=== PATIENT | female | born 1950 | race Caucasian/White ===

== ENCOUNTER 2025-04-12 13:36 | Outpatient (REF) | payer MEDICARE, SELFPAY ==
[2025-04-12 16:47] LABS: Folate 10.6 ng/mL (> or = 4.0); Vitamin B12 601 pg/mL (200-900)
[2025-04-18 03:57] LABS: ABETA 42/40 Ratio 0.177 (> OR = 0.170); Alzeheimer's Interpretation Low Likelihood; Tau protein phosphorylated 217 0.08 pg/mL (< OR = 0.15)
--- OUTSIDE RECORDS SUMMARY | 2025-05-07 19:00 | XMS_ITS | Clinical Summary ---
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 Lead Burner Name Role Phone MEGAN CHUN, MELO Unavailable Unavailable GERONIMO TRACEY, TIFFANY Unavailable Unavailable Payers Payer Name Policy Type Policy Number Effective Date Expira tion Date [employer] [id number] MEDICARE - [facility] [id number] Problems Condition Name Condition Details Condition Category Status Onset Date Resolution Date Last Treatment Date Treating Clinician Comments DELUSIONAL DISORDERS Active 07-08 00:00: 00 ESSENTIAL (PRIMARY) HYPERTENSION Active 07-23 00:00: 00 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 07-23 00:00: 00 Allergies, Adverse Reactions, Alerts Allergy Name Allergy Type Status Severity Reaction(s) Onset Date Inactive Date Treating Clinician Comments IODINATED CONTRAST MEDIA Propensity to adverse reactions Active 07-19 08:31: 55 SULFA MEDS Propensity to adverse reactions Active 07-18 06:18: 45 ENVIRONMENTA L ALLERGIES Propensity to adverse reactions Active 07-18 06:16: 50 CONTRAST MEDIA Propensity to adverse reactions Active 07-18 06:17: 31 ASPIRIN RELATED MEDICATIONS Propensity to adverse reactions Active 07-18 06:17: 13 Medications Ordered Medication Name Filled Medication Name Start Date Stop Date Current Medication? Ordering Clinician Indication Dosage Frequency Signature (SIG) Comments Components cholecalcif beverley (vitamin D3) 10 mcg (400 unit) tablet 07-13 00:00: 00 03-13 23:59 :00 No [id number] 1 tablet DAILY 1 tablet DAILY (route: oral) Med Classific ation: Electroly te Balance-N utritiona l Products cyanocobala min (vit B-12) 1,000 mcg tablet 07-13 00:00: 00 2025- 06-12 23:59 :00 No [id number] 1 tablet DAILY 1 tablet DAILY (route: oral) Med Classific ation: Electroly te Balance-N utritiona l Products diltiazem ER (XR/XT) 180 mg capsule,ext ended release 24 hr, controlled 2-19 00:00: 00 03-13 23:59 :00 No [id number] 1 capsule DAILY 1 capsule DAILY (route: oral) Med Classific ation: Cardiovas cular Therapy Agents docusate sodium 100 mg capsule - 00:00: 00 03-13 23:59 :00 No [id number] 1 capsule 2 TIMES DAILY 1 capsule 2 TIMES DAILY (route: oral) Med Classific ation: Gastroint estinal Therapy Agents lisinopril 40 mg tablet - 00:00: 00 03-13 23:59 :00 No [id number] 1 tablet EVERY AM 1 tablet EVERY AM (route: oral) Med Classific ation: Cardiovas cular Therapy Agents metoprolol tartrate 25 mg tablet - 00:00: 00 03-13 23:59 :00 No [id number] 1 tablet 2 TIMES DAILY 1 tablet 2 TIMES DAILY (route: oral) Med Classific ation: Cardiovas cular Therapy Agents multivitami n with minerals tablet 07-13 00:00: 00 03-13 23:59 :00 No [id number] 1 tablet DAILY 1 tablet DAILY (route: oral) Med Classific ation: Electroly te Balance-N utroscara l Products paliperidon e ER 9 mg tablet,exte nded release 24 hr - 00:00: 00 12-01 23:59 :00 No [id number] 1 tablet BEDTIME 1 tablet BEDTIME (route: oral) Med Classific ation: Central Nervous System Agents metoprolol tartrate 25 mg tablet 6-19 00:00: 00 11-17 23:59 :00 No [id number] 1 tablet BEDTIME 1 tablet BEDTIME (route: oral) Med Classific ation: Cardiovas cular Therapy Agents benztropine 1 mg tablet -15 00:00: 00 03-13 23:59 :00 No [id number] 1 tablet EVERY PM 1 tablet EVERY PM (route: oral) Med Classific ation: Central Nervous System Agents paliperidon e ER 6 mg tablet,exte nded release 24 hr 12-01 00:00: 00 03-13 23:59 :00 No [id number] 1 tablet EVERY PM 1 tablet EVERY PM (route: oral) Med Classific ation: Central Nervous System Agents trazodone 50 mg tablet 12-01 00:00: 00 03-13 23:59 :00 No [id number] 1 tablet BEDTIME 1 tablet BEDTIME (route: oral) Med Classific ation: Central Nervous System Agents polyethylen e glycol 3350 17 gram/dose oral powder 12-21 00:00: 00 03-13 23:59 :00 No [id number] Per instruc tions DAILY Per instructio ns DAILY (route: oral) Med Classific ation: Gastroint estinal Therapy Agents benztropine 1 mg tablet 2024-05 00:00: 00 Yes [id number] 1 tablet EVERY PM 1 tablet EVERY PM (route: oral) Med Classific ation: Central Nervous System Agents cholecalcif beverley (vitamin D3) 10 mcg (400 unit) tablet 2024-05 00:00: 00 Yes [id number] 1 tablet EVERY AM 1 tablet EVERY AM (route: oral) Med Classific ation: Electroly te Balance-N utritiona l Products diltiazem ER (XR/XT) 180 mg capsule,ext ended release 24 hr, controlled 2024-05 00:00: 00 Yes [id number] 1 capsule EVERY AM 1 capsule EVERY AM (route: oral) Med Classific ation: Cardiovas cular Therapy Agents docusate sodium 100 mg capsule 2024-05 00:00: 00 Yes [id number] 1 capsule 2 TIMES DAILY 1 capsule 2 TIMES DAILY (route: oral) Med Classific ation: Gastroint estinal Therapy Agents lisinopril 40 mg tablet 2024-05 00:00: 00 Yes [id number] 1 tablet EVERY AM 1 tablet EVERY AM (route: oral) Med Classific ation: Cardiovas cular Therapy Agents metoprolol tartrate 25 mg tablet 2024-05 00:00: 00 Yes [id number] 1 tablet 2 TIMES DAILY 1 tablet 2 TIMES DAILY (route: oral) Med Classific ation: Cardiovas cular Therapy Agents multivitami n with minerals tablet 2024-05 00:00: 00 Yes [id number] 1 tablet EVERY AM 1 tablet EVERY AM (route: oral) Med Classific ation: Electroly te Balance-N utritiona l Products paliperidon e ER 6 mg tablet,exte nded release 24 hr 2024-05 00:00: 00 Yes [id number] 1 tablet EVERY PM 1 tablet EVERY PM (route: oral) Med Classific ation: Central Nervous System Agents polyethylen e glycol 3350 17 gram/dose oral powder 2024-05 00:00: 00 Yes [id number] Per instruc tions NEEDED Per instructio ns NEEDED (route: oral) Med Classific ation: Gastroint estinal Therapy Agents trazodone 50 mg tablet 2024-05 00:00: 00 Yes [id number] 1 tablet BEDTIME 1 tablet BEDTIME (route: oral) Med Classific ation: Central Nervous System Agents Vital Signs Vital Name Observation Time Observation Value Commen ts Temperature 2025-04-10 11:50:00.000 98.2 [degF] Temperature 2025-03-31 11:53:00.000 97.9 [degF] Temperature 2025-03-27 12:00:00.000 97.8 [degF] Temperature 2025-03-17 11:55:00.000 97.9 [degF] Temperature 2025-03-15 12:42:00.000 97.9 [degF] Temperature 2025-03-10 10:55:00.000 98.2 [degF] Pulse 2025-04-10 11:50:00.000 61 /min Pulse 2025-04-07 11:23:00.000 61 /min Pulse 2025-04-05 12:42:00.000 58 /min Pulse 2025-03-31 11:53:00.000 65 /min Pulse 2025-03-29 12:30:00.000 64 /min Pulse 2025-03-27 12:00:00.000 64 /min Pulse 2025-03-22 11:39:00.000 56 /min Pulse 2025-03-20 12:31:00.000 60 /min Pulse 2025-03-17 11:55:00.000 59 /min Pulse 2025-03-13 13:22:00.000 60 /min O2 Saturation (%) 2025-03-20 12:31:00.000 96 % Respirations 2025-04-07 11:23:00.000 14 /min Respirations 2025-03-31 11:53:00.000 16 /min Respirations 2025-03-27 12:00:00.000 14 /min Respirations 2025-03-22 11:39:00.000 14 /min Respirations 2025-03-15 12:42:00.000 14 /min Respirations 2025-03-13 13:22:00.000 14 /min Respirations 2025-03-10 10:55:00.000 14 /min Systolic Blood Pressure 2025-04-10 11:50:00.000 135 mm [Hg] Systolic Blood Pressure 2025-04-07 11:23:00.000 155 mm [Hg] Systolic Blood Pressure 2025-04-05 12:42:00.000 125 mm [Hg] Systolic Blood Pressure 2025-03-31 11:53:00.000 84 mm[ Hg] Systolic Blood Pressure 2025-03-29 12:30:00.000 120 mm [Hg] Systolic Blood Pressure 2025-03-27 12:00:00.000 127 mm [Hg] Systolic Blood Pressure 2025-03-22 11:39:00.000 129 mm [Hg] Systolic Blood Pressure 2025-03-20 12:31:00.000 100 mm [Hg] Systolic Blood Pressure 2025-03-17 11:55:00.000 120 mm [Hg] Systolic Blood Pressure 2025-03-15 12:42:00.000 98 mm[ Hg] Systolic Blood Pressure 2025-03-13 13:22:00.000 105 mm [Hg] Systolic Blood Pressure 2025-03-10 10:58:00.000 126 mm [Hg] Diastolic Blood Pressure 2025-04-10 11:50:00.000 70 mm [Hg] Diastolic Blood Pressure 2025-04-07 11:23:00.000 79 mm [Hg] Diastolic Blood Pressure 2025-04-05 12:42:00.000 73 mm [Hg] Diastolic Blood Pressure 2025-03-31 11:53:00.000 52 mm [Hg] Diastolic Blood Pressure 2025-03-29 12:30:00.000 74 mm [Hg] Diastolic Blood Pressure 2025-03-27 12:00:00.000 72 mm [Hg] Diastolic Blood Pressure 2025-03-22 11:39:00.000 70 mm [Hg] Diastolic Blood Pressure 2025-03-20 12:31:00.000 61 mm [Hg] Diastolic Blood Pressure 2025-03-17 11:55:00.000 66 mm [Hg] Diastolic Blood Pressure 2025-03-15 12:42:00.000 59 mm [Hg] Diastolic Blood Pressure 2025-03-13 13:22:00.000 64 mm [Hg] Diastolic Blood Pressure 2025-03-10 10:58:00.000 72 mm [Hg] Plan of Treatment Planned Activity Planned Date Details Comments Future Scheduled Test SKILLED NU RSE TO EVALUATE PATIENT, IDENTIFY PRIMARY AND CO-MORBID CONDITIONS CODED PER CODING GUIDELINES, AND DEVELOP PATIENT SPECIFIC PLAN OF CARE THAT INCLUDES PATIENT GOAL FOR HOME HEALTH. [code = SKILLED NURSE TO EVALUATE PATIENT, IDENTIFY PRIMARY AND CO-MORBID CONDITIONS CODED PER CODING GUIDELINES, AND DEVELOP PATIENT SPECIFIC PLAN OF CARE THAT INCLUDES PATIENT GOAL FOR HOME HEALTH.] Future Scheduled Test SKILLED NU RSE TO PERFORM HOME SAFETY AND FALL ASSESSMENT AND PROVIDE INSTRUCTION TO IMPLEMENT HOME SAFETY AND FALL PREVENTION STRATEGIES. [code = SKILLED NURSE TO PERFORM HOME SAFETY AND FALL ASSESSMENT AND PROVIDE INSTRUCTION TO IMPLEMENT HOME SAFETY AND FALL PREVENTION STRATEGIES.] Future Scheduled Test SKILLED NU RSE TO O/A OF PATIENTS MENTAL/BEHAVIORAL STATUS, ASSESS VITAL SIGNS ALLOW 2 PRNS FOR MEDICATION MANAGEMENT. [code = SKILLED NURSE TO O/A OF PATIENTS MENTAL/BEHAVIORAL STATUS, ASSESS VITAL SIGNS ALLOW 2 PRNS FOR MEDICATION MANAGEMENT.] Future Scheduled Test SKILLED NU RSE WILL MAINTAIN SITUATIONAL AWARENESS FOR SAFETY AND WILL NOTIFY CLINICAL LEDGE MAN AND PHYSICIAN/PROVIDER WITH ANY CHANGE IN CONDITION. [code = SKILLED NURSE WILL MAINTAIN SITUATIONAL AWARENESS FOR SAFETY AND WILL NOTIFY CLINICAL LEDGE MAN AND PHYSICIAN/PROVIDER WITH ANY CHANGE IN CONDITION.] Future Scheduled Test SKILLED NU RSE FOR O/A OF GENERAL HEALTH STATUS OF PAIN, CARDIAC, RESPIRATORY, GASTROINTESTINAL, GENITOURINARY, SKIN, NEUROLOGIC, ENDOCRINE SYSTEMS TO IDENTIFY CHANGES ASSOCIATED WITH EXACERBATION FOR EARLY INTERVENTION OF COMPLICATIONS [code = SKILLED NURSE FOR O/A OF GENERAL HEALTH STATUS OF PAIN, CARDIAC, RESPIRATORY, GASTROINTESTINAL, GENITOURINARY, SKIN, NEUROLOGIC, ENDOCRINE SYSTEMS TO IDENTIFY CHANGES ASSOCIATED WITH EXACERBATION FOR EARLY INTERVENTION OF COMPLICATIONS] Future Scheduled Test SKILLED NU RSE TO REVIEW PATIENT MEDICATIONS. INSTRUCT PATIENT/CAREGIVER ON MONITORING OF EFFECTIVENESS, ADVERSE DRUG REACTIONS, SIDE EFFECTS OF ALL MEDICATIONS (PRESCRIPTION/-OTC), AND HOW AND WHEN TO REPORT PROBLEMS. [code = SKILLED NURSE TO REVIEW PATIENT MEDICATIONS. INSTRUCT PATIENT/CAREGIVER ON MONITORING OF EFFECTIVENESS, ADVERSE DRUG REACTIONS, SIDE EFFECTS OF ALL MEDICATIONS (PRESCRIPTION/-OTC), AND HOW AND WHEN TO REPORT PROBLEMS.] Future Scheduled Test SKILLED NU RSE FOR O/A OF ALTERED THOUGHT PROCESS AND/OR DISRUPTION IN COGNITIVE OPERATIONS AND ACTIVITIES [code = SKILLED NURSE FOR O/A OF ALTERED THOUGHT PROCESS AND/OR DISRUPTION IN COGNITIVE OPERATIONS AND ACTIVITIES] Future Scheduled Test SKILLED NU RSE TO PROVIDE TEACHING ON SIGNS AND SYMPTOMS AND MANAGEMENT OF HYPERTENSION. [code = SKILLED NURSE TO PROVIDE TEACHING ON SIGNS AND SYMPTOMS AND MANAGEMENT OF HYPERTENSION.] Goal 2024-09-07 Patient Goal - MEDICATION MA NAGEMENT Goal 2024-11-07 Patient Goal - MEDICATION MA NAGEMENT Goal 2025-01-04 Patient Goal - M EDICATION MANAGEMENT INSOMNIA, SLEEP HYGEINE MEDICATION COMPLIANCE, STRU CTURED DAILY LIVING Goal 2025-03-06 Patient Goal - M EDICATION MANAGEMENT, IMPROVED SLEEP PATTERN MEDICATION COMPLIANCE STRUCTURED DAILY LIVING Goal Patient Goal - M EDICATION MANAGEMENT, IMPROVED SLEEP PATTERN MEDICATION COMPLIANCE STRUCTURED DAILY LIVING Goal Provider Goal - A PLAN OF CARE WILL BE ESTABLISHED THAT MEETS PATIENT'S SENIOR CARE NEEDS AND INCLUDES PATIENT GOAL FOR HOME HEALTH. Goal Provider Goal - PATIENT/CAREGIVER WILL VERBALIZE/DEMONSTRATE EFFECTIVE HOME SAFETY AND FALL PREVENTION STRATEGIES THROUGHOUT CERTIFICATION PERIOD. Goal Provider Goal - ALTERED MENTAL/BEHAVIORAL STATUS WILL BE IDENTIFIED PROMPTLY AND INTERVENTION INITIATED QUICKLY TO MINIMIZE ASSOCIATED RISKS THROUGHOUT CERTIFICATION PERIOD. Goal Provider Goal - PATIENT WILL REMAIN SAFE IN THE COMMUNITY AND WILL BE FREE OF DANGER TO SELF AND OTHERS THROUGHOUT THE CERTIFICATION PERIOD. Goal Provider Goal - CHANGE IN GENERAL HEALTH STATUS WILL BE IDENTIFIED AND REPORTED TO PHYSICIAN FOR PROMPT INTERVENTION TO MINIMIZE ASSOCIATED RISKS THROUGHOUT CERTIFICATION PERIOD. Goal Provider Goal - PATIENT/CAREGIVER WILL VERBALIZE UNDERSTANDING OF EDUCATION PROVIDED ON MEDICATIONS BY THE END OF THE CERTIFICATION PERIOD. Goal Provider Goal - PATIENT WILL BE ABLE TO PERFORM DAILY FUNCTIONS AND HAVE OPTIMAL IMPROVEMENT IN THOUGHT PROCESS THROUGHOUT CERTIFICATION PERIOD. Goal Provider Goal - PATIENT/CAREGIVER WILL VERBALIZE SIGNS AND SYMPTOMS OF HYPERTENSION AND WILL BE ABLE TO DEMONSTRATE ABILITY TO MANAGE EXACERBATION BY END OF THE EPISODE. Progress Notes Progress Notes <paragraph>[Visit Date: 2024 by TIFFANY MELTON RN]:</paragraph><paragraph>04/10/25 MOOD DEPRESSED, IRRITABLE. INTERMITTENT EYE CONTACT. SOME MUMBLING. DELUSIONAL THOUGHT CONT[employer] ARE HURTING OTHER PEOPLE . PT CONTINUES TO HAVE INTERRUPTED SLEEP. PATTERN. PROVIDERS AWARE. DENIES SI. PT HAS NEUROLOGY APPT ON THURSDAY,</paragraph> Encounters Start Date/Time End Date/Time Encounter Type Admission Type Attending Clinicians Care Facility Care Department Encounter ID Discharge Date Discharge Status Discharge Condition Discharge Reason Percent Goals Met 2025-03-10 00:00:00 2025-05-08 00:00:00 Outpatient RECERTIFIC ATION TIFFANY MELTON [facility] [id number] 29.41
--- OUTSIDE RECORDS SUMMARY | 2025-05-07 19:00 | XMS_ITS | Clinical Summary ---
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 Lithoplate Maker Name Role Phone MEGAN CHUN, MELO Unavailable Unavailable GERONIMO TRACEY, TIFFANY Unavailable Unavailable Payers Payer Name Policy Type Policy Number Effective Date Expira tion Date [employer] ADVANTAGE [id number] MEDICARE - [facility] [id number] Problems Condition Name Condition Details Condition Category [...] 07-13 00:00: 00 03-13 23:59 :00 No [id number] 1 tablet DAILY 1 tablet DAILY (route: oral) Med Classific ation: Electroly te Balance-N utritiona l Products cyanocobala min (vit B-12) 1,000 mcg tablet 07-13 00:00: 00 2025- 06-12 23:59 :00 No [id number] 1 tablet DAILY 1 tablet DAILY (route: oral) Med Classific ation: Electroly te Balance-N utritiona l Products diltiazem ER (XR/XT) 180 mg capsule,ext ended release 24 hr, controlled 2-19 00:00: 00 03-13 23:59 :00 No [id number] 1 capsule DAILY 1 capsule DAILY (route: oral) Med Classific ation: Cardiovas cular Therapy Agents docusate sodium 100 mg capsule - 00:00: 00 03-13 23:59 :00 No [id number] 1 capsule 2 TIMES DAILY 1 capsule 2 TIMES DAILY (route: oral) Med Classific ation: Gastroint estinal Therapy Agents lisinopril 40 mg tablet - 00:00: 00 03-13 23:59 :00 No [id number] 1 tablet EVERY AM 1 tablet EVERY AM (route: oral) Med Classific ation: Cardiovas cular Therapy Agents metoprolol tartrate 25 mg tablet - 00:00: 00 03-13 23:59 :00 No [id number] 1 tablet 2 TIMES DAILY 1 tablet 2 TIMES DAILY (route: oral) Med Classific ation: Cardiovas cular Therapy Agents multivitami n with minerals tablet 07-13 00:00: 00 03-13 23:59 :00 No [id number] 1 tablet DAILY 1 tablet DAILY (route: oral) Med Classific ation: Electroly te Balance-N utroscara l Products paliperidon e ER 9 mg tablet,exte nded release 24 hr - 00:00: 00 12-01 23:59 :00 No [id number] 1 tablet BEDTIME 1 tablet BEDTIME (route: oral) Med Classific ation: Central Nervous System Agents metoprolol tartrate 25 mg tablet 6-19 00:00: 00 11-17 23:59 :00 No [id number] 1 tablet BEDTIME 1 tablet BEDTIME (route: oral) Med Classific ation: Cardiovas cular Therapy Agents benztropine 1 mg tablet -15 00:00: 00 03-13 23:59 :00 No [id number] 1 tablet EVERY PM 1 tablet EVERY PM (route: oral) Med Classific ation: Central Nervous System Agents paliperidon e ER 6 mg tablet,exte nded release 24 hr 12-01 00:00: 00 03-13 23:59 :00 No [id number] 1 tablet EVERY PM 1 tablet EVERY PM (route: oral) Med Classific ation: Central Nervous System Agents trazodone 50 mg tablet 12-01 00:00: 00 03-13 23:59 :00 No [id number] 1 tablet BEDTIME 1 tablet BEDTIME (route: oral) Med Classific ation: Central Nervous System Agents polyethylen e glycol 3350 17 gram/dose oral powder 12-21 00:00: 00 03-13 23:59 :00 No [id number] Per instruc tions DAILY Per instructio ns DAILY (route: oral) Med Classific ation: Gastroint estinal Therapy Agents benztropine 1 mg tablet 2024-05 00:00: 00 Yes [id number] 1 tablet EVERY PM 1 tablet EVERY PM (route: oral) Med Classific ation: Central Nervous System Agents cholecalcif beverley (vitamin D3) 10 mcg (400 unit) tablet 2024-05 00:00: 00 Yes [id number] 1 tablet EVERY AM 1 tablet EVERY AM (route: oral) Med Classific ation: Electroly te Balance-N utritiona l Products diltiazem ER (XR/XT) 180 mg capsule,ext ended release 24 hr, controlled 2024-05 00:00: 00 Yes [id number] 1 capsule EVERY AM 1 capsule EVERY AM (route: oral) Med Classific ation: Cardiovas cular Therapy Agents docusate sodium 100 mg capsule 2024-05 00:00: 00 Yes [id number] 1 capsule 2 TIMES DAILY 1 capsule 2 TIMES DAILY (route: oral) Med Classific ation: Gastroint estinal Therapy Agents lisinopril 40 mg tablet 2024-05 00:00: 00 Yes [id number] 1 tablet EVERY AM 1 tablet EVERY AM (route: oral) Med Classific ation: Cardiovas cular Therapy Agents metoprolol tartrate 25 mg tablet 2024-05 00:00: 00 Yes [id number] 1 tablet 2 TIMES DAILY 1 tablet 2 TIMES DAILY (route: oral) Med Classific ation: Cardiovas cular Therapy Agents multivitami n with minerals tablet 2024-05 00:00: 00 Yes [id number] 1 tablet EVERY AM 1 tablet EVERY AM (route: oral) Med Classific ation: Electroly te Balance-N utritiona l Products paliperidon e ER 6 mg tablet,exte nded release 24 hr 2024-05 00:00: 00 Yes [id number] 1 tablet EVERY PM 1 tablet EVERY PM (route: oral) Med Classific ation: Central Nervous System Agents polyethylen e glycol 3350 17 gram/dose oral powder 2024-05 00:00: 00 Yes [id number] Per instruc tions NEEDED Per instructio ns NEEDED (route: oral) Med Classific ation: Gastroint estinal Therapy Agents trazodone 50 mg tablet 2024-05 00:00: 00 Yes [id number] 1 tablet BEDTIME 1 tablet BEDTIME (route: [...] AWARENESS FOR SAFETY AND WILL NOTIFY CLINICAL DIRECTOR ACUTE AND PHYSICIAN/PROVIDER WITH ANY CHANGE IN CONDITION. [code = SKILLED NURSE WILL MAINTAIN SITUATIONAL AWARENESS FOR SAFETY AND WILL NOTIFY CLINICAL DIRECTOR ACUTE AND PHYSICIAN/PROVIDER WITH ANY CHANGE IN CONDITION.] [...] CARE WILL BE ESTABLISHED THAT MEETS PATIENT'S FDC NEEDS AND INCLUDES PATIENT GOAL FOR HOME [...] 2025-05-08 00:00:00 Outpatient RECERTIFIC ATION TIFFANY MELTON [facility] [id number] 29.41
--- OUTSIDE RECORDS SUMMARY | 2025-05-07 19:00 | XMS_ITS | Clinical Summary ---
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 Telecommunications Sales Representative Name Role Phone MEGAN CHUN, MELO Unavailable Unavailable GERONIMO TRACEY, TIFFANY Unavailable Unavailable Payers Payer Name Policy Type Policy Number Effective Date Expira tion Date [employer] [id number] MEDICARE - [facility] [id number] Problems Condition Name Condition Details Condition Category [...] 07-13 00:00: 00 03-13 23:59 :00 No [id number] 1 tablet DAILY 1 tablet DAILY (route: oral) Med Classific ation: Electroly te Balance-N utritiona l Products cyanocobala min (vit B-12) 1,000 mcg tablet 07-13 00:00: 00 2025- 06-12 23:59 :00 No [id number] 1 tablet DAILY 1 tablet DAILY (route: oral) Med Classific ation: Electroly te Balance-N utritiona l Products diltiazem ER (XR/XT) 180 mg capsule,ext ended release 24 hr, controlled 2-19 00:00: 00 03-13 23:59 :00 No [id number] 1 capsule DAILY 1 capsule DAILY (route: oral) Med Classific ation: Cardiovas cular Therapy Agents docusate sodium 100 mg capsule - 00:00: 00 03-13 23:59 :00 No [id number] 1 capsule 2 TIMES DAILY 1 capsule 2 TIMES DAILY (route: oral) Med Classific ation: Gastroint estinal Therapy Agents lisinopril 40 mg tablet - 00:00: 00 03-13 23:59 :00 No [id number] 1 tablet EVERY AM 1 tablet EVERY AM (route: oral) Med Classific ation: Cardiovas cular Therapy Agents metoprolol tartrate 25 mg tablet - 00:00: 00 03-13 23:59 :00 No [id number] 1 tablet 2 TIMES DAILY 1 tablet 2 TIMES DAILY (route: oral) Med Classific ation: Cardiovas cular Therapy Agents multivitami n with minerals tablet 07-13 00:00: 00 03-13 23:59 :00 No [id number] 1 tablet DAILY 1 tablet DAILY (route: oral) Med Classific ation: Electroly te Balance-N utroscara l Products paliperidon e ER 9 mg tablet,exte nded release 24 hr - 00:00: 00 12-01 23:59 :00 No [id number] 1 tablet BEDTIME 1 tablet BEDTIME (route: oral) Med Classific ation: Central Nervous System Agents metoprolol tartrate 25 mg tablet 6-19 00:00: 00 11-17 23:59 :00 No [id number] 1 tablet BEDTIME 1 tablet BEDTIME (route: oral) Med Classific ation: Cardiovas cular Therapy Agents benztropine 1 mg tablet -15 00:00: 00 03-13 23:59 :00 No [id number] 1 tablet EVERY PM 1 tablet EVERY PM (route: oral) Med Classific ation: Central Nervous System Agents paliperidon e ER 6 mg tablet,exte nded release 24 hr 12-01 00:00: 00 03-13 23:59 :00 No [id number] 1 tablet EVERY PM 1 tablet EVERY PM (route: oral) Med Classific ation: Central Nervous System Agents trazodone 50 mg tablet 12-01 00:00: 00 03-13 23:59 :00 No [id number] 1 tablet BEDTIME 1 tablet BEDTIME (route: oral) Med Classific ation: Central Nervous System Agents polyethylen e glycol 3350 17 gram/dose oral powder 12-21 00:00: 00 03-13 23:59 :00 No [id number] Per instruc tions DAILY Per instructio ns DAILY (route: oral) Med Classific ation: Gastroint estinal Therapy Agents benztropine 1 mg tablet 2024-05 00:00: 00 Yes [id number] 1 tablet EVERY PM 1 tablet EVERY PM (route: oral) Med Classific ation: Central Nervous System Agents cholecalcif beverley (vitamin D3) 10 mcg (400 unit) tablet 2024-05 00:00: 00 Yes [id number] 1 tablet EVERY AM 1 tablet EVERY AM (route: oral) Med Classific ation: Electroly te Balance-N utritiona l Products diltiazem ER (XR/XT) 180 mg capsule,ext ended release 24 hr, controlled 2024-05 00:00: 00 Yes [id number] 1 capsule EVERY AM 1 capsule EVERY AM (route: oral) Med Classific ation: Cardiovas cular Therapy Agents docusate sodium 100 mg capsule 2024-05 00:00: 00 Yes [id number] 1 capsule 2 TIMES DAILY 1 capsule 2 TIMES DAILY (route: oral) Med Classific ation: Gastroint estinal Therapy Agents lisinopril 40 mg tablet 2024-05 00:00: 00 Yes [id number] 1 tablet EVERY AM 1 tablet EVERY AM (route: oral) Med Classific ation: Cardiovas cular Therapy Agents metoprolol tartrate 25 mg tablet 2024-05 00:00: 00 Yes [id number] 1 tablet 2 TIMES DAILY 1 tablet 2 TIMES DAILY (route: oral) Med Classific ation: Cardiovas cular Therapy Agents multivitami n with minerals tablet 2024-05 00:00: 00 Yes [id number] 1 tablet EVERY AM 1 tablet EVERY AM (route: oral) Med Classific ation: Electroly te Balance-N utritiona l Products paliperidon e ER 6 mg tablet,exte nded release 24 hr 2024-05 00:00: 00 Yes [id number] 1 tablet EVERY PM 1 tablet EVERY PM (route: oral) Med Classific ation: Central Nervous System Agents polyethylen e glycol 3350 17 gram/dose oral powder 2024-05 00:00: 00 Yes [id number] Per instruc tions NEEDED Per instructio ns NEEDED (route: oral) Med Classific ation: Gastroint estinal Therapy Agents trazodone 50 mg tablet 2024-05 00:00: 00 Yes [id number] 1 tablet BEDTIME 1 tablet BEDTIME (route: [...] AWARENESS FOR SAFETY AND WILL NOTIFY CLINICAL BARBER STYLIST AND PHYSICIAN/PROVIDER WITH ANY CHANGE IN CONDITION. [code = SKILLED NURSE WILL MAINTAIN SITUATIONAL AWARENESS FOR SAFETY AND WILL NOTIFY CLINICAL BARBER STYLIST AND PHYSICIAN/PROVIDER WITH ANY CHANGE IN CONDITION.] [...] CARE WILL BE ESTABLISHED THAT MEETS PATIENT'S CUSTODIAL NEEDS AND INCLUDES PATIENT GOAL FOR HOME [...] Outpatient RECERTIFIC ATION TIFFANY MELTON [facility] [id number] 29.41
--- OUTSIDE RECORDS SUMMARY | 2025-05-07 19:00 | XMS_ITS | Clinical Summary ---
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 Director Of Compensation Name Role Phone MEGAN CHUN, MELO Unavailable Unavailable GERONIMO TRACEY, TIFFANY Unavailable Unavailable Payers Payer Name Policy Type Policy Number Effective Date Expira tion Date [employer] [id number] MEDICARE - [facility] [id number] Problems Condition Name Condition Details Condition Category [...] 07-13 00:00: 00 03-13 23:59 :00 No [id number] 1 tablet DAILY 1 tablet DAILY (route: oral) Med Classific ation: Electroly te Balance-N utritiona l Products cyanocobala min (vit B-12) 1,000 mcg tablet 07-13 00:00: 00 2025- 06-12 23:59 :00 No [id number] 1 tablet DAILY 1 tablet DAILY (route: oral) Med Classific ation: Electroly te Balance-N utritiona l Products diltiazem ER (XR/XT) 180 mg capsule,ext ended release 24 hr, controlled 2-19 00:00: 00 03-13 23:59 :00 No [id number] 1 capsule DAILY 1 capsule DAILY (route: oral) Med Classific ation: Cardiovas cular Therapy Agents docusate sodium 100 mg capsule - 00:00: 00 03-13 23:59 :00 No [id number] 1 capsule 2 TIMES DAILY 1 capsule 2 TIMES DAILY (route: oral) Med Classific ation: Gastroint estinal Therapy Agents lisinopril 40 mg tablet - 00:00: 00 03-13 23:59 :00 No [id number] 1 tablet EVERY AM 1 tablet EVERY AM (route: oral) Med Classific ation: Cardiovas cular Therapy Agents metoprolol tartrate 25 mg tablet - 00:00: 00 03-13 23:59 :00 No [id number] 1 tablet 2 TIMES DAILY 1 tablet 2 TIMES DAILY (route: oral) Med Classific ation: Cardiovas cular Therapy Agents multivitami n with minerals tablet 07-13 00:00: 00 03-13 23:59 :00 No [id number] 1 tablet DAILY 1 tablet DAILY (route: oral) Med Classific ation: Electroly te Balance-N utroscara l Products paliperidon e ER 9 mg tablet,exte nded release 24 hr - 00:00: 00 12-01 23:59 :00 No [id number] 1 tablet BEDTIME 1 tablet BEDTIME (route: oral) Med Classific ation: Central Nervous System Agents metoprolol tartrate 25 mg tablet 6-19 00:00: 00 11-17 23:59 :00 No [id number] 1 tablet BEDTIME 1 tablet BEDTIME (route: oral) Med Classific ation: Cardiovas cular Therapy Agents benztropine 1 mg tablet -15 00:00: 00 03-13 23:59 :00 No [id number] 1 tablet EVERY PM 1 tablet EVERY PM (route: oral) Med Classific ation: Central Nervous System Agents paliperidon e ER 6 mg tablet,exte nded release 24 hr 12-01 00:00: 00 03-13 23:59 :00 No [id number] 1 tablet EVERY PM 1 tablet EVERY PM (route: oral) Med Classific ation: Central Nervous System Agents trazodone 50 mg tablet 12-01 00:00: 00 03-13 23:59 :00 No [id number] 1 tablet BEDTIME 1 tablet BEDTIME (route: oral) Med Classific ation: Central Nervous System Agents polyethylen e glycol 3350 17 gram/dose oral powder 12-21 00:00: 00 03-13 23:59 :00 No [id number] Per instruc tions DAILY Per instructio ns DAILY (route: oral) Med Classific ation: Gastroint estinal Therapy Agents benztropine 1 mg tablet 2024-05 00:00: 00 Yes [id number] 1 tablet EVERY PM 1 tablet EVERY PM (route: oral) Med Classific ation: Central Nervous System Agents cholecalcif beverley (vitamin D3) 10 mcg (400 unit) tablet 2024-05 00:00: 00 Yes [id number] 1 tablet EVERY AM 1 tablet EVERY AM (route: oral) Med Classific ation: Electroly te Balance-N utritiona l Products diltiazem ER (XR/XT) 180 mg capsule,ext ended release 24 hr, controlled 2024-05 00:00: 00 Yes [id number] 1 capsule EVERY AM 1 capsule EVERY AM (route: oral) Med Classific ation: Cardiovas cular Therapy Agents docusate sodium 100 mg capsule 2024-05 00:00: 00 Yes [id number] 1 capsule 2 TIMES DAILY 1 capsule 2 TIMES DAILY (route: oral) Med Classific ation: Gastroint estinal Therapy Agents lisinopril 40 mg tablet 2024-05 00:00: 00 Yes [id number] 1 tablet EVERY AM 1 tablet EVERY AM (route: oral) Med Classific ation: Cardiovas cular Therapy Agents metoprolol tartrate 25 mg tablet 2024-05 00:00: 00 Yes [id number] 1 tablet 2 TIMES DAILY 1 tablet 2 TIMES DAILY (route: oral) Med Classific ation: Cardiovas cular Therapy Agents multivitami n with minerals tablet 2024-05 00:00: 00 Yes [id number] 1 tablet EVERY AM 1 tablet EVERY AM (route: oral) Med Classific ation: Electroly te Balance-N utritiona l Products paliperidon e ER 6 mg tablet,exte nded release 24 hr 2024-05 00:00: 00 Yes [id number] 1 tablet EVERY PM 1 tablet EVERY PM (route: oral) Med Classific ation: Central Nervous System Agents polyethylen e glycol 3350 17 gram/dose oral powder 2024-05 00:00: 00 Yes [id number] Per instruc tions NEEDED Per instructio ns NEEDED (route: oral) Med Classific ation: Gastroint estinal Therapy Agents trazodone 50 mg tablet 2024-05 00:00: 00 Yes [id number] 1 tablet BEDTIME 1 tablet BEDTIME (route: [...] AWARENESS FOR SAFETY AND WILL NOTIFY CLINICAL GRAPHIC DESIGN INTERN AND PHYSICIAN/PROVIDER WITH ANY CHANGE IN CONDITION. [code = SKILLED NURSE WILL MAINTAIN SITUATIONAL AWARENESS FOR SAFETY AND WILL NOTIFY CLINICAL GRAPHIC DESIGN INTERN AND PHYSICIAN/PROVIDER WITH ANY CHANGE IN CONDITION.] [...] WILL BE ESTABLISHED THAT MEETS PATIENT'S SENIOR LIVING NEEDS AND INCLUDES PATIENT GOAL FOR HOME [...] ATION TIFFANY MELTON [facility] [id number] 29.41
--- OUTSIDE RECORDS SUMMARY | 2025-05-07 19:00 | XMS_ITS | Clinical Summary ---
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 Bindery Operator Name Role Phone MEGAN CHUN, MELO Unavailable Unavailable GERONIMO TRACEY, TIFFANY Unavailable Unavailable Payers Payer Name Policy Type Policy Number Effective Date Expira tion Date [employer] [id number] MEDICARE - [facility] [id number] Problems Condition Name Condition Details Condition Category [...] 07-13 00:00: 00 03-13 23:59 :00 No [id number] 1 tablet DAILY 1 tablet DAILY (route: oral) Med Classific ation: Electroly te Balance-N utritiona l Products cyanocobala min (vit B-12) 1,000 mcg tablet 07-13 00:00: 00 2025- 06-12 23:59 :00 No [id number] 1 tablet DAILY 1 tablet DAILY (route: oral) Med Classific ation: Electroly te Balance-N utritiona l Products diltiazem ER (XR/XT) 180 mg capsule,ext ended release 24 hr, controlled 2-19 00:00: 00 03-13 23:59 :00 No [id number] 1 capsule DAILY 1 capsule DAILY (route: oral) Med Classific ation: Cardiovas cular Therapy Agents docusate sodium 100 mg capsule - 00:00: 00 03-13 23:59 :00 No [id number] 1 capsule 2 TIMES DAILY 1 capsule 2 TIMES DAILY (route: oral) Med Classific ation: Gastroint estinal Therapy Agents lisinopril 40 mg tablet - 00:00: 00 03-13 23:59 :00 No [id number] 1 tablet EVERY AM 1 tablet EVERY AM (route: oral) Med Classific ation: Cardiovas cular Therapy Agents metoprolol tartrate 25 mg tablet - 00:00: 00 03-13 23:59 :00 No [id number] 1 tablet 2 TIMES DAILY 1 tablet 2 TIMES DAILY (route: oral) Med Classific ation: Cardiovas cular Therapy Agents multivitami n with minerals tablet 07-13 00:00: 00 03-13 23:59 :00 No [id number] 1 tablet DAILY 1 tablet DAILY (route: oral) Med Classific ation: Electroly te Balance-N utroscara l Products paliperidon e ER 9 mg tablet,exte nded release 24 hr - 00:00: 00 12-01 23:59 :00 No [id number] 1 tablet BEDTIME 1 tablet BEDTIME (route: oral) Med Classific ation: Central Nervous System Agents metoprolol tartrate 25 mg tablet 6-19 00:00: 00 11-17 23:59 :00 No [id number] 1 tablet BEDTIME 1 tablet BEDTIME (route: oral) Med Classific ation: Cardiovas cular Therapy Agents benztropine 1 mg tablet -15 00:00: 00 03-13 23:59 :00 No [id number] 1 tablet EVERY PM 1 tablet EVERY PM (route: oral) Med Classific ation: Central Nervous System Agents paliperidon e ER 6 mg tablet,exte nded release 24 hr 12-01 00:00: 00 03-13 23:59 :00 No [id number] 1 tablet EVERY PM 1 tablet EVERY PM (route: oral) Med Classific ation: Central Nervous System Agents trazodone 50 mg tablet 12-01 00:00: 00 03-13 23:59 :00 No [id number] 1 tablet BEDTIME 1 tablet BEDTIME (route: oral) Med Classific ation: Central Nervous System Agents polyethylen e glycol 3350 17 gram/dose oral powder 12-21 00:00: 00 03-13 23:59 :00 No [id number] Per instruc tions DAILY Per instructio ns DAILY (route: oral) Med Classific ation: Gastroint estinal Therapy Agents benztropine 1 mg tablet 2024-05 00:00: 00 Yes [id number] 1 tablet EVERY PM 1 tablet EVERY PM (route: oral) Med Classific ation: Central Nervous System Agents cholecalcif beverley (vitamin D3) 10 mcg (400 unit) tablet 2024-05 00:00: 00 Yes [id number] 1 tablet EVERY AM 1 tablet EVERY AM (route: oral) Med Classific ation: Electroly te Balance-N utritiona l Products diltiazem ER (XR/XT) 180 mg capsule,ext ended release 24 hr, controlled 2024-05 00:00: 00 Yes [id number] 1 capsule EVERY AM 1 capsule EVERY AM (route: oral) Med Classific ation: Cardiovas cular Therapy Agents docusate sodium 100 mg capsule 2024-05 00:00: 00 Yes [id number] 1 capsule 2 TIMES DAILY 1 capsule 2 TIMES DAILY (route: oral) Med Classific ation: Gastroint estinal Therapy Agents lisinopril 40 mg tablet 2024-05 00:00: 00 Yes [id number] 1 tablet EVERY AM 1 tablet EVERY AM (route: oral) Med Classific ation: Cardiovas cular Therapy Agents metoprolol tartrate 25 mg tablet 2024-05 00:00: 00 Yes [id number] 1 tablet 2 TIMES DAILY 1 tablet 2 TIMES DAILY (route: oral) Med Classific ation: Cardiovas cular Therapy Agents multivitami n with minerals tablet 2024-05 00:00: 00 Yes [id number] 1 tablet EVERY AM 1 tablet EVERY AM (route: oral) Med Classific ation: Electroly te Balance-N utritiona l Products paliperidon e ER 6 mg tablet,exte nded release 24 hr 2024-05 00:00: 00 Yes [id number] 1 tablet EVERY PM 1 tablet EVERY PM (route: oral) Med Classific ation: Central Nervous System Agents polyethylen e glycol 3350 17 gram/dose oral powder 2024-05 00:00: 00 Yes [id number] Per instruc tions NEEDED Per instructio ns NEEDED (route: oral) Med Classific ation: Gastroint estinal Therapy Agents trazodone 50 mg tablet 2024-05 00:00: 00 Yes [id number] 1 tablet BEDTIME 1 tablet BEDTIME (route: [...] AWARENESS FOR SAFETY AND WILL NOTIFY CLINICAL ADOBE FLEX DEVELOPER AND PHYSICIAN/PROVIDER WITH ANY CHANGE IN CONDITION. [code = SKILLED NURSE WILL MAINTAIN SITUATIONAL AWARENESS FOR SAFETY AND WILL NOTIFY CLINICAL ADOBE FLEX DEVELOPER AND PHYSICIAN/PROVIDER WITH ANY CHANGE IN CONDITION.] [...] CARE WILL BE ESTABLISHED THAT MEETS PATIENT'S FPC NEEDS AND INCLUDES PATIENT GOAL FOR HOME [...] 2025-05-08 00:00:00 Outpatient RECERTIFIC ATION TIFFANY MELTON [facility] [id number] 29.41
--- OUTSIDE RECORDS SUMMARY | 2025-05-07 19:00 | XMS_ITS | Clinical Summary ---
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 Rail Flaw Detector Operator Name Role Phone MEGAN CHUN, MELO Unavailable Unavailable GERONIMO TRACEY, TIFFANY Unavailable Unavailable Payers Payer Name Policy Type Policy Number Effective Date Expira tion Date [employer] MED[employer] ADV[employer]AGE [id number] MEDICARE - [facility] [id number] Problems Condition Name Condition Details Condition Category [...] 07-13 00:00: 00 03-13 23:59 :00 No [id number] 1 tablet DAILY 1 tablet DAILY (route: oral) Med Classific ation: Electroly te Balance-N utritiona l Products cyanocobala min (vit B-12) 1,000 mcg tablet 07-13 00:00: 00 2025- 06-12 23:59 :00 No [id number] 1 tablet DAILY 1 tablet DAILY (route: oral) Med Classific ation: Electroly te Balance-N utritiona l Products diltiazem ER (XR/XT) 180 mg capsule,ext ended release 24 hr, controlled 2-19 00:00: 00 03-13 23:59 :00 No [id number] 1 capsule DAILY 1 capsule DAILY (route: oral) Med Classific ation: Cardiovas cular Therapy Agents docusate sodium 100 mg capsule - 00:00: 00 03-13 23:59 :00 No [id number] 1 capsule 2 TIMES DAILY 1 capsule 2 TIMES DAILY (route: oral) Med Classific ation: Gastroint estinal Therapy Agents lisinopril 40 mg tablet - 00:00: 00 03-13 23:59 :00 No [id number] 1 tablet EVERY AM 1 tablet EVERY AM (route: oral) Med Classific ation: Cardiovas cular Therapy Agents metoprolol tartrate 25 mg tablet - 00:00: 00 03-13 23:59 :00 No [id number] 1 tablet 2 TIMES DAILY 1 tablet 2 TIMES DAILY (route: oral) Med Classific ation: Cardiovas cular Therapy Agents multivitami n with minerals tablet 07-13 00:00: 00 03-13 23:59 :00 No [id number] 1 tablet DAILY 1 tablet DAILY (route: oral) Med Classific ation: Electroly te Balance-N utroscraa l Products paliperidon e ER 9 mg tablet,exte nded release 24 hr - 00:00: 00 12-01 23:59 :00 No [id number] 1 tablet BEDTIME 1 tablet BEDTIME (route: oral) Med Classific ation: Central Nervous System Agents metoprolol tartrate 25 mg tablet 6-19 00:00: 00 11-17 23:59 :00 No [id number] 1 tablet BEDTIME 1 tablet BEDTIME (route: oral) Med Classific ation: Cardiovas cular Therapy Agents benztropine 1 mg tablet -15 00:00: 00 03-13 23:59 :00 No [id number] 1 tablet EVERY PM 1 tablet EVERY PM (route: oral) Med Classific ation: Central Nervous System Agents paliperidon e ER 6 mg tablet,exte nded release 24 hr 12-01 00:00: 00 03-13 23:59 :00 No [id number] 1 tablet EVERY PM 1 tablet EVERY PM (route: oral) Med Classific ation: Central Nervous System Agents trazodone 50 mg tablet 12-01 00:00: 00 03-13 23:59 :00 No [id number] 1 tablet BEDTIME 1 tablet BEDTIME (route: oral) Med Classific ation: Central Nervous System Agents polyethylen e glycol 3350 17 gram/dose oral powder 12-21 00:00: 00 03-13 23:59 :00 No [id number] Per instruc tions DAILY Per instructio ns DAILY (route: oral) Med Classific ation: Gastroint estinal Therapy Agents benztropine 1 mg tablet 2024-05 00:00: 00 Yes [id number] 1 tablet EVERY PM 1 tablet EVERY PM (route: oral) Med Classific ation: Central Nervous System Agents cholecalcif beverley (vitamin D3) 10 mcg (400 unit) tablet 2024-05 00:00: 00 Yes [id number] 1 tablet EVERY AM 1 tablet EVERY AM (route: oral) Med Classific ation: Electroly te Balance-N utritiona l Products diltiazem ER (XR/XT) 180 mg capsule,ext ended release 24 hr, controlled 2024-05 00:00: 00 Yes [id number] 1 capsule EVERY AM 1 capsule EVERY AM (route: oral) Med Classific ation: Cardiovas cular Therapy Agents docusate sodium 100 mg capsule 2024-05 00:00: 00 Yes [id number] 1 capsule 2 TIMES DAILY 1 capsule 2 TIMES DAILY (route: oral) Med Classific ation: Gastroint estinal Therapy Agents lisinopril 40 mg tablet 2024-05 00:00: 00 Yes [id number] 1 tablet EVERY AM 1 tablet EVERY AM (route: oral) Med Classific ation: Cardiovas cular Therapy Agents metoprolol tartrate 25 mg tablet 2024-05 00:00: 00 Yes [id number] 1 tablet 2 TIMES DAILY 1 tablet 2 TIMES DAILY (route: oral) Med Classific ation: Cardiovas cular Therapy Agents multivitami n with minerals tablet 2024-05 00:00: 00 Yes [id number] 1 tablet EVERY AM 1 tablet EVERY AM (route: oral) Med Classific ation: Electroly te Balance-N utritiona l Products paliperidon e ER 6 mg tablet,exte nded release 24 hr 2024-05 00:00: 00 Yes [id number] 1 tablet EVERY PM 1 tablet EVERY PM (route: oral) Med Classific ation: Central Nervous System Agents polyethylen e glycol 3350 17 gram/dose oral powder 2024-05 00:00: 00 Yes [id number] Per instruc tions NEEDED Per instructio ns NEEDED (route: oral) Med Classific ation: Gastroint estinal Therapy Agents trazodone 50 mg tablet 2024-05 00:00: 00 Yes [id number] 1 tablet BEDTIME 1 tablet BEDTIME (route: [...] AWARENESS FOR SAFETY AND WILL NOTIFY CLINICAL DEAN OF ADMISSIONS AND PHYSICIAN/PROVIDER WITH ANY CHANGE IN CONDITION. [code = SKILLED NURSE WILL MAINTAIN SITUATIONAL AWARENESS FOR SAFETY AND WILL NOTIFY CLINICAL DEAN OF ADMISSIONS AND PHYSICIAN/PROVIDER WITH ANY CHANGE IN CONDITION.] [...] CARE WILL BE ESTABLISHED THAT MEETS PATIENT'S JAIL NEEDS AND INCLUDES PATIENT GOAL FOR HOME [...] 2025-05-08 00:00:00 Outpatient RECERTIFIC ATION TIFFANY MELTON [facility] [id number] 29.41
--- OUTSIDE RECORDS SUMMARY | 2025-05-07 19:00 | XMS_ITS | Clinical Summary ---
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 Reporter Name Role Phone MEGAN CHUN, MELO Unavailable Unavailable GERONIMO TRACEY, TIFFANY Unavailable Unavailable Payers Payer Name Policy Type Policy Number Effective Date Expira tion Date [employer] [id number] MEDICARE - [facility] [id number] Problems Condition Name Condition Details Condition Category [...] 07-13 00:00: 00 03-13 23:59 :00 No [id number] 1 tablet DAILY 1 tablet DAILY (route: oral) Med Classific ation: Electroly te Balance-N utritiona l Products cyanocobala min (vit B-12) 1,000 mcg tablet 07-13 00:00: 00 2025- 06-12 23:59 :00 No [id number] 1 tablet DAILY 1 tablet DAILY (route: oral) Med Classific ation: Electroly te Balance-N utritiona l Products diltiazem ER (XR/XT) 180 mg capsule,ext ended release 24 hr, controlled 2-19 00:00: 00 03-13 23:59 :00 No [id number] 1 capsule DAILY 1 capsule DAILY (route: oral) Med Classific ation: Cardiovas cular Therapy Agents docusate sodium 100 mg capsule - 00:00: 00 03-13 23:59 :00 No [id number] 1 capsule 2 TIMES DAILY 1 capsule 2 TIMES DAILY (route: oral) Med Classific ation: Gastroint estinal Therapy Agents lisinopril 40 mg tablet - 00:00: 00 03-13 23:59 :00 No [id number] 1 tablet EVERY AM 1 tablet EVERY AM (route: oral) Med Classific ation: Cardiovas cular Therapy Agents metoprolol tartrate 25 mg tablet - 00:00: 00 03-13 23:59 :00 No [id number] 1 tablet 2 TIMES DAILY 1 tablet 2 TIMES DAILY (route: oral) Med Classific ation: Cardiovas cular Therapy Agents multivitami n with minerals tablet 07-13 00:00: 00 03-13 23:59 :00 No [id number] 1 tablet DAILY 1 tablet DAILY (route: oral) Med Classific ation: Electroly te Balance-N utroscara l Products paliperidon e ER 9 mg tablet,exte nded release 24 hr - 00:00: 00 12-01 23:59 :00 No [id number] 1 tablet BEDTIME 1 tablet BEDTIME (route: oral) Med Classific ation: Central Nervous System Agents metoprolol tartrate 25 mg tablet 6-19 00:00: 00 11-17 23:59 :00 No [id number] 1 tablet BEDTIME 1 tablet BEDTIME (route: oral) Med Classific ation: Cardiovas cular Therapy Agents benztropine 1 mg tablet -15 00:00: 00 03-13 23:59 :00 No [id number] 1 tablet EVERY PM 1 tablet EVERY PM (route: oral) Med Classific ation: Central Nervous System Agents paliperidon e ER 6 mg tablet,exte nded release 24 hr 12-01 00:00: 00 03-13 23:59 :00 No [id number] 1 tablet EVERY PM 1 tablet EVERY PM (route: oral) Med Classific ation: Central Nervous System Agents trazodone 50 mg tablet 12-01 00:00: 00 03-13 23:59 :00 No [id number] 1 tablet BEDTIME 1 tablet BEDTIME (route: oral) Med Classific ation: Central Nervous System Agents polyethylen e glycol 3350 17 gram/dose oral powder 12-21 00:00: 00 03-13 23:59 :00 No [id number] Per instruc tions DAILY Per instructio ns DAILY (route: oral) Med Classific ation: Gastroint estinal Therapy Agents benztropine 1 mg tablet 2024-05 00:00: 00 Yes [id number] 1 tablet EVERY PM 1 tablet EVERY PM (route: oral) Med Classific ation: Central Nervous System Agents cholecalcif beverley (vitamin D3) 10 mcg (400 unit) tablet 2024-05 00:00: 00 Yes [id number] 1 tablet EVERY AM 1 tablet EVERY AM (route: oral) Med Classific ation: Electroly te Balance-N utritiona l Products diltiazem ER (XR/XT) 180 mg capsule,ext ended release 24 hr, controlled 2024-05 00:00: 00 Yes [id number] 1 capsule EVERY AM 1 capsule EVERY AM (route: oral) Med Classific ation: Cardiovas cular Therapy Agents docusate sodium 100 mg capsule 2024-05 00:00: 00 Yes [id number] 1 capsule 2 TIMES DAILY 1 capsule 2 TIMES DAILY (route: oral) Med Classific ation: Gastroint estinal Therapy Agents lisinopril 40 mg tablet 2024-05 00:00: 00 Yes [id number] 1 tablet EVERY AM 1 tablet EVERY AM (route: oral) Med Classific ation: Cardiovas cular Therapy Agents metoprolol tartrate 25 mg tablet 2024-05 00:00: 00 Yes [id number] 1 tablet 2 TIMES DAILY 1 tablet 2 TIMES DAILY (route: oral) Med Classific ation: Cardiovas cular Therapy Agents multivitami n with minerals tablet 2024-05 00:00: 00 Yes [id number] 1 tablet EVERY AM 1 tablet EVERY AM (route: oral) Med Classific ation: Electroly te Balance-N utritiona l Products paliperidon e ER 6 mg tablet,exte nded release 24 hr 2024-05 00:00: 00 Yes [id number] 1 tablet EVERY PM 1 tablet EVERY PM (route: oral) Med Classific ation: Central Nervous System Agents polyethylen e glycol 3350 17 gram/dose oral powder 2024-05 00:00: 00 Yes [id number] Per instruc tions NEEDED Per instructio ns NEEDED (route: oral) Med Classific ation: Gastroint estinal Therapy Agents trazodone 50 mg tablet 2024-05 00:00: 00 Yes [id number] 1 tablet BEDTIME 1 tablet BEDTIME (route: [...] AWARENESS FOR SAFETY AND WILL NOTIFY CLINICAL AUTOMATIC LUMP MAKING MACHINE TENDER AND PHYSICIAN/PROVIDER WITH ANY CHANGE IN CONDITION. [code = SKILLED NURSE WILL MAINTAIN SITUATIONAL AWARENESS FOR SAFETY AND WILL NOTIFY CLINICAL AUTOMATIC LUMP MAKING MACHINE TENDER AND PHYSICIAN/PROVIDER WITH ANY CHANGE IN CONDITION.] [...] CARE WILL BE ESTABLISHED THAT MEETS PATIENT'S [facility] NEEDS AND INCLUDES PATIENT GOAL FOR HOME [...] 2025-05-08 00:00:00 Outpatient RECERTIFIC ATION TIFFANY MELTON [facility] [id number] 29.41
--- OUTSIDE RECORDS SUMMARY | 2025-05-07 19:00 | XMS_ITS | Clinical Summary ---
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 Preparator Name Role Phone MEGAN CHUN, MELO Unavailable Unavailable GERONIMO TRACEY, TIFFANY Unavailable Unavailable Payers Payer Name Policy Type Policy Number Effective Date Expira tion Date [employer]AGE [id number] MEDICARE - [facility] [id number] Problems Condition Name Condition Details Condition Category [...] 07-13 00:00: 00 03-13 23:59 :00 No [id number] 1 tablet DAILY 1 tablet DAILY (route: oral) Med Classific ation: Electroly te Balance-N utritiona l Products cyanocobala min (vit B-12) 1,000 mcg tablet 07-13 00:00: 00 2025- 06-12 23:59 :00 No [id number] 1 tablet DAILY 1 tablet DAILY (route: oral) Med Classific ation: Electroly te Balance-N utritiona l Products diltiazem ER (XR/XT) 180 mg capsule,ext ended release 24 hr, controlled 2-19 00:00: 00 03-13 23:59 :00 No [id number] 1 capsule DAILY 1 capsule DAILY (route: oral) Med Classific ation: Cardiovas cular Therapy Agents docusate sodium 100 mg capsule - 00:00: 00 03-13 23:59 :00 No [id number] 1 capsule 2 TIMES DAILY 1 capsule 2 TIMES DAILY (route: oral) Med Classific ation: Gastroint estinal Therapy Agents lisinopril 40 mg tablet - 00:00: 00 03-13 23:59 :00 No [id number] 1 tablet EVERY AM 1 tablet EVERY AM (route: oral) Med Classific ation: Cardiovas cular Therapy Agents metoprolol tartrate 25 mg tablet - 00:00: 00 03-13 23:59 :00 No [id number] 1 tablet 2 TIMES DAILY 1 tablet 2 TIMES DAILY (route: oral) Med Classific ation: Cardiovas cular Therapy Agents multivitami n with minerals tablet 07-13 00:00: 00 03-13 23:59 :00 No [id number] 1 tablet DAILY 1 tablet DAILY (route: oral) Med Classific ation: Electroly te Balance-N utroscara l Products paliperidon e ER 9 mg tablet,exte nded release 24 hr - 00:00: 00 12-01 23:59 :00 No [id number] 1 tablet BEDTIME 1 tablet BEDTIME (route: oral) Med Classific ation: Central Nervous System Agents metoprolol tartrate 25 mg tablet 6-19 00:00: 00 11-17 23:59 :00 No [id number] 1 tablet BEDTIME 1 tablet BEDTIME (route: oral) Med Classific ation: Cardiovas cular Therapy Agents benztropine 1 mg tablet -15 00:00: 00 03-13 23:59 :00 No [id number] 1 tablet EVERY PM 1 tablet EVERY PM (route: oral) Med Classific ation: Central Nervous System Agents paliperidon e ER 6 mg tablet,exte nded release 24 hr 12-01 00:00: 00 03-13 23:59 :00 No [id number] 1 tablet EVERY PM 1 tablet EVERY PM (route: oral) Med Classific ation: Central Nervous System Agents trazodone 50 mg tablet 12-01 00:00: 00 03-13 23:59 :00 No [id number] 1 tablet BEDTIME 1 tablet BEDTIME (route: oral) Med Classific ation: Central Nervous System Agents polyethylen e glycol 3350 17 gram/dose oral powder 12-21 00:00: 00 03-13 23:59 :00 No [id number] Per instruc tions DAILY Per instructio ns DAILY (route: oral) Med Classific ation: Gastroint estinal Therapy Agents benztropine 1 mg tablet 2024-05 00:00: 00 Yes [id number] 1 tablet EVERY PM 1 tablet EVERY PM (route: oral) Med Classific ation: Central Nervous System Agents cholecalcif beverley (vitamin D3) 10 mcg (400 unit) tablet 2024-05 00:00: 00 Yes [id number] 1 tablet EVERY AM 1 tablet EVERY AM (route: oral) Med Classific ation: Electroly te Balance-N utritiona l Products diltiazem ER (XR/XT) 180 mg capsule,ext ended release 24 hr, controlled 2024-05 00:00: 00 Yes [id number] 1 capsule EVERY AM 1 capsule EVERY AM (route: oral) Med Classific ation: Cardiovas cular Therapy Agents docusate sodium 100 mg capsule 2024-05 00:00: 00 Yes [id number] 1 capsule 2 TIMES DAILY 1 capsule 2 TIMES DAILY (route: oral) Med Classific ation: Gastroint estinal Therapy Agents lisinopril 40 mg tablet 2024-05 00:00: 00 Yes [id number] 1 tablet EVERY AM 1 tablet EVERY AM (route: oral) Med Classific ation: Cardiovas cular Therapy Agents metoprolol tartrate 25 mg tablet 2024-05 00:00: 00 Yes [id number] 1 tablet 2 TIMES DAILY 1 tablet 2 TIMES DAILY (route: oral) Med Classific ation: Cardiovas cular Therapy Agents multivitami n with minerals tablet 2024-05 00:00: 00 Yes [id number] 1 tablet EVERY AM 1 tablet EVERY AM (route: oral) Med Classific ation: Electroly te Balance-N utritiona l Products paliperidon e ER 6 mg tablet,exte nded release 24 hr 2024-05 00:00: 00 Yes [id number] 1 tablet EVERY PM 1 tablet EVERY PM (route: oral) Med Classific ation: Central Nervous System Agents polyethylen e glycol 3350 17 gram/dose oral powder 2024-05 00:00: 00 Yes [id number] Per instruc tions NEEDED Per instructio ns NEEDED (route: oral) Med Classific ation: Gastroint estinal Therapy Agents trazodone 50 mg tablet 2024-05 00:00: 00 Yes [id number] 1 tablet BEDTIME 1 tablet BEDTIME (route: [...] AWARENESS FOR SAFETY AND WILL NOTIFY CLINICAL FISH STRINGER ASSEMBLER AND PHYSICIAN/PROVIDER WITH ANY CHANGE IN CONDITION. [code = SKILLED NURSE WILL MAINTAIN SITUATIONAL AWARENESS FOR SAFETY AND WILL NOTIFY CLINICAL FISH STRINGER ASSEMBLER AND PHYSICIAN/PROVIDER WITH ANY CHANGE IN CONDITION.] [...] CARE WILL BE ESTABLISHED THAT MEETS PATIENT'S HALFWAY NEEDS AND INCLUDES PATIENT GOAL FOR HOME [...] Outpatient RECERTIFIC ATION TIFFANY MELTON [facility] [id number] 29.41
--- OUTSIDE RECORDS SUMMARY | 2025-05-07 19:00 | XMS_ITS | Clinical Summary ---
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 Tower Dragline Operator Name Role Phone MEGAN CHUN, MELO Unavailable Unavailable GERONIMO TRACEY, TIFFANY Unavailable Unavailable Payers Payer Name Policy Type Policy Number Effective Date Expira tion Date [employer] MED[employer] [id number] MEDICARE - [facility] [id number] Problems Condition Name Condition Details Condition Category [...] 07-13 00:00: 00 03-13 23:59 :00 No [id number] 1 tablet DAILY 1 tablet DAILY (route: oral) Med Classific ation: Electroly te Balance-N utritiona l Products cyanocobala min (vit B-12) 1,000 mcg tablet 07-13 00:00: 00 2025- 06-12 23:59 :00 No [id number] 1 tablet DAILY 1 tablet DAILY (route: oral) Med Classific ation: Electroly te Balance-N utritiona l Products diltiazem ER (XR/XT) 180 mg capsule,ext ended release 24 hr, controlled 2-19 00:00: 00 03-13 23:59 :00 No [id number] 1 capsule DAILY 1 capsule DAILY (route: oral) Med Classific ation: Cardiovas cular Therapy Agents docusate sodium 100 mg capsule - 00:00: 00 03-13 23:59 :00 No [id number] 1 capsule 2 TIMES DAILY 1 capsule 2 TIMES DAILY (route: oral) Med Classific ation: Gastroint estinal Therapy Agents lisinopril 40 mg tablet - 00:00: 00 03-13 23:59 :00 No [id number] 1 tablet EVERY AM 1 tablet EVERY AM (route: oral) Med Classific ation: Cardiovas cular Therapy Agents metoprolol tartrate 25 mg tablet - 00:00: 00 03-13 23:59 :00 No [id number] 1 tablet 2 TIMES DAILY 1 tablet 2 TIMES DAILY (route: oral) Med Classific ation: Cardiovas cular Therapy Agents multivitami n with minerals tablet 07-13 00:00: 00 03-13 23:59 :00 No [id number] 1 tablet DAILY 1 tablet DAILY (route: oral) Med Classific ation: Electroly te Balance-N utroscara l Products paliperidon e ER 9 mg tablet,exte nded release 24 hr - 00:00: 00 12-01 23:59 :00 No [id number] 1 tablet BEDTIME 1 tablet BEDTIME (route: oral) Med Classific ation: Central Nervous System Agents metoprolol tartrate 25 mg tablet 6-19 00:00: 00 11-17 23:59 :00 No [id number] 1 tablet BEDTIME 1 tablet BEDTIME (route: oral) Med Classific ation: Cardiovas cular Therapy Agents benztropine 1 mg tablet -15 00:00: 00 03-13 23:59 :00 No [id number] 1 tablet EVERY PM 1 tablet EVERY PM (route: oral) Med Classific ation: Central Nervous System Agents paliperidon e ER 6 mg tablet,exte nded release 24 hr 12-01 00:00: 00 03-13 23:59 :00 No [id number] 1 tablet EVERY PM 1 tablet EVERY PM (route: oral) Med Classific ation: Central Nervous System Agents trazodone 50 mg tablet 12-01 00:00: 00 03-13 23:59 :00 No [id number] 1 tablet BEDTIME 1 tablet BEDTIME (route: oral) Med Classific ation: Central Nervous System Agents polyethylen e glycol 3350 17 gram/dose oral powder 12-21 00:00: 00 03-13 23:59 :00 No [id number] Per instruc tions DAILY Per instructio ns DAILY (route: oral) Med Classific ation: Gastroint estinal Therapy Agents benztropine 1 mg tablet 2024-05 00:00: 00 Yes [id number] 1 tablet EVERY PM 1 tablet EVERY PM (route: oral) Med Classific ation: Central Nervous System Agents cholecalcif beverley (vitamin D3) 10 mcg (400 unit) tablet 2024-05 00:00: 00 Yes [id number] 1 tablet EVERY AM 1 tablet EVERY AM (route: oral) Med Classific ation: Electroly te Balance-N utritiona l Products diltiazem ER (XR/XT) 180 mg capsule,ext ended release 24 hr, controlled 2024-05 00:00: 00 Yes [id number] 1 capsule EVERY AM 1 capsule EVERY AM (route: oral) Med Classific ation: Cardiovas cular Therapy Agents docusate sodium 100 mg capsule 2024-05 00:00: 00 Yes [id number] 1 capsule 2 TIMES DAILY 1 capsule 2 TIMES DAILY (route: oral) Med Classific ation: Gastroint estinal Therapy Agents lisinopril 40 mg tablet 2024-05 00:00: 00 Yes [id number] 1 tablet EVERY AM 1 tablet EVERY AM (route: oral) Med Classific ation: Cardiovas cular Therapy Agents metoprolol tartrate 25 mg tablet 2024-05 00:00: 00 Yes [id number] 1 tablet 2 TIMES DAILY 1 tablet 2 TIMES DAILY (route: oral) Med Classific ation: Cardiovas cular Therapy Agents multivitami n with minerals tablet 2024-05 00:00: 00 Yes [id number] 1 tablet EVERY AM 1 tablet EVERY AM (route: oral) Med Classific ation: Electroly te Balance-N utritiona l Products paliperidon e ER 6 mg tablet,exte nded release 24 hr 2024-05 00:00: 00 Yes [id number] 1 tablet EVERY PM 1 tablet EVERY PM (route: oral) Med Classific ation: Central Nervous System Agents polyethylen e glycol 3350 17 gram/dose oral powder 2024-05 00:00: 00 Yes [id number] Per instruc tions NEEDED Per instructio ns NEEDED (route: oral) Med Classific ation: Gastroint estinal Therapy Agents trazodone 50 mg tablet 2024-05 00:00: 00 Yes [id number] 1 tablet BEDTIME 1 tablet BEDTIME (route: [...] AWARENESS FOR SAFETY AND WILL NOTIFY CLINICAL DRY PAN CHARGER AND PHYSICIAN/PROVIDER WITH ANY CHANGE IN CONDITION. [code = SKILLED NURSE WILL MAINTAIN SITUATIONAL AWARENESS FOR SAFETY AND WILL NOTIFY CLINICAL DRY PAN CHARGER AND PHYSICIAN/PROVIDER WITH ANY CHANGE IN CONDITION.] [...] 2025-05-08 00:00:00 Outpatient RECERTIFIC ATION TIFFANY MELTON [facility] [id number] 29.41
--- OUTSIDE RECORDS SUMMARY | 2025-05-07 19:00 | XMS_ITS | Clinical Summary ---
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 Junior Qa Analyst Name Role Phone MEGAN CHUN, MELO Unavailable Unavailable GERONIMO TRACEY, TIFFANY Unavailable Unavailable Payers Payer Name Policy Type Policy Number Effective Date Expira tion Date [employer] ADV[employer]AGE [id number] MEDICARE - [facility] [id number] Problems Condition Name Condition Details Condition Category [...] 07-13 00:00: 00 03-13 23:59 :00 No [id number] 1 tablet DAILY 1 tablet DAILY (route: oral) Med Classific ation: Electroly te Balance-N utritiona l Products cyanocobala min (vit B-12) 1,000 mcg tablet 07-13 00:00: 00 2025- 06-12 23:59 :00 No [id number] 1 tablet DAILY 1 tablet DAILY (route: oral) Med Classific ation: Electroly te Balance-N utritiona l Products diltiazem ER (XR/XT) 180 mg capsule,ext ended release 24 hr, controlled 2-19 00:00: 00 03-13 23:59 :00 No [id number] 1 capsule DAILY 1 capsule DAILY (route: oral) Med Classific ation: Cardiovas cular Therapy Agents docusate sodium 100 mg capsule - 00:00: 00 03-13 23:59 :00 No [id number] 1 capsule 2 TIMES DAILY 1 capsule 2 TIMES DAILY (route: oral) Med Classific ation: Gastroint estinal Therapy Agents lisinopril 40 mg tablet - 00:00: 00 03-13 23:59 :00 No [id number] 1 tablet EVERY AM 1 tablet EVERY AM (route: oral) Med Classific ation: Cardiovas cular Therapy Agents metoprolol tartrate 25 mg tablet - 00:00: 00 03-13 23:59 :00 No [id number] 1 tablet 2 TIMES DAILY 1 tablet 2 TIMES DAILY (route: oral) Med Classific ation: Cardiovas cular Therapy Agents multivitami n with minerals tablet 07-13 00:00: 00 03-13 23:59 :00 No [id number] 1 tablet DAILY 1 tablet DAILY (route: oral) Med Classific ation: Electroly te Balance-N utroscara l Products paliperidon e ER 9 mg tablet,exte nded release 24 hr - 00:00: 00 12-01 23:59 :00 No [id number] 1 tablet BEDTIME 1 tablet BEDTIME (route: oral) Med Classific ation: Central Nervous System Agents metoprolol tartrate 25 mg tablet 6-19 00:00: 00 11-17 23:59 :00 No [id number] 1 tablet BEDTIME 1 tablet BEDTIME (route: oral) Med Classific ation: Cardiovas cular Therapy Agents benztropine 1 mg tablet -15 00:00: 00 03-13 23:59 :00 No [id number] 1 tablet EVERY PM 1 tablet EVERY PM (route: oral) Med Classific ation: Central Nervous System Agents paliperidon e ER 6 mg tablet,exte nded release 24 hr 12-01 00:00: 00 03-13 23:59 :00 No [id number] 1 tablet EVERY PM 1 tablet EVERY PM (route: oral) Med Classific ation: Central Nervous System Agents trazodone 50 mg tablet 12-01 00:00: 00 03-13 23:59 :00 No [id number] 1 tablet BEDTIME 1 tablet BEDTIME (route: oral) Med Classific ation: Central Nervous System Agents polyethylen e glycol 3350 17 gram/dose oral powder 12-21 00:00: 00 03-13 23:59 :00 No [id number] Per instruc tions DAILY Per instructio ns DAILY (route: oral) Med Classific ation: Gastroint estinal Therapy Agents benztropine 1 mg tablet 2024-05 00:00: 00 Yes [id number] 1 tablet EVERY PM 1 tablet EVERY PM (route: oral) Med Classific ation: Central Nervous System Agents cholecalcif beverley (vitamin D3) 10 mcg (400 unit) tablet 2024-05 00:00: 00 Yes [id number] 1 tablet EVERY AM 1 tablet EVERY AM (route: oral) Med Classific ation: Electroly te Balance-N utritiona l Products diltiazem ER (XR/XT) 180 mg capsule,ext ended release 24 hr, controlled 2024-05 00:00: 00 Yes [id number] 1 capsule EVERY AM 1 capsule EVERY AM (route: oral) Med Classific ation: Cardiovas cular Therapy Agents docusate sodium 100 mg capsule 2024-05 00:00: 00 Yes [id number] 1 capsule 2 TIMES DAILY 1 capsule 2 TIMES DAILY (route: oral) Med Classific ation: Gastroint estinal Therapy Agents lisinopril 40 mg tablet 2024-05 00:00: 00 Yes [id number] 1 tablet EVERY AM 1 tablet EVERY AM (route: oral) Med Classific ation: Cardiovas cular Therapy Agents metoprolol tartrate 25 mg tablet 2024-05 00:00: 00 Yes [id number] 1 tablet 2 TIMES DAILY 1 tablet 2 TIMES DAILY (route: oral) Med Classific ation: Cardiovas cular Therapy Agents multivitami n with minerals tablet 2024-05 00:00: 00 Yes [id number] 1 tablet EVERY AM 1 tablet EVERY AM (route: oral) Med Classific ation: Electroly te Balance-N utritiona l Products paliperidon e ER 6 mg tablet,exte nded release 24 hr 2024-05 00:00: 00 Yes [id number] 1 tablet EVERY PM 1 tablet EVERY PM (route: oral) Med Classific ation: Central Nervous System Agents polyethylen e glycol 3350 17 gram/dose oral powder 2024-05 00:00: 00 Yes [id number] Per instruc tions NEEDED Per instructio ns NEEDED (route: oral) Med Classific ation: Gastroint estinal Therapy Agents trazodone 50 mg tablet 2024-05 00:00: 00 Yes [id number] 1 tablet BEDTIME 1 tablet BEDTIME (route: [...] AWARENESS FOR SAFETY AND WILL NOTIFY CLINICAL PHARMACOLOGY PROFESSOR AND PHYSICIAN/PROVIDER WITH ANY CHANGE IN CONDITION. [code = SKILLED NURSE WILL MAINTAIN SITUATIONAL AWARENESS FOR SAFETY AND WILL NOTIFY CLINICAL PHARMACOLOGY PROFESSOR AND PHYSICIAN/PROVIDER WITH ANY CHANGE IN CONDITION.] [...] CARE WILL BE ESTABLISHED THAT MEETS PATIENT'S ALF NEEDS AND INCLUDES PATIENT GOAL FOR HOME [...] TIFFANY MELTON [facility] [id number] 29.41
--- OUTSIDE RECORDS SUMMARY | 2025-05-07 19:00 | XMS_ITS | Clinical Summary ---
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 [employer] Targeting Supervisor Name Role Phone MEGAN CHUN, MELO Unavailable Unavailable GERONIMO TRACEY, TIFFANY Unavailable Unavailable Payers Payer Name Policy Type Policy Number Effective Date Expira tion Date [employer] [id number] MEDICARE - [facility] [id number] Problems Condition Name Condition Details Condition Category [...] 07-13 00:00: 00 03-13 23:59 :00 No [id number] 1 tablet DAILY 1 tablet DAILY (route: oral) Med Classific ation: Electroly te Balance-N utritiona l Products cyanocobala min (vit B-12) 1,000 mcg tablet 07-13 00:00: 00 2025- 06-12 23:59 :00 No [id number] 1 tablet DAILY 1 tablet DAILY (route: oral) Med Classific ation: Electroly te Balance-N utritiona l Products diltiazem ER (XR/XT) 180 mg capsule,ext ended release 24 hr, controlled 2-19 00:00: 00 03-13 23:59 :00 No [id number] 1 capsule DAILY 1 capsule DAILY (route: oral) Med Classific ation: Cardiovas cular Therapy Agents docusate sodium 100 mg capsule - 00:00: 00 03-13 23:59 :00 No [id number] 1 capsule 2 TIMES DAILY 1 capsule 2 TIMES DAILY (route: oral) Med Classific ation: Gastroint estinal Therapy Agents lisinopril 40 mg tablet - 00:00: 00 03-13 23:59 :00 No [id number] 1 tablet EVERY AM 1 tablet EVERY AM (route: oral) Med Classific ation: Cardiovas cular Therapy Agents metoprolol tartrate 25 mg tablet - 00:00: 00 03-13 23:59 :00 No [id number] 1 tablet 2 TIMES DAILY 1 tablet 2 TIMES DAILY (route: oral) Med Classific ation: Cardiovas cular Therapy Agents multivitami n with minerals tablet 07-13 00:00: 00 03-13 23:59 :00 No [id number] 1 tablet DAILY 1 tablet DAILY (route: oral) Med Classific ation: Electroly te Balance-N utroscara l Products paliperidon e ER 9 mg tablet,exte nded release 24 hr - 00:00: 00 12-01 23:59 :00 No [id number] 1 tablet BEDTIME 1 tablet BEDTIME (route: oral) Med Classific ation: Central Nervous System Agents metoprolol tartrate 25 mg tablet 6-19 00:00: 00 11-17 23:59 :00 No [id number] 1 tablet BEDTIME 1 tablet BEDTIME (route: oral) Med Classific ation: Cardiovas cular Therapy Agents benztropine 1 mg tablet -15 00:00: 00 03-13 23:59 :00 No [id number] 1 tablet EVERY PM 1 tablet EVERY PM (route: oral) Med Classific ation: Central Nervous System Agents paliperidon e ER 6 mg tablet,exte nded release 24 hr 12-01 00:00: 00 03-13 23:59 :00 No [id number] 1 tablet EVERY PM 1 tablet EVERY PM (route: oral) Med Classific ation: Central Nervous System Agents trazodone 50 mg tablet 12-01 00:00: 00 03-13 23:59 :00 No [id number] 1 tablet BEDTIME 1 tablet BEDTIME (route: oral) Med Classific ation: Central Nervous System Agents polyethylen e glycol 3350 17 gram/dose oral powder 12-21 00:00: 00 03-13 23:59 :00 No [id number] Per instruc tions DAILY Per instructio ns DAILY (route: oral) Med Classific ation: Gastroint estinal Therapy Agents benztropine 1 mg tablet 2024-05 00:00: 00 Yes [id number] 1 tablet EVERY PM 1 tablet EVERY PM (route: oral) Med Classific ation: Central Nervous System Agents cholecalcif beverley (vitamin D3) 10 mcg (400 unit) tablet 2024-05 00:00: 00 Yes [id number] 1 tablet EVERY AM 1 tablet EVERY AM (route: oral) Med Classific ation: Electroly te Balance-N utritiona l Products diltiazem ER (XR/XT) 180 mg capsule,ext ended release 24 hr, controlled 2024-05 00:00: 00 Yes [id number] 1 capsule EVERY AM 1 capsule EVERY AM (route: oral) Med Classific ation: Cardiovas cular Therapy Agents docusate sodium 100 mg capsule 2024-05 00:00: 00 Yes [id number] 1 capsule 2 TIMES DAILY 1 capsule 2 TIMES DAILY (route: oral) Med Classific ation: Gastroint estinal Therapy Agents lisinopril 40 mg tablet 2024-05 00:00: 00 Yes [id number] 1 tablet EVERY AM 1 tablet EVERY AM (route: oral) Med Classific ation: Cardiovas cular Therapy Agents metoprolol tartrate 25 mg tablet 2024-05 00:00: 00 Yes [id number] 1 tablet 2 TIMES DAILY 1 tablet 2 TIMES DAILY (route: oral) Med Classific ation: Cardiovas cular Therapy Agents multivitami n with minerals tablet 2024-05 00:00: 00 Yes [id number] 1 tablet EVERY AM 1 tablet EVERY AM (route: oral) Med Classific ation: Electroly te Balance-N utritiona l Products paliperidon e ER 6 mg tablet,exte nded release 24 hr 2024-05 00:00: 00 Yes [id number] 1 tablet EVERY PM 1 tablet EVERY PM (route: oral) Med Classific ation: Central Nervous System Agents polyethylen e glycol 3350 17 gram/dose oral powder 2024-05 00:00: 00 Yes [id number] Per instruc tions NEEDED Per instructio ns NEEDED (route: oral) Med Classific ation: Gastroint estinal Therapy Agents trazodone 50 mg tablet 2024-05 00:00: 00 Yes [id number] 1 tablet BEDTIME 1 tablet BEDTIME (route: [...] AWARENESS FOR SAFETY AND WILL NOTIFY CLINICAL WHEEL MOLDER AND PHYSICIAN/PROVIDER WITH ANY CHANGE IN CONDITION. [code = SKILLED NURSE WILL MAINTAIN SITUATIONAL AWARENESS FOR SAFETY AND WILL NOTIFY CLINICAL WHEEL MOLDER AND PHYSICIAN/PROVIDER WITH ANY CHANGE IN CONDITION.] [...] CARE WILL BE ESTABLISHED THAT MEETS PATIENT'S [facility] NEEDS AND INCLUDES PATIENT GOAL FOR HOME [...] 2025-05-08 00:00:00 Outpatient RECERTIFIC ATION TIFFANY MELTON [facility] [id number] 29.41
--- OUTSIDE RECORDS SUMMARY | 2025-05-07 19:00 | XMS_ITS | Clinical Summary ---
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 Grain Packer Name Role Phone MEGAN CHUN, MELO Unavailable Unavailable GERONIMO TRACYE, TIFFANY Unavailable Unavailable Payers Payer Name Policy Type Policy Number Effective Date Expira tion Date [employer] MED[employer] ADVANTAGE [id number] MEDICARE - [facility] [id number] Problems Condition Name Condition Details Condition Category [...] 07-13 00:00: 00 03-13 23:59 :00 No [id number] 1 tablet DAILY 1 tablet DAILY (route: oral) Med Classific ation: Electroly te Balance-N utritiona l Products cyanocobala min (vit B-12) 1,000 mcg tablet 07-13 00:00: 00 2025- 06-12 23:59 :00 No [id number] 1 tablet DAILY 1 tablet DAILY (route: oral) Med Classific ation: Electroly te Balance-N utritiona l Products diltiazem ER (XR/XT) 180 mg capsule,ext ended release 24 hr, controlled 2-19 00:00: 00 03-13 23:59 :00 No [id number] 1 capsule DAILY 1 capsule DAILY (route: oral) Med Classific ation: Cardiovas cular Therapy Agents docusate sodium 100 mg capsule - 00:00: 00 03-13 23:59 :00 No [id number] 1 capsule 2 TIMES DAILY 1 capsule 2 TIMES DAILY (route: oral) Med Classific ation: Gastroint estinal Therapy Agents lisinopril 40 mg tablet - 00:00: 00 03-13 23:59 :00 No [id number] 1 tablet EVERY AM 1 tablet EVERY AM (route: oral) Med Classific ation: Cardiovas cular Therapy Agents metoprolol tartrate 25 mg tablet - 00:00: 00 03-13 23:59 :00 No [id number] 1 tablet 2 TIMES DAILY 1 tablet 2 TIMES DAILY (route: oral) Med Classific ation: Cardiovas cular Therapy Agents multivitami n with minerals tablet 07-13 00:00: 00 03-13 23:59 :00 No [id number] 1 tablet DAILY 1 tablet DAILY (route: oral) Med Classific ation: Electroly te Balance-N utroscara l Products paliperidon e ER 9 mg tablet,exte nded release 24 hr - 00:00: 00 12-01 23:59 :00 No [id number] 1 tablet BEDTIME 1 tablet BEDTIME (route: oral) Med Classific ation: Central Nervous System Agents metoprolol tartrate 25 mg tablet 6-19 00:00: 00 11-17 23:59 :00 No [id number] 1 tablet BEDTIME 1 tablet BEDTIME (route: oral) Med Classific ation: Cardiovas cular Therapy Agents benztropine 1 mg tablet -15 00:00: 00 03-13 23:59 :00 No [id number] 1 tablet EVERY PM 1 tablet EVERY PM (route: oral) Med Classific ation: Central Nervous System Agents paliperidon e ER 6 mg tablet,exte nded release 24 hr 12-01 00:00: 00 03-13 23:59 :00 No [id number] 1 tablet EVERY PM 1 tablet EVERY PM (route: oral) Med Classific ation: Central Nervous System Agents trazodone 50 mg tablet 12-01 00:00: 00 03-13 23:59 :00 No [id number] 1 tablet BEDTIME 1 tablet BEDTIME (route: oral) Med Classific ation: Central Nervous System Agents polyethylen e glycol 3350 17 gram/dose oral powder 12-21 00:00: 00 03-13 23:59 :00 No [id number] Per instruc tions DAILY Per instructio ns DAILY (route: oral) Med Classific ation: Gastroint estinal Therapy Agents benztropine 1 mg tablet 2024-05 00:00: 00 Yes [id number] 1 tablet EVERY PM 1 tablet EVERY PM (route: oral) Med Classific ation: Central Nervous System Agents cholecalcif beverley (vitamin D3) 10 mcg (400 unit) tablet 2024-05 00:00: 00 Yes [id number] 1 tablet EVERY AM 1 tablet EVERY AM (route: oral) Med Classific ation: Electroly te Balance-N utritiona l Products diltiazem ER (XR/XT) 180 mg capsule,ext ended release 24 hr, controlled 2024-05 00:00: 00 Yes [id number] 1 capsule EVERY AM 1 capsule EVERY AM (route: oral) Med Classific ation: Cardiovas cular Therapy Agents docusate sodium 100 mg capsule 2024-05 00:00: 00 Yes [id number] 1 capsule 2 TIMES DAILY 1 capsule 2 TIMES DAILY (route: oral) Med Classific ation: Gastroint estinal Therapy Agents lisinopril 40 mg tablet 2024-05 00:00: 00 Yes [id number] 1 tablet EVERY AM 1 tablet EVERY AM (route: oral) Med Classific ation: Cardiovas cular Therapy Agents metoprolol tartrate 25 mg tablet 2024-05 00:00: 00 Yes [id number] 1 tablet 2 TIMES DAILY 1 tablet 2 TIMES DAILY (route: oral) Med Classific ation: Cardiovas cular Therapy Agents multivitami n with minerals tablet 2024-05 00:00: 00 Yes [id number] 1 tablet EVERY AM 1 tablet EVERY AM (route: oral) Med Classific ation: Electroly te Balance-N utritiona l Products paliperidon e ER 6 mg tablet,exte nded release 24 hr 2024-05 00:00: 00 Yes [id number] 1 tablet EVERY PM 1 tablet EVERY PM (route: oral) Med Classific ation: Central Nervous System Agents polyethylen e glycol 3350 17 gram/dose oral powder 2024-05 00:00: 00 Yes [id number] Per instruc tions NEEDED Per instructio ns NEEDED (route: oral) Med Classific ation: Gastroint estinal Therapy Agents trazodone 50 mg tablet 2024-05 00:00: 00 Yes [id number] 1 tablet BEDTIME 1 tablet BEDTIME (route: [...] AWARENESS FOR SAFETY AND WILL NOTIFY CLINICAL INTENSIVE CARE AMBULANCE PARAMEDIC AND PHYSICIAN/PROVIDER WITH ANY CHANGE IN CONDITION. [code = SKILLED NURSE WILL MAINTAIN SITUATIONAL AWARENESS FOR SAFETY AND WILL NOTIFY CLINICAL INTENSIVE CARE AMBULANCE PARAMEDIC AND PHYSICIAN/PROVIDER WITH ANY CHANGE IN CONDITION.] [...] CARE WILL BE ESTABLISHED THAT MEETS PATIENT'S INTERMEDIATE NEEDS AND INCLUDES PATIENT GOAL FOR HOME [...] 2025-05-08 00:00:00 Outpatient RECERTIFIC ATION TIFFANY MELTON [facility] [id number] 29.41
--- OUTSIDE RECORDS SUMMARY | 2025-05-07 19:00 | XMS_ITS | Clinical Summary ---
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 Safety Intern Name Role Phone EMGAN CHUN, MELO Unavailable Unavailable GERONIMO TRCAEY, TIFFANY Unavailable Unavailable Payers Payer Name Policy Type Policy Number Effective Date Expira tion Date [employer] [id number] MEDICARE - [facility] [id number] Problems Condition Name Condition Details Condition Category [...] 07-13 00:00: 00 03-13 23:59 :00 No [id number] 1 tablet DAILY 1 tablet DAILY (route: oral) Med Classific ation: Electroly te Balance-N utritiona l Products cyanocobala min (vit B-12) 1,000 mcg tablet 07-13 00:00: 00 2025- 06-12 23:59 :00 No [id number] 1 tablet DAILY 1 tablet DAILY (route: oral) Med Classific ation: Electroly te Balance-N utritiona l Products diltiazem ER (XR/XT) 180 mg capsule,ext ended release 24 hr, controlled 2-19 00:00: 00 03-13 23:59 :00 No [id number] 1 capsule DAILY 1 capsule DAILY (route: oral) Med Classific ation: Cardiovas cular Therapy Agents docusate sodium 100 mg capsule - 00:00: 00 03-13 23:59 :00 No [id number] 1 capsule 2 TIMES DAILY 1 capsule 2 TIMES DAILY (route: oral) Med Classific ation: Gastroint estinal Therapy Agents lisinopril 40 mg tablet - 00:00: 00 03-13 23:59 :00 No [id number] 1 tablet EVERY AM 1 tablet EVERY AM (route: oral) Med Classific ation: Cardiovas cular Therapy Agents metoprolol tartrate 25 mg tablet - 00:00: 00 03-13 23:59 :00 No [id number] 1 tablet 2 TIMES DAILY 1 tablet 2 TIMES DAILY (route: oral) Med Classific ation: Cardiovas cular Therapy Agents multivitami n with minerals tablet 07-13 00:00: 00 03-13 23:59 :00 No [id number] 1 tablet DAILY 1 tablet DAILY (route: oral) Med Classific ation: Electroly te Balance-N utroscara l Products paliperidon e ER 9 mg tablet,exte nded release 24 hr - 00:00: 00 12-01 23:59 :00 No [id number] 1 tablet BEDTIME 1 tablet BEDTIME (route: oral) Med Classific ation: Central Nervous System Agents metoprolol tartrate 25 mg tablet 6-19 00:00: 00 11-17 23:59 :00 No [id number] 1 tablet BEDTIME 1 tablet BEDTIME (route: oral) Med Classific ation: Cardiovas cular Therapy Agents benztropine 1 mg tablet -15 00:00: 00 03-13 23:59 :00 No [id number] 1 tablet EVERY PM 1 tablet EVERY PM (route: oral) Med Classific ation: Central Nervous System Agents paliperidon e ER 6 mg tablet,exte nded release 24 hr 12-01 00:00: 00 03-13 23:59 :00 No [id number] 1 tablet EVERY PM 1 tablet EVERY PM (route: oral) Med Classific ation: Central Nervous System Agents trazodone 50 mg tablet 12-01 00:00: 00 03-13 23:59 :00 No [id number] 1 tablet BEDTIME 1 tablet BEDTIME (route: oral) Med Classific ation: Central Nervous System Agents polyethylen e glycol 3350 17 gram/dose oral powder 12-21 00:00: 00 03-13 23:59 :00 No [id number] Per instruc tions DAILY Per instructio ns DAILY (route: oral) Med Classific ation: Gastroint estinal Therapy Agents benztropine 1 mg tablet 2024-05 00:00: 00 Yes [id number] 1 tablet EVERY PM 1 tablet EVERY PM (route: oral) Med Classific ation: Central Nervous System Agents cholecalcif beverley (vitamin D3) 10 mcg (400 unit) tablet 2024-05 00:00: 00 Yes [id number] 1 tablet EVERY AM 1 tablet EVERY AM (route: oral) Med Classific ation: Electroly te Balance-N utritiona l Products diltiazem ER (XR/XT) 180 mg capsule,ext ended release 24 hr, controlled 2024-05 00:00: 00 Yes [id number] 1 capsule EVERY AM 1 capsule EVERY AM (route: oral) Med Classific ation: Cardiovas cular Therapy Agents docusate sodium 100 mg capsule 2024-05 00:00: 00 Yes [id number] 1 capsule 2 TIMES DAILY 1 capsule 2 TIMES DAILY (route: oral) Med Classific ation: Gastroint estinal Therapy Agents lisinopril 40 mg tablet 2024-05 00:00: 00 Yes [id number] 1 tablet EVERY AM 1 tablet EVERY AM (route: oral) Med Classific ation: Cardiovas cular Therapy Agents metoprolol tartrate 25 mg tablet 2024-05 00:00: 00 Yes [id number] 1 tablet 2 TIMES DAILY 1 tablet 2 TIMES DAILY (route: oral) Med Classific ation: Cardiovas cular Therapy Agents multivitami n with minerals tablet 2024-05 00:00: 00 Yes [id number] 1 tablet EVERY AM 1 tablet EVERY AM (route: oral) Med Classific ation: Electroly te Balance-N utritiona l Products paliperidon e ER 6 mg tablet,exte nded release 24 hr 2024-05 00:00: 00 Yes [id number] 1 tablet EVERY PM 1 tablet EVERY PM (route: oral) Med Classific ation: Central Nervous System Agents polyethylen e glycol 3350 17 gram/dose oral powder 2024-05 00:00: 00 Yes [id number] Per instruc tions NEEDED Per instructio ns NEEDED (route: oral) Med Classific ation: Gastroint estinal Therapy Agents trazodone 50 mg tablet 2024-05 00:00: 00 Yes [id number] 1 tablet BEDTIME 1 tablet BEDTIME (route: [...] AWARENESS FOR SAFETY AND WILL NOTIFY CLINICAL TILTING HEAD BAND SAWYER AND PHYSICIAN/PROVIDER WITH ANY CHANGE IN CONDITION. [code = SKILLED NURSE WILL MAINTAIN SITUATIONAL AWARENESS FOR SAFETY AND WILL NOTIFY CLINICAL TILTING HEAD BAND SAWYER AND PHYSICIAN/PROVIDER WITH ANY CHANGE IN CONDITION.] [...] CARE WILL BE ESTABLISHED THAT MEETS PATIENT'S [facility] NEEDS AND INCLUDES PATIENT GOAL FOR HOME [...] 00:00:00 Outpatient RECERTIFIC ATION TIFFANY MELTON [facility] [place] [id number] 29.41
--- OUTSIDE RECORDS SUMMARY | 2025-05-07 19:00 | XMS_ITS | Clinical Summary ---
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 Internist Medical Doctor Md Name Role Phone MEGAN CHUN, MELO Unavailable Unavailable GERONIMO TRACEY, TIFFANY Unavailable Unavailable Payers Payer Name Policy Type Policy Number Effective Date Expira tion Date [employer] MED[employer] [id number] MEDICARE - [facility] [id number] Problems Condition Name Condition Details Condition Category [...] 07-13 00:00: 00 03-13 23:59 :00 No [id number] 1 tablet DAILY 1 tablet DAILY (route: oral) Med Classific ation: Electroly te Balance-N utritiona l Products cyanocobala min (vit B-12) 1,000 mcg tablet 07-13 00:00: 00 2025- 06-12 23:59 :00 No [id number] 1 tablet DAILY 1 tablet DAILY (route: oral) Med Classific ation: Electroly te Balance-N utritiona l Products diltiazem ER (XR/XT) 180 mg capsule,ext ended release 24 hr, controlled 2-19 00:00: 00 03-13 23:59 :00 No [id number] 1 capsule DAILY 1 capsule DAILY (route: oral) Med Classific ation: Cardiovas cular Therapy Agents docusate sodium 100 mg capsule - 00:00: 00 03-13 23:59 :00 No [id number] 1 capsule 2 TIMES DAILY 1 capsule 2 TIMES DAILY (route: oral) Med Classific ation: Gastroint estinal Therapy Agents lisinopril 40 mg tablet - 00:00: 00 03-13 23:59 :00 No [id number] 1 tablet EVERY AM 1 tablet EVERY AM (route: oral) Med Classific ation: Cardiovas cular Therapy Agents metoprolol tartrate 25 mg tablet - 00:00: 00 03-13 23:59 :00 No [id number] 1 tablet 2 TIMES DAILY 1 tablet 2 TIMES DAILY (route: oral) Med Classific ation: Cardiovas cular Therapy Agents multivitami n with minerals tablet 07-13 00:00: 00 03-13 23:59 :00 No [id number] 1 tablet DAILY 1 tablet DAILY (route: oral) Med Classific ation: Electroly te Balance-N utroscara l Products paliperidon e ER 9 mg tablet,exte nded release 24 hr - 00:00: 00 12-01 23:59 :00 No [id number] 1 tablet BEDTIME 1 tablet BEDTIME (route: oral) Med Classific ation: Central Nervous System Agents metoprolol tartrate 25 mg tablet 6-19 00:00: 00 11-17 23:59 :00 No [id number] 1 tablet BEDTIME 1 tablet BEDTIME (route: oral) Med Classific ation: Cardiovas cular Therapy Agents benztropine 1 mg tablet -15 00:00: 00 03-13 23:59 :00 No [id number] 1 tablet EVERY PM 1 tablet EVERY PM (route: oral) Med Classific ation: Central Nervous System Agents paliperidon e ER 6 mg tablet,exte nded release 24 hr 12-01 00:00: 00 03-13 23:59 :00 No [id number] 1 tablet EVERY PM 1 tablet EVERY PM (route: oral) Med Classific ation: Central Nervous System Agents trazodone 50 mg tablet 12-01 00:00: 00 03-13 23:59 :00 No [id number] 1 tablet BEDTIME 1 tablet BEDTIME (route: oral) Med Classific ation: Central Nervous System Agents polyethylen e glycol 3350 17 gram/dose oral powder 12-21 00:00: 00 03-13 23:59 :00 No [id number] Per instruc tions DAILY Per instructio ns DAILY (route: oral) Med Classific ation: Gastroint estinal Therapy Agents benztropine 1 mg tablet 2024-05 00:00: 00 Yes [id number] 1 tablet EVERY PM 1 tablet EVERY PM (route: oral) Med Classific ation: Central Nervous System Agents cholecalcif beverley (vitamin D3) 10 mcg (400 unit) tablet 2024-05 00:00: 00 Yes [id number] 1 tablet EVERY AM 1 tablet EVERY AM (route: oral) Med Classific ation: Electroly te Balance-N utritiona l Products diltiazem ER (XR/XT) 180 mg capsule,ext ended release 24 hr, controlled 2024-05 00:00: 00 Yes [id number] 1 capsule EVERY AM 1 capsule EVERY AM (route: oral) Med Classific ation: Cardiovas cular Therapy Agents docusate sodium 100 mg capsule 2024-05 00:00: 00 Yes [id number] 1 capsule 2 TIMES DAILY 1 capsule 2 TIMES DAILY (route: oral) Med Classific ation: Gastroint estinal Therapy Agents lisinopril 40 mg tablet 2024-05 00:00: 00 Yes [id number] 1 tablet EVERY AM 1 tablet EVERY AM (route: oral) Med Classific ation: Cardiovas cular Therapy Agents metoprolol tartrate 25 mg tablet 2024-05 00:00: 00 Yes [id number] 1 tablet 2 TIMES DAILY 1 tablet 2 TIMES DAILY (route: oral) Med Classific ation: Cardiovas cular Therapy Agents multivitami n with minerals tablet 2024-05 00:00: 00 Yes [id number] 1 tablet EVERY AM 1 tablet EVERY AM (route: oral) Med Classific ation: Electroly te Balance-N utritiona l Products paliperidon e ER 6 mg tablet,exte nded release 24 hr 2024-05 00:00: 00 Yes [id number] 1 tablet EVERY PM 1 tablet EVERY PM (route: oral) Med Classific ation: Central Nervous System Agents polyethylen e glycol 3350 17 gram/dose oral powder 2024-05 00:00: 00 Yes [id number] Per instruc tions NEEDED Per instructio ns NEEDED (route: oral) Med Classific ation: Gastroint estinal Therapy Agents trazodone 50 mg tablet 2024-05 00:00: 00 Yes [id number] 1 tablet BEDTIME 1 tablet BEDTIME (route: [...] AWARENESS FOR SAFETY AND WILL NOTIFY CLINICAL SENIOR ANALYST MARKET INTELLIGENCE AND PHYSICIAN/PROVIDER WITH ANY CHANGE IN CONDITION. [code = SKILLED NURSE WILL MAINTAIN SITUATIONAL AWARENESS FOR SAFETY AND WILL NOTIFY CLINICAL SENIOR ANALYST MARKET INTELLIGENCE AND PHYSICIAN/PROVIDER WITH ANY CHANGE IN CONDITION.] [...] Outpatient RECERTIFIC ATION TIFFANY MELTON [facility] [id number] 29.41
--- OUTSIDE RECORDS SUMMARY | 2025-05-07 19:00 | XMS_ITS | Clinical Summary ---
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 Receiving Lead Name Role Phone MEGAN CHUN, MELO Unavailable Unavailable GERONIMO TRACEY, TIFFANY Unavailable Unavailable Payers Payer Name Policy Type Policy Number Effective Date Expira tion Date [employer] MEDIC[employer] ADVANTAGE [id number] MEDICARE - [facility] [id number] Problems Condition Name Condition Details Condition Category [...] 07-13 00:00: 00 03-13 23:59 :00 No [id number] 1 tablet DAILY 1 tablet DAILY (route: oral) Med Classific ation: Electroly te Balance-N utritiona l Products cyanocobala min (vit B-12) 1,000 mcg tablet 07-13 00:00: 00 2025- 06-12 23:59 :00 No [id number] 1 tablet DAILY 1 tablet DAILY (route: oral) Med Classific ation: Electroly te Balance-N utritiona l Products diltiazem ER (XR/XT) 180 mg capsule,ext ended release 24 hr, controlled 2-19 00:00: 00 03-13 23:59 :00 No [id number] 1 capsule DAILY 1 capsule DAILY (route: oral) Med Classific ation: Cardiovas cular Therapy Agents docusate sodium 100 mg capsule - 00:00: 00 03-13 23:59 :00 No [id number] 1 capsule 2 TIMES DAILY 1 capsule 2 TIMES DAILY (route: oral) Med Classific ation: Gastroint estinal Therapy Agents lisinopril 40 mg tablet - 00:00: 00 03-13 23:59 :00 No [id number] 1 tablet EVERY AM 1 tablet EVERY AM (route: oral) Med Classific ation: Cardiovas cular Therapy Agents metoprolol tartrate 25 mg tablet - 00:00: 00 03-13 23:59 :00 No [id number] 1 tablet 2 TIMES DAILY 1 tablet 2 TIMES DAILY (route: oral) Med Classific ation: Cardiovas cular Therapy Agents multivitami n with minerals tablet 07-13 00:00: 00 03-13 23:59 :00 No [id number] 1 tablet DAILY 1 tablet DAILY (route: oral) Med Classific ation: Electroly te Balance-N utroscara l Products paliperidon e ER 9 mg tablet,exte nded release 24 hr - 00:00: 00 12-01 23:59 :00 No [id number] 1 tablet BEDTIME 1 tablet BEDTIME (route: oral) Med Classific ation: Central Nervous System Agents metoprolol tartrate 25 mg tablet 6-19 00:00: 00 11-17 23:59 :00 No [id number] 1 tablet BEDTIME 1 tablet BEDTIME (route: oral) Med Classific ation: Cardiovas cular Therapy Agents benztropine 1 mg tablet -15 00:00: 00 03-13 23:59 :00 No [id number] 1 tablet EVERY PM 1 tablet EVERY PM (route: oral) Med Classific ation: Central Nervous System Agents paliperidon e ER 6 mg tablet,exte nded release 24 hr 12-01 00:00: 00 03-13 23:59 :00 No [id number] 1 tablet EVERY PM 1 tablet EVERY PM (route: oral) Med Classific ation: Central Nervous System Agents trazodone 50 mg tablet 12-01 00:00: 00 03-13 23:59 :00 No [id number] 1 tablet BEDTIME 1 tablet BEDTIME (route: oral) Med Classific ation: Central Nervous System Agents polyethylen e glycol 3350 17 gram/dose oral powder 12-21 00:00: 00 03-13 23:59 :00 No [id number] Per instruc tions DAILY Per instructio ns DAILY (route: oral) Med Classific ation: Gastroint estinal Therapy Agents benztropine 1 mg tablet 2024-05 00:00: 00 Yes [id number] 1 tablet EVERY PM 1 tablet EVERY PM (route: oral) Med Classific ation: Central Nervous System Agents cholecalcif beverley (vitamin D3) 10 mcg (400 unit) tablet 2024-05 00:00: 00 Yes [id number] 1 tablet EVERY AM 1 tablet EVERY AM (route: oral) Med Classific ation: Electroly te Balance-N utritiona l Products diltiazem ER (XR/XT) 180 mg capsule,ext ended release 24 hr, controlled 2024-05 00:00: 00 Yes [id number] 1 capsule EVERY AM 1 capsule EVERY AM (route: oral) Med Classific ation: Cardiovas cular Therapy Agents docusate sodium 100 mg capsule 2024-05 00:00: 00 Yes [id number] 1 capsule 2 TIMES DAILY 1 capsule 2 TIMES DAILY (route: oral) Med Classific ation: Gastroint estinal Therapy Agents lisinopril 40 mg tablet 2024-05 00:00: 00 Yes [id number] 1 tablet EVERY AM 1 tablet EVERY AM (route: oral) Med Classific ation: Cardiovas cular Therapy Agents metoprolol tartrate 25 mg tablet 2024-05 00:00: 00 Yes [id number] 1 tablet 2 TIMES DAILY 1 tablet 2 TIMES DAILY (route: oral) Med Classific ation: Cardiovas cular Therapy Agents multivitami n with minerals tablet 2024-05 00:00: 00 Yes [id number] 1 tablet EVERY AM 1 tablet EVERY AM (route: oral) Med Classific ation: Electroly te Balance-N utritiona l Products paliperidon e ER 6 mg tablet,exte nded release 24 hr 2024-05 00:00: 00 Yes [id number] 1 tablet EVERY PM 1 tablet EVERY PM (route: oral) Med Classific ation: Central Nervous System Agents polyethylen e glycol 3350 17 gram/dose oral powder 2024-05 00:00: 00 Yes [id number] Per instruc tions NEEDED Per instructio ns NEEDED (route: oral) Med Classific ation: Gastroint estinal Therapy Agents trazodone 50 mg tablet 2024-05 00:00: 00 Yes [id number] 1 tablet BEDTIME 1 tablet BEDTIME (route: [...] AWARENESS FOR SAFETY AND WILL NOTIFY CLINICAL HR COORDINATOR AND PHYSICIAN/PROVIDER WITH ANY CHANGE IN CONDITION. [code = SKILLED NURSE WILL MAINTAIN SITUATIONAL AWARENESS FOR SAFETY AND WILL NOTIFY CLINICAL HR COORDINATOR AND PHYSICIAN/PROVIDER WITH ANY CHANGE IN CONDITION.] [...] 2025-05-08 00:00:00 Outpatient RECERTIFIC ATION TIFFANY MELTON [facility] [id number] 29.41
--- OUTSIDE RECORDS SUMMARY | 2025-05-07 19:00 | XMS_ITS | Clinical Summary ---
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 Computing Tutor Name Role Phone MEGAN CHUN, MELO Unavailable Unavailable GERONIMO TRACEY, TIFFANY Unavailable Unavailable Payers Payer Name Policy Type Policy Number Effective Date Expira tion Date [employer] MEDIC[employer] ADVANTAGE [id number] MEDICARE - [facility] [id number] Problems Condition Name Condition Details Condition Category [...] 07-13 00:00: 00 03-13 23:59 :00 No [id number] 1 tablet DAILY 1 tablet DAILY (route: oral) Med Classific ation: Electroly te Balance-N utritiona l Products cyanocobala min (vit B-12) 1,000 mcg tablet 07-13 00:00: 00 2025- 06-12 23:59 :00 No [id number] 1 tablet DAILY 1 tablet DAILY (route: oral) Med Classific ation: Electroly te Balance-N utritiona l Products diltiazem ER (XR/XT) 180 mg capsule,ext ended release 24 hr, controlled 2-19 00:00: 00 03-13 23:59 :00 No [id number] 1 capsule DAILY 1 capsule DAILY (route: oral) Med Classific ation: Cardiovas cular Therapy Agents docusate sodium 100 mg capsule - 00:00: 00 03-13 23:59 :00 No [id number] 1 capsule 2 TIMES DAILY 1 capsule 2 TIMES DAILY (route: oral) Med Classific ation: Gastroint estinal Therapy Agents lisinopril 40 mg tablet - 00:00: 00 03-13 23:59 :00 No [id number] 1 tablet EVERY AM 1 tablet EVERY AM (route: oral) Med Classific ation: Cardiovas cular Therapy Agents metoprolol tartrate 25 mg tablet - 00:00: 00 03-13 23:59 :00 No [id number] 1 tablet 2 TIMES DAILY 1 tablet 2 TIMES DAILY (route: oral) Med Classific ation: Cardiovas cular Therapy Agents multivitami n with minerals tablet 07-13 00:00: 00 03-13 23:59 :00 No [id number] 1 tablet DAILY 1 tablet DAILY (route: oral) Med Classific ation: Electroly te Balance-N utroscara l Products paliperidon e ER 9 mg tablet,exte nded release 24 hr - 00:00: 00 12-01 23:59 :00 No [id number] 1 tablet BEDTIME 1 tablet BEDTIME (route: oral) Med Classific ation: Central Nervous System Agents metoprolol tartrate 25 mg tablet 6-19 00:00: 00 11-17 23:59 :00 No [id number] 1 tablet BEDTIME 1 tablet BEDTIME (route: oral) Med Classific ation: Cardiovas cular Therapy Agents benztropine 1 mg tablet -15 00:00: 00 03-13 23:59 :00 No [id number] 1 tablet EVERY PM 1 tablet EVERY PM (route: oral) Med Classific ation: Central Nervous System Agents paliperidon e ER 6 mg tablet,exte nded release 24 hr 12-01 00:00: 00 03-13 23:59 :00 No [id number] 1 tablet EVERY PM 1 tablet EVERY PM (route: oral) Med Classific ation: Central Nervous System Agents trazodone 50 mg tablet 12-01 00:00: 00 03-13 23:59 :00 No [id number] 1 tablet BEDTIME 1 tablet BEDTIME (route: oral) Med Classific ation: Central Nervous System Agents polyethylen e glycol 3350 17 gram/dose oral powder 12-21 00:00: 00 03-13 23:59 :00 No [id number] Per instruc tions DAILY Per instructio ns DAILY (route: oral) Med Classific ation: Gastroint estinal Therapy Agents benztropine 1 mg tablet 2024-05 00:00: 00 Yes [id number] 1 tablet EVERY PM 1 tablet EVERY PM (route: oral) Med Classific ation: Central Nervous System Agents cholecalcif beverley (vitamin D3) 10 mcg (400 unit) tablet 2024-05 00:00: 00 Yes [id number] 1 tablet EVERY AM 1 tablet EVERY AM (route: oral) Med Classific ation: Electroly te Balance-N utritiona l Products diltiazem ER (XR/XT) 180 mg capsule,ext ended release 24 hr, controlled 2024-05 00:00: 00 Yes [id number] 1 capsule EVERY AM 1 capsule EVERY AM (route: oral) Med Classific ation: Cardiovas cular Therapy Agents docusate sodium 100 mg capsule 2024-05 00:00: 00 Yes [id number] 1 capsule 2 TIMES DAILY 1 capsule 2 TIMES DAILY (route: oral) Med Classific ation: Gastroint estinal Therapy Agents lisinopril 40 mg tablet 2024-05 00:00: 00 Yes [id number] 1 tablet EVERY AM 1 tablet EVERY AM (route: oral) Med Classific ation: Cardiovas cular Therapy Agents metoprolol tartrate 25 mg tablet 2024-05 00:00: 00 Yes [id number] 1 tablet 2 TIMES DAILY 1 tablet 2 TIMES DAILY (route: oral) Med Classific ation: Cardiovas cular Therapy Agents multivitami n with minerals tablet 2024-05 00:00: 00 Yes [id number] 1 tablet EVERY AM 1 tablet EVERY AM (route: oral) Med Classific ation: Electroly te Balance-N utritiona l Products paliperidon e ER 6 mg tablet,exte nded release 24 hr 2024-05 00:00: 00 Yes [id number] 1 tablet EVERY PM 1 tablet EVERY PM (route: oral) Med Classific ation: Central Nervous System Agents polyethylen e glycol 3350 17 gram/dose oral powder 2024-05 00:00: 00 Yes [id number] Per instruc tions NEEDED Per instructio ns NEEDED (route: oral) Med Classific ation: Gastroint estinal Therapy Agents trazodone 50 mg tablet 2024-05 00:00: 00 Yes [id number] 1 tablet BEDTIME 1 tablet BEDTIME (route: [...] AWARENESS FOR SAFETY AND WILL NOTIFY CLINICAL SPECIAL EDUCATION INCLUSION TEACHER AND PHYSICIAN/PROVIDER WITH ANY CHANGE IN CONDITION. [code = SKILLED NURSE WILL MAINTAIN SITUATIONAL AWARENESS FOR SAFETY AND WILL NOTIFY CLINICAL SPECIAL EDUCATION INCLUSION TEACHER AND PHYSICIAN/PROVIDER WITH ANY CHANGE IN CONDITION.] [...] 2025-05-08 00:00:00 Outpatient RECERTIFIC ATION TIFFANY MELTON [facility] [id number] 29.41
--- OUTSIDE RECORDS SUMMARY | 2025-05-07 19:00 | XMS_ITS | Clinical Summary ---
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 Chief Lending Officer Name Role Phone MEGAN CHUN, MELO Unavailable Unavailable GERONIMO TRACEY, TIFFANY Unavailable Unavailable Payers Payer Name Policy Type Policy Number Effective Date Expira tion Date [employer] MEDIC[employer] ADVANTAGE [id number] [facility] [id number] Problems Condition Name Condition Details Condition Category [...] 07-13 00:00: 00 03-13 23:59 :00 No [id number] 1 tablet DAILY 1 tablet DAILY (route: oral) Med Classific ation: Electroly te Balance-N utritiona l Products cyanocobala min (vit B-12) 1,000 mcg tablet 07-13 00:00: 00 2025- 06-12 23:59 :00 No [id number] 1 tablet DAILY 1 tablet DAILY (route: oral) Med Classific ation: Electroly te Balance-N utritiona l Products diltiazem ER (XR/XT) 180 mg capsule,ext ended release 24 hr, controlled 2-19 00:00: 00 03-13 23:59 :00 No [id number] 1 capsule DAILY 1 capsule DAILY (route: oral) Med Classific ation: Cardiovas cular Therapy Agents docusate sodium 100 mg capsule - 00:00: 00 03-13 23:59 :00 No [id number] 1 capsule 2 TIMES DAILY 1 capsule 2 TIMES DAILY (route: oral) Med Classific ation: Gastroint estinal Therapy Agents lisinopril 40 mg tablet - 00:00: 00 03-13 23:59 :00 No [id number] 1 tablet EVERY AM 1 tablet EVERY AM (route: oral) Med Classific ation: Cardiovas cular Therapy Agents metoprolol tartrate 25 mg tablet - 00:00: 00 03-13 23:59 :00 No [id number] 1 tablet 2 TIMES DAILY 1 tablet 2 TIMES DAILY (route: oral) Med Classific ation: Cardiovas cular Therapy Agents multivitami n with minerals tablet 07-13 00:00: 00 03-13 23:59 :00 No [id number] 1 tablet DAILY 1 tablet DAILY (route: oral) Med Classific ation: Electroly te Balance-N utroscara l Products paliperidon e ER 9 mg tablet,exte nded release 24 hr - 00:00: 00 12-01 23:59 :00 No [id number] 1 tablet BEDTIME 1 tablet BEDTIME (route: oral) Med Classific ation: Central Nervous System Agents metoprolol tartrate 25 mg tablet 6-19 00:00: 00 11-17 23:59 :00 No [id number] 1 tablet BEDTIME 1 tablet BEDTIME (route: oral) Med Classific ation: Cardiovas cular Therapy Agents benztropine 1 mg tablet -15 00:00: 00 03-13 23:59 :00 No [id number] 1 tablet EVERY PM 1 tablet EVERY PM (route: oral) Med Classific ation: Central Nervous System Agents paliperidon e ER 6 mg tablet,exte nded release 24 hr 12-01 00:00: 00 03-13 23:59 :00 No [id number] 1 tablet EVERY PM 1 tablet EVERY PM (route: oral) Med Classific ation: Central Nervous System Agents trazodone 50 mg tablet 12-01 00:00: 00 03-13 23:59 :00 No [id number] 1 tablet BEDTIME 1 tablet BEDTIME (route: oral) Med Classific ation: Central Nervous System Agents polyethylen e glycol 3350 17 gram/dose oral powder 12-21 00:00: 00 03-13 23:59 :00 No [id number] Per instruc tions DAILY Per instructio ns DAILY (route: oral) Med Classific ation: Gastroint estinal Therapy Agents benztropine 1 mg tablet 2024-05 00:00: 00 Yes [id number] 1 tablet EVERY PM 1 tablet EVERY PM (route: oral) Med Classific ation: Central Nervous System Agents cholecalcif beverley (vitamin D3) 10 mcg (400 unit) tablet 2024-05 00:00: 00 Yes [id number] 1 tablet EVERY AM 1 tablet EVERY AM (route: oral) Med Classific ation: Electroly te Balance-N utritiona l Products diltiazem ER (XR/XT) 180 mg capsule,ext ended release 24 hr, controlled 2024-05 00:00: 00 Yes [id number] 1 capsule EVERY AM 1 capsule EVERY AM (route: oral) Med Classific ation: Cardiovas cular Therapy Agents docusate sodium 100 mg capsule 2024-05 00:00: 00 Yes [id number] 1 capsule 2 TIMES DAILY 1 capsule 2 TIMES DAILY (route: oral) Med Classific ation: Gastroint estinal Therapy Agents lisinopril 40 mg tablet 2024-05 00:00: 00 Yes [id number] 1 tablet EVERY AM 1 tablet EVERY AM (route: oral) Med Classific ation: Cardiovas cular Therapy Agents metoprolol tartrate 25 mg tablet 2024-05 00:00: 00 Yes [id number] 1 tablet 2 TIMES DAILY 1 tablet 2 TIMES DAILY (route: oral) Med Classific ation: Cardiovas cular Therapy Agents multivitami n with minerals tablet 2024-05 00:00: 00 Yes [id number] 1 tablet EVERY AM 1 tablet EVERY AM (route: oral) Med Classific ation: Electroly te Balance-N utritiona l Products paliperidon e ER 6 mg tablet,exte nded release 24 hr 2024-05 00:00: 00 Yes [id number] 1 tablet EVERY PM 1 tablet EVERY PM (route: oral) Med Classific ation: Central Nervous System Agents polyethylen e glycol 3350 17 gram/dose oral powder 2024-05 00:00: 00 Yes [id number] Per instruc tions NEEDED Per instructio ns NEEDED (route: oral) Med Classific ation: Gastroint estinal Therapy Agents trazodone 50 mg tablet 2024-05 00:00: 00 Yes [id number] 1 tablet BEDTIME 1 tablet BEDTIME (route: [...] AWARENESS FOR SAFETY AND WILL NOTIFY CLINICAL DAMAGE APPRAISER AND PHYSICIAN/PROVIDER WITH ANY CHANGE IN CONDITION. [code = SKILLED NURSE WILL MAINTAIN SITUATIONAL AWARENESS FOR SAFETY AND WILL NOTIFY CLINICAL DAMAGE APPRAISER AND PHYSICIAN/PROVIDER WITH ANY CHANGE IN CONDITION.] [...] CARE WILL BE ESTABLISHED THAT MEETS PATIENT'S ASSISTED NEEDS AND INCLUDES PATIENT GOAL FOR HOME [...] 2025-05-08 00:00:00 Outpatient RECERTIFIC ATION TIFFANY MELTON [facility] [id number] 29.41
--- OUTSIDE RECORDS SUMMARY | 2025-05-07 19:00 | XMS_ITS | Clinical Summary ---
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 Blanchard Grinder Operator Name Role Phone MEGAN CHUN, MELO Unavailable Unavailable GERONIMO TRACEY, TIFFANY Unavailable Unavailable Payers Payer Name Policy Type Policy Number Effective Date Expira tion Date [employer] MEDIC[employer] ADVANTAGE [id number] MEDICARE - [facility] [id number] Problems Condition Name Condition Details Condition Category [...] 07-13 00:00: 00 03-13 23:59 :00 No [id number] 1 tablet DAILY 1 tablet DAILY (route: oral) Med Classific ation: Electroly te Balance-N utritiona l Products cyanocobala min (vit B-12) 1,000 mcg tablet 07-13 00:00: 00 2025- 06-12 23:59 :00 No [id number] 1 tablet DAILY 1 tablet DAILY (route: oral) Med Classific ation: Electroly te Balance-N utritiona l Products diltiazem ER (XR/XT) 180 mg capsule,ext ended release 24 hr, controlled 2-19 00:00: 00 03-13 23:59 :00 No [id number] 1 capsule DAILY 1 capsule DAILY (route: oral) Med Classific ation: Cardiovas cular Therapy Agents docusate sodium 100 mg capsule - 00:00: 00 03-13 23:59 :00 No [id number] 1 capsule 2 TIMES DAILY 1 capsule 2 TIMES DAILY (route: oral) Med Classific ation: Gastroint estinal Therapy Agents lisinopril 40 mg tablet - 00:00: 00 03-13 23:59 :00 No [id number] 1 tablet EVERY AM 1 tablet EVERY AM (route: oral) Med Classific ation: Cardiovas cular Therapy Agents metoprolol tartrate 25 mg tablet - 00:00: 00 03-13 23:59 :00 No [id number] 1 tablet 2 TIMES DAILY 1 tablet 2 TIMES DAILY (route: oral) Med Classific ation: Cardiovas cular Therapy Agents multivitami n with minerals tablet 07-13 00:00: 00 03-13 23:59 :00 No [id number] 1 tablet DAILY 1 tablet DAILY (route: oral) Med Classific ation: Electroly te Balance-N utroscara l Products paliperidon e ER 9 mg tablet,exte nded release 24 hr - 00:00: 00 12-01 23:59 :00 No [id number] 1 tablet BEDTIME 1 tablet BEDTIME (route: oral) Med Classific ation: Central Nervous System Agents metoprolol tartrate 25 mg tablet 6-19 00:00: 00 11-17 23:59 :00 No [id number] 1 tablet BEDTIME 1 tablet BEDTIME (route: oral) Med Classific ation: Cardiovas cular Therapy Agents benztropine 1 mg tablet -15 00:00: 00 03-13 23:59 :00 No [id number] 1 tablet EVERY PM 1 tablet EVERY PM (route: oral) Med Classific ation: Central Nervous System Agents paliperidon e ER 6 mg tablet,exte nded release 24 hr 12-01 00:00: 00 03-13 23:59 :00 No [id number] 1 tablet EVERY PM 1 tablet EVERY PM (route: oral) Med Classific ation: Central Nervous System Agents trazodone 50 mg tablet 12-01 00:00: 00 03-13 23:59 :00 No [id number] 1 tablet BEDTIME 1 tablet BEDTIME (route: oral) Med Classific ation: Central Nervous System Agents polyethylen e glycol 3350 17 gram/dose oral powder 12-21 00:00: 00 03-13 23:59 :00 No [id number] Per instruc tions DAILY Per instructio ns DAILY (route: oral) Med Classific ation: Gastroint estinal Therapy Agents benztropine 1 mg tablet 2024-05 00:00: 00 Yes [id number] 1 tablet EVERY PM 1 tablet EVERY PM (route: oral) Med Classific ation: Central Nervous System Agents cholecalcif beverley (vitamin D3) 10 mcg (400 unit) tablet 2024-05 00:00: 00 Yes [id number] 1 tablet EVERY AM 1 tablet EVERY AM (route: oral) Med Classific ation: Electroly te Balance-N utritiona l Products diltiazem ER (XR/XT) 180 mg capsule,ext ended release 24 hr, controlled 2024-05 00:00: 00 Yes [id number] 1 capsule EVERY AM 1 capsule EVERY AM (route: oral) Med Classific ation: Cardiovas cular Therapy Agents docusate sodium 100 mg capsule 2024-05 00:00: 00 Yes [id number] 1 capsule 2 TIMES DAILY 1 capsule 2 TIMES DAILY (route: oral) Med Classific ation: Gastroint estinal Therapy Agents lisinopril 40 mg tablet 2024-05 00:00: 00 Yes [id number] 1 tablet EVERY AM 1 tablet EVERY AM (route: oral) Med Classific ation: Cardiovas cular Therapy Agents metoprolol tartrate 25 mg tablet 2024-05 00:00: 00 Yes [id number] 1 tablet 2 TIMES DAILY 1 tablet 2 TIMES DAILY (route: oral) Med Classific ation: Cardiovas cular Therapy Agents multivitami n with minerals tablet 2024-05 00:00: 00 Yes [id number] 1 tablet EVERY AM 1 tablet EVERY AM (route: oral) Med Classific ation: Electroly te Balance-N utritiona l Products paliperidon e ER 6 mg tablet,exte nded release 24 hr 2024-05 00:00: 00 Yes [id number] 1 tablet EVERY PM 1 tablet EVERY PM (route: oral) Med Classific ation: Central Nervous System Agents polyethylen e glycol 3350 17 gram/dose oral powder 2024-05 00:00: 00 Yes [id number] Per instruc tions NEEDED Per instructio ns NEEDED (route: oral) Med Classific ation: Gastroint estinal Therapy Agents trazodone 50 mg tablet 2024-05 00:00: 00 Yes [id number] 1 tablet BEDTIME 1 tablet BEDTIME (route: [...] AWARENESS FOR SAFETY AND WILL NOTIFY CLINICAL HIGH SCHOOL TUTOR AND PHYSICIAN/PROVIDER WITH ANY CHANGE IN CONDITION. [code = SKILLED NURSE WILL MAINTAIN SITUATIONAL AWARENESS FOR SAFETY AND WILL NOTIFY CLINICAL HIGH SCHOOL TUTOR AND PHYSICIAN/PROVIDER WITH ANY CHANGE IN CONDITION.] [...] Outpatient RECERTIFIC ATION TIFFANY MELTON [facility] [id number] 29.41
--- OUTSIDE RECORDS SUMMARY | 2025-05-07 19:00 | XMS_ITS | Clinical Summary ---
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 Machinist Instructor Name Role Phone MEGAN CHUN, MELO Unavailable Unavailable GERONIMO TRACEY, TIFFANY Unavailable Unavailable Payers Payer Name Policy Type Policy Number Effective Date Expira tion Date [employer] [id number] MEDICARE - [facility] [id number] Problems Condition Name Condition Details Condition Category [...] 07-13 00:00: 00 03-13 23:59 :00 No [id number] 1 tablet DAILY 1 tablet DAILY (route: oral) Med Classific ation: Electroly te Balance-N utritiona l Products cyanocobala min (vit B-12) 1,000 mcg tablet 07-13 00:00: 00 2025- 06-12 23:59 :00 No [id number] 1 tablet DAILY 1 tablet DAILY (route: oral) Med Classific ation: Electroly te Balance-N utritiona l Products diltiazem ER (XR/XT) 180 mg capsule,ext ended release 24 hr, controlled 2-19 00:00: 00 03-13 23:59 :00 No [id number] 1 capsule DAILY 1 capsule DAILY (route: oral) Med Classific ation: Cardiovas cular Therapy Agents docusate sodium 100 mg capsule - 00:00: 00 03-13 23:59 :00 No [id number] 1 capsule 2 TIMES DAILY 1 capsule 2 TIMES DAILY (route: oral) Med Classific ation: Gastroint estinal Therapy Agents lisinopril 40 mg tablet - 00:00: 00 03-13 23:59 :00 No [id number] 1 tablet EVERY AM 1 tablet EVERY AM (route: oral) Med Classific ation: Cardiovas cular Therapy Agents metoprolol tartrate 25 mg tablet - 00:00: 00 03-13 23:59 :00 No [id number] 1 tablet 2 TIMES DAILY 1 tablet 2 TIMES DAILY (route: oral) Med Classific ation: Cardiovas cular Therapy Agents multivitami n with minerals tablet 07-13 00:00: 00 03-13 23:59 :00 No [id number] 1 tablet DAILY 1 tablet DAILY (route: oral) Med Classific ation: Electroly te Balance-N utroscara l Products paliperidon e ER 9 mg tablet,exte nded release 24 hr - 00:00: 00 12-01 23:59 :00 No [id number] 1 tablet BEDTIME 1 tablet BEDTIME (route: oral) Med Classific ation: Central Nervous System Agents metoprolol tartrate 25 mg tablet 6-19 00:00: 00 11-17 23:59 :00 No [id number] 1 tablet BEDTIME 1 tablet BEDTIME (route: oral) Med Classific ation: Cardiovas cular Therapy Agents benztropine 1 mg tablet -15 00:00: 00 03-13 23:59 :00 No [id number] 1 tablet EVERY PM 1 tablet EVERY PM (route: oral) Med Classific ation: Central Nervous System Agents paliperidon e ER 6 mg tablet,exte nded release 24 hr 12-01 00:00: 00 03-13 23:59 :00 No [id number] 1 tablet EVERY PM 1 tablet EVERY PM (route: oral) Med Classific ation: Central Nervous System Agents trazodone 50 mg tablet 12-01 00:00: 00 03-13 23:59 :00 No [id number] 1 tablet BEDTIME 1 tablet BEDTIME (route: oral) Med Classific ation: Central Nervous System Agents polyethylen e glycol 3350 17 gram/dose oral powder 12-21 00:00: 00 03-13 23:59 :00 No [id number] Per instruc tions DAILY Per instructio ns DAILY (route: oral) Med Classific ation: Gastroint estinal Therapy Agents benztropine 1 mg tablet 2024-05 00:00: 00 Yes [id number] 1 tablet EVERY PM 1 tablet EVERY PM (route: oral) Med Classific ation: Central Nervous System Agents cholecalcif beverley (vitamin D3) 10 mcg (400 unit) tablet 2024-05 00:00: 00 Yes [id number] 1 tablet EVERY AM 1 tablet EVERY AM (route: oral) Med Classific ation: Electroly te Balance-N utritiona l Products diltiazem ER (XR/XT) 180 mg capsule,ext ended release 24 hr, controlled 2024-05 00:00: 00 Yes [id number] 1 capsule EVERY AM 1 capsule EVERY AM (route: oral) Med Classific ation: Cardiovas cular Therapy Agents docusate sodium 100 mg capsule 2024-05 00:00: 00 Yes [id number] 1 capsule 2 TIMES DAILY 1 capsule 2 TIMES DAILY (route: oral) Med Classific ation: Gastroint estinal Therapy Agents lisinopril 40 mg tablet 2024-05 00:00: 00 Yes [id number] 1 tablet EVERY AM 1 tablet EVERY AM (route: oral) Med Classific ation: Cardiovas cular Therapy Agents metoprolol tartrate 25 mg tablet 2024-05 00:00: 00 Yes [id number] 1 tablet 2 TIMES DAILY 1 tablet 2 TIMES DAILY (route: oral) Med Classific ation: Cardiovas cular Therapy Agents multivitami n with minerals tablet 2024-05 00:00: 00 Yes [id number] 1 tablet EVERY AM 1 tablet EVERY AM (route: oral) Med Classific ation: Electroly te Balance-N utritiona l Products paliperidon e ER 6 mg tablet,exte nded release 24 hr 2024-05 00:00: 00 Yes [id number] 1 tablet EVERY PM 1 tablet EVERY PM (route: oral) Med Classific ation: Central Nervous System Agents polyethylen e glycol 3350 17 gram/dose oral powder 2024-05 00:00: 00 Yes [id number] Per instruc tions NEEDED Per instructio ns NEEDED (route: oral) Med Classific ation: Gastroint estinal Therapy Agents trazodone 50 mg tablet 2024-05 00:00: 00 Yes [id number] 1 tablet BEDTIME 1 tablet BEDTIME (route: [...] AWARENESS FOR SAFETY AND WILL NOTIFY CLINICAL CROP RANCH HAND AND PHYSICIAN/PROVIDER WITH ANY CHANGE IN CONDITION. [code = SKILLED NURSE WILL MAINTAIN SITUATIONAL AWARENESS FOR SAFETY AND WILL NOTIFY CLINICAL CROP RANCH HAND AND PHYSICIAN/PROVIDER WITH ANY CHANGE IN CONDITION.] [...] 2025-05-08 00:00:00 Outpatient RECERTIFIC ATION TIFFANY [facility] [id number] 29.41
--- OUTSIDE RECORDS SUMMARY | 2025-05-07 19:00 | XMS_ITS | Clinical Summary ---
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 Cook Boat Name Role Phone MEGAN CHUN, MELO Unavailable Unavailable GERONIMO TRACEY, TIFFANY Unavailable Unavailable Payers Payer Name Policy Type Policy Number Effective Date Expira tion Date [employer] [id number] MEDIC[facility] - [facility] [id number] Problems Condition Name Condition Details Condition Category [...] 07-13 00:00: 00 03-13 23:59 :00 No [id number] 1 tablet DAILY 1 tablet DAILY (route: oral) Med Classific ation: Electroly te Balance-N utritiona l Products cyanocobala min (vit B-12) 1,000 mcg tablet 07-13 00:00: 00 2025- 06-12 23:59 :00 No [id number] 1 tablet DAILY 1 tablet DAILY (route: oral) Med Classific ation: Electroly te Balance-N utritiona l Products diltiazem ER (XR/XT) 180 mg capsule,ext ended release 24 hr, controlled 2-19 00:00: 00 03-13 23:59 :00 No [id number] 1 capsule DAILY 1 capsule DAILY (route: oral) Med Classific ation: Cardiovas cular Therapy Agents docusate sodium 100 mg capsule - 00:00: 00 03-13 23:59 :00 No [id number] 1 capsule 2 TIMES DAILY 1 capsule 2 TIMES DAILY (route: oral) Med Classific ation: Gastroint estinal Therapy Agents lisinopril 40 mg tablet - 00:00: 00 03-13 23:59 :00 No [id number] 1 tablet EVERY AM 1 tablet EVERY AM (route: oral) Med Classific ation: Cardiovas cular Therapy Agents metoprolol tartrate 25 mg tablet - 00:00: 00 03-13 23:59 :00 No [id number] 1 tablet 2 TIMES DAILY 1 tablet 2 TIMES DAILY (route: oral) Med Classific ation: Cardiovas cular Therapy Agents multivitami n with minerals tablet 07-13 00:00: 00 03-13 23:59 :00 No [id number] 1 tablet DAILY 1 tablet DAILY (route: oral) Med Classific ation: Electroly te Balance-N utroscara l Products paliperidon e ER 9 mg tablet,exte nded release 24 hr - 00:00: 00 12-01 23:59 :00 No [id number] 1 tablet BEDTIME 1 tablet BEDTIME (route: oral) Med Classific ation: Central Nervous System Agents metoprolol tartrate 25 mg tablet 6-19 00:00: 00 11-17 23:59 :00 No [id number] 1 tablet BEDTIME 1 tablet BEDTIME (route: oral) Med Classific ation: Cardiovas cular Therapy Agents benztropine 1 mg tablet -15 00:00: 00 03-13 23:59 :00 No [id number] 1 tablet EVERY PM 1 tablet EVERY PM (route: oral) Med Classific ation: Central Nervous System Agents paliperidon e ER 6 mg tablet,exte nded release 24 hr 12-01 00:00: 00 03-13 23:59 :00 No [id number] 1 tablet EVERY PM 1 tablet EVERY PM (route: oral) Med Classific ation: Central Nervous System Agents trazodone 50 mg tablet 12-01 00:00: 00 03-13 23:59 :00 No [id number] 1 tablet BEDTIME 1 tablet BEDTIME (route: oral) Med Classific ation: Central Nervous System Agents polyethylen e glycol 3350 17 gram/dose oral powder 12-21 00:00: 00 03-13 23:59 :00 No [id number] Per instruc tions DAILY Per instructio ns DAILY (route: oral) Med Classific ation: Gastroint estinal Therapy Agents benztropine 1 mg tablet 2024-05 00:00: 00 Yes [id number] 1 tablet EVERY PM 1 tablet EVERY PM (route: oral) Med Classific ation: Central Nervous System Agents cholecalcif beverley (vitamin D3) 10 mcg (400 unit) tablet 2024-05 00:00: 00 Yes [id number] 1 tablet EVERY AM 1 tablet EVERY AM (route: oral) Med Classific ation: Electroly te Balance-N utritiona l Products diltiazem ER (XR/XT) 180 mg capsule,ext ended release 24 hr, controlled 2024-05 00:00: 00 Yes [id number] 1 capsule EVERY AM 1 capsule EVERY AM (route: oral) Med Classific ation: Cardiovas cular Therapy Agents docusate sodium 100 mg capsule 2024-05 00:00: 00 Yes [id number] 1 capsule 2 TIMES DAILY 1 capsule 2 TIMES DAILY (route: oral) Med Classific ation: Gastroint estinal Therapy Agents lisinopril 40 mg tablet 2024-05 00:00: 00 Yes [id number] 1 tablet EVERY AM 1 tablet EVERY AM (route: oral) Med Classific ation: Cardiovas cular Therapy Agents metoprolol tartrate 25 mg tablet 2024-05 00:00: 00 Yes [id number] 1 tablet 2 TIMES DAILY 1 tablet 2 TIMES DAILY (route: oral) Med Classific ation: Cardiovas cular Therapy Agents multivitami n with minerals tablet 2024-05 00:00: 00 Yes [id number] 1 tablet EVERY AM 1 tablet EVERY AM (route: oral) Med Classific ation: Electroly te Balance-N utritiona l Products paliperidon e ER 6 mg tablet,exte nded release 24 hr 2024-05 00:00: 00 Yes [id number] 1 tablet EVERY PM 1 tablet EVERY PM (route: oral) Med Classific ation: Central Nervous System Agents polyethylen e glycol 3350 17 gram/dose oral powder 2024-05 00:00: 00 Yes [id number] Per instruc tions NEEDED Per instructio ns NEEDED (route: oral) Med Classific ation: Gastroint estinal Therapy Agents trazodone 50 mg tablet 2024-05 00:00: 00 Yes [id number] 1 tablet BEDTIME 1 tablet BEDTIME (route: [...] AWARENESS FOR SAFETY AND WILL NOTIFY CLINICAL OUTBOUND SALES AGENT AND PHYSICIAN/PROVIDER WITH ANY CHANGE IN CONDITION. [code = SKILLED NURSE WILL MAINTAIN SITUATIONAL AWARENESS FOR SAFETY AND WILL NOTIFY CLINICAL OUTBOUND SALES AGENT AND PHYSICIAN/PROVIDER WITH ANY CHANGE IN CONDITION.] [...] 2025-05-08 00:00:00 Outpatient RECERTIFIC ATION TIFFANY [facility] [id number] 29.41
--- OUTSIDE RECORDS SUMMARY | 2025-05-07 19:00 | XMS_ITS | Clinical Summary ---
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 Loom Mechanic Name Role Phone MEGAN CHUN, MELO Unavailable Unavailable GERONIMO TRACEY, TIFFANY Unavailable Unavailable Payers Payer Name Policy Type Policy Number Effective Date Expira tion Date [employer] [id number] MEDICARE - [facility] [id number] Problems Condition Name Condition Details Condition Category [...] 07-13 00:00: 00 03-13 23:59 :00 No [id number] 1 tablet DAILY 1 tablet DAILY (route: oral) Med Classific ation: Electroly te Balance-N utritiona l Products cyanocobala min (vit B-12) 1,000 mcg tablet 07-13 00:00: 00 2025- 06-12 23:59 :00 No [id number] 1 tablet DAILY 1 tablet DAILY (route: oral) Med Classific ation: Electroly te Balance-N utritiona l Products diltiazem ER (XR/XT) 180 mg capsule,ext ended release 24 hr, controlled 2-19 00:00: 00 03-13 23:59 :00 No [id number] 1 capsule DAILY 1 capsule DAILY (route: oral) Med Classific ation: Cardiovas cular Therapy Agents docusate sodium 100 mg capsule - 00:00: 00 03-13 23:59 :00 No [id number] 1 capsule 2 TIMES DAILY 1 capsule 2 TIMES DAILY (route: oral) Med Classific ation: Gastroint estinal Therapy Agents lisinopril 40 mg tablet - 00:00: 00 03-13 23:59 :00 No [id number] 1 tablet EVERY AM 1 tablet EVERY AM (route: oral) Med Classific ation: Cardiovas cular Therapy Agents metoprolol tartrate 25 mg tablet - 00:00: 00 03-13 23:59 :00 No [id number] 1 tablet 2 TIMES DAILY 1 tablet 2 TIMES DAILY (route: oral) Med Classific ation: Cardiovas cular Therapy Agents multivitami n with minerals tablet 07-13 00:00: 00 03-13 23:59 :00 No [id number] 1 tablet DAILY 1 tablet DAILY (route: oral) Med Classific ation: Electroly te Balance-N utroscara l Products paliperidon e ER 9 mg tablet,exte nded release 24 hr - 00:00: 00 12-01 23:59 :00 No [id number] 1 tablet BEDTIME 1 tablet BEDTIME (route: oral) Med Classific ation: Central Nervous System Agents metoprolol tartrate 25 mg tablet 6-19 00:00: 00 11-17 23:59 :00 No [id number] 1 tablet BEDTIME 1 tablet BEDTIME (route: oral) Med Classific ation: Cardiovas cular Therapy Agents benztropine 1 mg tablet -15 00:00: 00 03-13 23:59 :00 No [id number] 1 tablet EVERY PM 1 tablet EVERY PM (route: oral) Med Classific ation: Central Nervous System Agents paliperidon e ER 6 mg tablet,exte nded release 24 hr 12-01 00:00: 00 03-13 23:59 :00 No [id number] 1 tablet EVERY PM 1 tablet EVERY PM (route: oral) Med Classific ation: Central Nervous System Agents trazodone 50 mg tablet 12-01 00:00: 00 03-13 23:59 :00 No [id number] 1 tablet BEDTIME 1 tablet BEDTIME (route: oral) Med Classific ation: Central Nervous System Agents polyethylen e glycol 3350 17 gram/dose oral powder 12-21 00:00: 00 03-13 23:59 :00 No [id number] Per instruc tions DAILY Per instructio ns DAILY (route: oral) Med Classific ation: Gastroint estinal Therapy Agents benztropine 1 mg tablet 2024-05 00:00: 00 Yes [id number] 1 tablet EVERY PM 1 tablet EVERY PM (route: oral) Med Classific ation: Central Nervous System Agents cholecalcif beverley (vitamin D3) 10 mcg (400 unit) tablet 2024-05 00:00: 00 Yes [id number] 1 tablet EVERY AM 1 tablet EVERY AM (route: oral) Med Classific ation: Electroly te Balance-N utritiona l Products diltiazem ER (XR/XT) 180 mg capsule,ext ended release 24 hr, controlled 2024-05 00:00: 00 Yes [id number] 1 capsule EVERY AM 1 capsule EVERY AM (route: oral) Med Classific ation: Cardiovas cular Therapy Agents docusate sodium 100 mg capsule 2024-05 00:00: 00 Yes [id number] 1 capsule 2 TIMES DAILY 1 capsule 2 TIMES DAILY (route: oral) Med Classific ation: Gastroint estinal Therapy Agents lisinopril 40 mg tablet 2024-05 00:00: 00 Yes [id number] 1 tablet EVERY AM 1 tablet EVERY AM (route: oral) Med Classific ation: Cardiovas cular Therapy Agents metoprolol tartrate 25 mg tablet 2024-05 00:00: 00 Yes [id number] 1 tablet 2 TIMES DAILY 1 tablet 2 TIMES DAILY (route: oral) Med Classific ation: Cardiovas cular Therapy Agents multivitami n with minerals tablet 2024-05 00:00: 00 Yes [id number] 1 tablet EVERY AM 1 tablet EVERY AM (route: oral) Med Classific ation: Electroly te Balance-N utritiona l Products paliperidon e ER 6 mg tablet,exte nded release 24 hr 2024-05 00:00: 00 Yes [id number] 1 tablet EVERY PM 1 tablet EVERY PM (route: oral) Med Classific ation: Central Nervous System Agents polyethylen e glycol 3350 17 gram/dose oral powder 2024-05 00:00: 00 Yes [id number] Per instruc tions NEEDED Per instructio ns NEEDED (route: oral) Med Classific ation: Gastroint estinal Therapy Agents trazodone 50 mg tablet 2024-05 00:00: 00 Yes [id number] 1 tablet BEDTIME 1 tablet BEDTIME (route: [...] AWARENESS FOR SAFETY AND WILL NOTIFY CLINICAL EDI DEVELOPER AND PHYSICIAN/PROVIDER WITH ANY CHANGE IN CONDITION. [code = SKILLED NURSE WILL MAINTAIN SITUATIONAL AWARENESS FOR SAFETY AND WILL NOTIFY CLINICAL EDI DEVELOPER AND PHYSICIAN/PROVIDER WITH ANY CHANGE IN [...] CARE WILL BE ESTABLISHED THAT MEETS PATIENT'S [facility] NEEDS AND INCLUDES PATIENT GOAL FOR HOME [...] ATION TIFFANY MELTON [facility] [id number] 29.41
--- OUTSIDE RECORDS SUMMARY | 2025-05-07 19:00 | XMS_ITS | Clinical Summary ---
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 Beverage Inspection Machine Tender Name Role Phone MEGAN CHUN, MELO Unavailable Unavailable GERONIMO TRACEY, TIFFANY Unavailable Unavailable Payers Payer Name Policy Type Policy Number Effective Date Expira tion Date [employer] [id number] MEDICARE - [facility] [id number] Problems Condition Name Condition Details Condition Category [...] 07-13 00:00: 00 03-13 23:59 :00 No [id number] 1 tablet DAILY 1 tablet DAILY (route: oral) Med Classific ation: Electroly te Balance-N utritiona l Products cyanocobala min (vit B-12) 1,000 mcg tablet 07-13 00:00: 00 2025- 06-12 23:59 :00 No [id number] 1 tablet DAILY 1 tablet DAILY (route: oral) Med Classific ation: Electroly te Balance-N utritiona l Products diltiazem ER (XR/XT) 180 mg capsule,ext ended release 24 hr, controlled 2-19 00:00: 00 03-13 23:59 :00 No [id number] 1 capsule DAILY 1 capsule DAILY (route: oral) Med Classific ation: Cardiovas cular Therapy Agents docusate sodium 100 mg capsule - 00:00: 00 03-13 23:59 :00 No [id number] 1 capsule 2 TIMES DAILY 1 capsule 2 TIMES DAILY (route: oral) Med Classific ation: Gastroint estinal Therapy Agents lisinopril 40 mg tablet - 00:00: 00 03-13 23:59 :00 No [id number] 1 tablet EVERY AM 1 tablet EVERY AM (route: oral) Med Classific ation: Cardiovas cular Therapy Agents metoprolol tartrate 25 mg tablet - 00:00: 00 03-13 23:59 :00 No [id number] 1 tablet 2 TIMES DAILY 1 tablet 2 TIMES DAILY (route: oral) Med Classific ation: Cardiovas cular Therapy Agents multivitami n with minerals tablet 07-13 00:00: 00 03-13 23:59 :00 No [id number] 1 tablet DAILY 1 tablet DAILY (route: oral) Med Classific ation: Electroly te Balance-N utroscara l Products paliperidon e ER 9 mg tablet,exte nded release 24 hr - 00:00: 00 12-01 23:59 :00 No [id number] 1 tablet BEDTIME 1 tablet BEDTIME (route: oral) Med Classific ation: Central Nervous System Agents metoprolol tartrate 25 mg tablet 6-19 00:00: 00 11-17 23:59 :00 No [id number] 1 tablet BEDTIME 1 tablet BEDTIME (route: oral) Med Classific ation: Cardiovas cular Therapy Agents benztropine 1 mg tablet -15 00:00: 00 03-13 23:59 :00 No [id number] 1 tablet EVERY PM 1 tablet EVERY PM (route: oral) Med Classific ation: Central Nervous System Agents paliperidon e ER 6 mg tablet,exte nded release 24 hr 12-01 00:00: 00 03-13 23:59 :00 No [id number] 1 tablet EVERY PM 1 tablet EVERY PM (route: oral) Med Classific ation: Central Nervous System Agents trazodone 50 mg tablet 12-01 00:00: 00 03-13 23:59 :00 No [id number] 1 tablet BEDTIME 1 tablet BEDTIME (route: oral) Med Classific ation: Central Nervous System Agents polyethylen e glycol 3350 17 gram/dose oral powder 12-21 00:00: 00 03-13 23:59 :00 No [id number] Per instruc tions DAILY Per instructio ns DAILY (route: oral) Med Classific ation: Gastroint estinal Therapy Agents benztropine 1 mg tablet 2024-05 00:00: 00 Yes [id number] 1 tablet EVERY PM 1 tablet EVERY PM (route: oral) Med Classific ation: Central Nervous System Agents cholecalcif beverley (vitamin D3) 10 mcg (400 unit) tablet 2024-05 00:00: 00 Yes [id number] 1 tablet EVERY AM 1 tablet EVERY AM (route: oral) Med Classific ation: Electroly te Balance-N utritiona l Products diltiazem ER (XR/XT) 180 mg capsule,ext ended release 24 hr, controlled 2024-05 00:00: 00 Yes [id number] 1 capsule EVERY AM 1 capsule EVERY AM (route: oral) Med Classific ation: Cardiovas cular Therapy Agents docusate sodium 100 mg capsule 2024-05 00:00: 00 Yes [id number] 1 capsule 2 TIMES DAILY 1 capsule 2 TIMES DAILY (route: oral) Med Classific ation: Gastroint estinal Therapy Agents lisinopril 40 mg tablet 2024-05 00:00: 00 Yes [id number] 1 tablet EVERY AM 1 tablet EVERY AM (route: oral) Med Classific ation: Cardiovas cular Therapy Agents metoprolol tartrate 25 mg tablet 2024-05 00:00: 00 Yes [id number] 1 tablet 2 TIMES DAILY 1 tablet 2 TIMES DAILY (route: oral) Med Classific ation: Cardiovas cular Therapy Agents multivitami n with minerals tablet 2024-05 00:00: 00 Yes [id number] 1 tablet EVERY AM 1 tablet EVERY AM (route: oral) Med Classific ation: Electroly te Balance-N utritiona l Products paliperidon e ER 6 mg tablet,exte nded release 24 hr 2024-05 00:00: 00 Yes [id number] 1 tablet EVERY PM 1 tablet EVERY PM (route: oral) Med Classific ation: Central Nervous System Agents polyethylen e glycol 3350 17 gram/dose oral powder 2024-05 00:00: 00 Yes [id number] Per instruc tions NEEDED Per instructio ns NEEDED (route: oral) Med Classific ation: Gastroint estinal Therapy Agents trazodone 50 mg tablet 2024-05 00:00: 00 Yes [id number] 1 tablet BEDTIME 1 tablet BEDTIME (route: [...] AWARENESS FOR SAFETY AND WILL NOTIFY CLINICAL SCREW MACHINE SET UP OPERATOR TOOL AND PHYSICIAN/PROVIDER WITH ANY CHANGE IN CONDITION. [code = SKILLED NURSE WILL MAINTAIN SITUATIONAL AWARENESS FOR SAFETY AND WILL NOTIFY CLINICAL SCREW MACHINE SET UP OPERATOR TOOL AND PHYSICIAN/PROVIDER WITH ANY CHANGE IN CONDITION.] [...] 00:00:00 Outpatient RECERTIFIC ATION TIFFANY M[facility] [id number] 29.41
--- OUTSIDE RECORDS SUMMARY | 2025-05-07 19:00 | XMS_ITS | Clinical Summary ---
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 Border Inspector Name Role Phone MEGAN CHUN, MELO Unavailable Unavailable GERONIMO TRACEY, TIFFANY Unavailable Unavailable Payers Payer Name Policy Type Policy Number Effective Date Expira tion Date [employer] [id number] MEDICARE - [facility] [id number] Problems Condition Name Condition Details Condition Category [...] 07-13 00:00: 00 03-13 23:59 :00 No [id number] 1 tablet DAILY 1 tablet DAILY (route: oral) Med Classific ation: Electroly te Balance-N utritiona l Products cyanocobala min (vit B-12) 1,000 mcg tablet 07-13 00:00: 00 2025- 06-12 23:59 :00 No [id number] 1 tablet DAILY 1 tablet DAILY (route: oral) Med Classific ation: Electroly te Balance-N utritiona l Products diltiazem ER (XR/XT) 180 mg capsule,ext ended release 24 hr, controlled 2-19 00:00: 00 03-13 23:59 :00 No [id number] 1 capsule DAILY 1 capsule DAILY (route: oral) Med Classific ation: Cardiovas cular Therapy Agents docusate sodium 100 mg capsule - 00:00: 00 03-13 23:59 :00 No [id number] 1 capsule 2 TIMES DAILY 1 capsule 2 TIMES DAILY (route: oral) Med Classific ation: Gastroint estinal Therapy Agents lisinopril 40 mg tablet - 00:00: 00 03-13 23:59 :00 No [id number] 1 tablet EVERY AM 1 tablet EVERY AM (route: oral) Med Classific ation: Cardiovas cular Therapy Agents metoprolol tartrate 25 mg tablet - 00:00: 00 03-13 23:59 :00 No [id number] 1 tablet 2 TIMES DAILY 1 tablet 2 TIMES DAILY (route: oral) Med Classific ation: Cardiovas cular Therapy Agents multivitami n with minerals tablet 07-13 00:00: 00 03-13 23:59 :00 No [id number] 1 tablet DAILY 1 tablet DAILY (route: oral) Med Classific ation: Electroly te Balance-N utroscara l Products paliperidon e ER 9 mg tablet,exte nded release 24 hr - 00:00: 00 12-01 23:59 :00 No [id number] 1 tablet BEDTIME 1 tablet BEDTIME (route: oral) Med Classific ation: Central Nervous System Agents metoprolol tartrate 25 mg tablet 6-19 00:00: 00 11-17 23:59 :00 No [id number] 1 tablet BEDTIME 1 tablet BEDTIME (route: oral) Med Classific ation: Cardiovas cular Therapy Agents benztropine 1 mg tablet -15 00:00: 00 03-13 23:59 :00 No [id number] 1 tablet EVERY PM 1 tablet EVERY PM (route: oral) Med Classific ation: Central Nervous System Agents paliperidon e ER 6 mg tablet,exte nded release 24 hr 12-01 00:00: 00 03-13 23:59 :00 No [id number] 1 tablet EVERY PM 1 tablet EVERY PM (route: oral) Med Classific ation: Central Nervous System Agents trazodone 50 mg tablet 12-01 00:00: 00 03-13 23:59 :00 No [id number] 1 tablet BEDTIME 1 tablet BEDTIME (route: oral) Med Classific ation: Central Nervous System Agents polyethylen e glycol 3350 17 gram/dose oral powder 12-21 00:00: 00 03-13 23:59 :00 No [id number] Per instruc tions DAILY Per instructio ns DAILY (route: oral) Med Classific ation: Gastroint estinal Therapy Agents benztropine 1 mg tablet 2024-05 00:00: 00 Yes [id number] 1 tablet EVERY PM 1 tablet EVERY PM (route: oral) Med Classific ation: Central Nervous System Agents cholecalcif beverley (vitamin D3) 10 mcg (400 unit) tablet 2024-05 00:00: 00 Yes [id number] 1 tablet EVERY AM 1 tablet EVERY AM (route: oral) Med Classific ation: Electroly te Balance-N utritiona l Products diltiazem ER (XR/XT) 180 mg capsule,ext ended release 24 hr, controlled 2024-05 00:00: 00 Yes [id number] 1 capsule EVERY AM 1 capsule EVERY AM (route: oral) Med Classific ation: Cardiovas cular Therapy Agents docusate sodium 100 mg capsule 2024-05 00:00: 00 Yes [id number] 1 capsule 2 TIMES DAILY 1 capsule 2 TIMES DAILY (route: oral) Med Classific ation: Gastroint estinal Therapy Agents lisinopril 40 mg tablet 2024-05 00:00: 00 Yes [id number] 1 tablet EVERY AM 1 tablet EVERY AM (route: oral) Med Classific ation: Cardiovas cular Therapy Agents metoprolol tartrate 25 mg tablet 2024-05 00:00: 00 Yes [id number] 1 tablet 2 TIMES DAILY 1 tablet 2 TIMES DAILY (route: oral) Med Classific ation: Cardiovas cular Therapy Agents multivitami n with minerals tablet 2024-05 00:00: 00 Yes [id number] 1 tablet EVERY AM 1 tablet EVERY AM (route: oral) Med Classific ation: Electroly te Balance-N utritiona l Products paliperidon e ER 6 mg tablet,exte nded release 24 hr 2024-05 00:00: 00 Yes [id number] 1 tablet EVERY PM 1 tablet EVERY PM (route: oral) Med Classific ation: Central Nervous System Agents polyethylen e glycol 3350 17 gram/dose oral powder 2024-05 00:00: 00 Yes [id number] Per instruc tions NEEDED Per instructio ns NEEDED (route: oral) Med Classific ation: Gastroint estinal Therapy Agents trazodone 50 mg tablet 2024-05 00:00: 00 Yes [id number] 1 tablet BEDTIME 1 tablet BEDTIME (route: [...] AWARENESS FOR SAFETY AND WILL NOTIFY CLINICAL BARGE MASTER AND PHYSICIAN/PROVIDER WITH ANY CHANGE IN CONDITION. [code = SKILLED NURSE WILL MAINTAIN SITUATIONAL AWARENESS FOR SAFETY AND WILL NOTIFY CLINICAL BARGE MASTER AND PHYSICIAN/PROVIDER WITH ANY CHANGE IN CONDITION.] [...] Outpatient RECERTIFIC ATION TIFFANY MELTON [facility] [id number] 29.41
--- OUTSIDE RECORDS SUMMARY | 2025-05-07 19:00 | XMS_ITS | Clinical Summary ---
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 Immunology Teacher Name Role Phone MEGAN CHUN, MELO Unavailable Unavailable GERONIMO TRACEY, TIFFANY Unavailable Unavailable Payers Payer Name Policy Type Policy Number Effective Date Expira tion Date [employer] ADV[employer] [id number] MEDICARE - [facility] [id number] Problems Condition Name Condition Details Condition Category [...] 07-13 00:00: 00 03-13 23:59 :00 No [id number] 1 tablet DAILY 1 tablet DAILY (route: oral) Med Classific ation: Electroly te Balance-N utritiona l Products cyanocobala min (vit B-12) 1,000 mcg tablet 07-13 00:00: 00 2025- 06-12 23:59 :00 No [id number] 1 tablet DAILY 1 tablet DAILY (route: oral) Med Classific ation: Electroly te Balance-N utritiona l Products diltiazem ER (XR/XT) 180 mg capsule,ext ended release 24 hr, controlled 2-19 00:00: 00 03-13 23:59 :00 No [id number] 1 capsule DAILY 1 capsule DAILY (route: oral) Med Classific ation: Cardiovas cular Therapy Agents docusate sodium 100 mg capsule - 00:00: 00 03-13 23:59 :00 No [id number] 1 capsule 2 TIMES DAILY 1 capsule 2 TIMES DAILY (route: oral) Med Classific ation: Gastroint estinal Therapy Agents lisinopril 40 mg tablet - 00:00: 00 03-13 23:59 :00 No [id number] 1 tablet EVERY AM 1 tablet EVERY AM (route: oral) Med Classific ation: Cardiovas cular Therapy Agents metoprolol tartrate 25 mg tablet - 00:00: 00 03-13 23:59 :00 No [id number] 1 tablet 2 TIMES DAILY 1 tablet 2 TIMES DAILY (route: oral) Med Classific ation: Cardiovas cular Therapy Agents multivitami n with minerals tablet 07-13 00:00: 00 03-13 23:59 :00 No [id number] 1 tablet DAILY 1 tablet DAILY (route: oral) Med Classific ation: Electroly te Balance-N utroscara l Products paliperidon e ER 9 mg tablet,exte nded release 24 hr - 00:00: 00 12-01 23:59 :00 No [id number] 1 tablet BEDTIME 1 tablet BEDTIME (route: oral) Med Classific ation: Central Nervous System Agents metoprolol tartrate 25 mg tablet 6-19 00:00: 00 11-17 23:59 :00 No [id number] 1 tablet BEDTIME 1 tablet BEDTIME (route: oral) Med Classific ation: Cardiovas cular Therapy Agents benztropine 1 mg tablet -15 00:00: 00 03-13 23:59 :00 No [id number] 1 tablet EVERY PM 1 tablet EVERY PM (route: oral) Med Classific ation: Central Nervous System Agents paliperidon e ER 6 mg tablet,exte nded release 24 hr 12-01 00:00: 00 03-13 23:59 :00 No [id number] 1 tablet EVERY PM 1 tablet EVERY PM (route: oral) Med Classific ation: Central Nervous System Agents trazodone 50 mg tablet 12-01 00:00: 00 03-13 23:59 :00 No [id number] 1 tablet BEDTIME 1 tablet BEDTIME (route: oral) Med Classific ation: Central Nervous System Agents polyethylen e glycol 3350 17 gram/dose oral powder 12-21 00:00: 00 03-13 23:59 :00 No [id number] Per instruc tions DAILY Per instructio ns DAILY (route: oral) Med Classific ation: Gastroint estinal Therapy Agents benztropine 1 mg tablet 2024-05 00:00: 00 Yes [id number] 1 tablet EVERY PM 1 tablet EVERY PM (route: oral) Med Classific ation: Central Nervous System Agents cholecalcif beverley (vitamin D3) 10 mcg (400 unit) tablet 2024-05 00:00: 00 Yes [id number] 1 tablet EVERY AM 1 tablet EVERY AM (route: oral) Med Classific ation: Electroly te Balance-N utritiona l Products diltiazem ER (XR/XT) 180 mg capsule,ext ended release 24 hr, controlled 2024-05 00:00: 00 Yes [id number] 1 capsule EVERY AM 1 capsule EVERY AM (route: oral) Med Classific ation: Cardiovas cular Therapy Agents docusate sodium 100 mg capsule 2024-05 00:00: 00 Yes [id number] 1 capsule 2 TIMES DAILY 1 capsule 2 TIMES DAILY (route: oral) Med Classific ation: Gastroint estinal Therapy Agents lisinopril 40 mg tablet 2024-05 00:00: 00 Yes [id number] 1 tablet EVERY AM 1 tablet EVERY AM (route: oral) Med Classific ation: Cardiovas cular Therapy Agents metoprolol tartrate 25 mg tablet 2024-05 00:00: 00 Yes [id number] 1 tablet 2 TIMES DAILY 1 tablet 2 TIMES DAILY (route: oral) Med Classific ation: Cardiovas cular Therapy Agents multivitami n with minerals tablet 2024-05 00:00: 00 Yes [id number] 1 tablet EVERY AM 1 tablet EVERY AM (route: oral) Med Classific ation: Electroly te Balance-N utritiona l Products paliperidon e ER 6 mg tablet,exte nded release 24 hr 2024-05 00:00: 00 Yes [id number] 1 tablet EVERY PM 1 tablet EVERY PM (route: oral) Med Classific ation: Central Nervous System Agents polyethylen e glycol 3350 17 gram/dose oral powder 2024-05 00:00: 00 Yes [id number] Per instruc tions NEEDED Per instructio ns NEEDED (route: oral) Med Classific ation: Gastroint estinal Therapy Agents trazodone 50 mg tablet 2024-05 00:00: 00 Yes [id number] 1 tablet BEDTIME 1 tablet BEDTIME (route: [...] AWARENESS FOR SAFETY AND WILL NOTIFY CLINICAL WELLNESS EDUCATOR AND PHYSICIAN/PROVIDER WITH ANY CHANGE IN CONDITION. [code = SKILLED NURSE WILL MAINTAIN SITUATIONAL AWARENESS FOR SAFETY AND WILL NOTIFY CLINICAL WELLNESS EDUCATOR AND PHYSICIAN/PROVIDER WITH ANY CHANGE IN CONDITION.] [...] Outpatient RECERTIFIC ATION TIFFANY MELTON [facility] [id number] 29.41
--- OUTSIDE RECORDS SUMMARY | 2025-05-07 19:00 | XMS_ITS | Clinical Summary ---
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 Merchandising Internship Name Role Phone MEGAN CHUN, MELO Unavailable Unavailable GERONIMO TRACEY, TIFFANY Unavailable Unavailable Payers Payer Name Policy Type Policy Number Effective Date Expira tion Date [employer] [id number] MEDICARE - [facility] [id number] Problems Condition Name Condition Details Condition Category [...] 07-13 00:00: 00 03-13 23:59 :00 No [id number] 1 tablet DAILY 1 tablet DAILY (route: oral) Med Classific ation: Electroly te Balance-N utritiona l Products cyanocobala min (vit B-12) 1,000 mcg tablet 07-13 00:00: 00 2025- 06-12 23:59 :00 No [id number] 1 tablet DAILY 1 tablet DAILY (route: oral) Med Classific ation: Electroly te Balance-N utritiona l Products diltiazem ER (XR/XT) 180 mg capsule,ext ended release 24 hr, controlled 2-19 00:00: 00 03-13 23:59 :00 No [id number] 1 capsule DAILY 1 capsule DAILY (route: oral) Med Classific ation: Cardiovas cular Therapy Agents docusate sodium 100 mg capsule - 00:00: 00 03-13 23:59 :00 No [id number] 1 capsule 2 TIMES DAILY 1 capsule 2 TIMES DAILY (route: oral) Med Classific ation: Gastroint estinal Therapy Agents lisinopril 40 mg tablet - 00:00: 00 03-13 23:59 :00 No [id number] 1 tablet EVERY AM 1 tablet EVERY AM (route: oral) Med Classific ation: Cardiovas cular Therapy Agents metoprolol tartrate 25 mg tablet - 00:00: 00 03-13 23:59 :00 No [id number] 1 tablet 2 TIMES DAILY 1 tablet 2 TIMES DAILY (route: oral) Med Classific ation: Cardiovas cular Therapy Agents multivitami n with minerals tablet 07-13 00:00: 00 03-13 23:59 :00 No [id number] 1 tablet DAILY 1 tablet DAILY (route: oral) Med Classific ation: Electroly te Balance-N utroscara l Products paliperidon e ER 9 mg tablet,exte nded release 24 hr - 00:00: 00 12-01 23:59 :00 No [id number] 1 tablet BEDTIME 1 tablet BEDTIME (route: oral) Med Classific ation: Central Nervous System Agents metoprolol tartrate 25 mg tablet 6-19 00:00: 00 11-17 23:59 :00 No [id number] 1 tablet BEDTIME 1 tablet BEDTIME (route: oral) Med Classific ation: Cardiovas cular Therapy Agents benztropine 1 mg tablet -15 00:00: 00 03-13 23:59 :00 No [id number] 1 tablet EVERY PM 1 tablet EVERY PM (route: oral) Med Classific ation: Central Nervous System Agents paliperidon e ER 6 mg tablet,exte nded release 24 hr 12-01 00:00: 00 03-13 23:59 :00 No [id number] 1 tablet EVERY PM 1 tablet EVERY PM (route: oral) Med Classific ation: Central Nervous System Agents trazodone 50 mg tablet 12-01 00:00: 00 03-13 23:59 :00 No [id number] 1 tablet BEDTIME 1 tablet BEDTIME (route: oral) Med Classific ation: Central Nervous System Agents polyethylen e glycol 3350 17 gram/dose oral powder 12-21 00:00: 00 03-13 23:59 :00 No [id number] Per instruc tions DAILY Per instructio ns DAILY (route: oral) Med Classific ation: Gastroint estinal Therapy Agents benztropine 1 mg tablet 2024-05 00:00: 00 Yes [id number] 1 tablet EVERY PM 1 tablet EVERY PM (route: oral) Med Classific ation: Central Nervous System Agents cholecalcif beverley (vitamin D3) 10 mcg (400 unit) tablet 2024-05 00:00: 00 Yes [id number] 1 tablet EVERY AM 1 tablet EVERY AM (route: oral) Med Classific ation: Electroly te Balance-N utritiona l Products diltiazem ER (XR/XT) 180 mg capsule,ext ended release 24 hr, controlled 2024-05 00:00: 00 Yes [id number] 1 capsule EVERY AM 1 capsule EVERY AM (route: oral) Med Classific ation: Cardiovas cular Therapy Agents docusate sodium 100 mg capsule 2024-05 00:00: 00 Yes [id number] 1 capsule 2 TIMES DAILY 1 capsule 2 TIMES DAILY (route: oral) Med Classific ation: Gastroint estinal Therapy Agents lisinopril 40 mg tablet 2024-05 00:00: 00 Yes [id number] 1 tablet EVERY AM 1 tablet EVERY AM (route: oral) Med Classific ation: Cardiovas cular Therapy Agents metoprolol tartrate 25 mg tablet 2024-05 00:00: 00 Yes [id number] 1 tablet 2 TIMES DAILY 1 tablet 2 TIMES DAILY (route: oral) Med Classific ation: Cardiovas cular Therapy Agents multivitami n with minerals tablet 2024-05 00:00: 00 Yes [id number] 1 tablet EVERY AM 1 tablet EVERY AM (route: oral) Med Classific ation: Electroly te Balance-N utritiona l Products paliperidon e ER 6 mg tablet,exte nded release 24 hr 2024-05 00:00: 00 Yes [id number] 1 tablet EVERY PM 1 tablet EVERY PM (route: oral) Med Classific ation: Central Nervous System Agents polyethylen e glycol 3350 17 gram/dose oral powder 2024-05 00:00: 00 Yes [id number] Per instruc tions NEEDED Per instructio ns NEEDED (route: oral) Med Classific ation: Gastroint estinal Therapy Agents trazodone 50 mg tablet 2024-05 00:00: 00 Yes [id number] 1 tablet BEDTIME 1 tablet BEDTIME (route: [...] AWARENESS FOR SAFETY AND WILL NOTIFY CLINICAL CUSTODIAN MANAGER AND PHYSICIAN/PROVIDER WITH ANY CHANGE IN CONDITION. [code = SKILLED NURSE WILL MAINTAIN SITUATIONAL AWARENESS FOR SAFETY AND WILL NOTIFY CLINICAL CUSTODIAN MANAGER AND PHYSICIAN/PROVIDER WITH ANY CHANGE IN [...] CARE WILL BE ESTABLISHED THAT MEETS PATIENT'S HALF-WAY NEEDS AND INCLUDES PATIENT GOAL FOR HOME [...] Outpatient RECERTIFIC ATION TIFFANY MELTON [facility] [id number] 29.41
--- OUTSIDE RECORDS SUMMARY | 2025-05-07 19:00 | XMS_ITS | Clinical Summary ---
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 Returns Supervisor Name Role Phone MEGAN CHUN, MELO Unavailable Unavailable GERONIMO TRACEY, TIFFANY Unavailable Unavailable Payers Payer Name Policy Type Policy Number Effective Date Expira tion Date [employer] [id number] MEDIC[facility] - [facility] [id number] Problems Condition Name Condition Details Condition Category [...] 07-13 00:00: 00 03-13 23:59 :00 No [id number] 1 tablet DAILY 1 tablet DAILY (route: oral) Med Classific ation: Electroly te Balance-N utritiona l Products cyanocobala min (vit B-12) 1,000 mcg tablet 07-13 00:00: 00 2025- 06-12 23:59 :00 No [id number] 1 tablet DAILY 1 tablet DAILY (route: oral) Med Classific ation: Electroly te Balance-N utritiona l Products diltiazem ER (XR/XT) 180 mg capsule,ext ended release 24 hr, controlled 2-19 00:00: 00 03-13 23:59 :00 No [id number] 1 capsule DAILY 1 capsule DAILY (route: oral) Med Classific ation: Cardiovas cular Therapy Agents docusate sodium 100 mg capsule - 00:00: 00 03-13 23:59 :00 No [id number] 1 capsule 2 TIMES DAILY 1 capsule 2 TIMES DAILY (route: oral) Med Classific ation: Gastroint estinal Therapy Agents lisinopril 40 mg tablet - 00:00: 00 03-13 23:59 :00 No [id number] 1 tablet EVERY AM 1 tablet EVERY AM (route: oral) Med Classific ation: Cardiovas cular Therapy Agents metoprolol tartrate 25 mg tablet - 00:00: 00 03-13 23:59 :00 No [id number] 1 tablet 2 TIMES DAILY 1 tablet 2 TIMES DAILY (route: oral) Med Classific ation: Cardiovas cular Therapy Agents multivitami n with minerals tablet 07-13 00:00: 00 03-13 23:59 :00 No [id number] 1 tablet DAILY 1 tablet DAILY (route: oral) Med Classific ation: Electroly te Balance-N utroscara l Products paliperidon e ER 9 mg tablet,exte nded release 24 hr - 00:00: 00 12-01 23:59 :00 No [id number] 1 tablet BEDTIME 1 tablet BEDTIME (route: oral) Med Classific ation: Central Nervous System Agents metoprolol tartrate 25 mg tablet 6-19 00:00: 00 11-17 23:59 :00 No [id number] 1 tablet BEDTIME 1 tablet BEDTIME (route: oral) Med Classific ation: Cardiovas cular Therapy Agents benztropine 1 mg tablet -15 00:00: 00 03-13 23:59 :00 No [id number] 1 tablet EVERY PM 1 tablet EVERY PM (route: oral) Med Classific ation: Central Nervous System Agents paliperidon e ER 6 mg tablet,exte nded release 24 hr 12-01 00:00: 00 03-13 23:59 :00 No [id number] 1 tablet EVERY PM 1 tablet EVERY PM (route: oral) Med Classific ation: Central Nervous System Agents trazodone 50 mg tablet 12-01 00:00: 00 03-13 23:59 :00 No [id number] 1 tablet BEDTIME 1 tablet BEDTIME (route: oral) Med Classific ation: Central Nervous System Agents polyethylen e glycol 3350 17 gram/dose oral powder 12-21 00:00: 00 03-13 23:59 :00 No [id number] Per instruc tions DAILY Per instructio ns DAILY (route: oral) Med Classific ation: Gastroint estinal Therapy Agents benztropine 1 mg tablet 2024-05 00:00: 00 Yes [id number] 1 tablet EVERY PM 1 tablet EVERY PM (route: oral) Med Classific ation: Central Nervous System Agents cholecalcif beverley (vitamin D3) 10 mcg (400 unit) tablet 2024-05 00:00: 00 Yes [id number] 1 tablet EVERY AM 1 tablet EVERY AM (route: oral) Med Classific ation: Electroly te Balance-N utritiona l Products diltiazem ER (XR/XT) 180 mg capsule,ext ended release 24 hr, controlled 2024-05 00:00: 00 Yes [id number] 1 capsule EVERY AM 1 capsule EVERY AM (route: oral) Med Classific ation: Cardiovas cular Therapy Agents docusate sodium 100 mg capsule 2024-05 00:00: 00 Yes [id number] 1 capsule 2 TIMES DAILY 1 capsule 2 TIMES DAILY (route: oral) Med Classific ation: Gastroint estinal Therapy Agents lisinopril 40 mg tablet 2024-05 00:00: 00 Yes [id number] 1 tablet EVERY AM 1 tablet EVERY AM (route: oral) Med Classific ation: Cardiovas cular Therapy Agents metoprolol tartrate 25 mg tablet 2024-05 00:00: 00 Yes [id number] 1 tablet 2 TIMES DAILY 1 tablet 2 TIMES DAILY (route: oral) Med Classific ation: Cardiovas cular Therapy Agents multivitami n with minerals tablet 2024-05 00:00: 00 Yes [id number] 1 tablet EVERY AM 1 tablet EVERY AM (route: oral) Med Classific ation: Electroly te Balance-N utritiona l Products paliperidon e ER 6 mg tablet,exte nded release 24 hr 2024-05 00:00: 00 Yes [id number] 1 tablet EVERY PM 1 tablet EVERY PM (route: oral) Med Classific ation: Central Nervous System Agents polyethylen e glycol 3350 17 gram/dose oral powder 2024-05 00:00: 00 Yes [id number] Per instruc tions NEEDED Per instructio ns NEEDED (route: oral) Med Classific ation: Gastroint estinal Therapy Agents trazodone 50 mg tablet 2024-05 00:00: 00 Yes [id number] 1 tablet BEDTIME 1 tablet BEDTIME (route: [...] AWARENESS FOR SAFETY AND WILL NOTIFY CLINICAL CARBONATING STONE CLEANER AND PHYSICIAN/PROVIDER WITH ANY CHANGE IN CONDITION. [code = SKILLED NURSE WILL MAINTAIN SITUATIONAL AWARENESS FOR SAFETY AND WILL NOTIFY CLINICAL CARBONATING STONE CLEANER AND PHYSICIAN/PROVIDER WITH ANY CHANGE IN CONDITION.] [...] Outpatient RECERTIFIC ATION TIFFANY [facility] [id number] 29.41
--- OUTSIDE RECORDS SUMMARY | 2025-05-07 19:00 | XMS_ITS | Clinical Summary ---
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 Mid Level Clinician Name Role Phone MEGAN CHUN, MELO Unavailable Unavailable GERONIMO TRACEY, TIFFANY Unavailable Unavailable Payers Payer Name Policy Type Policy Number Effective Date Expira tion Date [employer] MED[employer] ADVANTAGE [id number] MEDICARE - [facility] [id number] Problems Condition Name Condition Details Condition Category [...] 07-13 00:00: 00 03-13 23:59 :00 No [id number] 1 tablet DAILY 1 tablet DAILY (route: oral) Med Classific ation: Electroly te Balance-N utritiona l Products cyanocobala min (vit B-12) 1,000 mcg tablet 07-13 00:00: 00 2025- 06-12 23:59 :00 No [id number] 1 tablet DAILY 1 tablet DAILY (route: oral) Med Classific ation: Electroly te Balance-N utritiona l Products diltiazem ER (XR/XT) 180 mg capsule,ext ended release 24 hr, controlled 2-19 00:00: 00 03-13 23:59 :00 No [id number] 1 capsule DAILY 1 capsule DAILY (route: oral) Med Classific ation: Cardiovas cular Therapy Agents docusate sodium 100 mg capsule - 00:00: 00 03-13 23:59 :00 No [id number] 1 capsule 2 TIMES DAILY 1 capsule 2 TIMES DAILY (route: oral) Med Classific ation: Gastroint estinal Therapy Agents lisinopril 40 mg tablet - 00:00: 00 03-13 23:59 :00 No [id number] 1 tablet EVERY AM 1 tablet EVERY AM (route: oral) Med Classific ation: Cardiovas cular Therapy Agents metoprolol tartrate 25 mg tablet - 00:00: 00 03-13 23:59 :00 No [id number] 1 tablet 2 TIMES DAILY 1 tablet 2 TIMES DAILY (route: oral) Med Classific ation: Cardiovas cular Therapy Agents multivitami n with minerals tablet 07-13 00:00: 00 03-13 23:59 :00 No [id number] 1 tablet DAILY 1 tablet DAILY (route: oral) Med Classific ation: Electroly te Balance-N utroscara l Products paliperidon e ER 9 mg tablet,exte nded release 24 hr - 00:00: 00 12-01 23:59 :00 No [id number] 1 tablet BEDTIME 1 tablet BEDTIME (route: oral) Med Classific ation: Central Nervous System Agents metoprolol tartrate 25 mg tablet 6-19 00:00: 00 11-17 23:59 :00 No [id number] 1 tablet BEDTIME 1 tablet BEDTIME (route: oral) Med Classific ation: Cardiovas cular Therapy Agents benztropine 1 mg tablet -15 00:00: 00 03-13 23:59 :00 No [id number] 1 tablet EVERY PM 1 tablet EVERY PM (route: oral) Med Classific ation: Central Nervous System Agents paliperidon e ER 6 mg tablet,exte nded release 24 hr 12-01 00:00: 00 03-13 23:59 :00 No [id number] 1 tablet EVERY PM 1 tablet EVERY PM (route: oral) Med Classific ation: Central Nervous System Agents trazodone 50 mg tablet 12-01 00:00: 00 03-13 23:59 :00 No [id number] 1 tablet BEDTIME 1 tablet BEDTIME (route: oral) Med Classific ation: Central Nervous System Agents polyethylen e glycol 3350 17 gram/dose oral powder 12-21 00:00: 00 03-13 23:59 :00 No [id number] Per instruc tions DAILY Per instructio ns DAILY (route: oral) Med Classific ation: Gastroint estinal Therapy Agents benztropine 1 mg tablet 2024-05 00:00: 00 Yes [id number] 1 tablet EVERY PM 1 tablet EVERY PM (route: oral) Med Classific ation: Central Nervous System Agents cholecalcif beverley (vitamin D3) 10 mcg (400 unit) tablet 2024-05 00:00: 00 Yes [id number] 1 tablet EVERY AM 1 tablet EVERY AM (route: oral) Med Classific ation: Electroly te Balance-N utritiona l Products diltiazem ER (XR/XT) 180 mg capsule,ext ended release 24 hr, controlled 2024-05 00:00: 00 Yes [id number] 1 capsule EVERY AM 1 capsule EVERY AM (route: oral) Med Classific ation: Cardiovas cular Therapy Agents docusate sodium 100 mg capsule 2024-05 00:00: 00 Yes [id number] 1 capsule 2 TIMES DAILY 1 capsule 2 TIMES DAILY (route: oral) Med Classific ation: Gastroint estinal Therapy Agents lisinopril 40 mg tablet 2024-05 00:00: 00 Yes [id number] 1 tablet EVERY AM 1 tablet EVERY AM (route: oral) Med Classific ation: Cardiovas cular Therapy Agents metoprolol tartrate 25 mg tablet 2024-05 00:00: 00 Yes [id number] 1 tablet 2 TIMES DAILY 1 tablet 2 TIMES DAILY (route: oral) Med Classific ation: Cardiovas cular Therapy Agents multivitami n with minerals tablet 2024-05 00:00: 00 Yes [id number] 1 tablet EVERY AM 1 tablet EVERY AM (route: oral) Med Classific ation: Electroly te Balance-N utritiona l Products paliperidon e ER 6 mg tablet,exte nded release 24 hr 2024-05 00:00: 00 Yes [id number] 1 tablet EVERY PM 1 tablet EVERY PM (route: oral) Med Classific ation: Central Nervous System Agents polyethylen e glycol 3350 17 gram/dose oral powder 2024-05 00:00: 00 Yes [id number] Per instruc tions NEEDED Per instructio ns NEEDED (route: oral) Med Classific ation: Gastroint estinal Therapy Agents trazodone 50 mg tablet 2024-05 00:00: 00 Yes [id number] 1 tablet BEDTIME 1 tablet BEDTIME (route: [...] AWARENESS FOR SAFETY AND WILL NOTIFY CLINICAL E COMMERCE WEB DEVELOPER AND PHYSICIAN/PROVIDER WITH ANY CHANGE IN CONDITION. [code = SKILLED NURSE WILL MAINTAIN SITUATIONAL AWARENESS FOR SAFETY AND WILL NOTIFY CLINICAL E COMMERCE WEB DEVELOPER AND PHYSICIAN/PROVIDER WITH ANY CHANGE IN [...] [facility] [id number] 29.41
--- OUTSIDE RECORDS SUMMARY | 2025-05-07 19:00 | XMS_ITS | Clinical Summary ---
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 Role Phone MEGAN CHUN, MELO Unavailable Unavailable GERONIMO TRACEY, TIFFANY Unavailable Unavailable Payers Payer Name Policy Type Policy Number Effective Date Expira tion Date [employer] MED[employer] ADV[employer]AGE [id number] MEDICARE - [facility] [id number] Problems Condition Name Condition Details Condition Category [...] 07-13 00:00: 00 03-13 23:59 :00 No [id number] 1 tablet DAILY 1 tablet DAILY (route: oral) Med Classific ation: Electroly te Balance-N utritiona l Products cyanocobala min (vit B-12) 1,000 mcg tablet 07-13 00:00: 00 2025- 06-12 23:59 :00 No [id number] 1 tablet DAILY 1 tablet DAILY (route: oral) Med Classific ation: Electroly te Balance-N utritiona l Products diltiazem ER (XR/XT) 180 mg capsule,ext ended release 24 hr, controlled 2-19 00:00: 00 03-13 23:59 :00 No [id number] 1 capsule DAILY 1 capsule DAILY (route: oral) Med Classific ation: Cardiovas cular Therapy Agents docusate sodium 100 mg capsule - 00:00: 00 03-13 23:59 :00 No [id number] 1 capsule 2 TIMES DAILY 1 capsule 2 TIMES DAILY (route: oral) Med Classific ation: Gastroint estinal Therapy Agents lisinopril 40 mg tablet - 00:00: 00 03-13 23:59 :00 No [id number] 1 tablet EVERY AM 1 tablet EVERY AM (route: oral) Med Classific ation: Cardiovas cular Therapy Agents metoprolol tartrate 25 mg tablet - 00:00: 00 03-13 23:59 :00 No [id number] 1 tablet 2 TIMES DAILY 1 tablet 2 TIMES DAILY (route: oral) Med Classific ation: Cardiovas cular Therapy Agents multivitami n with minerals tablet 07-13 00:00: 00 03-13 23:59 :00 No [id number] 1 tablet DAILY 1 tablet DAILY (route: oral) Med Classific ation: Electroly te Balance-N utroscara l Products paliperidon e ER 9 mg tablet,exte nded release 24 hr - 00:00: 00 12-01 23:59 :00 No [id number] 1 tablet BEDTIME 1 tablet BEDTIME (route: oral) Med Classific ation: Central Nervous System Agents metoprolol tartrate 25 mg tablet 6-19 00:00: 00 11-17 23:59 :00 No [id number] 1 tablet BEDTIME 1 tablet BEDTIME (route: oral) Med Classific ation: Cardiovas cular Therapy Agents benztropine 1 mg tablet -15 00:00: 00 03-13 23:59 :00 No [id number] 1 tablet EVERY PM 1 tablet EVERY PM (route: oral) Med Classific ation: Central Nervous System Agents paliperidon e ER 6 mg tablet,exte nded release 24 hr 12-01 00:00: 00 03-13 23:59 :00 No [id number] 1 tablet EVERY PM 1 tablet EVERY PM (route: oral) Med Classific ation: Central Nervous System Agents trazodone 50 mg tablet 12-01 00:00: 00 03-13 23:59 :00 No [id number] 1 tablet BEDTIME 1 tablet BEDTIME (route: oral) Med Classific ation: Central Nervous System Agents polyethylen e glycol 3350 17 gram/dose oral powder 12-21 00:00: 00 03-13 23:59 :00 No [id number] Per instruc tions DAILY Per instructio ns DAILY (route: oral) Med Classific ation: Gastroint estinal Therapy Agents benztropine 1 mg tablet 2024-05 00:00: 00 Yes [id number] 1 tablet EVERY PM 1 tablet EVERY PM (route: oral) Med Classific ation: Central Nervous System Agents cholecalcif beverley (vitamin D3) 10 mcg (400 unit) tablet 2024-05 00:00: 00 Yes [id number] 1 tablet EVERY AM 1 tablet EVERY AM (route: oral) Med Classific ation: Electroly te Balance-N utritiona l Products diltiazem ER (XR/XT) 180 mg capsule,ext ended release 24 hr, controlled 2024-05 00:00: 00 Yes [id number] 1 capsule EVERY AM 1 capsule EVERY AM (route: oral) Med Classific ation: Cardiovas cular Therapy Agents docusate sodium 100 mg capsule 2024-05 00:00: 00 Yes [id number] 1 capsule 2 TIMES DAILY 1 capsule 2 TIMES DAILY (route: oral) Med Classific ation: Gastroint estinal Therapy Agents lisinopril 40 mg tablet 2024-05 00:00: 00 Yes [id number] 1 tablet EVERY AM 1 tablet EVERY AM (route: oral) Med Classific ation: Cardiovas cular Therapy Agents metoprolol tartrate 25 mg tablet 2024-05 00:00: 00 Yes [id number] 1 tablet 2 TIMES DAILY 1 tablet 2 TIMES DAILY (route: oral) Med Classific ation: Cardiovas cular Therapy Agents multivitami n with minerals tablet 2024-05 00:00: 00 Yes [id number] 1 tablet EVERY AM 1 tablet EVERY AM (route: oral) Med Classific ation: Electroly te Balance-N utritiona l Products paliperidon e ER 6 mg tablet,exte nded release 24 hr 2024-05 00:00: 00 Yes [id number] 1 tablet EVERY PM 1 tablet EVERY PM (route: oral) Med Classific ation: Central Nervous System Agents polyethylen e glycol 3350 17 gram/dose oral powder 2024-05 00:00: 00 Yes [id number] Per instruc tions NEEDED Per instructio ns NEEDED (route: oral) Med Classific ation: Gastroint estinal Therapy Agents trazodone 50 mg tablet 2024-05 00:00: 00 Yes [id number] 1 tablet BEDTIME 1 tablet BEDTIME (route: [...] AWARENESS FOR SAFETY AND WILL NOTIFY CLINICAL LOGGING SUPERVISOR AND PHYSICIAN/PROVIDER WITH ANY CHANGE IN CONDITION. [code = SKILLED NURSE WILL MAINTAIN SITUATIONAL AWARENESS FOR SAFETY AND WILL NOTIFY CLINICAL LOGGING SUPERVISOR AND PHYSICIAN/PROVIDER WITH ANY CHANGE IN CONDITION.] [...] CARE WILL BE ESTABLISHED THAT MEETS PATIENT'S PRISON NEEDS AND INCLUDES PATIENT GOAL FOR HOME [...] 2025-05-08 00:00:00 Outpatient RECERTIFIC ATION TIFFANY [facility] [id number] 29.41
--- OUTSIDE RECORDS SUMMARY | 2025-05-07 19:00 | XMS_ITS | Clinical Summary ---
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 Name Role Phone MEGAN CHUN, MELO Unavailable Unavailable GERONIMO TRACEY, TIFFANY Unavailable Unavailable Payers Payer Name Policy Type Policy Number Effective Date Expira tion Date [employer]AGE [id number] MEDICARE - [facility] [id number] Problems Condition Name Condition Details Condition Category [...] 07-13 00:00: 00 03-13 23:59 :00 No [id number] 1 tablet DAILY 1 tablet DAILY (route: oral) Med Classific ation: Electroly te Balance-N utritiona l Products cyanocobala min (vit B-12) 1,000 mcg tablet 07-13 00:00: 00 2025- 06-12 23:59 :00 No [id number] 1 tablet DAILY 1 tablet DAILY (route: oral) Med Classific ation: Electroly te Balance-N utritiona l Products diltiazem ER (XR/XT) 180 mg capsule,ext ended release 24 hr, controlled 2-19 00:00: 00 03-13 23:59 :00 No [id number] 1 capsule DAILY 1 capsule DAILY (route: oral) Med Classific ation: Cardiovas cular Therapy Agents docusate sodium 100 mg capsule - 00:00: 00 03-13 23:59 :00 No [id number] 1 capsule 2 TIMES DAILY 1 capsule 2 TIMES DAILY (route: oral) Med Classific ation: Gastroint estinal Therapy Agents lisinopril 40 mg tablet - 00:00: 00 03-13 23:59 :00 No [id number] 1 tablet EVERY AM 1 tablet EVERY AM (route: oral) Med Classific ation: Cardiovas cular Therapy Agents metoprolol tartrate 25 mg tablet - 00:00: 00 03-13 23:59 :00 No [id number] 1 tablet 2 TIMES DAILY 1 tablet 2 TIMES DAILY (route: oral) Med Classific ation: Cardiovas cular Therapy Agents multivitami n with minerals tablet 07-13 00:00: 00 03-13 23:59 :00 No [id number] 1 tablet DAILY 1 tablet DAILY (route: oral) Med Classific ation: Electroly te Balance-N utroscara l Products paliperidon e ER 9 mg tablet,exte nded release 24 hr - 00:00: 00 12-01 23:59 :00 No [id number] 1 tablet BEDTIME 1 tablet BEDTIME (route: oral) Med Classific ation: Central Nervous System Agents metoprolol tartrate 25 mg tablet 6-19 00:00: 00 11-17 23:59 :00 No [id number] 1 tablet BEDTIME 1 tablet BEDTIME (route: oral) Med Classific ation: Cardiovas cular Therapy Agents benztropine 1 mg tablet -15 00:00: 00 03-13 23:59 :00 No [id number] 1 tablet EVERY PM 1 tablet EVERY PM (route: oral) Med Classific ation: Central Nervous System Agents paliperidon e ER 6 mg tablet,exte nded release 24 hr 12-01 00:00: 00 03-13 23:59 :00 No [id number] 1 tablet EVERY PM 1 tablet EVERY PM (route: oral) Med Classific ation: Central Nervous System Agents trazodone 50 mg tablet 12-01 00:00: 00 03-13 23:59 :00 No [id number] 1 tablet BEDTIME 1 tablet BEDTIME (route: oral) Med Classific ation: Central Nervous System Agents polyethylen e glycol 3350 17 gram/dose oral powder 12-21 00:00: 00 03-13 23:59 :00 No [id number] Per instruc tions DAILY Per instructio ns DAILY (route: oral) Med Classific ation: Gastroint estinal Therapy Agents benztropine 1 mg tablet 2024-05 00:00: 00 Yes [id number] 1 tablet EVERY PM 1 tablet EVERY PM (route: oral) Med Classific ation: Central Nervous System Agents cholecalcif beverley (vitamin D3) 10 mcg (400 unit) tablet 2024-05 00:00: 00 Yes [id number] 1 tablet EVERY AM 1 tablet EVERY AM (route: oral) Med Classific ation: Electroly te Balance-N utritiona l Products diltiazem ER (XR/XT) 180 mg capsule,ext ended release 24 hr, controlled 2024-05 00:00: 00 Yes [id number] 1 capsule EVERY AM 1 capsule EVERY AM (route: oral) Med Classific ation: Cardiovas cular Therapy Agents docusate sodium 100 mg capsule 2024-05 00:00: 00 Yes [id number] 1 capsule 2 TIMES DAILY 1 capsule 2 TIMES DAILY (route: oral) Med Classific ation: Gastroint estinal Therapy Agents lisinopril 40 mg tablet 2024-05 00:00: 00 Yes [id number] 1 tablet EVERY AM 1 tablet EVERY AM (route: oral) Med Classific ation: Cardiovas cular Therapy Agents metoprolol tartrate 25 mg tablet 2024-05 00:00: 00 Yes [id number] 1 tablet 2 TIMES DAILY 1 tablet 2 TIMES DAILY (route: oral) Med Classific ation: Cardiovas cular Therapy Agents multivitami n with minerals tablet 2024-05 00:00: 00 Yes [id number] 1 tablet EVERY AM 1 tablet EVERY AM (route: oral) Med Classific ation: Electroly te Balance-N utritiona l Products paliperidon e ER 6 mg tablet,exte nded release 24 hr 2024-05 00:00: 00 Yes [id number] 1 tablet EVERY PM 1 tablet EVERY PM (route: oral) Med Classific ation: Central Nervous System Agents polyethylen e glycol 3350 17 gram/dose oral powder 2024-05 00:00: 00 Yes [id number] Per instruc tions NEEDED Per instructio ns NEEDED (route: oral) Med Classific ation: Gastroint estinal Therapy Agents trazodone 50 mg tablet 2024-05 00:00: 00 Yes [id number] 1 tablet BEDTIME 1 tablet BEDTIME (route: [...] AWARENESS FOR SAFETY AND WILL NOTIFY CLINICAL SCOUTS AND PHYSICIAN/PROVIDER WITH ANY CHANGE IN CONDITION. [code = SKILLED NURSE WILL MAINTAIN SITUATIONAL AWARENESS FOR SAFETY AND WILL NOTIFY CLINICAL SCOUTS AND PHYSICIAN/PROVIDER WITH ANY CHANGE IN CONDITION.] [...] 2025-05-08 00:00:00 Outpatient RECERTIFIC ATION TIFFANY MELTON [facility] [id number] 29.41
--- OUTSIDE RECORDS SUMMARY | 2025-05-07 19:00 | XMS_ITS | Clinical Summary ---
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 Medical Logistics Specialist Name Role Phone MEGAN CHUN, MELO Unavailable Unavailable GERONIMO TRACEY, TIFFANY Unavailable Unavailable Payers Payer Name Policy Type Policy Number Effective Date Expira tion Date [employer]VANTAGE [id number] MEDICARE - [facility] [id number] Problems Condition Name Condition Details Condition Category [...] 07-13 00:00: 00 03-13 23:59 :00 No [id number] 1 tablet DAILY 1 tablet DAILY (route: oral) Med Classific ation: Electroly te Balance-N utritiona l Products cyanocobala min (vit B-12) 1,000 mcg tablet 07-13 00:00: 00 2025- 06-12 23:59 :00 No [id number] 1 tablet DAILY 1 tablet DAILY (route: oral) Med Classific ation: Electroly te Balance-N utritiona l Products diltiazem ER (XR/XT) 180 mg capsule,ext ended release 24 hr, controlled 2-19 00:00: 00 03-13 23:59 :00 No [id number] 1 capsule DAILY 1 capsule DAILY (route: oral) Med Classific ation: Cardiovas cular Therapy Agents docusate sodium 100 mg capsule - 00:00: 00 03-13 23:59 :00 No [id number] 1 capsule 2 TIMES DAILY 1 capsule 2 TIMES DAILY (route: oral) Med Classific ation: Gastroint estinal Therapy Agents lisinopril 40 mg tablet - 00:00: 00 03-13 23:59 :00 No [id number] 1 tablet EVERY AM 1 tablet EVERY AM (route: oral) Med Classific ation: Cardiovas cular Therapy Agents metoprolol tartrate 25 mg tablet - 00:00: 00 03-13 23:59 :00 No [id number] 1 tablet 2 TIMES DAILY 1 tablet 2 TIMES DAILY (route: oral) Med Classific ation: Cardiovas cular Therapy Agents multivitami n with minerals tablet 07-13 00:00: 00 03-13 23:59 :00 No [id number] 1 tablet DAILY 1 tablet DAILY (route: oral) Med Classific ation: Electroly te Balance-N utroscara l Products paliperidon e ER 9 mg tablet,exte nded release 24 hr - 00:00: 00 12-01 23:59 :00 No [id number] 1 tablet BEDTIME 1 tablet BEDTIME (route: oral) Med Classific ation: Central Nervous System Agents metoprolol tartrate 25 mg tablet 6-19 00:00: 00 11-17 23:59 :00 No [id number] 1 tablet BEDTIME 1 tablet BEDTIME (route: oral) Med Classific ation: Cardiovas cular Therapy Agents benztropine 1 mg tablet -15 00:00: 00 03-13 23:59 :00 No [id number] 1 tablet EVERY PM 1 tablet EVERY PM (route: oral) Med Classific ation: Central Nervous System Agents paliperidon e ER 6 mg tablet,exte nded release 24 hr 12-01 00:00: 00 03-13 23:59 :00 No [id number] 1 tablet EVERY PM 1 tablet EVERY PM (route: oral) Med Classific ation: Central Nervous System Agents trazodone 50 mg tablet 12-01 00:00: 00 03-13 23:59 :00 No [id number] 1 tablet BEDTIME 1 tablet BEDTIME (route: oral) Med Classific ation: Central Nervous System Agents polyethylen e glycol 3350 17 gram/dose oral powder 12-21 00:00: 00 03-13 23:59 :00 No [id number] Per instruc tions DAILY Per instructio ns DAILY (route: oral) Med Classific ation: Gastroint estinal Therapy Agents benztropine 1 mg tablet 2024-05 00:00: 00 Yes [id number] 1 tablet EVERY PM 1 tablet EVERY PM (route: oral) Med Classific ation: Central Nervous System Agents cholecalcif beverley (vitamin D3) 10 mcg (400 unit) tablet 2024-05 00:00: 00 Yes [id number] 1 tablet EVERY AM 1 tablet EVERY AM (route: oral) Med Classific ation: Electroly te Balance-N utritiona l Products diltiazem ER (XR/XT) 180 mg capsule,ext ended release 24 hr, controlled 2024-05 00:00: 00 Yes [id number] 1 capsule EVERY AM 1 capsule EVERY AM (route: oral) Med Classific ation: Cardiovas cular Therapy Agents docusate sodium 100 mg capsule 2024-05 00:00: 00 Yes [id number] 1 capsule 2 TIMES DAILY 1 capsule 2 TIMES DAILY (route: oral) Med Classific ation: Gastroint estinal Therapy Agents lisinopril 40 mg tablet 2024-05 00:00: 00 Yes [id number] 1 tablet EVERY AM 1 tablet EVERY AM (route: oral) Med Classific ation: Cardiovas cular Therapy Agents metoprolol tartrate 25 mg tablet 2024-05 00:00: 00 Yes [id number] 1 tablet 2 TIMES DAILY 1 tablet 2 TIMES DAILY (route: oral) Med Classific ation: Cardiovas cular Therapy Agents multivitami n with minerals tablet 2024-05 00:00: 00 Yes [id number] 1 tablet EVERY AM 1 tablet EVERY AM (route: oral) Med Classific ation: Electroly te Balance-N utritiona l Products paliperidon e ER 6 mg tablet,exte nded release 24 hr 2024-05 00:00: 00 Yes [id number] 1 tablet EVERY PM 1 tablet EVERY PM (route: oral) Med Classific ation: Central Nervous System Agents polyethylen e glycol 3350 17 gram/dose oral powder 2024-05 00:00: 00 Yes [id number] Per instruc tions NEEDED Per instructio ns NEEDED (route: oral) Med Classific ation: Gastroint estinal Therapy Agents trazodone 50 mg tablet 2024-05 00:00: 00 Yes [id number] 1 tablet BEDTIME 1 tablet BEDTIME (route: [...] AWARENESS FOR SAFETY AND WILL NOTIFY CLINICAL INTERNET ARCHITECT AND PHYSICIAN/PROVIDER WITH ANY CHANGE IN CONDITION. [code = SKILLED NURSE WILL MAINTAIN SITUATIONAL AWARENESS FOR SAFETY AND WILL NOTIFY CLINICAL INTERNET ARCHITECT AND PHYSICIAN/PROVIDER WITH ANY CHANGE IN [...] 00:00:00 Outpatient RECERTIFIC ATION TIFFANY M[facility]TON [facility] [id number] 29.41
--- OUTSIDE RECORDS SUMMARY | 2025-05-07 19:00 | XMS_ITS | Clinical Summary ---
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 Lockstitch Cup Setter Name Role Phone MEGAN CHUN, MELO Unavailable Unavailable GERONIMO TRACEY, TIFFANY Unavailable Unavailable Payers Payer Name Policy Type Policy Number Effective Date Expira tion Date [employer] MED[employer] ADVANTAGE [id number] MEDICARE - [facility] [id number] Problems Condition Name Condition Details Condition Category [...] 07-13 00:00: 00 03-13 23:59 :00 No [id number] 1 tablet DAILY 1 tablet DAILY (route: oral) Med Classific ation: Electroly te Balance-N utritiona l Products cyanocobala min (vit B-12) 1,000 mcg tablet 07-13 00:00: 00 2025- 06-12 23:59 :00 No [id number] 1 tablet DAILY 1 tablet DAILY (route: oral) Med Classific ation: Electroly te Balance-N utritiona l Products diltiazem ER (XR/XT) 180 mg capsule,ext ended release 24 hr, controlled 2-19 00:00: 00 03-13 23:59 :00 No [id number] 1 capsule DAILY 1 capsule DAILY (route: oral) Med Classific ation: Cardiovas cular Therapy Agents docusate sodium 100 mg capsule - 00:00: 00 03-13 23:59 :00 No [id number] 1 capsule 2 TIMES DAILY 1 capsule 2 TIMES DAILY (route: oral) Med Classific ation: Gastroint estinal Therapy Agents lisinopril 40 mg tablet - 00:00: 00 03-13 23:59 :00 No [id number] 1 tablet EVERY AM 1 tablet EVERY AM (route: oral) Med Classific ation: Cardiovas cular Therapy Agents metoprolol tartrate 25 mg tablet - 00:00: 00 03-13 23:59 :00 No [id number] 1 tablet 2 TIMES DAILY 1 tablet 2 TIMES DAILY (route: oral) Med Classific ation: Cardiovas cular Therapy Agents multivitami n with minerals tablet 07-13 00:00: 00 03-13 23:59 :00 No [id number] 1 tablet DAILY 1 tablet DAILY (route: oral) Med Classific ation: Electroly te Balance-N utroscara l Products paliperidon e ER 9 mg tablet,exte nded release 24 hr - 00:00: 00 12-01 23:59 :00 No [id number] 1 tablet BEDTIME 1 tablet BEDTIME (route: oral) Med Classific ation: Central Nervous System Agents metoprolol tartrate 25 mg tablet 6-19 00:00: 00 11-17 23:59 :00 No [id number] 1 tablet BEDTIME 1 tablet BEDTIME (route: oral) Med Classific ation: Cardiovas cular Therapy Agents benztropine 1 mg tablet -15 00:00: 00 03-13 23:59 :00 No [id number] 1 tablet EVERY PM 1 tablet EVERY PM (route: oral) Med Classific ation: Central Nervous System Agents paliperidon e ER 6 mg tablet,exte nded release 24 hr 12-01 00:00: 00 03-13 23:59 :00 No [id number] 1 tablet EVERY PM 1 tablet EVERY PM (route: oral) Med Classific ation: Central Nervous System Agents trazodone 50 mg tablet 12-01 00:00: 00 03-13 23:59 :00 No [id number] 1 tablet BEDTIME 1 tablet BEDTIME (route: oral) Med Classific ation: Central Nervous System Agents polyethylen e glycol 3350 17 gram/dose oral powder 12-21 00:00: 00 03-13 23:59 :00 No [id number] Per instruc tions DAILY Per instructio ns DAILY (route: oral) Med Classific ation: Gastroint estinal Therapy Agents benztropine 1 mg tablet 2024-05 00:00: 00 Yes [id number] 1 tablet EVERY PM 1 tablet EVERY PM (route: oral) Med Classific ation: Central Nervous System Agents cholecalcif beverley (vitamin D3) 10 mcg (400 unit) tablet 2024-05 00:00: 00 Yes [id number] 1 tablet EVERY AM 1 tablet EVERY AM (route: oral) Med Classific ation: Electroly te Balance-N utritiona l Products diltiazem ER (XR/XT) 180 mg capsule,ext ended release 24 hr, controlled 2024-05 00:00: 00 Yes [id number] 1 capsule EVERY AM 1 capsule EVERY AM (route: oral) Med Classific ation: Cardiovas cular Therapy Agents docusate sodium 100 mg capsule 2024-05 00:00: 00 Yes [id number] 1 capsule 2 TIMES DAILY 1 capsule 2 TIMES DAILY (route: oral) Med Classific ation: Gastroint estinal Therapy Agents lisinopril 40 mg tablet 2024-05 00:00: 00 Yes [id number] 1 tablet EVERY AM 1 tablet EVERY AM (route: oral) Med Classific ation: Cardiovas cular Therapy Agents metoprolol tartrate 25 mg tablet 2024-05 00:00: 00 Yes [id number] 1 tablet 2 TIMES DAILY 1 tablet 2 TIMES DAILY (route: oral) Med Classific ation: Cardiovas cular Therapy Agents multivitami n with minerals tablet 2024-05 00:00: 00 Yes [id number] 1 tablet EVERY AM 1 tablet EVERY AM (route: oral) Med Classific ation: Electroly te Balance-N utritiona l Products paliperidon e ER 6 mg tablet,exte nded release 24 hr 2024-05 00:00: 00 Yes [id number] 1 tablet EVERY PM 1 tablet EVERY PM (route: oral) Med Classific ation: Central Nervous System Agents polyethylen e glycol 3350 17 gram/dose oral powder 2024-05 00:00: 00 Yes [id number] Per instruc tions NEEDED Per instructio ns NEEDED (route: oral) Med Classific ation: Gastroint estinal Therapy Agents trazodone 50 mg tablet 2024-05 00:00: 00 Yes [id number] 1 tablet BEDTIME 1 tablet BEDTIME (route: [...] AWARENESS FOR SAFETY AND WILL NOTIFY CLINICAL UPHOLSTERY INSTRUCTOR AND PHYSICIAN/PROVIDER WITH ANY CHANGE IN CONDITION. [code = SKILLED NURSE WILL MAINTAIN SITUATIONAL AWARENESS FOR SAFETY AND WILL NOTIFY CLINICAL UPHOLSTERY INSTRUCTOR AND PHYSICIAN/PROVIDER WITH ANY CHANGE IN CONDITION.] [...] CARE WILL BE ESTABLISHED THAT MEETS PATIENT'S [facility] NEEDS AND INCLUDES PATIENT GOAL FOR HOME [...] ATION TIFFANY MELTON [facility] [id number] 29.41
--- OUTSIDE RECORDS SUMMARY | 2025-05-07 19:00 | XMS_ITS | Clinical Summary ---
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 Basket Patcher Name Role Phone MEGAN CHUN, MELO Unavailable Unavailable GERONIMO TRACEY, TIFFANY Unavailable Unavailable Payers Payer Name Policy Type Policy Number Effective Date Expira tion Date [employer] MEDIC[employer] ADVANTAGE [id number] MEDICARE - [facility] [id number] Problems Condition Name Condition Details Condition Category [...] 07-13 00:00: 00 03-13 23:59 :00 No [id number] 1 tablet DAILY 1 tablet DAILY (route: oral) Med Classific ation: Electroly te Balance-N utritiona l Products cyanocobala min (vit B-12) 1,000 mcg tablet 07-13 00:00: 00 2025- 06-12 23:59 :00 No [id number] 1 tablet DAILY 1 tablet DAILY (route: oral) Med Classific ation: Electroly te Balance-N utritiona l Products diltiazem ER (XR/XT) 180 mg capsule,ext ended release 24 hr, controlled 2-19 00:00: 00 03-13 23:59 :00 No [id number] 1 capsule DAILY 1 capsule DAILY (route: oral) Med Classific ation: Cardiovas cular Therapy Agents docusate sodium 100 mg capsule - 00:00: 00 03-13 23:59 :00 No [id number] 1 capsule 2 TIMES DAILY 1 capsule 2 TIMES DAILY (route: oral) Med Classific ation: Gastroint estinal Therapy Agents lisinopril 40 mg tablet - 00:00: 00 03-13 23:59 :00 No [id number] 1 tablet EVERY AM 1 tablet EVERY AM (route: oral) Med Classific ation: Cardiovas cular Therapy Agents metoprolol tartrate 25 mg tablet - 00:00: 00 03-13 23:59 :00 No [id number] 1 tablet 2 TIMES DAILY 1 tablet 2 TIMES DAILY (route: oral) Med Classific ation: Cardiovas cular Therapy Agents multivitami n with minerals tablet 07-13 00:00: 00 03-13 23:59 :00 No [id number] 1 tablet DAILY 1 tablet DAILY (route: oral) Med Classific ation: Electroly te Balance-N utroscara l Products paliperidon e ER 9 mg tablet,exte nded release 24 hr - 00:00: 00 12-01 23:59 :00 No [id number] 1 tablet BEDTIME 1 tablet BEDTIME (route: oral) Med Classific ation: Central Nervous System Agents metoprolol tartrate 25 mg tablet 6-19 00:00: 00 11-17 23:59 :00 No [id number] 1 tablet BEDTIME 1 tablet BEDTIME (route: oral) Med Classific ation: Cardiovas cular Therapy Agents benztropine 1 mg tablet -15 00:00: 00 03-13 23:59 :00 No [id number] 1 tablet EVERY PM 1 tablet EVERY PM (route: oral) Med Classific ation: Central Nervous System Agents paliperidon e ER 6 mg tablet,exte nded release 24 hr 12-01 00:00: 00 03-13 23:59 :00 No [id number] 1 tablet EVERY PM 1 tablet EVERY PM (route: oral) Med Classific ation: Central Nervous System Agents trazodone 50 mg tablet 12-01 00:00: 00 03-13 23:59 :00 No [id number] 1 tablet BEDTIME 1 tablet BEDTIME (route: oral) Med Classific ation: Central Nervous System Agents polyethylen e glycol 3350 17 gram/dose oral powder 12-21 00:00: 00 03-13 23:59 :00 No [id number] Per instruc tions DAILY Per instructio ns DAILY (route: oral) Med Classific ation: Gastroint estinal Therapy Agents benztropine 1 mg tablet 2024-05 00:00: 00 Yes [id number] 1 tablet EVERY PM 1 tablet EVERY PM (route: oral) Med Classific ation: Central Nervous System Agents cholecalcif beverley (vitamin D3) 10 mcg (400 unit) tablet 2024-05 00:00: 00 Yes [id number] 1 tablet EVERY AM 1 tablet EVERY AM (route: oral) Med Classific ation: Electroly te Balance-N utritiona l Products diltiazem ER (XR/XT) 180 mg capsule,ext ended release 24 hr, controlled 2024-05 00:00: 00 Yes [id number] 1 capsule EVERY AM 1 capsule EVERY AM (route: oral) Med Classific ation: Cardiovas cular Therapy Agents docusate sodium 100 mg capsule 2024-05 00:00: 00 Yes [id number] 1 capsule 2 TIMES DAILY 1 capsule 2 TIMES DAILY (route: oral) Med Classific ation: Gastroint estinal Therapy Agents lisinopril 40 mg tablet 2024-05 00:00: 00 Yes [id number] 1 tablet EVERY AM 1 tablet EVERY AM (route: oral) Med Classific ation: Cardiovas cular Therapy Agents metoprolol tartrate 25 mg tablet 2024-05 00:00: 00 Yes [id number] 1 tablet 2 TIMES DAILY 1 tablet 2 TIMES DAILY (route: oral) Med Classific ation: Cardiovas cular Therapy Agents multivitami n with minerals tablet 2024-05 00:00: 00 Yes [id number] 1 tablet EVERY AM 1 tablet EVERY AM (route: oral) Med Classific ation: Electroly te Balance-N utritiona l Products paliperidon e ER 6 mg tablet,exte nded release 24 hr 2024-05 00:00: 00 Yes [id number] 1 tablet EVERY PM 1 tablet EVERY PM (route: oral) Med Classific ation: Central Nervous System Agents polyethylen e glycol 3350 17 gram/dose oral powder 2024-05 00:00: 00 Yes [id number] Per instruc tions NEEDED Per instructio ns NEEDED (route: oral) Med Classific ation: Gastroint estinal Therapy Agents trazodone 50 mg tablet 2024-05 00:00: 00 Yes [id number] 1 tablet BEDTIME 1 tablet BEDTIME (route: [...] AWARENESS FOR SAFETY AND WILL NOTIFY CLINICAL CHINESE TEACHER AND PHYSICIAN/PROVIDER WITH ANY CHANGE IN CONDITION. [code = SKILLED NURSE WILL MAINTAIN SITUATIONAL AWARENESS FOR SAFETY AND WILL NOTIFY CLINICAL CHINESE TEACHER AND PHYSICIAN/PROVIDER WITH ANY CHANGE IN [...] 2025-05-08 00:00:00 Outpatient RECERTIFIC ATION TIFFANY MELTON [facility] [id number] 29.41
--- OUTSIDE RECORDS SUMMARY | 2025-05-07 19:00 | XMS_ITS | Clinical Summary ---
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 Budget Examiner Name Role Phone MEGAN CHUN, MELO Unavailable Unavailable GERONIMO TRACEY, TIFFANY Unavailable Unavailable Payers Payer Name Policy Type Policy Number Effective Date Expira tion Date [employer] [id number] MEDICARE - [facility] [id number] Problems Condition Name Condition Details Condition Category [...] 07-13 00:00: 00 03-13 23:59 :00 No [id number] 1 tablet DAILY 1 tablet DAILY (route: oral) Med Classific ation: Electroly te Balance-N utritiona l Products cyanocobala min (vit B-12) 1,000 mcg tablet 07-13 00:00: 00 2025- 06-12 23:59 :00 No [id number] 1 tablet DAILY 1 tablet DAILY (route: oral) Med Classific ation: Electroly te Balance-N utritiona l Products diltiazem ER (XR/XT) 180 mg capsule,ext ended release 24 hr, controlled 2-19 00:00: 00 03-13 23:59 :00 No [id number] 1 capsule DAILY 1 capsule DAILY (route: oral) Med Classific ation: Cardiovas cular Therapy Agents docusate sodium 100 mg capsule - 00:00: 00 03-13 23:59 :00 No [id number] 1 capsule 2 TIMES DAILY 1 capsule 2 TIMES DAILY (route: oral) Med Classific ation: Gastroint estinal Therapy Agents lisinopril 40 mg tablet - 00:00: 00 03-13 23:59 :00 No [id number] 1 tablet EVERY AM 1 tablet EVERY AM (route: oral) Med Classific ation: Cardiovas cular Therapy Agents metoprolol tartrate 25 mg tablet - 00:00: 00 03-13 23:59 :00 No [id number] 1 tablet 2 TIMES DAILY 1 tablet 2 TIMES DAILY (route: oral) Med Classific ation: Cardiovas cular Therapy Agents multivitami n with minerals tablet 07-13 00:00: 00 03-13 23:59 :00 No [id number] 1 tablet DAILY 1 tablet DAILY (route: oral) Med Classific ation: Electroly te Balance-N utroscara l Products paliperidon e ER 9 mg tablet,exte nded release 24 hr - 00:00: 00 12-01 23:59 :00 No [id number] 1 tablet BEDTIME 1 tablet BEDTIME (route: oral) Med Classific ation: Central Nervous System Agents metoprolol tartrate 25 mg tablet 6-19 00:00: 00 11-17 23:59 :00 No [id number] 1 tablet BEDTIME 1 tablet BEDTIME (route: oral) Med Classific ation: Cardiovas cular Therapy Agents benztropine 1 mg tablet -15 00:00: 00 03-13 23:59 :00 No [id number] 1 tablet EVERY PM 1 tablet EVERY PM (route: oral) Med Classific ation: Central Nervous System Agents paliperidon e ER 6 mg tablet,exte nded release 24 hr 12-01 00:00: 00 03-13 23:59 :00 No [id number] 1 tablet EVERY PM 1 tablet EVERY PM (route: oral) Med Classific ation: Central Nervous System Agents trazodone 50 mg tablet 12-01 00:00: 00 03-13 23:59 :00 No [id number] 1 tablet BEDTIME 1 tablet BEDTIME (route: oral) Med Classific ation: Central Nervous System Agents polyethylen e glycol 3350 17 gram/dose oral powder 12-21 00:00: 00 03-13 23:59 :00 No [id number] Per instruc tions DAILY Per instructio ns DAILY (route: oral) Med Classific ation: Gastroint estinal Therapy Agents benztropine 1 mg tablet 2024-05 00:00: 00 Yes [id number] 1 tablet EVERY PM 1 tablet EVERY PM (route: oral) Med Classific ation: Central Nervous System Agents cholecalcif beverley (vitamin D3) 10 mcg (400 unit) tablet 2024-05 00:00: 00 Yes [id number] 1 tablet EVERY AM 1 tablet EVERY AM (route: oral) Med Classific ation: Electroly te Balance-N utritiona l Products diltiazem ER (XR/XT) 180 mg capsule,ext ended release 24 hr, controlled 2024-05 00:00: 00 Yes [id number] 1 capsule EVERY AM 1 capsule EVERY AM (route: oral) Med Classific ation: Cardiovas cular Therapy Agents docusate sodium 100 mg capsule 2024-05 00:00: 00 Yes [id number] 1 capsule 2 TIMES DAILY 1 capsule 2 TIMES DAILY (route: oral) Med Classific ation: Gastroint estinal Therapy Agents lisinopril 40 mg tablet 2024-05 00:00: 00 Yes [id number] 1 tablet EVERY AM 1 tablet EVERY AM (route: oral) Med Classific ation: Cardiovas cular Therapy Agents metoprolol tartrate 25 mg tablet 2024-05 00:00: 00 Yes [id number] 1 tablet 2 TIMES DAILY 1 tablet 2 TIMES DAILY (route: oral) Med Classific ation: Cardiovas cular Therapy Agents multivitami n with minerals tablet 2024-05 00:00: 00 Yes [id number] 1 tablet EVERY AM 1 tablet EVERY AM (route: oral) Med Classific ation: Electroly te Balance-N utritiona l Products paliperidon e ER 6 mg tablet,exte nded release 24 hr 2024-05 00:00: 00 Yes [id number] 1 tablet EVERY PM 1 tablet EVERY PM (route: oral) Med Classific ation: Central Nervous System Agents polyethylen e glycol 3350 17 gram/dose oral powder 2024-05 00:00: 00 Yes [id number] Per instruc tions NEEDED Per instructio ns NEEDED (route: oral) Med Classific ation: Gastroint estinal Therapy Agents trazodone 50 mg tablet 2024-05 00:00: 00 Yes [id number] 1 tablet BEDTIME 1 tablet BEDTIME (route: [...] AWARENESS FOR SAFETY AND WILL NOTIFY CLINICAL BUYER ASSISTANT AND PHYSICIAN/PROVIDER WITH ANY CHANGE IN CONDITION. [code = SKILLED NURSE WILL MAINTAIN SITUATIONAL AWARENESS FOR SAFETY AND WILL NOTIFY CLINICAL BUYER ASSISTANT AND PHYSICIAN/PROVIDER WITH ANY CHANGE IN CONDITION.] [...] Outpatient RECERTIFIC ATION TIFFANY MELTON [facility] [id number] 29.41
--- OUTSIDE RECORDS SUMMARY | 2025-05-07 19:00 | XMS_ITS | Clinical Summary ---
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 Security Orderly Name Role Phone MEGAN CHUN, MELO Unavailable Unavailable GERONIMO TRACEY, TIFFANY Unavailable Unavailable Payers Payer Name Policy Type Policy Number Effective Date Expira tion Date [employer] MED[employer] ADVANTAGE [id number] [facility]IC[facility] - [facility] [id number] Problems Condition Name Condition Details Condition Category [...] 07-13 00:00: 00 03-13 23:59 :00 No [id number] 1 tablet DAILY 1 tablet DAILY (route: oral) Med Classific ation: Electroly te Balance-N utritiona l Products cyanocobala min (vit B-12) 1,000 mcg tablet 07-13 00:00: 00 2025- 06-12 23:59 :00 No [id number] 1 tablet DAILY 1 tablet DAILY (route: oral) Med Classific ation: Electroly te Balance-N utritiona l Products diltiazem ER (XR/XT) 180 mg capsule,ext ended release 24 hr, controlled 2-19 00:00: 00 03-13 23:59 :00 No [id number] 1 capsule DAILY 1 capsule DAILY (route: oral) Med Classific ation: Cardiovas cular Therapy Agents docusate sodium 100 mg capsule - 00:00: 00 03-13 23:59 :00 No [id number] 1 capsule 2 TIMES DAILY 1 capsule 2 TIMES DAILY (route: oral) Med Classific ation: Gastroint estinal Therapy Agents lisinopril 40 mg tablet - 00:00: 00 03-13 23:59 :00 No [id number] 1 tablet EVERY AM 1 tablet EVERY AM (route: oral) Med Classific ation: Cardiovas cular Therapy Agents metoprolol tartrate 25 mg tablet - 00:00: 00 03-13 23:59 :00 No [id number] 1 tablet 2 TIMES DAILY 1 tablet 2 TIMES DAILY (route: oral) Med Classific ation: Cardiovas cular Therapy Agents multivitami n with minerals tablet 07-13 00:00: 00 03-13 23:59 :00 No [id number] 1 tablet DAILY 1 tablet DAILY (route: oral) Med Classific ation: Electroly te Balance-N utroscara l Products paliperidon e ER 9 mg tablet,exte nded release 24 hr - 00:00: 00 12-01 23:59 :00 No [id number] 1 tablet BEDTIME 1 tablet BEDTIME (route: oral) Med Classific ation: Central Nervous System Agents metoprolol tartrate 25 mg tablet 6-19 00:00: 00 11-17 23:59 :00 No [id number] 1 tablet BEDTIME 1 tablet BEDTIME (route: oral) Med Classific ation: Cardiovas cular Therapy Agents benztropine 1 mg tablet -15 00:00: 00 03-13 23:59 :00 No [id number] 1 tablet EVERY PM 1 tablet EVERY PM (route: oral) Med Classific ation: Central Nervous System Agents paliperidon e ER 6 mg tablet,exte nded release 24 hr 12-01 00:00: 00 03-13 23:59 :00 No [id number] 1 tablet EVERY PM 1 tablet EVERY PM (route: oral) Med Classific ation: Central Nervous System Agents trazodone 50 mg tablet 12-01 00:00: 00 03-13 23:59 :00 No [id number] 1 tablet BEDTIME 1 tablet BEDTIME (route: oral) Med Classific ation: Central Nervous System Agents polyethylen e glycol 3350 17 gram/dose oral powder 12-21 00:00: 00 03-13 23:59 :00 No [id number] Per instruc tions DAILY Per instructio ns DAILY (route: oral) Med Classific ation: Gastroint estinal Therapy Agents benztropine 1 mg tablet 2024-05 00:00: 00 Yes [id number] 1 tablet EVERY PM 1 tablet EVERY PM (route: oral) Med Classific ation: Central Nervous System Agents cholecalcif beverley (vitamin D3) 10 mcg (400 unit) tablet 2024-05 00:00: 00 Yes [id number] 1 tablet EVERY AM 1 tablet EVERY AM (route: oral) Med Classific ation: Electroly te Balance-N utritiona l Products diltiazem ER (XR/XT) 180 mg capsule,ext ended release 24 hr, controlled 2024-05 00:00: 00 Yes [id number] 1 capsule EVERY AM 1 capsule EVERY AM (route: oral) Med Classific ation: Cardiovas cular Therapy Agents docusate sodium 100 mg capsule 2024-05 00:00: 00 Yes [id number] 1 capsule 2 TIMES DAILY 1 capsule 2 TIMES DAILY (route: oral) Med Classific ation: Gastroint estinal Therapy Agents lisinopril 40 mg tablet 2024-05 00:00: 00 Yes [id number] 1 tablet EVERY AM 1 tablet EVERY AM (route: oral) Med Classific ation: Cardiovas cular Therapy Agents metoprolol tartrate 25 mg tablet 2024-05 00:00: 00 Yes [id number] 1 tablet 2 TIMES DAILY 1 tablet 2 TIMES DAILY (route: oral) Med Classific ation: Cardiovas cular Therapy Agents multivitami n with minerals tablet 2024-05 00:00: 00 Yes [id number] 1 tablet EVERY AM 1 tablet EVERY AM (route: oral) Med Classific ation: Electroly te Balance-N utritiona l Products paliperidon e ER 6 mg tablet,exte nded release 24 hr 2024-05 00:00: 00 Yes [id number] 1 tablet EVERY PM 1 tablet EVERY PM (route: oral) Med Classific ation: Central Nervous System Agents polyethylen e glycol 3350 17 gram/dose oral powder 2024-05 00:00: 00 Yes [id number] Per instruc tions NEEDED Per instructio ns NEEDED (route: oral) Med Classific ation: Gastroint estinal Therapy Agents trazodone 50 mg tablet 2024-05 00:00: 00 Yes [id number] 1 tablet BEDTIME 1 tablet BEDTIME (route: [...] AWARENESS FOR SAFETY AND WILL NOTIFY CLINICAL CORK INSULATION SETTER AND PHYSICIAN/PROVIDER WITH ANY CHANGE IN CONDITION. [code = SKILLED NURSE WILL MAINTAIN SITUATIONAL AWARENESS FOR SAFETY AND WILL NOTIFY CLINICAL CORK INSULATION SETTER AND PHYSICIAN/PROVIDER WITH ANY CHANGE IN CONDITION.] [...] Outpatient RECERTIFIC ATION TIFFANY MELTON [facility] [id number] 29.41
--- OUTSIDE RECORDS SUMMARY | 2025-05-07 19:00 | XMS_ITS | Clinical Summary ---
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 Ball Warper Tender Name Role Phone MEGAN CHUN, MELO Unavailable Unavailable GERONIMO TRACEY, TIFFANY Unavailable Unavailable Payers Payer Name Policy Type Policy Number Effective Date Expira tion Date [employer] MED[employer] ADVANTAGE [id number] MEDICARE - [facility] [id number] Problems Condition Name Condition Details Condition Category [...] 07-13 00:00: 00 03-13 23:59 :00 No [id number] 1 tablet DAILY 1 tablet DAILY (route: oral) Med Classific ation: Electroly te Balance-N utritiona l Products cyanocobala min (vit B-12) 1,000 mcg tablet 07-13 00:00: 00 2025- 06-12 23:59 :00 No [id number] 1 tablet DAILY 1 tablet DAILY (route: oral) Med Classific ation: Electroly te Balance-N utritiona l Products diltiazem ER (XR/XT) 180 mg capsule,ext ended release 24 hr, controlled 2-19 00:00: 00 03-13 23:59 :00 No [id number] 1 capsule DAILY 1 capsule DAILY (route: oral) Med Classific ation: Cardiovas cular Therapy Agents docusate sodium 100 mg capsule - 00:00: 00 03-13 23:59 :00 No [id number] 1 capsule 2 TIMES DAILY 1 capsule 2 TIMES DAILY (route: oral) Med Classific ation: Gastroint estinal Therapy Agents lisinopril 40 mg tablet - 00:00: 00 03-13 23:59 :00 No [id number] 1 tablet EVERY AM 1 tablet EVERY AM (route: oral) Med Classific ation: Cardiovas cular Therapy Agents metoprolol tartrate 25 mg tablet - 00:00: 00 03-13 23:59 :00 No [id number] 1 tablet 2 TIMES DAILY 1 tablet 2 TIMES DAILY (route: oral) Med Classific ation: Cardiovas cular Therapy Agents multivitami n with minerals tablet 07-13 00:00: 00 03-13 23:59 :00 No [id number] 1 tablet DAILY 1 tablet DAILY (route: oral) Med Classific ation: Electroly te Balance-N utroscara l Products paliperidon e ER 9 mg tablet,exte nded release 24 hr - 00:00: 00 12-01 23:59 :00 No [id number] 1 tablet BEDTIME 1 tablet BEDTIME (route: oral) Med Classific ation: Central Nervous System Agents metoprolol tartrate 25 mg tablet 6-19 00:00: 00 11-17 23:59 :00 No [id number] 1 tablet BEDTIME 1 tablet BEDTIME (route: oral) Med Classific ation: Cardiovas cular Therapy Agents benztropine 1 mg tablet -15 00:00: 00 03-13 23:59 :00 No [id number] 1 tablet EVERY PM 1 tablet EVERY PM (route: oral) Med Classific ation: Central Nervous System Agents paliperidon e ER 6 mg tablet,exte nded release 24 hr 12-01 00:00: 00 03-13 23:59 :00 No [id number] 1 tablet EVERY PM 1 tablet EVERY PM (route: oral) Med Classific ation: Central Nervous System Agents trazodone 50 mg tablet 12-01 00:00: 00 03-13 23:59 :00 No [id number] 1 tablet BEDTIME 1 tablet BEDTIME (route: oral) Med Classific ation: Central Nervous System Agents polyethylen e glycol 3350 17 gram/dose oral powder 12-21 00:00: 00 03-13 23:59 :00 No [id number] Per instruc tions DAILY Per instructio ns DAILY (route: oral) Med Classific ation: Gastroint estinal Therapy Agents benztropine 1 mg tablet 2024-05 00:00: 00 Yes [id number] 1 tablet EVERY PM 1 tablet EVERY PM (route: oral) Med Classific ation: Central Nervous System Agents cholecalcif beverley (vitamin D3) 10 mcg (400 unit) tablet 2024-05 00:00: 00 Yes [id number] 1 tablet EVERY AM 1 tablet EVERY AM (route: oral) Med Classific ation: Electroly te Balance-N utritiona l Products diltiazem ER (XR/XT) 180 mg capsule,ext ended release 24 hr, controlled 2024-05 00:00: 00 Yes [id number] 1 capsule EVERY AM 1 capsule EVERY AM (route: oral) Med Classific ation: Cardiovas cular Therapy Agents docusate sodium 100 mg capsule 2024-05 00:00: 00 Yes [id number] 1 capsule 2 TIMES DAILY 1 capsule 2 TIMES DAILY (route: oral) Med Classific ation: Gastroint estinal Therapy Agents lisinopril 40 mg tablet 2024-05 00:00: 00 Yes [id number] 1 tablet EVERY AM 1 tablet EVERY AM (route: oral) Med Classific ation: Cardiovas cular Therapy Agents metoprolol tartrate 25 mg tablet 2024-05 00:00: 00 Yes [id number] 1 tablet 2 TIMES DAILY 1 tablet 2 TIMES DAILY (route: oral) Med Classific ation: Cardiovas cular Therapy Agents multivitami n with minerals tablet 2024-05 00:00: 00 Yes [id number] 1 tablet EVERY AM 1 tablet EVERY AM (route: oral) Med Classific ation: Electroly te Balance-N utritiona l Products paliperidon e ER 6 mg tablet,exte nded release 24 hr 2024-05 00:00: 00 Yes [id number] 1 tablet EVERY PM 1 tablet EVERY PM (route: oral) Med Classific ation: Central Nervous System Agents polyethylen e glycol 3350 17 gram/dose oral powder 2024-05 00:00: 00 Yes [id number] Per instruc tions NEEDED Per instructio ns NEEDED (route: oral) Med Classific ation: Gastroint estinal Therapy Agents trazodone 50 mg tablet 2024-05 00:00: 00 Yes [id number] 1 tablet BEDTIME 1 tablet BEDTIME (route: [...] AWARENESS FOR SAFETY AND WILL NOTIFY CLINICAL INSPECTOR BARREL AND PHYSICIAN/PROVIDER WITH ANY CHANGE IN CONDITION. [code = SKILLED NURSE WILL MAINTAIN SITUATIONAL AWARENESS FOR SAFETY AND WILL NOTIFY CLINICAL INSPECTOR BARREL AND PHYSICIAN/PROVIDER WITH ANY CHANGE IN CONDITION.] [...] RECERTIFIC ATION TIFFANY MELTON [facility] [id number] 29.41
--- OUTSIDE RECORDS SUMMARY | 2025-05-07 19:00 | XMS_ITS | Clinical Summary ---
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 Kerrick Kleaner Operator Name Role Phone MEGAN CHUN, MELO Unavailable Unavailable GERONIMO TRACEY, TIFFANY Unavailable Unavailable Payers Payer Name Policy Type Policy Number Effective Date Expira tion Date [employer] MEDIC[employer] ADVANTAGE [id number] MEDICARE - [facility] [id number] Problems Condition Name Condition Details Condition Category [...] 07-13 00:00: 00 03-13 23:59 :00 No [id number] 1 tablet DAILY 1 tablet DAILY (route: oral) Med Classific ation: Electroly te Balance-N utritiona l Products cyanocobala min (vit B-12) 1,000 mcg tablet 07-13 00:00: 00 2025- 06-12 23:59 :00 No [id number] 1 tablet DAILY 1 tablet DAILY (route: oral) Med Classific ation: Electroly te Balance-N utritiona l Products diltiazem ER (XR/XT) 180 mg capsule,ext ended release 24 hr, controlled 2-19 00:00: 00 03-13 23:59 :00 No [id number] 1 capsule DAILY 1 capsule DAILY (route: oral) Med Classific ation: Cardiovas cular Therapy Agents docusate sodium 100 mg capsule - 00:00: 00 03-13 23:59 :00 No [id number] 1 capsule 2 TIMES DAILY 1 capsule 2 TIMES DAILY (route: oral) Med Classific ation: Gastroint estinal Therapy Agents lisinopril 40 mg tablet - 00:00: 00 03-13 23:59 :00 No [id number] 1 tablet EVERY AM 1 tablet EVERY AM (route: oral) Med Classific ation: Cardiovas cular Therapy Agents metoprolol tartrate 25 mg tablet - 00:00: 00 03-13 23:59 :00 No [id number] 1 tablet 2 TIMES DAILY 1 tablet 2 TIMES DAILY (route: oral) Med Classific ation: Cardiovas cular Therapy Agents multivitami n with minerals tablet 07-13 00:00: 00 03-13 23:59 :00 No [id number] 1 tablet DAILY 1 tablet DAILY (route: oral) Med Classific ation: Electroly te Balance-N utroscara l Products paliperidon e ER 9 mg tablet,exte nded release 24 hr - 00:00: 00 12-01 23:59 :00 No [id number] 1 tablet BEDTIME 1 tablet BEDTIME (route: oral) Med Classific ation: Central Nervous System Agents metoprolol tartrate 25 mg tablet 6-19 00:00: 00 11-17 23:59 :00 No [id number] 1 tablet BEDTIME 1 tablet BEDTIME (route: oral) Med Classific ation: Cardiovas cular Therapy Agents benztropine 1 mg tablet -15 00:00: 00 03-13 23:59 :00 No [id number] 1 tablet EVERY PM 1 tablet EVERY PM (route: oral) Med Classific ation: Central Nervous System Agents paliperidon e ER 6 mg tablet,exte nded release 24 hr 12-01 00:00: 00 03-13 23:59 :00 No [id number] 1 tablet EVERY PM 1 tablet EVERY PM (route: oral) Med Classific ation: Central Nervous System Agents trazodone 50 mg tablet 12-01 00:00: 00 03-13 23:59 :00 No [id number] 1 tablet BEDTIME 1 tablet BEDTIME (route: oral) Med Classific ation: Central Nervous System Agents polyethylen e glycol 3350 17 gram/dose oral powder 12-21 00:00: 00 03-13 23:59 :00 No [id number] Per instruc tions DAILY Per instructio ns DAILY (route: oral) Med Classific ation: Gastroint estinal Therapy Agents benztropine 1 mg tablet 2024-05 00:00: 00 Yes [id number] 1 tablet EVERY PM 1 tablet EVERY PM (route: oral) Med Classific ation: Central Nervous System Agents cholecalcif beverley (vitamin D3) 10 mcg (400 unit) tablet 2024-05 00:00: 00 Yes [id number] 1 tablet EVERY AM 1 tablet EVERY AM (route: oral) Med Classific ation: Electroly te Balance-N utritiona l Products diltiazem ER (XR/XT) 180 mg capsule,ext ended release 24 hr, controlled 2024-05 00:00: 00 Yes [id number] 1 capsule EVERY AM 1 capsule EVERY AM (route: oral) Med Classific ation: Cardiovas cular Therapy Agents docusate sodium 100 mg capsule 2024-05 00:00: 00 Yes [id number] 1 capsule 2 TIMES DAILY 1 capsule 2 TIMES DAILY (route: oral) Med Classific ation: Gastroint estinal Therapy Agents lisinopril 40 mg tablet 2024-05 00:00: 00 Yes [id number] 1 tablet EVERY AM 1 tablet EVERY AM (route: oral) Med Classific ation: Cardiovas cular Therapy Agents metoprolol tartrate 25 mg tablet 2024-05 00:00: 00 Yes [id number] 1 tablet 2 TIMES DAILY 1 tablet 2 TIMES DAILY (route: oral) Med Classific ation: Cardiovas cular Therapy Agents multivitami n with minerals tablet 2024-05 00:00: 00 Yes [id number] 1 tablet EVERY AM 1 tablet EVERY AM (route: oral) Med Classific ation: Electroly te Balance-N utritiona l Products paliperidon e ER 6 mg tablet,exte nded release 24 hr 2024-05 00:00: 00 Yes [id number] 1 tablet EVERY PM 1 tablet EVERY PM (route: oral) Med Classific ation: Central Nervous System Agents polyethylen e glycol 3350 17 gram/dose oral powder 2024-05 00:00: 00 Yes [id number] Per instruc tions NEEDED Per instructio ns NEEDED (route: oral) Med Classific ation: Gastroint estinal Therapy Agents trazodone 50 mg tablet 2024-05 00:00: 00 Yes [id number] 1 tablet BEDTIME 1 tablet BEDTIME (route: [...] AWARENESS FOR SAFETY AND WILL NOTIFY CLINICAL AIRCRAFT QUALITY CONTROL INSPECTOR AND PHYSICIAN/PROVIDER WITH ANY CHANGE IN CONDITION. [code = SKILLED NURSE WILL MAINTAIN SITUATIONAL AWARENESS FOR SAFETY AND WILL NOTIFY CLINICAL AIRCRAFT QUALITY CONTROL INSPECTOR AND PHYSICIAN/PROVIDER WITH ANY CHANGE IN CONDITION.] [...] 2025-05-08 00:00:00 Outpatient RECERTIFIC ATION TIFFANY MELTON [facility] [id number] 29.41
--- OUTSIDE RECORDS SUMMARY | 2025-05-07 19:00 | XMS_ITS | Clinical Summary ---
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 Bods Developer Name Role Phone MEGAN CHUN, MELO Unavailable Unavailable GERONIMO TRACEY, TIFFANY Unavailable Unavailable Payers Payer Name Policy Type Policy Number Effective Date Expira tion Date [employer] [id number] MEDICARE - [facility] [id number] Problems Condition Name Condition Details Condition Category [...] 07-13 00:00: 00 03-13 23:59 :00 No [id number] 1 tablet DAILY 1 tablet DAILY (route: oral) Med Classific ation: Electroly te Balance-N utritiona l Products cyanocobala min (vit B-12) 1,000 mcg tablet 07-13 00:00: 00 2025- 06-12 23:59 :00 No [id number] 1 tablet DAILY 1 tablet DAILY (route: oral) Med Classific ation: Electroly te Balance-N utritiona l Products diltiazem ER (XR/XT) 180 mg capsule,ext ended release 24 hr, controlled 2-19 00:00: 00 03-13 23:59 :00 No [id number] 1 capsule DAILY 1 capsule DAILY (route: oral) Med Classific ation: Cardiovas cular Therapy Agents docusate sodium 100 mg capsule - 00:00: 00 03-13 23:59 :00 No [id number] 1 capsule 2 TIMES DAILY 1 capsule 2 TIMES DAILY (route: oral) Med Classific ation: Gastroint estinal Therapy Agents lisinopril 40 mg tablet - 00:00: 00 03-13 23:59 :00 No [id number] 1 tablet EVERY AM 1 tablet EVERY AM (route: oral) Med Classific ation: Cardiovas cular Therapy Agents metoprolol tartrate 25 mg tablet - 00:00: 00 03-13 23:59 :00 No [id number] 1 tablet 2 TIMES DAILY 1 tablet 2 TIMES DAILY (route: oral) Med Classific ation: Cardiovas cular Therapy Agents multivitami n with minerals tablet 07-13 00:00: 00 03-13 23:59 :00 No [id number] 1 tablet DAILY 1 tablet DAILY (route: oral) Med Classific ation: Electroly te Balance-N utroscara l Products paliperidon e ER 9 mg tablet,exte nded release 24 hr - 00:00: 00 12-01 23:59 :00 No [id number] 1 tablet BEDTIME 1 tablet BEDTIME (route: oral) Med Classific ation: Central Nervous System Agents metoprolol tartrate 25 mg tablet 6-19 00:00: 00 11-17 23:59 :00 No [id number] 1 tablet BEDTIME 1 tablet BEDTIME (route: oral) Med Classific ation: Cardiovas cular Therapy Agents benztropine 1 mg tablet -15 00:00: 00 03-13 23:59 :00 No [id number] 1 tablet EVERY PM 1 tablet EVERY PM (route: oral) Med Classific ation: Central Nervous System Agents paliperidon e ER 6 mg tablet,exte nded release 24 hr 12-01 00:00: 00 03-13 23:59 :00 No [id number] 1 tablet EVERY PM 1 tablet EVERY PM (route: oral) Med Classific ation: Central Nervous System Agents trazodone 50 mg tablet 12-01 00:00: 00 03-13 23:59 :00 No [id number] 1 tablet BEDTIME 1 tablet BEDTIME (route: oral) Med Classific ation: Central Nervous System Agents polyethylen e glycol 3350 17 gram/dose oral powder 12-21 00:00: 00 03-13 23:59 :00 No [id number] Per instruc tions DAILY Per instructio ns DAILY (route: oral) Med Classific ation: Gastroint estinal Therapy Agents benztropine 1 mg tablet 2024-05 00:00: 00 Yes [id number] 1 tablet EVERY PM 1 tablet EVERY PM (route: oral) Med Classific ation: Central Nervous System Agents cholecalcif beverley (vitamin D3) 10 mcg (400 unit) tablet 2024-05 00:00: 00 Yes [id number] 1 tablet EVERY AM 1 tablet EVERY AM (route: oral) Med Classific ation: Electroly te Balance-N utritiona l Products diltiazem ER (XR/XT) 180 mg capsule,ext ended release 24 hr, controlled 2024-05 00:00: 00 Yes [id number] 1 capsule EVERY AM 1 capsule EVERY AM (route: oral) Med Classific ation: Cardiovas cular Therapy Agents docusate sodium 100 mg capsule 2024-05 00:00: 00 Yes [id number] 1 capsule 2 TIMES DAILY 1 capsule 2 TIMES DAILY (route: oral) Med Classific ation: Gastroint estinal Therapy Agents lisinopril 40 mg tablet 2024-05 00:00: 00 Yes [id number] 1 tablet EVERY AM 1 tablet EVERY AM (route: oral) Med Classific ation: Cardiovas cular Therapy Agents metoprolol tartrate 25 mg tablet 2024-05 00:00: 00 Yes [id number] 1 tablet 2 TIMES DAILY 1 tablet 2 TIMES DAILY (route: oral) Med Classific ation: Cardiovas cular Therapy Agents multivitami n with minerals tablet 2024-05 00:00: 00 Yes [id number] 1 tablet EVERY AM 1 tablet EVERY AM (route: oral) Med Classific ation: Electroly te Balance-N utritiona l Products paliperidon e ER 6 mg tablet,exte nded release 24 hr 2024-05 00:00: 00 Yes [id number] 1 tablet EVERY PM 1 tablet EVERY PM (route: oral) Med Classific ation: Central Nervous System Agents polyethylen e glycol 3350 17 gram/dose oral powder 2024-05 00:00: 00 Yes [id number] Per instruc tions NEEDED Per instructio ns NEEDED (route: oral) Med Classific ation: Gastroint estinal Therapy Agents trazodone 50 mg tablet 2024-05 00:00: 00 Yes [id number] 1 tablet BEDTIME 1 tablet BEDTIME (route: [...] AWARENESS FOR SAFETY AND WILL NOTIFY CLINICAL TEXTILE MACHINERY SALES REPRESENTATIVE AND PHYSICIAN/PROVIDER WITH ANY CHANGE IN CONDITION. [code = SKILLED NURSE WILL MAINTAIN SITUATIONAL AWARENESS FOR SAFETY AND WILL NOTIFY CLINICAL TEXTILE MACHINERY SALES REPRESENTATIVE AND PHYSICIAN/PROVIDER WITH ANY CHANGE IN CONDITION.] [...] [facility]MERLY [facility] [id number] 29.41
--- OUTSIDE RECORDS SUMMARY | 2025-05-07 19:00 | XMS_ITS | Clinical Summary ---
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 Senior Geotechnical Engineer Name Role Phone MEGAN CHUN, MELO Unavailable Unavailable GERONIMO TRACEY, TIFFANY Unavailable Unavailable Payers Payer Name Policy Type Policy Number Effective Date Expira tion Date [employer] MED[employer] ADVANTAGE [id number] MEDICARE - [facility] [id number] Problems Condition Name Condition Details Condition Category [...] 07-13 00:00: 00 03-13 23:59 :00 No [id number] 1 tablet DAILY 1 tablet DAILY (route: oral) Med Classific ation: Electroly te Balance-N utritiona l Products cyanocobala min (vit B-12) 1,000 mcg tablet 07-13 00:00: 00 2025- 06-12 23:59 :00 No [id number] 1 tablet DAILY 1 tablet DAILY (route: oral) Med Classific ation: Electroly te Balance-N utritiona l Products diltiazem ER (XR/XT) 180 mg capsule,ext ended release 24 hr, controlled 2-19 00:00: 00 03-13 23:59 :00 No [id number] 1 capsule DAILY 1 capsule DAILY (route: oral) Med Classific ation: Cardiovas cular Therapy Agents docusate sodium 100 mg capsule - 00:00: 00 03-13 23:59 :00 No [id number] 1 capsule 2 TIMES DAILY 1 capsule 2 TIMES DAILY (route: oral) Med Classific ation: Gastroint estinal Therapy Agents lisinopril 40 mg tablet - 00:00: 00 03-13 23:59 :00 No [id number] 1 tablet EVERY AM 1 tablet EVERY AM (route: oral) Med Classific ation: Cardiovas cular Therapy Agents metoprolol tartrate 25 mg tablet - 00:00: 00 03-13 23:59 :00 No [id number] 1 tablet 2 TIMES DAILY 1 tablet 2 TIMES DAILY (route: oral) Med Classific ation: Cardiovas cular Therapy Agents multivitami n with minerals tablet 07-13 00:00: 00 03-13 23:59 :00 No [id number] 1 tablet DAILY 1 tablet DAILY (route: oral) Med Classific ation: Electroly te Balance-N utroscara l Products paliperidon e ER 9 mg tablet,exte nded release 24 hr - 00:00: 00 12-01 23:59 :00 No [id number] 1 tablet BEDTIME 1 tablet BEDTIME (route: oral) Med Classific ation: Central Nervous System Agents metoprolol tartrate 25 mg tablet 6-19 00:00: 00 11-17 23:59 :00 No [id number] 1 tablet BEDTIME 1 tablet BEDTIME (route: oral) Med Classific ation: Cardiovas cular Therapy Agents benztropine 1 mg tablet -15 00:00: 00 03-13 23:59 :00 No [id number] 1 tablet EVERY PM 1 tablet EVERY PM (route: oral) Med Classific ation: Central Nervous System Agents paliperidon e ER 6 mg tablet,exte nded release 24 hr 12-01 00:00: 00 03-13 23:59 :00 No [id number] 1 tablet EVERY PM 1 tablet EVERY PM (route: oral) Med Classific ation: Central Nervous System Agents trazodone 50 mg tablet 12-01 00:00: 00 03-13 23:59 :00 No [id number] 1 tablet BEDTIME 1 tablet BEDTIME (route: oral) Med Classific ation: Central Nervous System Agents polyethylen e glycol 3350 17 gram/dose oral powder 12-21 00:00: 00 03-13 23:59 :00 No [id number] Per instruc tions DAILY Per instructio ns DAILY (route: oral) Med Classific ation: Gastroint estinal Therapy Agents benztropine 1 mg tablet 2024-05 00:00: 00 Yes [id number] 1 tablet EVERY PM 1 tablet EVERY PM (route: oral) Med Classific ation: Central Nervous System Agents cholecalcif beverley (vitamin D3) 10 mcg (400 unit) tablet 2024-05 00:00: 00 Yes [id number] 1 tablet EVERY AM 1 tablet EVERY AM (route: oral) Med Classific ation: Electroly te Balance-N utritiona l Products diltiazem ER (XR/XT) 180 mg capsule,ext ended release 24 hr, controlled 2024-05 00:00: 00 Yes [id number] 1 capsule EVERY AM 1 capsule EVERY AM (route: oral) Med Classific ation: Cardiovas cular Therapy Agents docusate sodium 100 mg capsule 2024-05 00:00: 00 Yes [id number] 1 capsule 2 TIMES DAILY 1 capsule 2 TIMES DAILY (route: oral) Med Classific ation: Gastroint estinal Therapy Agents lisinopril 40 mg tablet 2024-05 00:00: 00 Yes [id number] 1 tablet EVERY AM 1 tablet EVERY AM (route: oral) Med Classific ation: Cardiovas cular Therapy Agents metoprolol tartrate 25 mg tablet 2024-05 00:00: 00 Yes [id number] 1 tablet 2 TIMES DAILY 1 tablet 2 TIMES DAILY (route: oral) Med Classific ation: Cardiovas cular Therapy Agents multivitami n with minerals tablet 2024-05 00:00: 00 Yes [id number] 1 tablet EVERY AM 1 tablet EVERY AM (route: oral) Med Classific ation: Electroly te Balance-N utritiona l Products paliperidon e ER 6 mg tablet,exte nded release 24 hr 2024-05 00:00: 00 Yes [id number] 1 tablet EVERY PM 1 tablet EVERY PM (route: oral) Med Classific ation: Central Nervous System Agents polyethylen e glycol 3350 17 gram/dose oral powder 2024-05 00:00: 00 Yes [id number] Per instruc tions NEEDED Per instructio ns NEEDED (route: oral) Med Classific ation: Gastroint estinal Therapy Agents trazodone 50 mg tablet 2024-05 00:00: 00 Yes [id number] 1 tablet BEDTIME 1 tablet BEDTIME (route: [...] AWARENESS FOR SAFETY AND WILL NOTIFY CLINICAL SUBSTITUTE CROSSING GUARD AND PHYSICIAN/PROVIDER WITH ANY CHANGE IN CONDITION. [code = SKILLED NURSE WILL MAINTAIN SITUATIONAL AWARENESS FOR SAFETY AND WILL NOTIFY CLINICAL SUBSTITUTE CROSSING GUARD AND PHYSICIAN/PROVIDER WITH ANY CHANGE IN CONDITION.] [...] CARE WILL BE ESTABLISHED THAT MEETS PATIENT'S USP NEEDS AND INCLUDES PATIENT GOAL FOR HOME [...] 2025-05-08 00:00:00 Outpatient RECERTIFIC ATION TIFFANY MELTON [facility] [id number] 29.41
--- OUTSIDE RECORDS SUMMARY | 2025-05-07 19:00 | XMS_ITS | Clinical Summary ---
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 Search Strategist Name Role Phone MEGAN CHUN, MELO Unavailable Unavailable GERONIMO TRACEY, TIFFANY Unavailable Unavailable Payers Payer Name Policy Type Policy Number Effective Date Expira tion Date [employer] MED[employer] ADVANT[employer] [id number] MEDICARE - [facility] [id number] Problems Condition Name Condition Details Condition Category [...] 07-13 00:00: 00 03-13 23:59 :00 No [id number] 1 tablet DAILY 1 tablet DAILY (route: oral) Med Classific ation: Electroly te Balance-N utritiona l Products cyanocobala min (vit B-12) 1,000 mcg tablet 07-13 00:00: 00 2025- 06-12 23:59 :00 No [id number] 1 tablet DAILY 1 tablet DAILY (route: oral) Med Classific ation: Electroly te Balance-N utritiona l Products diltiazem ER (XR/XT) 180 mg capsule,ext ended release 24 hr, controlled 2-19 00:00: 00 03-13 23:59 :00 No [id number] 1 capsule DAILY 1 capsule DAILY (route: oral) Med Classific ation: Cardiovas cular Therapy Agents docusate sodium 100 mg capsule - 00:00: 00 03-13 23:59 :00 No [id number] 1 capsule 2 TIMES DAILY 1 capsule 2 TIMES DAILY (route: oral) Med Classific ation: Gastroint estinal Therapy Agents lisinopril 40 mg tablet - 00:00: 00 03-13 23:59 :00 No [id number] 1 tablet EVERY AM 1 tablet EVERY AM (route: oral) Med Classific ation: Cardiovas cular Therapy Agents metoprolol tartrate 25 mg tablet - 00:00: 00 03-13 23:59 :00 No [id number] 1 tablet 2 TIMES DAILY 1 tablet 2 TIMES DAILY (route: oral) Med Classific ation: Cardiovas cular Therapy Agents multivitami n with minerals tablet 07-13 00:00: 00 03-13 23:59 :00 No [id number] 1 tablet DAILY 1 tablet DAILY (route: oral) Med Classific ation: Electroly te Balance-N utroscara l Products paliperidon e ER 9 mg tablet,exte nded release 24 hr - 00:00: 00 12-01 23:59 :00 No [id number] 1 tablet BEDTIME 1 tablet BEDTIME (route: oral) Med Classific ation: Central Nervous System Agents metoprolol tartrate 25 mg tablet 6-19 00:00: 00 11-17 23:59 :00 No [id number] 1 tablet BEDTIME 1 tablet BEDTIME (route: oral) Med Classific ation: Cardiovas cular Therapy Agents benztropine 1 mg tablet -15 00:00: 00 03-13 23:59 :00 No [id number] 1 tablet EVERY PM 1 tablet EVERY PM (route: oral) Med Classific ation: Central Nervous System Agents paliperidon e ER 6 mg tablet,exte nded release 24 hr 12-01 00:00: 00 03-13 23:59 :00 No [id number] 1 tablet EVERY PM 1 tablet EVERY PM (route: oral) Med Classific ation: Central Nervous System Agents trazodone 50 mg tablet 12-01 00:00: 00 03-13 23:59 :00 No [id number] 1 tablet BEDTIME 1 tablet BEDTIME (route: oral) Med Classific ation: Central Nervous System Agents polyethylen e glycol 3350 17 gram/dose oral powder 12-21 00:00: 00 03-13 23:59 :00 No [id number] Per instruc tions DAILY Per instructio ns DAILY (route: oral) Med Classific ation: Gastroint estinal Therapy Agents benztropine 1 mg tablet 2024-05 00:00: 00 Yes [id number] 1 tablet EVERY PM 1 tablet EVERY PM (route: oral) Med Classific ation: Central Nervous System Agents cholecalcif beverley (vitamin D3) 10 mcg (400 unit) tablet 2024-05 00:00: 00 Yes [id number] 1 tablet EVERY AM 1 tablet EVERY AM (route: oral) Med Classific ation: Electroly te Balance-N utritiona l Products diltiazem ER (XR/XT) 180 mg capsule,ext ended release 24 hr, controlled 2024-05 00:00: 00 Yes [id number] 1 capsule EVERY AM 1 capsule EVERY AM (route: oral) Med Classific ation: Cardiovas cular Therapy Agents docusate sodium 100 mg capsule 2024-05 00:00: 00 Yes [id number] 1 capsule 2 TIMES DAILY 1 capsule 2 TIMES DAILY (route: oral) Med Classific ation: Gastroint estinal Therapy Agents lisinopril 40 mg tablet 2024-05 00:00: 00 Yes [id number] 1 tablet EVERY AM 1 tablet EVERY AM (route: oral) Med Classific ation: Cardiovas cular Therapy Agents metoprolol tartrate 25 mg tablet 2024-05 00:00: 00 Yes [id number] 1 tablet 2 TIMES DAILY 1 tablet 2 TIMES DAILY (route: oral) Med Classific ation: Cardiovas cular Therapy Agents multivitami n with minerals tablet 2024-05 00:00: 00 Yes [id number] 1 tablet EVERY AM 1 tablet EVERY AM (route: oral) Med Classific ation: Electroly te Balance-N utritiona l Products paliperidon e ER 6 mg tablet,exte nded release 24 hr 2024-05 00:00: 00 Yes [id number] 1 tablet EVERY PM 1 tablet EVERY PM (route: oral) Med Classific ation: Central Nervous System Agents polyethylen e glycol 3350 17 gram/dose oral powder 2024-05 00:00: 00 Yes [id number] Per instruc tions NEEDED Per instructio ns NEEDED (route: oral) Med Classific ation: Gastroint estinal Therapy Agents trazodone 50 mg tablet 2024-05 00:00: 00 Yes [id number] 1 tablet BEDTIME 1 tablet BEDTIME (route: [...] AWARENESS FOR SAFETY AND WILL NOTIFY CLINICAL SCHOOL LABORATORY TECHNICIAN AND PHYSICIAN/PROVIDER WITH ANY CHANGE IN CONDITION. [code = SKILLED NURSE WILL MAINTAIN SITUATIONAL AWARENESS FOR SAFETY AND WILL NOTIFY CLINICAL SCHOOL LABORATORY TECHNICIAN AND PHYSICIAN/PROVIDER WITH ANY CHANGE IN CONDITION.] [...] TIFFANY MELTON [facility] [id number] 29.41
--- OUTSIDE RECORDS SUMMARY | 2025-05-07 19:00 | XMS_ITS | Clinical Summary ---
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 Line Repairer Tower Name Role Phone MEGAN CHUN, MELO Unavailable Unavailable GERONIMO TRACEY, TIFFANY Unavailable Unavailable Payers Payer Name Policy Type Policy Number Effective Date Expira tion Date [employer] MED[employer] ADVANTAGE [id number] MEDICARE - [facility] [id number] Problems Condition Name Condition Details Condition Category [...] 07-13 00:00: 00 03-13 23:59 :00 No [id number] 1 tablet DAILY 1 tablet DAILY (route: oral) Med Classific ation: Electroly te Balance-N utritiona l Products cyanocobala min (vit B-12) 1,000 mcg tablet 07-13 00:00: 00 2025- 06-12 23:59 :00 No [id number] 1 tablet DAILY 1 tablet DAILY (route: oral) Med Classific ation: Electroly te Balance-N utritiona l Products diltiazem ER (XR/XT) 180 mg capsule,ext ended release 24 hr, controlled 2-19 00:00: 00 03-13 23:59 :00 No [id number] 1 capsule DAILY 1 capsule DAILY (route: oral) Med Classific ation: Cardiovas cular Therapy Agents docusate sodium 100 mg capsule - 00:00: 00 03-13 23:59 :00 No [id number] 1 capsule 2 TIMES DAILY 1 capsule 2 TIMES DAILY (route: oral) Med Classific ation: Gastroint estinal Therapy Agents lisinopril 40 mg tablet - 00:00: 00 03-13 23:59 :00 No [id number] 1 tablet EVERY AM 1 tablet EVERY AM (route: oral) Med Classific ation: Cardiovas cular Therapy Agents metoprolol tartrate 25 mg tablet - 00:00: 00 03-13 23:59 :00 No [id number] 1 tablet 2 TIMES DAILY 1 tablet 2 TIMES DAILY (route: oral) Med Classific ation: Cardiovas cular Therapy Agents multivitami n with minerals tablet 07-13 00:00: 00 03-13 23:59 :00 No [id number] 1 tablet DAILY 1 tablet DAILY (route: oral) Med Classific ation: Electroly te Balance-N utroscara l Products paliperidon e ER 9 mg tablet,exte nded release 24 hr - 00:00: 00 12-01 23:59 :00 No [id number] 1 tablet BEDTIME 1 tablet BEDTIME (route: oral) Med Classific ation: Central Nervous System Agents metoprolol tartrate 25 mg tablet 6-19 00:00: 00 11-17 23:59 :00 No [id number] 1 tablet BEDTIME 1 tablet BEDTIME (route: oral) Med Classific ation: Cardiovas cular Therapy Agents benztropine 1 mg tablet -15 00:00: 00 03-13 23:59 :00 No [id number] 1 tablet EVERY PM 1 tablet EVERY PM (route: oral) Med Classific ation: Central Nervous System Agents paliperidon e ER 6 mg tablet,exte nded release 24 hr 12-01 00:00: 00 03-13 23:59 :00 No [id number] 1 tablet EVERY PM 1 tablet EVERY PM (route: oral) Med Classific ation: Central Nervous System Agents trazodone 50 mg tablet 12-01 00:00: 00 03-13 23:59 :00 No [id number] 1 tablet BEDTIME 1 tablet BEDTIME (route: oral) Med Classific ation: Central Nervous System Agents polyethylen e glycol 3350 17 gram/dose oral powder 12-21 00:00: 00 03-13 23:59 :00 No [id number] Per instruc tions DAILY Per instructio ns DAILY (route: oral) Med Classific ation: Gastroint estinal Therapy Agents benztropine 1 mg tablet 2024-05 00:00: 00 Yes [id number] 1 tablet EVERY PM 1 tablet EVERY PM (route: oral) Med Classific ation: Central Nervous System Agents cholecalcif beverley (vitamin D3) 10 mcg (400 unit) tablet 2024-05 00:00: 00 Yes [id number] 1 tablet EVERY AM 1 tablet EVERY AM (route: oral) Med Classific ation: Electroly te Balance-N utritiona l Products diltiazem ER (XR/XT) 180 mg capsule,ext ended release 24 hr, controlled 2024-05 00:00: 00 Yes [id number] 1 capsule EVERY AM 1 capsule EVERY AM (route: oral) Med Classific ation: Cardiovas cular Therapy Agents docusate sodium 100 mg capsule 2024-05 00:00: 00 Yes [id number] 1 capsule 2 TIMES DAILY 1 capsule 2 TIMES DAILY (route: oral) Med Classific ation: Gastroint estinal Therapy Agents lisinopril 40 mg tablet 2024-05 00:00: 00 Yes [id number] 1 tablet EVERY AM 1 tablet EVERY AM (route: oral) Med Classific ation: Cardiovas cular Therapy Agents metoprolol tartrate 25 mg tablet 2024-05 00:00: 00 Yes [id number] 1 tablet 2 TIMES DAILY 1 tablet 2 TIMES DAILY (route: oral) Med Classific ation: Cardiovas cular Therapy Agents multivitami n with minerals tablet 2024-05 00:00: 00 Yes [id number] 1 tablet EVERY AM 1 tablet EVERY AM (route: oral) Med Classific ation: Electroly te Balance-N utritiona l Products paliperidon e ER 6 mg tablet,exte nded release 24 hr 2024-05 00:00: 00 Yes [id number] 1 tablet EVERY PM 1 tablet EVERY PM (route: oral) Med Classific ation: Central Nervous System Agents polyethylen e glycol 3350 17 gram/dose oral powder 2024-05 00:00: 00 Yes [id number] Per instruc tions NEEDED Per instructio ns NEEDED (route: oral) Med Classific ation: Gastroint estinal Therapy Agents trazodone 50 mg tablet 2024-05 00:00: 00 Yes [id number] 1 tablet BEDTIME 1 tablet BEDTIME (route: [...] AWARENESS FOR SAFETY AND WILL NOTIFY CLINICAL VAULT ATTENDANT AND PHYSICIAN/PROVIDER WITH ANY CHANGE IN CONDITION. [code = SKILLED NURSE WILL MAINTAIN SITUATIONAL AWARENESS FOR SAFETY AND WILL NOTIFY CLINICAL VAULT ATTENDANT AND PHYSICIAN/PROVIDER WITH ANY CHANGE IN CONDITION.] [...] 2025-05-08 00:00:00 Outpatient RECERTIFIC ATION TIFFANY MELTON [facility] [id number] 29.41
--- OUTSIDE RECORDS SUMMARY | 2025-05-07 19:00 | XMS_ITS | Clinical Summary ---
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 Retail Commission Sales Associate Name Role Phone MEGAN CHUN, MELO Unavailable Unavailable GERONIMO TRACEY, TIFFANY Unavailable Unavailable Payers Payer Name Policy Type Policy Number Effective Date Expira tion Date [employer] [id number] MEDICARE - [facility] [id number] Problems Condition Name Condition Details Condition Category [...] 07-13 00:00: 00 03-13 23:59 :00 No [id number] 1 tablet DAILY 1 tablet DAILY (route: oral) Med Classific ation: Electroly te Balance-N utritiona l Products cyanocobala min (vit B-12) 1,000 mcg tablet 07-13 00:00: 00 2025- 06-12 23:59 :00 No [id number] 1 tablet DAILY 1 tablet DAILY (route: oral) Med Classific ation: Electroly te Balance-N utritiona l Products diltiazem ER (XR/XT) 180 mg capsule,ext ended release 24 hr, controlled 2-19 00:00: 00 03-13 23:59 :00 No [id number] 1 capsule DAILY 1 capsule DAILY (route: oral) Med Classific ation: Cardiovas cular Therapy Agents docusate sodium 100 mg capsule - 00:00: 00 03-13 23:59 :00 No [id number] 1 capsule 2 TIMES DAILY 1 capsule 2 TIMES DAILY (route: oral) Med Classific ation: Gastroint estinal Therapy Agents lisinopril 40 mg tablet - 00:00: 00 03-13 23:59 :00 No [id number] 1 tablet EVERY AM 1 tablet EVERY AM (route: oral) Med Classific ation: Cardiovas cular Therapy Agents metoprolol tartrate 25 mg tablet - 00:00: 00 03-13 23:59 :00 No [id number] 1 tablet 2 TIMES DAILY 1 tablet 2 TIMES DAILY (route: oral) Med Classific ation: Cardiovas cular Therapy Agents multivitami n with minerals tablet 07-13 00:00: 00 03-13 23:59 :00 No [id number] 1 tablet DAILY 1 tablet DAILY (route: oral) Med Classific ation: Electroly te Balance-N utroscara l Products paliperidon e ER 9 mg tablet,exte nded release 24 hr - 00:00: 00 12-01 23:59 :00 No [id number] 1 tablet BEDTIME 1 tablet BEDTIME (route: oral) Med Classific ation: Central Nervous System Agents metoprolol tartrate 25 mg tablet 6-19 00:00: 00 11-17 23:59 :00 No [id number] 1 tablet BEDTIME 1 tablet BEDTIME (route: oral) Med Classific ation: Cardiovas cular Therapy Agents benztropine 1 mg tablet -15 00:00: 00 03-13 23:59 :00 No [id number] 1 tablet EVERY PM 1 tablet EVERY PM (route: oral) Med Classific ation: Central Nervous System Agents paliperidon e ER 6 mg tablet,exte nded release 24 hr 12-01 00:00: 00 03-13 23:59 :00 No [id number] 1 tablet EVERY PM 1 tablet EVERY PM (route: oral) Med Classific ation: Central Nervous System Agents trazodone 50 mg tablet 12-01 00:00: 00 03-13 23:59 :00 No [id number] 1 tablet BEDTIME 1 tablet BEDTIME (route: oral) Med Classific ation: Central Nervous System Agents polyethylen e glycol 3350 17 gram/dose oral powder 12-21 00:00: 00 03-13 23:59 :00 No [id number] Per instruc tions DAILY Per instructio ns DAILY (route: oral) Med Classific ation: Gastroint estinal Therapy Agents benztropine 1 mg tablet 2024-05 00:00: 00 Yes [id number] 1 tablet EVERY PM 1 tablet EVERY PM (route: oral) Med Classific ation: Central Nervous System Agents cholecalcif beverley (vitamin D3) 10 mcg (400 unit) tablet 2024-05 00:00: 00 Yes [id number] 1 tablet EVERY AM 1 tablet EVERY AM (route: oral) Med Classific ation: Electroly te Balance-N utritiona l Products diltiazem ER (XR/XT) 180 mg capsule,ext ended release 24 hr, controlled 2024-05 00:00: 00 Yes [id number] 1 capsule EVERY AM 1 capsule EVERY AM (route: oral) Med Classific ation: Cardiovas cular Therapy Agents docusate sodium 100 mg capsule 2024-05 00:00: 00 Yes [id number] 1 capsule 2 TIMES DAILY 1 capsule 2 TIMES DAILY (route: oral) Med Classific ation: Gastroint estinal Therapy Agents lisinopril 40 mg tablet 2024-05 00:00: 00 Yes [id number] 1 tablet EVERY AM 1 tablet EVERY AM (route: oral) Med Classific ation: Cardiovas cular Therapy Agents metoprolol tartrate 25 mg tablet 2024-05 00:00: 00 Yes [id number] 1 tablet 2 TIMES DAILY 1 tablet 2 TIMES DAILY (route: oral) Med Classific ation: Cardiovas cular Therapy Agents multivitami n with minerals tablet 2024-05 00:00: 00 Yes [id number] 1 tablet EVERY AM 1 tablet EVERY AM (route: oral) Med Classific ation: Electroly te Balance-N utritiona l Products paliperidon e ER 6 mg tablet,exte nded release 24 hr 2024-05 00:00: 00 Yes [id number] 1 tablet EVERY PM 1 tablet EVERY PM (route: oral) Med Classific ation: Central Nervous System Agents polyethylen e glycol 3350 17 gram/dose oral powder 2024-05 00:00: 00 Yes [id number] Per instruc tions NEEDED Per instructio ns NEEDED (route: oral) Med Classific ation: Gastroint estinal Therapy Agents trazodone 50 mg tablet 2024-05 00:00: 00 Yes [id number] 1 tablet BEDTIME 1 tablet BEDTIME (route: [...] AWARENESS FOR SAFETY AND WILL NOTIFY CLINICAL CERTIFIED HYPERBARIC TECHNICIAN AND PHYSICIAN/PROVIDER WITH ANY CHANGE IN CONDITION. [code = SKILLED NURSE WILL MAINTAIN SITUATIONAL AWARENESS FOR SAFETY AND WILL NOTIFY CLINICAL CERTIFIED HYPERBARIC TECHNICIAN AND PHYSICIAN/PROVIDER WITH ANY CHANGE IN [...] TIFFANY MELTON [facility] [id number] 29.41
--- OUTSIDE RECORDS SUMMARY | 2025-05-07 19:00 | XMS_ITS | Clinical Summary ---
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 Program Director Substance Abuse Name Role Phone MEGAN CHUN, MELO Unavailable Unavailable GERONIMO TRACEY, TIFFANY Unavailable Unavailable Payers Payer Name Policy Type Policy Number Effective Date Expira tion Date [employer] MED[employer] [id number] MEDICARE - [facility] [id number] Problems Condition Name Condition Details Condition Category [...] 07-13 00:00: 00 03-13 23:59 :00 No [id number] 1 tablet DAILY 1 tablet DAILY (route: oral) Med Classific ation: Electroly te Balance-N utritiona l Products cyanocobala min (vit B-12) 1,000 mcg tablet 07-13 00:00: 00 2025- 06-12 23:59 :00 No [id number] 1 tablet DAILY 1 tablet DAILY (route: oral) Med Classific ation: Electroly te Balance-N utritiona l Products diltiazem ER (XR/XT) 180 mg capsule,ext ended release 24 hr, controlled 2-19 00:00: 00 03-13 23:59 :00 No [id number] 1 capsule DAILY 1 capsule DAILY (route: oral) Med Classific ation: Cardiovas cular Therapy Agents docusate sodium 100 mg capsule - 00:00: 00 03-13 23:59 :00 No [id number] 1 capsule 2 TIMES DAILY 1 capsule 2 TIMES DAILY (route: oral) Med Classific ation: Gastroint estinal Therapy Agents lisinopril 40 mg tablet - 00:00: 00 03-13 23:59 :00 No [id number] 1 tablet EVERY AM 1 tablet EVERY AM (route: oral) Med Classific ation: Cardiovas cular Therapy Agents metoprolol tartrate 25 mg tablet - 00:00: 00 03-13 23:59 :00 No [id number] 1 tablet 2 TIMES DAILY 1 tablet 2 TIMES DAILY (route: oral) Med Classific ation: Cardiovas cular Therapy Agents multivitami n with minerals tablet 07-13 00:00: 00 03-13 23:59 :00 No [id number] 1 tablet DAILY 1 tablet DAILY (route: oral) Med Classific ation: Electroly te Balance-N utroscara l Products paliperidon e ER 9 mg tablet,exte nded release 24 hr - 00:00: 00 12-01 23:59 :00 No [id number] 1 tablet BEDTIME 1 tablet BEDTIME (route: oral) Med Classific ation: Central Nervous System Agents metoprolol tartrate 25 mg tablet 6-19 00:00: 00 11-17 23:59 :00 No [id number] 1 tablet BEDTIME 1 tablet BEDTIME (route: oral) Med Classific ation: Cardiovas cular Therapy Agents benztropine 1 mg tablet -15 00:00: 00 03-13 23:59 :00 No [id number] 1 tablet EVERY PM 1 tablet EVERY PM (route: oral) Med Classific ation: Central Nervous System Agents paliperidon e ER 6 mg tablet,exte nded release 24 hr 12-01 00:00: 00 03-13 23:59 :00 No [id number] 1 tablet EVERY PM 1 tablet EVERY PM (route: oral) Med Classific ation: Central Nervous System Agents trazodone 50 mg tablet 12-01 00:00: 00 03-13 23:59 :00 No [id number] 1 tablet BEDTIME 1 tablet BEDTIME (route: oral) Med Classific ation: Central Nervous System Agents polyethylen e glycol 3350 17 gram/dose oral powder 12-21 00:00: 00 03-13 23:59 :00 No [id number] Per instruc tions DAILY Per instructio ns DAILY (route: oral) Med Classific ation: Gastroint estinal Therapy Agents benztropine 1 mg tablet 2024-05 00:00: 00 Yes [id number] 1 tablet EVERY PM 1 tablet EVERY PM (route: oral) Med Classific ation: Central Nervous System Agents cholecalcif beverley (vitamin D3) 10 mcg (400 unit) tablet 2024-05 00:00: 00 Yes [id number] 1 tablet EVERY AM 1 tablet EVERY AM (route: oral) Med Classific ation: Electroly te Balance-N utritiona l Products diltiazem ER (XR/XT) 180 mg capsule,ext ended release 24 hr, controlled 2024-05 00:00: 00 Yes [id number] 1 capsule EVERY AM 1 capsule EVERY AM (route: oral) Med Classific ation: Cardiovas cular Therapy Agents docusate sodium 100 mg capsule 2024-05 00:00: 00 Yes [id number] 1 capsule 2 TIMES DAILY 1 capsule 2 TIMES DAILY (route: oral) Med Classific ation: Gastroint estinal Therapy Agents lisinopril 40 mg tablet 2024-05 00:00: 00 Yes [id number] 1 tablet EVERY AM 1 tablet EVERY AM (route: oral) Med Classific ation: Cardiovas cular Therapy Agents metoprolol tartrate 25 mg tablet 2024-05 00:00: 00 Yes [id number] 1 tablet 2 TIMES DAILY 1 tablet 2 TIMES DAILY (route: oral) Med Classific ation: Cardiovas cular Therapy Agents multivitami n with minerals tablet 2024-05 00:00: 00 Yes [id number] 1 tablet EVERY AM 1 tablet EVERY AM (route: oral) Med Classific ation: Electroly te Balance-N utritiona l Products paliperidon e ER 6 mg tablet,exte nded release 24 hr 2024-05 00:00: 00 Yes [id number] 1 tablet EVERY PM 1 tablet EVERY PM (route: oral) Med Classific ation: Central Nervous System Agents polyethylen e glycol 3350 17 gram/dose oral powder 2024-05 00:00: 00 Yes [id number] Per instruc tions NEEDED Per instructio ns NEEDED (route: oral) Med Classific ation: Gastroint estinal Therapy Agents trazodone 50 mg tablet 2024-05 00:00: 00 Yes [id number] 1 tablet BEDTIME 1 tablet BEDTIME (route: [...] AWARENESS FOR SAFETY AND WILL NOTIFY CLINICAL KILN CAR UNLOADER AND PHYSICIAN/PROVIDER WITH ANY CHANGE IN CONDITION. [code = SKILLED NURSE WILL MAINTAIN SITUATIONAL AWARENESS FOR SAFETY AND WILL NOTIFY CLINICAL KILN CAR UNLOADER AND PHYSICIAN/PROVIDER WITH ANY CHANGE IN CONDITION.] [...] RECERTIFIC ATION TIFFANY MELTON [facility] [id number] 29.41
--- OUTSIDE RECORDS SUMMARY | 2025-05-07 19:00 | XMS_ITS | Clinical Summary ---
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 Business Development Coordinator Name Role Phone MEGAN CHUN, MELO Unavailable Unavailable GERONIMO TRACEY, TIFFANY Unavailable Unavailable Payers Payer Name Policy Type Policy Number Effective Date Expira tion Date [employer] MED[employer] ADVANT[employer] [id number] MEDICARE - [facility] [id number] Problems Condition Name Condition Details Condition Category [...] 07-13 00:00: 00 03-13 23:59 :00 No [id number] 1 tablet DAILY 1 tablet DAILY (route: oral) Med Classific ation: Electroly te Balance-N utritiona l Products cyanocobala min (vit B-12) 1,000 mcg tablet 07-13 00:00: 00 2025- 06-12 23:59 :00 No [id number] 1 tablet DAILY 1 tablet DAILY (route: oral) Med Classific ation: Electroly te Balance-N utritiona l Products diltiazem ER (XR/XT) 180 mg capsule,ext ended release 24 hr, controlled 2-19 00:00: 00 03-13 23:59 :00 No [id number] 1 capsule DAILY 1 capsule DAILY (route: oral) Med Classific ation: Cardiovas cular Therapy Agents docusate sodium 100 mg capsule - 00:00: 00 03-13 23:59 :00 No [id number] 1 capsule 2 TIMES DAILY 1 capsule 2 TIMES DAILY (route: oral) Med Classific ation: Gastroint estinal Therapy Agents lisinopril 40 mg tablet - 00:00: 00 03-13 23:59 :00 No [id number] 1 tablet EVERY AM 1 tablet EVERY AM (route: oral) Med Classific ation: Cardiovas cular Therapy Agents metoprolol tartrate 25 mg tablet - 00:00: 00 03-13 23:59 :00 No [id number] 1 tablet 2 TIMES DAILY 1 tablet 2 TIMES DAILY (route: oral) Med Classific ation: Cardiovas cular Therapy Agents multivitami n with minerals tablet 07-13 00:00: 00 03-13 23:59 :00 No [id number] 1 tablet DAILY 1 tablet DAILY (route: oral) Med Classific ation: Electroly te Balance-N utroscara l Products paliperidon e ER 9 mg tablet,exte nded release 24 hr - 00:00: 00 12-01 23:59 :00 No [id number] 1 tablet BEDTIME 1 tablet BEDTIME (route: oral) Med Classific ation: Central Nervous System Agents metoprolol tartrate 25 mg tablet 6-19 00:00: 00 11-17 23:59 :00 No [id number] 1 tablet BEDTIME 1 tablet BEDTIME (route: oral) Med Classific ation: Cardiovas cular Therapy Agents benztropine 1 mg tablet -15 00:00: 00 03-13 23:59 :00 No [id number] 1 tablet EVERY PM 1 tablet EVERY PM (route: oral) Med Classific ation: Central Nervous System Agents paliperidon e ER 6 mg tablet,exte nded release 24 hr 12-01 00:00: 00 03-13 23:59 :00 No [id number] 1 tablet EVERY PM 1 tablet EVERY PM (route: oral) Med Classific ation: Central Nervous System Agents trazodone 50 mg tablet 12-01 00:00: 00 03-13 23:59 :00 No [id number] 1 tablet BEDTIME 1 tablet BEDTIME (route: oral) Med Classific ation: Central Nervous System Agents polyethylen e glycol 3350 17 gram/dose oral powder 12-21 00:00: 00 03-13 23:59 :00 No [id number] Per instruc tions DAILY Per instructio ns DAILY (route: oral) Med Classific ation: Gastroint estinal Therapy Agents benztropine 1 mg tablet 2024-05 00:00: 00 Yes [id number] 1 tablet EVERY PM 1 tablet EVERY PM (route: oral) Med Classific ation: Central Nervous System Agents cholecalcif beverley (vitamin D3) 10 mcg (400 unit) tablet 2024-05 00:00: 00 Yes [id number] 1 tablet EVERY AM 1 tablet EVERY AM (route: oral) Med Classific ation: Electroly te Balance-N utritiona l Products diltiazem ER (XR/XT) 180 mg capsule,ext ended release 24 hr, controlled 2024-05 00:00: 00 Yes [id number] 1 capsule EVERY AM 1 capsule EVERY AM (route: oral) Med Classific ation: Cardiovas cular Therapy Agents docusate sodium 100 mg capsule 2024-05 00:00: 00 Yes [id number] 1 capsule 2 TIMES DAILY 1 capsule 2 TIMES DAILY (route: oral) Med Classific ation: Gastroint estinal Therapy Agents lisinopril 40 mg tablet 2024-05 00:00: 00 Yes [id number] 1 tablet EVERY AM 1 tablet EVERY AM (route: oral) Med Classific ation: Cardiovas cular Therapy Agents metoprolol tartrate 25 mg tablet 2024-05 00:00: 00 Yes [id number] 1 tablet 2 TIMES DAILY 1 tablet 2 TIMES DAILY (route: oral) Med Classific ation: Cardiovas cular Therapy Agents multivitami n with minerals tablet 2024-05 00:00: 00 Yes [id number] 1 tablet EVERY AM 1 tablet EVERY AM (route: oral) Med Classific ation: Electroly te Balance-N utritiona l Products paliperidon e ER 6 mg tablet,exte nded release 24 hr 2024-05 00:00: 00 Yes [id number] 1 tablet EVERY PM 1 tablet EVERY PM (route: oral) Med Classific ation: Central Nervous System Agents polyethylen e glycol 3350 17 gram/dose oral powder 2024-05 00:00: 00 Yes [id number] Per instruc tions NEEDED Per instructio ns NEEDED (route: oral) Med Classific ation: Gastroint estinal Therapy Agents trazodone 50 mg tablet 2024-05 00:00: 00 Yes [id number] 1 tablet BEDTIME 1 tablet BEDTIME (route: [...] AWARENESS FOR SAFETY AND WILL NOTIFY CLINICAL COVER MAKER AND PHYSICIAN/PROVIDER WITH ANY CHANGE IN CONDITION. [code = SKILLED NURSE WILL MAINTAIN SITUATIONAL AWARENESS FOR SAFETY AND WILL NOTIFY CLINICAL COVER MAKER AND PHYSICIAN/PROVIDER WITH ANY CHANGE IN CONDITION.] [...] CARE WILL BE ESTABLISHED THAT MEETS PATIENT'S NURSING HOME NEEDS AND INCLUDES PATIENT GOAL FOR [...] 00:00:00 Outpatient RECERTIFIC ATION TIFFANY MELTON [facility] [id number] 29.41
--- OUTSIDE RECORDS SUMMARY | 2025-05-07 19:00 | XMS_ITS | Clinical Summary ---
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 Casket Assembler Metal Name Role Phone MEGAN CHUN, MELO Unavailable Unavailable GERONIMO TRACEY, TIFFANY Unavailable Unavailable Payers Payer Name Policy Type Policy Number Effective Date Expira tion Date [employer] [id number] MEDICARE - [facility] [id number] Problems Condition Name Condition Details Condition Category [...] 07-13 00:00: 00 03-13 23:59 :00 No [id number] 1 tablet DAILY 1 tablet DAILY (route: oral) Med Classific ation: Electroly te Balance-N utritiona l Products cyanocobala min (vit B-12) 1,000 mcg tablet 07-13 00:00: 00 2025- 06-12 23:59 :00 No [id number] 1 tablet DAILY 1 tablet DAILY (route: oral) Med Classific ation: Electroly te Balance-N utritiona l Products diltiazem ER (XR/XT) 180 mg capsule,ext ended release 24 hr, controlled 2-19 00:00: 00 03-13 23:59 :00 No [id number] 1 capsule DAILY 1 capsule DAILY (route: oral) Med Classific ation: Cardiovas cular Therapy Agents docusate sodium 100 mg capsule - 00:00: 00 03-13 23:59 :00 No [id number] 1 capsule 2 TIMES DAILY 1 capsule 2 TIMES DAILY (route: oral) Med Classific ation: Gastroint estinal Therapy Agents lisinopril 40 mg tablet - 00:00: 00 03-13 23:59 :00 No [id number] 1 tablet EVERY AM 1 tablet EVERY AM (route: oral) Med Classific ation: Cardiovas cular Therapy Agents metoprolol tartrate 25 mg tablet - 00:00: 00 03-13 23:59 :00 No [id number] 1 tablet 2 TIMES DAILY 1 tablet 2 TIMES DAILY (route: oral) Med Classific ation: Cardiovas cular Therapy Agents multivitami n with minerals tablet 07-13 00:00: 00 03-13 23:59 :00 No [id number] 1 tablet DAILY 1 tablet DAILY (route: oral) Med Classific ation: Electroly te Balance-N utroscara l Products paliperidon e ER 9 mg tablet,exte nded release 24 hr - 00:00: 00 12-01 23:59 :00 No [id number] 1 tablet BEDTIME 1 tablet BEDTIME (route: oral) Med Classific ation: Central Nervous System Agents metoprolol tartrate 25 mg tablet 6-19 00:00: 00 11-17 23:59 :00 No [id number] 1 tablet BEDTIME 1 tablet BEDTIME (route: oral) Med Classific ation: Cardiovas cular Therapy Agents benztropine 1 mg tablet -15 00:00: 00 03-13 23:59 :00 No [id number] 1 tablet EVERY PM 1 tablet EVERY PM (route: oral) Med Classific ation: Central Nervous System Agents paliperidon e ER 6 mg tablet,exte nded release 24 hr 12-01 00:00: 00 03-13 23:59 :00 No [id number] 1 tablet EVERY PM 1 tablet EVERY PM (route: oral) Med Classific ation: Central Nervous System Agents trazodone 50 mg tablet 12-01 00:00: 00 03-13 23:59 :00 No [id number] 1 tablet BEDTIME 1 tablet BEDTIME (route: oral) Med Classific ation: Central Nervous System Agents polyethylen e glycol 3350 17 gram/dose oral powder 12-21 00:00: 00 03-13 23:59 :00 No [id number] Per instruc tions DAILY Per instructio ns DAILY (route: oral) Med Classific ation: Gastroint estinal Therapy Agents benztropine 1 mg tablet 2024-05 00:00: 00 Yes [id number] 1 tablet EVERY PM 1 tablet EVERY PM (route: oral) Med Classific ation: Central Nervous System Agents cholecalcif beverley (vitamin D3) 10 mcg (400 unit) tablet 2024-05 00:00: 00 Yes [id number] 1 tablet EVERY AM 1 tablet EVERY AM (route: oral) Med Classific ation: Electroly te Balance-N utritiona l Products diltiazem ER (XR/XT) 180 mg capsule,ext ended release 24 hr, controlled 2024-05 00:00: 00 Yes [id number] 1 capsule EVERY AM 1 capsule EVERY AM (route: oral) Med Classific ation: Cardiovas cular Therapy Agents docusate sodium 100 mg capsule 2024-05 00:00: 00 Yes [id number] 1 capsule 2 TIMES DAILY 1 capsule 2 TIMES DAILY (route: oral) Med Classific ation: Gastroint estinal Therapy Agents lisinopril 40 mg tablet 2024-05 00:00: 00 Yes [id number] 1 tablet EVERY AM 1 tablet EVERY AM (route: oral) Med Classific ation: Cardiovas cular Therapy Agents metoprolol tartrate 25 mg tablet 2024-05 00:00: 00 Yes [id number] 1 tablet 2 TIMES DAILY 1 tablet 2 TIMES DAILY (route: oral) Med Classific ation: Cardiovas cular Therapy Agents multivitami n with minerals tablet 2024-05 00:00: 00 Yes [id number] 1 tablet EVERY AM 1 tablet EVERY AM (route: oral) Med Classific ation: Electroly te Balance-N utritiona l Products paliperidon e ER 6 mg tablet,exte nded release 24 hr 2024-05 00:00: 00 Yes [id number] 1 tablet EVERY PM 1 tablet EVERY PM (route: oral) Med Classific ation: Central Nervous System Agents polyethylen e glycol 3350 17 gram/dose oral powder 2024-05 00:00: 00 Yes [id number] Per instruc tions NEEDED Per instructio ns NEEDED (route: oral) Med Classific ation: Gastroint estinal Therapy Agents trazodone 50 mg tablet 2024-05 00:00: 00 Yes [id number] 1 tablet BEDTIME 1 tablet BEDTIME (route: [...] AWARENESS FOR SAFETY AND WILL NOTIFY CLINICAL DATA OFFICER AND PHYSICIAN/PROVIDER WITH ANY CHANGE IN CONDITION. [code = SKILLED NURSE WILL MAINTAIN SITUATIONAL AWARENESS FOR SAFETY AND WILL NOTIFY CLINICAL DATA OFFICER AND PHYSICIAN/PROVIDER WITH ANY CHANGE IN CONDITION.] [...] Outpatient RECERTIFIC ATION TIFFANY MELTON [facility] [id number] 29.41
--- OUTSIDE RECORDS SUMMARY | 2025-05-07 19:00 | XMS_ITS | Clinical Summary ---
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 Plate Drying Machine Tender Name Role Phone MEGAN CHUN, MELO Unavailable Unavailable GERONIMO TRACEY, TIFFANY Unavailable Unavailable Payers Payer Name Policy Type Policy Number Effective Date Expira tion Date [employer] [id number] MEDICARE - [facility] [id number] Problems Condition Name Condition Details Condition Category [...] 07-13 00:00: 00 03-13 23:59 :00 No [id number] 1 tablet DAILY 1 tablet DAILY (route: oral) Med Classific ation: Electroly te Balance-N utritiona l Products cyanocobala min (vit B-12) 1,000 mcg tablet 07-13 00:00: 00 2025- 06-12 23:59 :00 No [id number] 1 tablet DAILY 1 tablet DAILY (route: oral) Med Classific ation: Electroly te Balance-N utritiona l Products diltiazem ER (XR/XT) 180 mg capsule,ext ended release 24 hr, controlled 2-19 00:00: 00 03-13 23:59 :00 No [id number] 1 capsule DAILY 1 capsule DAILY (route: oral) Med Classific ation: Cardiovas cular Therapy Agents docusate sodium 100 mg capsule - 00:00: 00 03-13 23:59 :00 No [id number] 1 capsule 2 TIMES DAILY 1 capsule 2 TIMES DAILY (route: oral) Med Classific ation: Gastroint estinal Therapy Agents lisinopril 40 mg tablet - 00:00: 00 03-13 23:59 :00 No [id number] 1 tablet EVERY AM 1 tablet EVERY AM (route: oral) Med Classific ation: Cardiovas cular Therapy Agents metoprolol tartrate 25 mg tablet - 00:00: 00 03-13 23:59 :00 No [id number] 1 tablet 2 TIMES DAILY 1 tablet 2 TIMES DAILY (route: oral) Med Classific ation: Cardiovas cular Therapy Agents multivitami n with minerals tablet 07-13 00:00: 00 03-13 23:59 :00 No [id number] 1 tablet DAILY 1 tablet DAILY (route: oral) Med Classific ation: Electroly te Balance-N utroscara l Products paliperidon e ER 9 mg tablet,exte nded release 24 hr - 00:00: 00 12-01 23:59 :00 No [id number] 1 tablet BEDTIME 1 tablet BEDTIME (route: oral) Med Classific ation: Central Nervous System Agents metoprolol tartrate 25 mg tablet 6-19 00:00: 00 11-17 23:59 :00 No [id number] 1 tablet BEDTIME 1 tablet BEDTIME (route: oral) Med Classific ation: Cardiovas cular Therapy Agents benztropine 1 mg tablet -15 00:00: 00 03-13 23:59 :00 No [id number] 1 tablet EVERY PM 1 tablet EVERY PM (route: oral) Med Classific ation: Central Nervous System Agents paliperidon e ER 6 mg tablet,exte nded release 24 hr 12-01 00:00: 00 03-13 23:59 :00 No [id number] 1 tablet EVERY PM 1 tablet EVERY PM (route: oral) Med Classific ation: Central Nervous System Agents trazodone 50 mg tablet 12-01 00:00: 00 03-13 23:59 :00 No [id number] 1 tablet BEDTIME 1 tablet BEDTIME (route: oral) Med Classific ation: Central Nervous System Agents polyethylen e glycol 3350 17 gram/dose oral powder 12-21 00:00: 00 03-13 23:59 :00 No [id number] Per instruc tions DAILY Per instructio ns DAILY (route: oral) Med Classific ation: Gastroint estinal Therapy Agents benztropine 1 mg tablet 2024-05 00:00: 00 Yes [id number] 1 tablet EVERY PM 1 tablet EVERY PM (route: oral) Med Classific ation: Central Nervous System Agents cholecalcif beverley (vitamin D3) 10 mcg (400 unit) tablet 2024-05 00:00: 00 Yes [id number] 1 tablet EVERY AM 1 tablet EVERY AM (route: oral) Med Classific ation: Electroly te Balance-N utritiona l Products diltiazem ER (XR/XT) 180 mg capsule,ext ended release 24 hr, controlled 2024-05 00:00: 00 Yes [id number] 1 capsule EVERY AM 1 capsule EVERY AM (route: oral) Med Classific ation: Cardiovas cular Therapy Agents docusate sodium 100 mg capsule 2024-05 00:00: 00 Yes [id number] 1 capsule 2 TIMES DAILY 1 capsule 2 TIMES DAILY (route: oral) Med Classific ation: Gastroint estinal Therapy Agents lisinopril 40 mg tablet 2024-05 00:00: 00 Yes [id number] 1 tablet EVERY AM 1 tablet EVERY AM (route: oral) Med Classific ation: Cardiovas cular Therapy Agents metoprolol tartrate 25 mg tablet 2024-05 00:00: 00 Yes [id number] 1 tablet 2 TIMES DAILY 1 tablet 2 TIMES DAILY (route: oral) Med Classific ation: Cardiovas cular Therapy Agents multivitami n with minerals tablet 2024-05 00:00: 00 Yes [id number] 1 tablet EVERY AM 1 tablet EVERY AM (route: oral) Med Classific ation: Electroly te Balance-N utritiona l Products paliperidon e ER 6 mg tablet,exte nded release 24 hr 2024-05 00:00: 00 Yes [id number] 1 tablet EVERY PM 1 tablet EVERY PM (route: oral) Med Classific ation: Central Nervous System Agents polyethylen e glycol 3350 17 gram/dose oral powder 2024-05 00:00: 00 Yes [id number] Per instruc tions NEEDED Per instructio ns NEEDED (route: oral) Med Classific ation: Gastroint estinal Therapy Agents trazodone 50 mg tablet 2024-05 00:00: 00 Yes [id number] 1 tablet BEDTIME 1 tablet BEDTIME (route: [...] AWARENESS FOR SAFETY AND WILL NOTIFY CLINICAL SALES SUPPORT SPECIALIST AND PHYSICIAN/PROVIDER WITH ANY CHANGE IN CONDITION. [code = SKILLED NURSE WILL MAINTAIN SITUATIONAL AWARENESS FOR SAFETY AND WILL NOTIFY CLINICAL SALES SUPPORT SPECIALIST AND PHYSICIAN/PROVIDER WITH ANY CHANGE IN CONDITION.] [...] RECERTIFIC ATION TIFFANY MELTON [facility] [id number] 29.41
--- OUTSIDE RECORDS SUMMARY | 2025-05-07 19:00 | XMS_ITS | Clinical Summary ---
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 Role Phone MEGAN CHUN, MELO Unavailable Unavailable GERONIMO TRACEY, TIFFANY Unavailable Unavailable Payers Payer Name Policy Type Policy Number Effective Date Expira tion Date [employer] [id number] MEDICARE - [facility] [id number] Problems Condition Name Condition Details Condition Category [...] 07-13 00:00: 00 03-13 23:59 :00 No [id number] 1 tablet DAILY 1 tablet DAILY (route: oral) Med Classific ation: Electroly te Balance-N utritiona l Products cyanocobala min (vit B-12) 1,000 mcg tablet 07-13 00:00: 00 2025- 06-12 23:59 :00 No [id number] 1 tablet DAILY 1 tablet DAILY (route: oral) Med Classific ation: Electroly te Balance-N utritiona l Products diltiazem ER (XR/XT) 180 mg capsule,ext ended release 24 hr, controlled 2-19 00:00: 00 03-13 23:59 :00 No [id number] 1 capsule DAILY 1 capsule DAILY (route: oral) Med Classific ation: Cardiovas cular Therapy Agents docusate sodium 100 mg capsule - 00:00: 00 03-13 23:59 :00 No [id number] 1 capsule 2 TIMES DAILY 1 capsule 2 TIMES DAILY (route: oral) Med Classific ation: Gastroint estinal Therapy Agents lisinopril 40 mg tablet - 00:00: 00 03-13 23:59 :00 No [id number] 1 tablet EVERY AM 1 tablet EVERY AM (route: oral) Med Classific ation: Cardiovas cular Therapy Agents metoprolol tartrate 25 mg tablet - 00:00: 00 03-13 23:59 :00 No [id number] 1 tablet 2 TIMES DAILY 1 tablet 2 TIMES DAILY (route: oral) Med Classific ation: Cardiovas cular Therapy Agents multivitami n with minerals tablet 07-13 00:00: 00 03-13 23:59 :00 No [id number] 1 tablet DAILY 1 tablet DAILY (route: oral) Med Classific ation: Electroly te Balance-N utroscara l Products paliperidon e ER 9 mg tablet,exte nded release 24 hr - 00:00: 00 12-01 23:59 :00 No [id number] 1 tablet BEDTIME 1 tablet BEDTIME (route: oral) Med Classific ation: Central Nervous System Agents metoprolol tartrate 25 mg tablet 6-19 00:00: 00 11-17 23:59 :00 No [id number] 1 tablet BEDTIME 1 tablet BEDTIME (route: oral) Med Classific ation: Cardiovas cular Therapy Agents benztropine 1 mg tablet -15 00:00: 00 03-13 23:59 :00 No [id number] 1 tablet EVERY PM 1 tablet EVERY PM (route: oral) Med Classific ation: Central Nervous System Agents paliperidon e ER 6 mg tablet,exte nded release 24 hr 12-01 00:00: 00 03-13 23:59 :00 No [id number] 1 tablet EVERY PM 1 tablet EVERY PM (route: oral) Med Classific ation: Central Nervous System Agents trazodone 50 mg tablet 12-01 00:00: 00 03-13 23:59 :00 No [id number] 1 tablet BEDTIME 1 tablet BEDTIME (route: oral) Med Classific ation: Central Nervous System Agents polyethylen e glycol 3350 17 gram/dose oral powder 12-21 00:00: 00 03-13 23:59 :00 No [id number] Per instruc tions DAILY Per instructio ns DAILY (route: oral) Med Classific ation: Gastroint estinal Therapy Agents benztropine 1 mg tablet 2024-05 00:00: 00 Yes [id number] 1 tablet EVERY PM 1 tablet EVERY PM (route: oral) Med Classific ation: Central Nervous System Agents cholecalcif beverley (vitamin D3) 10 mcg (400 unit) tablet 2024-05 00:00: 00 Yes [id number] 1 tablet EVERY AM 1 tablet EVERY AM (route: oral) Med Classific ation: Electroly te Balance-N utritiona l Products diltiazem ER (XR/XT) 180 mg capsule,ext ended release 24 hr, controlled 2024-05 00:00: 00 Yes [id number] 1 capsule EVERY AM 1 capsule EVERY AM (route: oral) Med Classific ation: Cardiovas cular Therapy Agents docusate sodium 100 mg capsule 2024-05 00:00: 00 Yes [id number] 1 capsule 2 TIMES DAILY 1 capsule 2 TIMES DAILY (route: oral) Med Classific ation: Gastroint estinal Therapy Agents lisinopril 40 mg tablet 2024-05 00:00: 00 Yes [id number] 1 tablet EVERY AM 1 tablet EVERY AM (route: oral) Med Classific ation: Cardiovas cular Therapy Agents metoprolol tartrate 25 mg tablet 2024-05 00:00: 00 Yes [id number] 1 tablet 2 TIMES DAILY 1 tablet 2 TIMES DAILY (route: oral) Med Classific ation: Cardiovas cular Therapy Agents multivitami n with minerals tablet 2024-05 00:00: 00 Yes [id number] 1 tablet EVERY AM 1 tablet EVERY AM (route: oral) Med Classific ation: Electroly te Balance-N utritiona l Products paliperidon e ER 6 mg tablet,exte nded release 24 hr 2024-05 00:00: 00 Yes [id number] 1 tablet EVERY PM 1 tablet EVERY PM (route: oral) Med Classific ation: Central Nervous System Agents polyethylen e glycol 3350 17 gram/dose oral powder 2024-05 00:00: 00 Yes [id number] Per instruc tions NEEDED Per instructio ns NEEDED (route: oral) Med Classific ation: Gastroint estinal Therapy Agents trazodone 50 mg tablet 2024-05 00:00: 00 Yes [id number] 1 tablet BEDTIME 1 tablet BEDTIME (route: [...] AWARENESS FOR SAFETY AND WILL NOTIFY CLINICAL ATTORNEY GENERAL AND PHYSICIAN/PROVIDER WITH ANY CHANGE IN CONDITION. [code = SKILLED NURSE WILL MAINTAIN SITUATIONAL AWARENESS FOR SAFETY AND WILL NOTIFY CLINICAL ATTORNEY GENERAL AND PHYSICIAN/PROVIDER WITH ANY CHANGE IN CONDITION.] [...] 2025-05-08 00:00:00 Outpatient RECERTIFIC ATION TIFFANY MELTON [facility] [id number] 29.41
--- OUTSIDE RECORDS SUMMARY | 2025-05-07 19:00 | XMS_ITS | Clinical Summary ---
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 Dobby Loom Weaver Name Role Phone MEGAN CHUN, MELO Unavailable Unavailable GERONIMO TRACEY, TIFFANY Unavailable Unavailable Payers Payer Name Policy Type Policy Number Effective Date Expira tion Date [employer] ADV[employer]AGE [id number] [facility] - [facility] [id number] Problems Condition Name Condition Details Condition Category [...] 07-13 00:00: 00 03-13 23:59 :00 No [id number] 1 tablet DAILY 1 tablet DAILY (route: oral) Med Classific ation: Electroly te Balance-N utritiona l Products cyanocobala min (vit B-12) 1,000 mcg tablet 07-13 00:00: 00 2025- 06-12 23:59 :00 No [id number] 1 tablet DAILY 1 tablet DAILY (route: oral) Med Classific ation: Electroly te Balance-N utritiona l Products diltiazem ER (XR/XT) 180 mg capsule,ext ended release 24 hr, controlled 2-19 00:00: 00 03-13 23:59 :00 No [id number] 1 capsule DAILY 1 capsule DAILY (route: oral) Med Classific ation: Cardiovas cular Therapy Agents docusate sodium 100 mg capsule - 00:00: 00 03-13 23:59 :00 No [id number] 1 capsule 2 TIMES DAILY 1 capsule 2 TIMES DAILY (route: oral) Med Classific ation: Gastroint estinal Therapy Agents lisinopril 40 mg tablet - 00:00: 00 03-13 23:59 :00 No [id number] 1 tablet EVERY AM 1 tablet EVERY AM (route: oral) Med Classific ation: Cardiovas cular Therapy Agents metoprolol tartrate 25 mg tablet - 00:00: 00 03-13 23:59 :00 No [id number] 1 tablet 2 TIMES DAILY 1 tablet 2 TIMES DAILY (route: oral) Med Classific ation: Cardiovas cular Therapy Agents multivitami n with minerals tablet 07-13 00:00: 00 03-13 23:59 :00 No [id number] 1 tablet DAILY 1 tablet DAILY (route: oral) Med Classific ation: Electroly te Balance-N utroscara l Products paliperidon e ER 9 mg tablet,exte nded release 24 hr - 00:00: 00 12-01 23:59 :00 No [id number] 1 tablet BEDTIME 1 tablet BEDTIME (route: oral) Med Classific ation: Central Nervous System Agents metoprolol tartrate 25 mg tablet 6-19 00:00: 00 11-17 23:59 :00 No [id number] 1 tablet BEDTIME 1 tablet BEDTIME (route: oral) Med Classific ation: Cardiovas cular Therapy Agents benztropine 1 mg tablet -15 00:00: 00 03-13 23:59 :00 No [id number] 1 tablet EVERY PM 1 tablet EVERY PM (route: oral) Med Classific ation: Central Nervous System Agents paliperidon e ER 6 mg tablet,exte nded release 24 hr 12-01 00:00: 00 03-13 23:59 :00 No [id number] 1 tablet EVERY PM 1 tablet EVERY PM (route: oral) Med Classific ation: Central Nervous System Agents trazodone 50 mg tablet 12-01 00:00: 00 03-13 23:59 :00 No [id number] 1 tablet BEDTIME 1 tablet BEDTIME (route: oral) Med Classific ation: Central Nervous System Agents polyethylen e glycol 3350 17 gram/dose oral powder 12-21 00:00: 00 03-13 23:59 :00 No [id number] Per instruc tions DAILY Per instructio ns DAILY (route: oral) Med Classific ation: Gastroint estinal Therapy Agents benztropine 1 mg tablet 2024-05 00:00: 00 Yes [id number] 1 tablet EVERY PM 1 tablet EVERY PM (route: oral) Med Classific ation: Central Nervous System Agents cholecalcif beverley (vitamin D3) 10 mcg (400 unit) tablet 2024-05 00:00: 00 Yes [id number] 1 tablet EVERY AM 1 tablet EVERY AM (route: oral) Med Classific ation: Electroly te Balance-N utritiona l Products diltiazem ER (XR/XT) 180 mg capsule,ext ended release 24 hr, controlled 2024-05 00:00: 00 Yes [id number] 1 capsule EVERY AM 1 capsule EVERY AM (route: oral) Med Classific ation: Cardiovas cular Therapy Agents docusate sodium 100 mg capsule 2024-05 00:00: 00 Yes [id number] 1 capsule 2 TIMES DAILY 1 capsule 2 TIMES DAILY (route: oral) Med Classific ation: Gastroint estinal Therapy Agents lisinopril 40 mg tablet 2024-05 00:00: 00 Yes [id number] 1 tablet EVERY AM 1 tablet EVERY AM (route: oral) Med Classific ation: Cardiovas cular Therapy Agents metoprolol tartrate 25 mg tablet 2024-05 00:00: 00 Yes [id number] 1 tablet 2 TIMES DAILY 1 tablet 2 TIMES DAILY (route: oral) Med Classific ation: Cardiovas cular Therapy Agents multivitami n with minerals tablet 2024-05 00:00: 00 Yes [id number] 1 tablet EVERY AM 1 tablet EVERY AM (route: oral) Med Classific ation: Electroly te Balance-N utritiona l Products paliperidon e ER 6 mg tablet,exte nded release 24 hr 2024-05 00:00: 00 Yes [id number] 1 tablet EVERY PM 1 tablet EVERY PM (route: oral) Med Classific ation: Central Nervous System Agents polyethylen e glycol 3350 17 gram/dose oral powder 2024-05 00:00: 00 Yes [id number] Per instruc tions NEEDED Per instructio ns NEEDED (route: oral) Med Classific ation: Gastroint estinal Therapy Agents trazodone 50 mg tablet 2024-05 00:00: 00 Yes [id number] 1 tablet BEDTIME 1 tablet BEDTIME (route: [...] AWARENESS FOR SAFETY AND WILL NOTIFY CLINICAL PROCESS ENGINEERING MANAGER AND PHYSICIAN/PROVIDER WITH ANY CHANGE IN CONDITION. [code = SKILLED NURSE WILL MAINTAIN SITUATIONAL AWARENESS FOR SAFETY AND WILL NOTIFY CLINICAL PROCESS ENGINEERING MANAGER AND PHYSICIAN/PROVIDER WITH ANY CHANGE IN [...] 2025-05-08 00:00:00 Outpatient RECERTIFIC ATION TIFFANY MELTON [facility] [id number] 29.41
--- OUTSIDE RECORDS SUMMARY | 2025-05-07 19:00 | XMS_ITS | Clinical Summary ---
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 Manager Cost Name Role Phone MEGAN CHUN, MELO Unavailable Unavailable GERONIMO TRACEY, TIFFANY Unavailable Unavailable Payers Payer Name Policy Type Policy Number Effective Date Expira tion Date [employer] [id number] MEDICARE - [facility] [id number] Problems Condition Name Condition Details Condition Category [...] 07-13 00:00: 00 03-13 23:59 :00 No [id number] 1 tablet DAILY 1 tablet DAILY (route: oral) Med Classific ation: Electroly te Balance-N utritiona l Products cyanocobala min (vit B-12) 1,000 mcg tablet 07-13 00:00: 00 2025- 06-12 23:59 :00 No [id number] 1 tablet DAILY 1 tablet DAILY (route: oral) Med Classific ation: Electroly te Balance-N utritiona l Products diltiazem ER (XR/XT) 180 mg capsule,ext ended release 24 hr, controlled 2-19 00:00: 00 03-13 23:59 :00 No [id number] 1 capsule DAILY 1 capsule DAILY (route: oral) Med Classific ation: Cardiovas cular Therapy Agents docusate sodium 100 mg capsule - 00:00: 00 03-13 23:59 :00 No [id number] 1 capsule 2 TIMES DAILY 1 capsule 2 TIMES DAILY (route: oral) Med Classific ation: Gastroint estinal Therapy Agents lisinopril 40 mg tablet - 00:00: 00 03-13 23:59 :00 No [id number] 1 tablet EVERY AM 1 tablet EVERY AM (route: oral) Med Classific ation: Cardiovas cular Therapy Agents metoprolol tartrate 25 mg tablet - 00:00: 00 03-13 23:59 :00 No [id number] 1 tablet 2 TIMES DAILY 1 tablet 2 TIMES DAILY (route: oral) Med Classific ation: Cardiovas cular Therapy Agents multivitami n with minerals tablet 07-13 00:00: 00 03-13 23:59 :00 No [id number] 1 tablet DAILY 1 tablet DAILY (route: oral) Med Classific ation: Electroly te Balance-N utroscara l Products paliperidon e ER 9 mg tablet,exte nded release 24 hr - 00:00: 00 12-01 23:59 :00 No [id number] 1 tablet BEDTIME 1 tablet BEDTIME (route: oral) Med Classific ation: Central Nervous System Agents metoprolol tartrate 25 mg tablet 6-19 00:00: 00 11-17 23:59 :00 No [id number] 1 tablet BEDTIME 1 tablet BEDTIME (route: oral) Med Classific ation: Cardiovas cular Therapy Agents benztropine 1 mg tablet -15 00:00: 00 03-13 23:59 :00 No [id number] 1 tablet EVERY PM 1 tablet EVERY PM (route: oral) Med Classific ation: Central Nervous System Agents paliperidon e ER 6 mg tablet,exte nded release 24 hr 12-01 00:00: 00 03-13 23:59 :00 No [id number] 1 tablet EVERY PM 1 tablet EVERY PM (route: oral) Med Classific ation: Central Nervous System Agents trazodone 50 mg tablet 12-01 00:00: 00 03-13 23:59 :00 No [id number] 1 tablet BEDTIME 1 tablet BEDTIME (route: oral) Med Classific ation: Central Nervous System Agents polyethylen e glycol 3350 17 gram/dose oral powder 12-21 00:00: 00 03-13 23:59 :00 No [id number] Per instruc tions DAILY Per instructio ns DAILY (route: oral) Med Classific ation: Gastroint estinal Therapy Agents benztropine 1 mg tablet 2024-05 00:00: 00 Yes [id number] 1 tablet EVERY PM 1 tablet EVERY PM (route: oral) Med Classific ation: Central Nervous System Agents cholecalcif beverley (vitamin D3) 10 mcg (400 unit) tablet 2024-05 00:00: 00 Yes [id number] 1 tablet EVERY AM 1 tablet EVERY AM (route: oral) Med Classific ation: Electroly te Balance-N utritiona l Products diltiazem ER (XR/XT) 180 mg capsule,ext ended release 24 hr, controlled 2024-05 00:00: 00 Yes [id number] 1 capsule EVERY AM 1 capsule EVERY AM (route: oral) Med Classific ation: Cardiovas cular Therapy Agents docusate sodium 100 mg capsule 2024-05 00:00: 00 Yes [id number] 1 capsule 2 TIMES DAILY 1 capsule 2 TIMES DAILY (route: oral) Med Classific ation: Gastroint estinal Therapy Agents lisinopril 40 mg tablet 2024-05 00:00: 00 Yes [id number] 1 tablet EVERY AM 1 tablet EVERY AM (route: oral) Med Classific ation: Cardiovas cular Therapy Agents metoprolol tartrate 25 mg tablet 2024-05 00:00: 00 Yes [id number] 1 tablet 2 TIMES DAILY 1 tablet 2 TIMES DAILY (route: oral) Med Classific ation: Cardiovas cular Therapy Agents multivitami n with minerals tablet 2024-05 00:00: 00 Yes [id number] 1 tablet EVERY AM 1 tablet EVERY AM (route: oral) Med Classific ation: Electroly te Balance-N utritiona l Products paliperidon e ER 6 mg tablet,exte nded release 24 hr 2024-05 00:00: 00 Yes [id number] 1 tablet EVERY PM 1 tablet EVERY PM (route: oral) Med Classific ation: Central Nervous System Agents polyethylen e glycol 3350 17 gram/dose oral powder 2024-05 00:00: 00 Yes [id number] Per instruc tions NEEDED Per instructio ns NEEDED (route: oral) Med Classific ation: Gastroint estinal Therapy Agents trazodone 50 mg tablet 2024-05 00:00: 00 Yes [id number] 1 tablet BEDTIME 1 tablet BEDTIME (route: [...] AWARENESS FOR SAFETY AND WILL NOTIFY CLINICAL INVENTORY CHECKER AND PHYSICIAN/PROVIDER WITH ANY CHANGE IN CONDITION. [code = SKILLED NURSE WILL MAINTAIN SITUATIONAL AWARENESS FOR SAFETY AND WILL NOTIFY CLINICAL INVENTORY CHECKER AND PHYSICIAN/PROVIDER WITH ANY CHANGE IN CONDITION.] [...] CARE WILL BE ESTABLISHED THAT MEETS PATIENT'S SNF NEEDS AND INCLUDES PATIENT GOAL FOR HOME [...] ATION TIFFANY MELTON [facility] [id number] 29.41
--- OUTSIDE RECORDS SUMMARY | 2025-05-07 19:00 | XMS_ITS | Clinical Summary ---
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 Leather Sorter Name Role Phone MEGAN CHUN, MELO Unavailable Unavailable GERONIMO TRACEY, TIFFANY Unavailable Unavailable Payers Payer Name Policy Type Policy Number Effective Date Expira tion Date [employer] [id number] MEDIC[facility] - [facility] [id number] Problems Condition Name Condition Details Condition Category [...] 07-13 00:00: 00 03-13 23:59 :00 No [id number] 1 tablet DAILY 1 tablet DAILY (route: oral) Med Classific ation: Electroly te Balance-N utritiona l Products cyanocobala min (vit B-12) 1,000 mcg tablet 07-13 00:00: 00 2025- 06-12 23:59 :00 No [id number] 1 tablet DAILY 1 tablet DAILY (route: oral) Med Classific ation: Electroly te Balance-N utritiona l Products diltiazem ER (XR/XT) 180 mg capsule,ext ended release 24 hr, controlled 2-19 00:00: 00 03-13 23:59 :00 No [id number] 1 capsule DAILY 1 capsule DAILY (route: oral) Med Classific ation: Cardiovas cular Therapy Agents docusate sodium 100 mg capsule - 00:00: 00 03-13 23:59 :00 No [id number] 1 capsule 2 TIMES DAILY 1 capsule 2 TIMES DAILY (route: oral) Med Classific ation: Gastroint estinal Therapy Agents lisinopril 40 mg tablet - 00:00: 00 03-13 23:59 :00 No [id number] 1 tablet EVERY AM 1 tablet EVERY AM (route: oral) Med Classific ation: Cardiovas cular Therapy Agents metoprolol tartrate 25 mg tablet - 00:00: 00 03-13 23:59 :00 No [id number] 1 tablet 2 TIMES DAILY 1 tablet 2 TIMES DAILY (route: oral) Med Classific ation: Cardiovas cular Therapy Agents multivitami n with minerals tablet 07-13 00:00: 00 03-13 23:59 :00 No [id number] 1 tablet DAILY 1 tablet DAILY (route: oral) Med Classific ation: Electroly te Balance-N utroscara l Products paliperidon e ER 9 mg tablet,exte nded release 24 hr - 00:00: 00 12-01 23:59 :00 No [id number] 1 tablet BEDTIME 1 tablet BEDTIME (route: oral) Med Classific ation: Central Nervous System Agents metoprolol tartrate 25 mg tablet 6-19 00:00: 00 11-17 23:59 :00 No [id number] 1 tablet BEDTIME 1 tablet BEDTIME (route: oral) Med Classific ation: Cardiovas cular Therapy Agents benztropine 1 mg tablet -15 00:00: 00 03-13 23:59 :00 No [id number] 1 tablet EVERY PM 1 tablet EVERY PM (route: oral) Med Classific ation: Central Nervous System Agents paliperidon e ER 6 mg tablet,exte nded release 24 hr 12-01 00:00: 00 03-13 23:59 :00 No [id number] 1 tablet EVERY PM 1 tablet EVERY PM (route: oral) Med Classific ation: Central Nervous System Agents trazodone 50 mg tablet 12-01 00:00: 00 03-13 23:59 :00 No [id number] 1 tablet BEDTIME 1 tablet BEDTIME (route: oral) Med Classific ation: Central Nervous System Agents polyethylen e glycol 3350 17 gram/dose oral powder 12-21 00:00: 00 03-13 23:59 :00 No [id number] Per instruc tions DAILY Per instructio ns DAILY (route: oral) Med Classific ation: Gastroint estinal Therapy Agents benztropine 1 mg tablet 2024-05 00:00: 00 Yes [id number] 1 tablet EVERY PM 1 tablet EVERY PM (route: oral) Med Classific ation: Central Nervous System Agents cholecalcif beverley (vitamin D3) 10 mcg (400 unit) tablet 2024-05 00:00: 00 Yes [id number] 1 tablet EVERY AM 1 tablet EVERY AM (route: oral) Med Classific ation: Electroly te Balance-N utritiona l Products diltiazem ER (XR/XT) 180 mg capsule,ext ended release 24 hr, controlled 2024-05 00:00: 00 Yes [id number] 1 capsule EVERY AM 1 capsule EVERY AM (route: oral) Med Classific ation: Cardiovas cular Therapy Agents docusate sodium 100 mg capsule 2024-05 00:00: 00 Yes [id number] 1 capsule 2 TIMES DAILY 1 capsule 2 TIMES DAILY (route: oral) Med Classific ation: Gastroint estinal Therapy Agents lisinopril 40 mg tablet 2024-05 00:00: 00 Yes [id number] 1 tablet EVERY AM 1 tablet EVERY AM (route: oral) Med Classific ation: Cardiovas cular Therapy Agents metoprolol tartrate 25 mg tablet 2024-05 00:00: 00 Yes [id number] 1 tablet 2 TIMES DAILY 1 tablet 2 TIMES DAILY (route: oral) Med Classific ation: Cardiovas cular Therapy Agents multivitami n with minerals tablet 2024-05 00:00: 00 Yes [id number] 1 tablet EVERY AM 1 tablet EVERY AM (route: oral) Med Classific ation: Electroly te Balance-N utritiona l Products paliperidon e ER 6 mg tablet,exte nded release 24 hr 2024-05 00:00: 00 Yes [id number] 1 tablet EVERY PM 1 tablet EVERY PM (route: oral) Med Classific ation: Central Nervous System Agents polyethylen e glycol 3350 17 gram/dose oral powder 2024-05 00:00: 00 Yes [id number] Per instruc tions NEEDED Per instructio ns NEEDED (route: oral) Med Classific ation: Gastroint estinal Therapy Agents trazodone 50 mg tablet 2024-05 00:00: 00 Yes [id number] 1 tablet BEDTIME 1 tablet BEDTIME (route: [...] AWARENESS FOR SAFETY AND WILL NOTIFY CLINICAL TESTING PROJECTS ADMINISTRATOR AND PHYSICIAN/PROVIDER WITH ANY CHANGE IN CONDITION. [code = SKILLED NURSE WILL MAINTAIN SITUATIONAL AWARENESS FOR SAFETY AND WILL NOTIFY CLINICAL TESTING PROJECTS ADMINISTRATOR AND PHYSICIAN/PROVIDER WITH ANY CHANGE IN CONDITION.] [...] RECERTIFIC ATION TIFFANY MELTON [facility] [id number] 29.41
--- OUTSIDE RECORDS SUMMARY | 2025-05-07 19:00 | XMS_ITS | Clinical Summary ---
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 Assembler Deck And Hull Name Role Phone MEGAN CHUN, MELO Unavailable Unavailable GERONIMO TRACEY, TIFFANY Unavailable Unavailable Payers Payer Name Policy Type Policy Number Effective Date Expira tion Date [employer] MED[employer] ADVANTAGE [id number] MEDICARE - [facility] [id number] Problems Condition Name Condition Details Condition Category [...] 07-13 00:00: 00 03-13 23:59 :00 No [id number] 1 tablet DAILY 1 tablet DAILY (route: oral) Med Classific ation: Electroly te Balance-N utritiona l Products cyanocobala min (vit B-12) 1,000 mcg tablet 07-13 00:00: 00 2025- 06-12 23:59 :00 No [id number] 1 tablet DAILY 1 tablet DAILY (route: oral) Med Classific ation: Electroly te Balance-N utritiona l Products diltiazem ER (XR/XT) 180 mg capsule,ext ended release 24 hr, controlled 2-19 00:00: 00 03-13 23:59 :00 No [id number] 1 capsule DAILY 1 capsule DAILY (route: oral) Med Classific ation: Cardiovas cular Therapy Agents docusate sodium 100 mg capsule - 00:00: 00 03-13 23:59 :00 No [id number] 1 capsule 2 TIMES DAILY 1 capsule 2 TIMES DAILY (route: oral) Med Classific ation: Gastroint estinal Therapy Agents lisinopril 40 mg tablet - 00:00: 00 03-13 23:59 :00 No [id number] 1 tablet EVERY AM 1 tablet EVERY AM (route: oral) Med Classific ation: Cardiovas cular Therapy Agents metoprolol tartrate 25 mg tablet - 00:00: 00 03-13 23:59 :00 No [id number] 1 tablet 2 TIMES DAILY 1 tablet 2 TIMES DAILY (route: oral) Med Classific ation: Cardiovas cular Therapy Agents multivitami n with minerals tablet 07-13 00:00: 00 03-13 23:59 :00 No [id number] 1 tablet DAILY 1 tablet DAILY (route: oral) Med Classific ation: Electroly te Balance-N utroscara l Products paliperidon e ER 9 mg tablet,exte nded release 24 hr - 00:00: 00 12-01 23:59 :00 No [id number] 1 tablet BEDTIME 1 tablet BEDTIME (route: oral) Med Classific ation: Central Nervous System Agents metoprolol tartrate 25 mg tablet 6-19 00:00: 00 11-17 23:59 :00 No [id number] 1 tablet BEDTIME 1 tablet BEDTIME (route: oral) Med Classific ation: Cardiovas cular Therapy Agents benztropine 1 mg tablet -15 00:00: 00 03-13 23:59 :00 No [id number] 1 tablet EVERY PM 1 tablet EVERY PM (route: oral) Med Classific ation: Central Nervous System Agents paliperidon e ER 6 mg tablet,exte nded release 24 hr 12-01 00:00: 00 03-13 23:59 :00 No [id number] 1 tablet EVERY PM 1 tablet EVERY PM (route: oral) Med Classific ation: Central Nervous System Agents trazodone 50 mg tablet 12-01 00:00: 00 03-13 23:59 :00 No [id number] 1 tablet BEDTIME 1 tablet BEDTIME (route: oral) Med Classific ation: Central Nervous System Agents polyethylen e glycol 3350 17 gram/dose oral powder 12-21 00:00: 00 03-13 23:59 :00 No [id number] Per instruc tions DAILY Per instructio ns DAILY (route: oral) Med Classific ation: Gastroint estinal Therapy Agents benztropine 1 mg tablet 2024-05 00:00: 00 Yes [id number] 1 tablet EVERY PM 1 tablet EVERY PM (route: oral) Med Classific ation: Central Nervous System Agents cholecalcif beverley (vitamin D3) 10 mcg (400 unit) tablet 2024-05 00:00: 00 Yes [id number] 1 tablet EVERY AM 1 tablet EVERY AM (route: oral) Med Classific ation: Electroly te Balance-N utritiona l Products diltiazem ER (XR/XT) 180 mg capsule,ext ended release 24 hr, controlled 2024-05 00:00: 00 Yes [id number] 1 capsule EVERY AM 1 capsule EVERY AM (route: oral) Med Classific ation: Cardiovas cular Therapy Agents docusate sodium 100 mg capsule 2024-05 00:00: 00 Yes [id number] 1 capsule 2 TIMES DAILY 1 capsule 2 TIMES DAILY (route: oral) Med Classific ation: Gastroint estinal Therapy Agents lisinopril 40 mg tablet 2024-05 00:00: 00 Yes [id number] 1 tablet EVERY AM 1 tablet EVERY AM (route: oral) Med Classific ation: Cardiovas cular Therapy Agents metoprolol tartrate 25 mg tablet 2024-05 00:00: 00 Yes [id number] 1 tablet 2 TIMES DAILY 1 tablet 2 TIMES DAILY (route: oral) Med Classific ation: Cardiovas cular Therapy Agents multivitami n with minerals tablet 2024-05 00:00: 00 Yes [id number] 1 tablet EVERY AM 1 tablet EVERY AM (route: oral) Med Classific ation: Electroly te Balance-N utritiona l Products paliperidon e ER 6 mg tablet,exte nded release 24 hr 2024-05 00:00: 00 Yes [id number] 1 tablet EVERY PM 1 tablet EVERY PM (route: oral) Med Classific ation: Central Nervous System Agents polyethylen e glycol 3350 17 gram/dose oral powder 2024-05 00:00: 00 Yes [id number] Per instruc tions NEEDED Per instructio ns NEEDED (route: oral) Med Classific ation: Gastroint estinal Therapy Agents trazodone 50 mg tablet 2024-05 00:00: 00 Yes [id number] 1 tablet BEDTIME 1 tablet BEDTIME (route: [...] AWARENESS FOR SAFETY AND WILL NOTIFY CLINICAL CRISIS MENTAL HEALTH THERAPIST AND PHYSICIAN/PROVIDER WITH ANY CHANGE IN CONDITION. [code = SKILLED NURSE WILL MAINTAIN SITUATIONAL AWARENESS FOR SAFETY AND WILL NOTIFY CLINICAL CRISIS MENTAL HEALTH THERAPIST AND PHYSICIAN/PROVIDER WITH ANY CHANGE IN CONDITION.] [...] [facility]LY [facility] [id number] 29.41
--- OUTSIDE RECORDS SUMMARY | 2025-05-07 19:00 | XMS_ITS | Clinical Summary ---
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 Technical Systems Architect Name Role Phone MEGAN CHUN, MELO Unavailable Unavailable GERONIMO TRACEY, TIFFANY Unavailable Unavailable Payers Payer Name Policy Type Policy Number Effective Date Expira tion Date [employer] [id number] MEDICARE - [facility] [id number] Problems Condition Name Condition Details Condition Category [...] 07-13 00:00: 00 03-13 23:59 :00 No [id number] 1 tablet DAILY 1 tablet DAILY (route: oral) Med Classific ation: Electroly te Balance-N utritiona l Products cyanocobala min (vit B-12) 1,000 mcg tablet 07-13 00:00: 00 2025- 06-12 23:59 :00 No [id number] 1 tablet DAILY 1 tablet DAILY (route: oral) Med Classific ation: Electroly te Balance-N utritiona l Products diltiazem ER (XR/XT) 180 mg capsule,ext ended release 24 hr, controlled 2-19 00:00: 00 03-13 23:59 :00 No [id number] 1 capsule DAILY 1 capsule DAILY (route: oral) Med Classific ation: Cardiovas cular Therapy Agents docusate sodium 100 mg capsule - 00:00: 00 03-13 23:59 :00 No [id number] 1 capsule 2 TIMES DAILY 1 capsule 2 TIMES DAILY (route: oral) Med Classific ation: Gastroint estinal Therapy Agents lisinopril 40 mg tablet - 00:00: 00 03-13 23:59 :00 No [id number] 1 tablet EVERY AM 1 tablet EVERY AM (route: oral) Med Classific ation: Cardiovas cular Therapy Agents metoprolol tartrate 25 mg tablet - 00:00: 00 03-13 23:59 :00 No [id number] 1 tablet 2 TIMES DAILY 1 tablet 2 TIMES DAILY (route: oral) Med Classific ation: Cardiovas cular Therapy Agents multivitami n with minerals tablet 07-13 00:00: 00 03-13 23:59 :00 No [id number] 1 tablet DAILY 1 tablet DAILY (route: oral) Med Classific ation: Electroly te Balance-N utroscara l Products paliperidon e ER 9 mg tablet,exte nded release 24 hr - 00:00: 00 12-01 23:59 :00 No [id number] 1 tablet BEDTIME 1 tablet BEDTIME (route: oral) Med Classific ation: Central Nervous System Agents metoprolol tartrate 25 mg tablet 6-19 00:00: 00 11-17 23:59 :00 No [id number] 1 tablet BEDTIME 1 tablet BEDTIME (route: oral) Med Classific ation: Cardiovas cular Therapy Agents benztropine 1 mg tablet -15 00:00: 00 03-13 23:59 :00 No [id number] 1 tablet EVERY PM 1 tablet EVERY PM (route: oral) Med Classific ation: Central Nervous System Agents paliperidon e ER 6 mg tablet,exte nded release 24 hr 12-01 00:00: 00 03-13 23:59 :00 No [id number] 1 tablet EVERY PM 1 tablet EVERY PM (route: oral) Med Classific ation: Central Nervous System Agents trazodone 50 mg tablet 12-01 00:00: 00 03-13 23:59 :00 No [id number] 1 tablet BEDTIME 1 tablet BEDTIME (route: oral) Med Classific ation: Central Nervous System Agents polyethylen e glycol 3350 17 gram/dose oral powder 12-21 00:00: 00 03-13 23:59 :00 No [id number] Per instruc tions DAILY Per instructio ns DAILY (route: oral) Med Classific ation: Gastroint estinal Therapy Agents benztropine 1 mg tablet 2024-05 00:00: 00 Yes [id number] 1 tablet EVERY PM 1 tablet EVERY PM (route: oral) Med Classific ation: Central Nervous System Agents cholecalcif beverley (vitamin D3) 10 mcg (400 unit) tablet 2024-05 00:00: 00 Yes [id number] 1 tablet EVERY AM 1 tablet EVERY AM (route: oral) Med Classific ation: Electroly te Balance-N utritiona l Products diltiazem ER (XR/XT) 180 mg capsule,ext ended release 24 hr, controlled 2024-05 00:00: 00 Yes [id number] 1 capsule EVERY AM 1 capsule EVERY AM (route: oral) Med Classific ation: Cardiovas cular Therapy Agents docusate sodium 100 mg capsule 2024-05 00:00: 00 Yes [id number] 1 capsule 2 TIMES DAILY 1 capsule 2 TIMES DAILY (route: oral) Med Classific ation: Gastroint estinal Therapy Agents lisinopril 40 mg tablet 2024-05 00:00: 00 Yes [id number] 1 tablet EVERY AM 1 tablet EVERY AM (route: oral) Med Classific ation: Cardiovas cular Therapy Agents metoprolol tartrate 25 mg tablet 2024-05 00:00: 00 Yes [id number] 1 tablet 2 TIMES DAILY 1 tablet 2 TIMES DAILY (route: oral) Med Classific ation: Cardiovas cular Therapy Agents multivitami n with minerals tablet 2024-05 00:00: 00 Yes [id number] 1 tablet EVERY AM 1 tablet EVERY AM (route: oral) Med Classific ation: Electroly te Balance-N utritiona l Products paliperidon e ER 6 mg tablet,exte nded release 24 hr 2024-05 00:00: 00 Yes [id number] 1 tablet EVERY PM 1 tablet EVERY PM (route: oral) Med Classific ation: Central Nervous System Agents polyethylen e glycol 3350 17 gram/dose oral powder 2024-05 00:00: 00 Yes [id number] Per instruc tions NEEDED Per instructio ns NEEDED (route: oral) Med Classific ation: Gastroint estinal Therapy Agents trazodone 50 mg tablet 2024-05 00:00: 00 Yes [id number] 1 tablet BEDTIME 1 tablet BEDTIME (route: [...] AWARENESS FOR SAFETY AND WILL NOTIFY CLINICAL SERVICE VEHICLE OPERATOR AND PHYSICIAN/PROVIDER WITH ANY CHANGE IN CONDITION. [code = SKILLED NURSE WILL MAINTAIN SITUATIONAL AWARENESS FOR SAFETY AND WILL NOTIFY CLINICAL SERVICE VEHICLE OPERATOR AND PHYSICIAN/PROVIDER WITH ANY CHANGE IN [...] Outpatient RECERTIFIC ATION TIFFANY MELTON [facility] [id number] 29.41
--- OUTSIDE RECORDS SUMMARY | 2025-05-07 19:00 | XMS_ITS | Clinical Summary ---
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 Director Of User Experience Name Role Phone MEGAN CHUN, MELO Unavailable Unavailable GERONIMO TRACEY, TIFFANY Unavailable Unavailable Payers Payer Name Policy Type Policy Number Effective Date Expira tion Date [employer] [id number] MEDICARE - [facility] [id number] Problems Condition Name Condition Details Condition Category [...] 07-13 00:00: 00 03-13 23:59 :00 No [id number] 1 tablet DAILY 1 tablet DAILY (route: oral) Med Classific ation: Electroly te Balance-N utritiona l Products cyanocobala min (vit B-12) 1,000 mcg tablet 07-13 00:00: 00 2025- 06-12 23:59 :00 No [id number] 1 tablet DAILY 1 tablet DAILY (route: oral) Med Classific ation: Electroly te Balance-N utritiona l Products diltiazem ER (XR/XT) 180 mg capsule,ext ended release 24 hr, controlled 2-19 00:00: 00 03-13 23:59 :00 No [id number] 1 capsule DAILY 1 capsule DAILY (route: oral) Med Classific ation: Cardiovas cular Therapy Agents docusate sodium 100 mg capsule - 00:00: 00 03-13 23:59 :00 No [id number] 1 capsule 2 TIMES DAILY 1 capsule 2 TIMES DAILY (route: oral) Med Classific ation: Gastroint estinal Therapy Agents lisinopril 40 mg tablet - 00:00: 00 03-13 23:59 :00 No [id number] 1 tablet EVERY AM 1 tablet EVERY AM (route: oral) Med Classific ation: Cardiovas cular Therapy Agents metoprolol tartrate 25 mg tablet - 00:00: 00 03-13 23:59 :00 No [id number] 1 tablet 2 TIMES DAILY 1 tablet 2 TIMES DAILY (route: oral) Med Classific ation: Cardiovas cular Therapy Agents multivitami n with minerals tablet 07-13 00:00: 00 03-13 23:59 :00 No [id number] 1 tablet DAILY 1 tablet DAILY (route: oral) Med Classific ation: Electroly te Balance-N utroscara l Products paliperidon e ER 9 mg tablet,exte nded release 24 hr - 00:00: 00 12-01 23:59 :00 No [id number] 1 tablet BEDTIME 1 tablet BEDTIME (route: oral) Med Classific ation: Central Nervous System Agents metoprolol tartrate 25 mg tablet 6-19 00:00: 00 11-17 23:59 :00 No [id number] 1 tablet BEDTIME 1 tablet BEDTIME (route: oral) Med Classific ation: Cardiovas cular Therapy Agents benztropine 1 mg tablet -15 00:00: 00 03-13 23:59 :00 No [id number] 1 tablet EVERY PM 1 tablet EVERY PM (route: oral) Med Classific ation: Central Nervous System Agents paliperidon e ER 6 mg tablet,exte nded release 24 hr 12-01 00:00: 00 03-13 23:59 :00 No [id number] 1 tablet EVERY PM 1 tablet EVERY PM (route: oral) Med Classific ation: Central Nervous System Agents trazodone 50 mg tablet 12-01 00:00: 00 03-13 23:59 :00 No [id number] 1 tablet BEDTIME 1 tablet BEDTIME (route: oral) Med Classific ation: Central Nervous System Agents polyethylen e glycol 3350 17 gram/dose oral powder 12-21 00:00: 00 03-13 23:59 :00 No [id number] Per instruc tions DAILY Per instructio ns DAILY (route: oral) Med Classific ation: Gastroint estinal Therapy Agents benztropine 1 mg tablet 2024-05 00:00: 00 Yes [id number] 1 tablet EVERY PM 1 tablet EVERY PM (route: oral) Med Classific ation: Central Nervous System Agents cholecalcif beverley (vitamin D3) 10 mcg (400 unit) tablet 2024-05 00:00: 00 Yes [id number] 1 tablet EVERY AM 1 tablet EVERY AM (route: oral) Med Classific ation: Electroly te Balance-N utritiona l Products diltiazem ER (XR/XT) 180 mg capsule,ext ended release 24 hr, controlled 2024-05 00:00: 00 Yes [id number] 1 capsule EVERY AM 1 capsule EVERY AM (route: oral) Med Classific ation: Cardiovas cular Therapy Agents docusate sodium 100 mg capsule 2024-05 00:00: 00 Yes [id number] 1 capsule 2 TIMES DAILY 1 capsule 2 TIMES DAILY (route: oral) Med Classific ation: Gastroint estinal Therapy Agents lisinopril 40 mg tablet 2024-05 00:00: 00 Yes [id number] 1 tablet EVERY AM 1 tablet EVERY AM (route: oral) Med Classific ation: Cardiovas cular Therapy Agents metoprolol tartrate 25 mg tablet 2024-05 00:00: 00 Yes [id number] 1 tablet 2 TIMES DAILY 1 tablet 2 TIMES DAILY (route: oral) Med Classific ation: Cardiovas cular Therapy Agents multivitami n with minerals tablet 2024-05 00:00: 00 Yes [id number] 1 tablet EVERY AM 1 tablet EVERY AM (route: oral) Med Classific ation: Electroly te Balance-N utritiona l Products paliperidon e ER 6 mg tablet,exte nded release 24 hr 2024-05 00:00: 00 Yes [id number] 1 tablet EVERY PM 1 tablet EVERY PM (route: oral) Med Classific ation: Central Nervous System Agents polyethylen e glycol 3350 17 gram/dose oral powder 2024-05 00:00: 00 Yes [id number] Per instruc tions NEEDED Per instructio ns NEEDED (route: oral) Med Classific ation: Gastroint estinal Therapy Agents trazodone 50 mg tablet 2024-05 00:00: 00 Yes [id number] 1 tablet BEDTIME 1 tablet BEDTIME (route: [...] AWARENESS FOR SAFETY AND WILL NOTIFY CLINICAL STRATEGY DIRECTOR AND PHYSICIAN/PROVIDER WITH ANY CHANGE IN CONDITION. [code = SKILLED NURSE WILL MAINTAIN SITUATIONAL AWARENESS FOR SAFETY AND WILL NOTIFY CLINICAL STRATEGY DIRECTOR AND PHYSICIAN/PROVIDER WITH ANY CHANGE IN CONDITION.] [...] Outpatient RECERTIFIC ATION TIFFANY MELTON [facility] [id number] 29.41
--- OUTSIDE RECORDS SUMMARY | 2025-05-07 19:00 | XMS_ITS | Clinical Summary ---
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 Butter Maker Name Role Phone MEGAN CHUN, MELO Unavailable Unavailable GERONIMO TRACEY, TIFFANY Unavailable Unavailable Payers Payer Name Policy Type Policy Number Effective Date Expira tion Date [employer] [id number] MEDICARE - [facility] [id number] Problems Condition Name Condition Details Condition Category [...] 07-13 00:00: 00 03-13 23:59 :00 No [id number] 1 tablet DAILY 1 tablet DAILY (route: oral) Med Classific ation: Electroly te Balance-N utritiona l Products cyanocobala min (vit B-12) 1,000 mcg tablet 07-13 00:00: 00 2025- 06-12 23:59 :00 No [id number] 1 tablet DAILY 1 tablet DAILY (route: oral) Med Classific ation: Electroly te Balance-N utritiona l Products diltiazem ER (XR/XT) 180 mg capsule,ext ended release 24 hr, controlled 2-19 00:00: 00 03-13 23:59 :00 No [id number] 1 capsule DAILY 1 capsule DAILY (route: oral) Med Classific ation: Cardiovas cular Therapy Agents docusate sodium 100 mg capsule - 00:00: 00 03-13 23:59 :00 No [id number] 1 capsule 2 TIMES DAILY 1 capsule 2 TIMES DAILY (route: oral) Med Classific ation: Gastroint estinal Therapy Agents lisinopril 40 mg tablet - 00:00: 00 03-13 23:59 :00 No [id number] 1 tablet EVERY AM 1 tablet EVERY AM (route: oral) Med Classific ation: Cardiovas cular Therapy Agents metoprolol tartrate 25 mg tablet - 00:00: 00 03-13 23:59 :00 No [id number] 1 tablet 2 TIMES DAILY 1 tablet 2 TIMES DAILY (route: oral) Med Classific ation: Cardiovas cular Therapy Agents multivitami n with minerals tablet 07-13 00:00: 00 03-13 23:59 :00 No [id number] 1 tablet DAILY 1 tablet DAILY (route: oral) Med Classific ation: Electroly te Balance-N utroscara l Products paliperidon e ER 9 mg tablet,exte nded release 24 hr - 00:00: 00 12-01 23:59 :00 No [id number] 1 tablet BEDTIME 1 tablet BEDTIME (route: oral) Med Classific ation: Central Nervous System Agents metoprolol tartrate 25 mg tablet 6-19 00:00: 00 11-17 23:59 :00 No [id number] 1 tablet BEDTIME 1 tablet BEDTIME (route: oral) Med Classific ation: Cardiovas cular Therapy Agents benztropine 1 mg tablet -15 00:00: 00 03-13 23:59 :00 No [id number] 1 tablet EVERY PM 1 tablet EVERY PM (route: oral) Med Classific ation: Central Nervous System Agents paliperidon e ER 6 mg tablet,exte nded release 24 hr 12-01 00:00: 00 03-13 23:59 :00 No [id number] 1 tablet EVERY PM 1 tablet EVERY PM (route: oral) Med Classific ation: Central Nervous System Agents trazodone 50 mg tablet 12-01 00:00: 00 03-13 23:59 :00 No [id number] 1 tablet BEDTIME 1 tablet BEDTIME (route: oral) Med Classific ation: Central Nervous System Agents polyethylen e glycol 3350 17 gram/dose oral powder 12-21 00:00: 00 03-13 23:59 :00 No [id number] Per instruc tions DAILY Per instructio ns DAILY (route: oral) Med Classific ation: Gastroint estinal Therapy Agents benztropine 1 mg tablet 2024-05 00:00: 00 Yes [id number] 1 tablet EVERY PM 1 tablet EVERY PM (route: oral) Med Classific ation: Central Nervous System Agents cholecalcif beverley (vitamin D3) 10 mcg (400 unit) tablet 2024-05 00:00: 00 Yes [id number] 1 tablet EVERY AM 1 tablet EVERY AM (route: oral) Med Classific ation: Electroly te Balance-N utritiona l Products diltiazem ER (XR/XT) 180 mg capsule,ext ended release 24 hr, controlled 2024-05 00:00: 00 Yes [id number] 1 capsule EVERY AM 1 capsule EVERY AM (route: oral) Med Classific ation: Cardiovas cular Therapy Agents docusate sodium 100 mg capsule 2024-05 00:00: 00 Yes [id number] 1 capsule 2 TIMES DAILY 1 capsule 2 TIMES DAILY (route: oral) Med Classific ation: Gastroint estinal Therapy Agents lisinopril 40 mg tablet 2024-05 00:00: 00 Yes [id number] 1 tablet EVERY AM 1 tablet EVERY AM (route: oral) Med Classific ation: Cardiovas cular Therapy Agents metoprolol tartrate 25 mg tablet 2024-05 00:00: 00 Yes [id number] 1 tablet 2 TIMES DAILY 1 tablet 2 TIMES DAILY (route: oral) Med Classific ation: Cardiovas cular Therapy Agents multivitami n with minerals tablet 2024-05 00:00: 00 Yes [id number] 1 tablet EVERY AM 1 tablet EVERY AM (route: oral) Med Classific ation: Electroly te Balance-N utritiona l Products paliperidon e ER 6 mg tablet,exte nded release 24 hr 2024-05 00:00: 00 Yes [id number] 1 tablet EVERY PM 1 tablet EVERY PM (route: oral) Med Classific ation: Central Nervous System Agents polyethylen e glycol 3350 17 gram/dose oral powder 2024-05 00:00: 00 Yes [id number] Per instruc tions NEEDED Per instructio ns NEEDED (route: oral) Med Classific ation: Gastroint estinal Therapy Agents trazodone 50 mg tablet 2024-05 00:00: 00 Yes [id number] 1 tablet BEDTIME 1 tablet BEDTIME (route: [...] AWARENESS FOR SAFETY AND WILL NOTIFY CLINICAL AGRISCIENCE INSTRUCTOR AND PHYSICIAN/PROVIDER WITH ANY CHANGE IN CONDITION. [code = SKILLED NURSE WILL MAINTAIN SITUATIONAL AWARENESS FOR SAFETY AND WILL NOTIFY CLINICAL AGRISCIENCE INSTRUCTOR AND PHYSICIAN/PROVIDER WITH ANY CHANGE IN [...] ATION TIFFANY MELTON [facility] [id number] 29.41
--- OUTSIDE RECORDS SUMMARY | 2025-05-07 19:00 | XMS_ITS | Clinical Summary ---
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 Ditcher Operator Name Role Phone MEGAN CHUN, MELO Unavailable Unavailable GERONIMO TRACEY, TIFFANY Unavailable Unavailable Payers Payer Name Policy Type Policy Number Effective Date Expira tion Date [employer] MED[employer] ADV[employer]AGE [id number] MEDICARE - [facility] [id number] Problems Condition Name Condition Details Condition Category [...] 07-13 00:00: 00 03-13 23:59 :00 No [id number] 1 tablet DAILY 1 tablet DAILY (route: oral) Med Classific ation: Electroly te Balance-N utritiona l Products cyanocobala min (vit B-12) 1,000 mcg tablet 07-13 00:00: 00 2025- 06-12 23:59 :00 No [id number] 1 tablet DAILY 1 tablet DAILY (route: oral) Med Classific ation: Electroly te Balance-N utritiona l Products diltiazem ER (XR/XT) 180 mg capsule,ext ended release 24 hr, controlled 2-19 00:00: 00 03-13 23:59 :00 No [id number] 1 capsule DAILY 1 capsule DAILY (route: oral) Med Classific ation: Cardiovas cular Therapy Agents docusate sodium 100 mg capsule - 00:00: 00 03-13 23:59 :00 No [id number] 1 capsule 2 TIMES DAILY 1 capsule 2 TIMES DAILY (route: oral) Med Classific ation: Gastroint estinal Therapy Agents lisinopril 40 mg tablet - 00:00: 00 03-13 23:59 :00 No [id number] 1 tablet EVERY AM 1 tablet EVERY AM (route: oral) Med Classific ation: Cardiovas cular Therapy Agents metoprolol tartrate 25 mg tablet - 00:00: 00 03-13 23:59 :00 No [id number] 1 tablet 2 TIMES DAILY 1 tablet 2 TIMES DAILY (route: oral) Med Classific ation: Cardiovas cular Therapy Agents multivitami n with minerals tablet 07-13 00:00: 00 03-13 23:59 :00 No [id number] 1 tablet DAILY 1 tablet DAILY (route: oral) Med Classific ation: Electroly te Balance-N utroscara l Products paliperidon e ER 9 mg tablet,exte nded release 24 hr - 00:00: 00 12-01 23:59 :00 No [id number] 1 tablet BEDTIME 1 tablet BEDTIME (route: oral) Med Classific ation: Central Nervous System Agents metoprolol tartrate 25 mg tablet 6-19 00:00: 00 11-17 23:59 :00 No [id number] 1 tablet BEDTIME 1 tablet BEDTIME (route: oral) Med Classific ation: Cardiovas cular Therapy Agents benztropine 1 mg tablet -15 00:00: 00 03-13 23:59 :00 No [id number] 1 tablet EVERY PM 1 tablet EVERY PM (route: oral) Med Classific ation: Central Nervous System Agents paliperidon e ER 6 mg tablet,exte nded release 24 hr 12-01 00:00: 00 03-13 23:59 :00 No [id number] 1 tablet EVERY PM 1 tablet EVERY PM (route: oral) Med Classific ation: Central Nervous System Agents trazodone 50 mg tablet 12-01 00:00: 00 03-13 23:59 :00 No [id number] 1 tablet BEDTIME 1 tablet BEDTIME (route: oral) Med Classific ation: Central Nervous System Agents polyethylen e glycol 3350 17 gram/dose oral powder 12-21 00:00: 00 03-13 23:59 :00 No [id number] Per instruc tions DAILY Per instructio ns DAILY (route: oral) Med Classific ation: Gastroint estinal Therapy Agents benztropine 1 mg tablet 2024-05 00:00: 00 Yes [id number] 1 tablet EVERY PM 1 tablet EVERY PM (route: oral) Med Classific ation: Central Nervous System Agents cholecalcif beverley (vitamin D3) 10 mcg (400 unit) tablet 2024-05 00:00: 00 Yes [id number] 1 tablet EVERY AM 1 tablet EVERY AM (route: oral) Med Classific ation: Electroly te Balance-N utritiona l Products diltiazem ER (XR/XT) 180 mg capsule,ext ended release 24 hr, controlled 2024-05 00:00: 00 Yes [id number] 1 capsule EVERY AM 1 capsule EVERY AM (route: oral) Med Classific ation: Cardiovas cular Therapy Agents docusate sodium 100 mg capsule 2024-05 00:00: 00 Yes [id number] 1 capsule 2 TIMES DAILY 1 capsule 2 TIMES DAILY (route: oral) Med Classific ation: Gastroint estinal Therapy Agents lisinopril 40 mg tablet 2024-05 00:00: 00 Yes [id number] 1 tablet EVERY AM 1 tablet EVERY AM (route: oral) Med Classific ation: Cardiovas cular Therapy Agents metoprolol tartrate 25 mg tablet 2024-05 00:00: 00 Yes [id number] 1 tablet 2 TIMES DAILY 1 tablet 2 TIMES DAILY (route: oral) Med Classific ation: Cardiovas cular Therapy Agents multivitami n with minerals tablet 2024-05 00:00: 00 Yes [id number] 1 tablet EVERY AM 1 tablet EVERY AM (route: oral) Med Classific ation: Electroly te Balance-N utritiona l Products paliperidon e ER 6 mg tablet,exte nded release 24 hr 2024-05 00:00: 00 Yes [id number] 1 tablet EVERY PM 1 tablet EVERY PM (route: oral) Med Classific ation: Central Nervous System Agents polyethylen e glycol 3350 17 gram/dose oral powder 2024-05 00:00: 00 Yes [id number] Per instruc tions NEEDED Per instructio ns NEEDED (route: oral) Med Classific ation: Gastroint estinal Therapy Agents trazodone 50 mg tablet 2024-05 00:00: 00 Yes [id number] 1 tablet BEDTIME 1 tablet BEDTIME (route: [...] AWARENESS FOR SAFETY AND WILL NOTIFY CLINICAL BOIL OFF MACHINE OPERATOR CLOTH AND PHYSICIAN/PROVIDER WITH ANY CHANGE IN CONDITION. [code = SKILLED NURSE WILL MAINTAIN SITUATIONAL AWARENESS FOR SAFETY AND WILL NOTIFY CLINICAL BOIL OFF MACHINE OPERATOR CLOTH AND PHYSICIAN/PROVIDER WITH ANY CHANGE IN CONDITION.] [...] Outpatient RECERTIFIC ATION TIFFANY MELTON [facility] [id number] 29.41
--- OUTSIDE RECORDS SUMMARY | 2025-05-07 19:00 | XMS_ITS | Clinical Summary ---
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 Supervisor Knitting Name Role Phone MEGAN CHUN, MELO Unavailable Unavailable GERONIMO TRACEY, TIFFANY Unavailable Unavailable Payers Payer Name Policy Type Policy Number Effective Date Expira tion Date [employer] MED[employer] ADV[employer]AGE [id number] MEDICARE - [facility] [id number] Problems Condition Name Condition Details Condition Category [...] 07-13 00:00: 00 03-13 23:59 :00 No [id number] 1 tablet DAILY 1 tablet DAILY (route: oral) Med Classific ation: Electroly te Balance-N utritiona l Products cyanocobala min (vit B-12) 1,000 mcg tablet 07-13 00:00: 00 2025- 06-12 23:59 :00 No [id number] 1 tablet DAILY 1 tablet DAILY (route: oral) Med Classific ation: Electroly te Balance-N utritiona l Products diltiazem ER (XR/XT) 180 mg capsule,ext ended release 24 hr, controlled 2-19 00:00: 00 03-13 23:59 :00 No [id number] 1 capsule DAILY 1 capsule DAILY (route: oral) Med Classific ation: Cardiovas cular Therapy Agents docusate sodium 100 mg capsule - 00:00: 00 03-13 23:59 :00 No [id number] 1 capsule 2 TIMES DAILY 1 capsule 2 TIMES DAILY (route: oral) Med Classific ation: Gastroint estinal Therapy Agents lisinopril 40 mg tablet - 00:00: 00 03-13 23:59 :00 No [id number] 1 tablet EVERY AM 1 tablet EVERY AM (route: oral) Med Classific ation: Cardiovas cular Therapy Agents metoprolol tartrate 25 mg tablet - 00:00: 00 03-13 23:59 :00 No [id number] 1 tablet 2 TIMES DAILY 1 tablet 2 TIMES DAILY (route: oral) Med Classific ation: Cardiovas cular Therapy Agents multivitami n with minerals tablet 07-13 00:00: 00 03-13 23:59 :00 No [id number] 1 tablet DAILY 1 tablet DAILY (route: oral) Med Classific ation: Electroly te Balance-N utroscara l Products paliperidon e ER 9 mg tablet,exte nded release 24 hr - 00:00: 00 12-01 23:59 :00 No [id number] 1 tablet BEDTIME 1 tablet BEDTIME (route: oral) Med Classific ation: Central Nervous System Agents metoprolol tartrate 25 mg tablet 6-19 00:00: 00 11-17 23:59 :00 No [id number] 1 tablet BEDTIME 1 tablet BEDTIME (route: oral) Med Classific ation: Cardiovas cular Therapy Agents benztropine 1 mg tablet -15 00:00: 00 03-13 23:59 :00 No [id number] 1 tablet EVERY PM 1 tablet EVERY PM (route: oral) Med Classific ation: Central Nervous System Agents paliperidon e ER 6 mg tablet,exte nded release 24 hr 12-01 00:00: 00 03-13 23:59 :00 No [id number] 1 tablet EVERY PM 1 tablet EVERY PM (route: oral) Med Classific ation: Central Nervous System Agents trazodone 50 mg tablet 12-01 00:00: 00 03-13 23:59 :00 No [id number] 1 tablet BEDTIME 1 tablet BEDTIME (route: oral) Med Classific ation: Central Nervous System Agents polyethylen e glycol 3350 17 gram/dose oral powder 12-21 00:00: 00 03-13 23:59 :00 No [id number] Per instruc tions DAILY Per instructio ns DAILY (route: oral) Med Classific ation: Gastroint estinal Therapy Agents benztropine 1 mg tablet 2024-05 00:00: 00 Yes [id number] 1 tablet EVERY PM 1 tablet EVERY PM (route: oral) Med Classific ation: Central Nervous System Agents cholecalcif beverley (vitamin D3) 10 mcg (400 unit) tablet 2024-05 00:00: 00 Yes [id number] 1 tablet EVERY AM 1 tablet EVERY AM (route: oral) Med Classific ation: Electroly te Balance-N utritiona l Products diltiazem ER (XR/XT) 180 mg capsule,ext ended release 24 hr, controlled 2024-05 00:00: 00 Yes [id number] 1 capsule EVERY AM 1 capsule EVERY AM (route: oral) Med Classific ation: Cardiovas cular Therapy Agents docusate sodium 100 mg capsule 2024-05 00:00: 00 Yes [id number] 1 capsule 2 TIMES DAILY 1 capsule 2 TIMES DAILY (route: oral) Med Classific ation: Gastroint estinal Therapy Agents lisinopril 40 mg tablet 2024-05 00:00: 00 Yes [id number] 1 tablet EVERY AM 1 tablet EVERY AM (route: oral) Med Classific ation: Cardiovas cular Therapy Agents metoprolol tartrate 25 mg tablet 2024-05 00:00: 00 Yes [id number] 1 tablet 2 TIMES DAILY 1 tablet 2 TIMES DAILY (route: oral) Med Classific ation: Cardiovas cular Therapy Agents multivitami n with minerals tablet 2024-05 00:00: 00 Yes [id number] 1 tablet EVERY AM 1 tablet EVERY AM (route: oral) Med Classific ation: Electroly te Balance-N utritiona l Products paliperidon e ER 6 mg tablet,exte nded release 24 hr 2024-05 00:00: 00 Yes [id number] 1 tablet EVERY PM 1 tablet EVERY PM (route: oral) Med Classific ation: Central Nervous System Agents polyethylen e glycol 3350 17 gram/dose oral powder 2024-05 00:00: 00 Yes [id number] Per instruc tions NEEDED Per instructio ns NEEDED (route: oral) Med Classific ation: Gastroint estinal Therapy Agents trazodone 50 mg tablet 2024-05 00:00: 00 Yes [id number] 1 tablet BEDTIME 1 tablet BEDTIME (route: [...] AWARENESS FOR SAFETY AND WILL NOTIFY CLINICAL CABANA ATTENDANT AND PHYSICIAN/PROVIDER WITH ANY CHANGE IN CONDITION. [code = SKILLED NURSE WILL MAINTAIN SITUATIONAL AWARENESS FOR SAFETY AND WILL NOTIFY CLINICAL CABANA ATTENDANT AND PHYSICIAN/PROVIDER WITH ANY CHANGE IN [...] CARE WILL BE ESTABLISHED THAT MEETS PATIENT'S SHELTER NEEDS AND INCLUDES PATIENT GOAL FOR HOME [...] 00:00:00 Outpatient RECERTIFIC ATION TIFFANY MELTON [facility] [id number] 29.41
--- OUTSIDE RECORDS SUMMARY | 2025-05-07 19:00 | XMS_ITS | Clinical Summary ---
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 Tc Operator Name Role Phone MEGAN CHUN, MELO Unavailable Unavailable GERONIMO TRACEY, TIFFANY Unavailable Unavailable Payers Payer Name Policy Type Policy Number Effective Date Expira tion Date [employer] [id number] MEDICARE - [facility] [id number] Problems Condition Name Condition Details Condition Category [...] 07-13 00:00: 00 03-13 23:59 :00 No [id number] 1 tablet DAILY 1 tablet DAILY (route: oral) Med Classific ation: Electroly te Balance-N utritiona l Products cyanocobala min (vit B-12) 1,000 mcg tablet 07-13 00:00: 00 2025- 06-12 23:59 :00 No [id number] 1 tablet DAILY 1 tablet DAILY (route: oral) Med Classific ation: Electroly te Balance-N utritiona l Products diltiazem ER (XR/XT) 180 mg capsule,ext ended release 24 hr, controlled 2-19 00:00: 00 03-13 23:59 :00 No [id number] 1 capsule DAILY 1 capsule DAILY (route: oral) Med Classific ation: Cardiovas cular Therapy Agents docusate sodium 100 mg capsule - 00:00: 00 03-13 23:59 :00 No [id number] 1 capsule 2 TIMES DAILY 1 capsule 2 TIMES DAILY (route: oral) Med Classific ation: Gastroint estinal Therapy Agents lisinopril 40 mg tablet - 00:00: 00 03-13 23:59 :00 No [id number] 1 tablet EVERY AM 1 tablet EVERY AM (route: oral) Med Classific ation: Cardiovas cular Therapy Agents metoprolol tartrate 25 mg tablet - 00:00: 00 03-13 23:59 :00 No [id number] 1 tablet 2 TIMES DAILY 1 tablet 2 TIMES DAILY (route: oral) Med Classific ation: Cardiovas cular Therapy Agents multivitami n with minerals tablet 07-13 00:00: 00 03-13 23:59 :00 No [id number] 1 tablet DAILY 1 tablet DAILY (route: oral) Med Classific ation: Electroly te Balance-N utroscara l Products paliperidon e ER 9 mg tablet,exte nded release 24 hr - 00:00: 00 12-01 23:59 :00 No [id number] 1 tablet BEDTIME 1 tablet BEDTIME (route: oral) Med Classific ation: Central Nervous System Agents metoprolol tartrate 25 mg tablet 6-19 00:00: 00 11-17 23:59 :00 No [id number] 1 tablet BEDTIME 1 tablet BEDTIME (route: oral) Med Classific ation: Cardiovas cular Therapy Agents benztropine 1 mg tablet -15 00:00: 00 03-13 23:59 :00 No [id number] 1 tablet EVERY PM 1 tablet EVERY PM (route: oral) Med Classific ation: Central Nervous System Agents paliperidon e ER 6 mg tablet,exte nded release 24 hr 12-01 00:00: 00 03-13 23:59 :00 No [id number] 1 tablet EVERY PM 1 tablet EVERY PM (route: oral) Med Classific ation: Central Nervous System Agents trazodone 50 mg tablet 12-01 00:00: 00 03-13 23:59 :00 No [id number] 1 tablet BEDTIME 1 tablet BEDTIME (route: oral) Med Classific ation: Central Nervous System Agents polyethylen e glycol 3350 17 gram/dose oral powder 12-21 00:00: 00 03-13 23:59 :00 No [id number] Per instruc tions DAILY Per instructio ns DAILY (route: oral) Med Classific ation: Gastroint estinal Therapy Agents benztropine 1 mg tablet 2024-05 00:00: 00 Yes [id number] 1 tablet EVERY PM 1 tablet EVERY PM (route: oral) Med Classific ation: Central Nervous System Agents cholecalcif beverley (vitamin D3) 10 mcg (400 unit) tablet 2024-05 00:00: 00 Yes [id number] 1 tablet EVERY AM 1 tablet EVERY AM (route: oral) Med Classific ation: Electroly te Balance-N utritiona l Products diltiazem ER (XR/XT) 180 mg capsule,ext ended release 24 hr, controlled 2024-05 00:00: 00 Yes [id number] 1 capsule EVERY AM 1 capsule EVERY AM (route: oral) Med Classific ation: Cardiovas cular Therapy Agents docusate sodium 100 mg capsule 2024-05 00:00: 00 Yes [id number] 1 capsule 2 TIMES DAILY 1 capsule 2 TIMES DAILY (route: oral) Med Classific ation: Gastroint estinal Therapy Agents lisinopril 40 mg tablet 2024-05 00:00: 00 Yes [id number] 1 tablet EVERY AM 1 tablet EVERY AM (route: oral) Med Classific ation: Cardiovas cular Therapy Agents metoprolol tartrate 25 mg tablet 2024-05 00:00: 00 Yes [id number] 1 tablet 2 TIMES DAILY 1 tablet 2 TIMES DAILY (route: oral) Med Classific ation: Cardiovas cular Therapy Agents multivitami n with minerals tablet 2024-05 00:00: 00 Yes [id number] 1 tablet EVERY AM 1 tablet EVERY AM (route: oral) Med Classific ation: Electroly te Balance-N utritiona l Products paliperidon e ER 6 mg tablet,exte nded release 24 hr 2024-05 00:00: 00 Yes [id number] 1 tablet EVERY PM 1 tablet EVERY PM (route: oral) Med Classific ation: Central Nervous System Agents polyethylen e glycol 3350 17 gram/dose oral powder 2024-05 00:00: 00 Yes [id number] Per instruc tions NEEDED Per instructio ns NEEDED (route: oral) Med Classific ation: Gastroint estinal Therapy Agents trazodone 50 mg tablet 2024-05 00:00: 00 Yes [id number] 1 tablet BEDTIME 1 tablet BEDTIME (route: [...] AWARENESS FOR SAFETY AND WILL NOTIFY CLINICAL GUM MACHINE FILLER AND PHYSICIAN/PROVIDER WITH ANY CHANGE IN CONDITION. [code = SKILLED NURSE WILL MAINTAIN SITUATIONAL AWARENESS FOR SAFETY AND WILL NOTIFY CLINICAL GUM MACHINE FILLER AND PHYSICIAN/PROVIDER WITH ANY CHANGE IN CONDITION.] [...] CARE WILL BE ESTABLISHED THAT MEETS PATIENT'S CARE HOME NEEDS AND INCLUDES PATIENT GOAL FOR [...] 2025-05-08 00:00:00 Outpatient RECERTIFIC ATION TIFFANY MELTON [facility] [id number] 29.41
--- OUTSIDE RECORDS SUMMARY | 2025-05-07 19:00 | XMS_ITS | Clinical Summary ---
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 Boat Diesel Motor Mechanic Name Role Phone MEGAN CHUN, MELO Unavailable Unavailable GERONIMO TRACEY, TIFFANY Unavailable Unavailable Payers Payer Name Policy Type Policy Number Effective Date Expira tion Date [employer] [id number] MEDICARE - [facility] [id number] Problems Condition Name Condition Details Condition Category [...] 07-13 00:00: 00 03-13 23:59 :00 No [id number] 1 tablet DAILY 1 tablet DAILY (route: oral) Med Classific ation: Electroly te Balance-N utritiona l Products cyanocobala min (vit B-12) 1,000 mcg tablet 07-13 00:00: 00 2025- 06-12 23:59 :00 No [id number] 1 tablet DAILY 1 tablet DAILY (route: oral) Med Classific ation: Electroly te Balance-N utritiona l Products diltiazem ER (XR/XT) 180 mg capsule,ext ended release 24 hr, controlled 2-19 00:00: 00 03-13 23:59 :00 No [id number] 1 capsule DAILY 1 capsule DAILY (route: oral) Med Classific ation: Cardiovas cular Therapy Agents docusate sodium 100 mg capsule - 00:00: 00 03-13 23:59 :00 No [id number] 1 capsule 2 TIMES DAILY 1 capsule 2 TIMES DAILY (route: oral) Med Classific ation: Gastroint estinal Therapy Agents lisinopril 40 mg tablet - 00:00: 00 03-13 23:59 :00 No [id number] 1 tablet EVERY AM 1 tablet EVERY AM (route: oral) Med Classific ation: Cardiovas cular Therapy Agents metoprolol tartrate 25 mg tablet - 00:00: 00 03-13 23:59 :00 No [id number] 1 tablet 2 TIMES DAILY 1 tablet 2 TIMES DAILY (route: oral) Med Classific ation: Cardiovas cular Therapy Agents multivitami n with minerals tablet 07-13 00:00: 00 03-13 23:59 :00 No [id number] 1 tablet DAILY 1 tablet DAILY (route: oral) Med Classific ation: Electroly te Balance-N utroscara l Products paliperidon e ER 9 mg tablet,exte nded release 24 hr - 00:00: 00 12-01 23:59 :00 No [id number] 1 tablet BEDTIME 1 tablet BEDTIME (route: oral) Med Classific ation: Central Nervous System Agents metoprolol tartrate 25 mg tablet 6-19 00:00: 00 11-17 23:59 :00 No [id number] 1 tablet BEDTIME 1 tablet BEDTIME (route: oral) Med Classific ation: Cardiovas cular Therapy Agents benztropine 1 mg tablet -15 00:00: 00 03-13 23:59 :00 No [id number] 1 tablet EVERY PM 1 tablet EVERY PM (route: oral) Med Classific ation: Central Nervous System Agents paliperidon e ER 6 mg tablet,exte nded release 24 hr 12-01 00:00: 00 03-13 23:59 :00 No [id number] 1 tablet EVERY PM 1 tablet EVERY PM (route: oral) Med Classific ation: Central Nervous System Agents trazodone 50 mg tablet 12-01 00:00: 00 03-13 23:59 :00 No [id number] 1 tablet BEDTIME 1 tablet BEDTIME (route: oral) Med Classific ation: Central Nervous System Agents polyethylen e glycol 3350 17 gram/dose oral powder 12-21 00:00: 00 03-13 23:59 :00 No [id number] Per instruc tions DAILY Per instructio ns DAILY (route: oral) Med Classific ation: Gastroint estinal Therapy Agents benztropine 1 mg tablet 2024-05 00:00: 00 Yes [id number] 1 tablet EVERY PM 1 tablet EVERY PM (route: oral) Med Classific ation: Central Nervous System Agents cholecalcif beverley (vitamin D3) 10 mcg (400 unit) tablet 2024-05 00:00: 00 Yes [id number] 1 tablet EVERY AM 1 tablet EVERY AM (route: oral) Med Classific ation: Electroly te Balance-N utritiona l Products diltiazem ER (XR/XT) 180 mg capsule,ext ended release 24 hr, controlled 2024-05 00:00: 00 Yes [id number] 1 capsule EVERY AM 1 capsule EVERY AM (route: oral) Med Classific ation: Cardiovas cular Therapy Agents docusate sodium 100 mg capsule 2024-05 00:00: 00 Yes [id number] 1 capsule 2 TIMES DAILY 1 capsule 2 TIMES DAILY (route: oral) Med Classific ation: Gastroint estinal Therapy Agents lisinopril 40 mg tablet 2024-05 00:00: 00 Yes [id number] 1 tablet EVERY AM 1 tablet EVERY AM (route: oral) Med Classific ation: Cardiovas cular Therapy Agents metoprolol tartrate 25 mg tablet 2024-05 00:00: 00 Yes [id number] 1 tablet 2 TIMES DAILY 1 tablet 2 TIMES DAILY (route: oral) Med Classific ation: Cardiovas cular Therapy Agents multivitami n with minerals tablet 2024-05 00:00: 00 Yes [id number] 1 tablet EVERY AM 1 tablet EVERY AM (route: oral) Med Classific ation: Electroly te Balance-N utritiona l Products paliperidon e ER 6 mg tablet,exte nded release 24 hr 2024-05 00:00: 00 Yes [id number] 1 tablet EVERY PM 1 tablet EVERY PM (route: oral) Med Classific ation: Central Nervous System Agents polyethylen e glycol 3350 17 gram/dose oral powder 2024-05 00:00: 00 Yes [id number] Per instruc tions NEEDED Per instructio ns NEEDED (route: oral) Med Classific ation: Gastroint estinal Therapy Agents trazodone 50 mg tablet 2024-05 00:00: 00 Yes [id number] 1 tablet BEDTIME 1 tablet BEDTIME (route: [...] AWARENESS FOR SAFETY AND WILL NOTIFY CLINICAL LINING CASER AND PHYSICIAN/PROVIDER WITH ANY CHANGE IN CONDITION. [code = SKILLED NURSE WILL MAINTAIN SITUATIONAL AWARENESS FOR SAFETY AND WILL NOTIFY CLINICAL LINING CASER AND PHYSICIAN/PROVIDER WITH ANY CHANGE IN CONDITION.] [...] 00:00:00 Outpatient RECERTIFIC ATION TIFFANY M[facility]TON [facility] [id number] 29.41
--- OUTSIDE RECORDS SUMMARY | 2025-05-07 19:00 | XMS_ITS | Clinical Summary ---
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 Conservation Coordinator Name Role Phone MEGAN CHUN, MELO Unavailable Unavailable GERONIMO TRACEY, TIFFANY Unavailable Unavailable Payers Payer Name Policy Type Policy Number Effective Date Expira tion Date [employer] [id number] MEDICARE - [facility] [id number] Problems Condition Name Condition Details Condition Category [...] 07-13 00:00: 00 03-13 23:59 :00 No [id number] 1 tablet DAILY 1 tablet DAILY (route: oral) Med Classific ation: Electroly te Balance-N utritiona l Products cyanocobala min (vit B-12) 1,000 mcg tablet 07-13 00:00: 00 2025- 06-12 23:59 :00 No [id number] 1 tablet DAILY 1 tablet DAILY (route: oral) Med Classific ation: Electroly te Balance-N utritiona l Products diltiazem ER (XR/XT) 180 mg capsule,ext ended release 24 hr, controlled 2-19 00:00: 00 03-13 23:59 :00 No [id number] 1 capsule DAILY 1 capsule DAILY (route: oral) Med Classific ation: Cardiovas cular Therapy Agents docusate sodium 100 mg capsule - 00:00: 00 03-13 23:59 :00 No [id number] 1 capsule 2 TIMES DAILY 1 capsule 2 TIMES DAILY (route: oral) Med Classific ation: Gastroint estinal Therapy Agents lisinopril 40 mg tablet - 00:00: 00 03-13 23:59 :00 No [id number] 1 tablet EVERY AM 1 tablet EVERY AM (route: oral) Med Classific ation: Cardiovas cular Therapy Agents metoprolol tartrate 25 mg tablet - 00:00: 00 03-13 23:59 :00 No [id number] 1 tablet 2 TIMES DAILY 1 tablet 2 TIMES DAILY (route: oral) Med Classific ation: Cardiovas cular Therapy Agents multivitami n with minerals tablet 07-13 00:00: 00 03-13 23:59 :00 No [id number] 1 tablet DAILY 1 tablet DAILY (route: oral) Med Classific ation: Electroly te Balance-N utroscara l Products paliperidon e ER 9 mg tablet,exte nded release 24 hr - 00:00: 00 12-01 23:59 :00 No [id number] 1 tablet BEDTIME 1 tablet BEDTIME (route: oral) Med Classific ation: Central Nervous System Agents metoprolol tartrate 25 mg tablet 6-19 00:00: 00 11-17 23:59 :00 No [id number] 1 tablet BEDTIME 1 tablet BEDTIME (route: oral) Med Classific ation: Cardiovas cular Therapy Agents benztropine 1 mg tablet -15 00:00: 00 03-13 23:59 :00 No [id number] 1 tablet EVERY PM 1 tablet EVERY PM (route: oral) Med Classific ation: Central Nervous System Agents paliperidon e ER 6 mg tablet,exte nded release 24 hr 12-01 00:00: 00 03-13 23:59 :00 No [id number] 1 tablet EVERY PM 1 tablet EVERY PM (route: oral) Med Classific ation: Central Nervous System Agents trazodone 50 mg tablet 12-01 00:00: 00 03-13 23:59 :00 No [id number] 1 tablet BEDTIME 1 tablet BEDTIME (route: oral) Med Classific ation: Central Nervous System Agents polyethylen e glycol 3350 17 gram/dose oral powder 12-21 00:00: 00 03-13 23:59 :00 No [id number] Per instruc tions DAILY Per instructio ns DAILY (route: oral) Med Classific ation: Gastroint estinal Therapy Agents benztropine 1 mg tablet 2024-05 00:00: 00 Yes [id number] 1 tablet EVERY PM 1 tablet EVERY PM (route: oral) Med Classific ation: Central Nervous System Agents cholecalcif beverley (vitamin D3) 10 mcg (400 unit) tablet 2024-05 00:00: 00 Yes [id number] 1 tablet EVERY AM 1 tablet EVERY AM (route: oral) Med Classific ation: Electroly te Balance-N utritiona l Products diltiazem ER (XR/XT) 180 mg capsule,ext ended release 24 hr, controlled 2024-05 00:00: 00 Yes [id number] 1 capsule EVERY AM 1 capsule EVERY AM (route: oral) Med Classific ation: Cardiovas cular Therapy Agents docusate sodium 100 mg capsule 2024-05 00:00: 00 Yes [id number] 1 capsule 2 TIMES DAILY 1 capsule 2 TIMES DAILY (route: oral) Med Classific ation: Gastroint estinal Therapy Agents lisinopril 40 mg tablet 2024-05 00:00: 00 Yes [id number] 1 tablet EVERY AM 1 tablet EVERY AM (route: oral) Med Classific ation: Cardiovas cular Therapy Agents metoprolol tartrate 25 mg tablet 2024-05 00:00: 00 Yes [id number] 1 tablet 2 TIMES DAILY 1 tablet 2 TIMES DAILY (route: oral) Med Classific ation: Cardiovas cular Therapy Agents multivitami n with minerals tablet 2024-05 00:00: 00 Yes [id number] 1 tablet EVERY AM 1 tablet EVERY AM (route: oral) Med Classific ation: Electroly te Balance-N utritiona l Products paliperidon e ER 6 mg tablet,exte nded release 24 hr 2024-05 00:00: 00 Yes [id number] 1 tablet EVERY PM 1 tablet EVERY PM (route: oral) Med Classific ation: Central Nervous System Agents polyethylen e glycol 3350 17 gram/dose oral powder 2024-05 00:00: 00 Yes [id number] Per instruc tions NEEDED Per instructio ns NEEDED (route: oral) Med Classific ation: Gastroint estinal Therapy Agents trazodone 50 mg tablet 2024-05 00:00: 00 Yes [id number] 1 tablet BEDTIME 1 tablet BEDTIME (route: [...] AWARENESS FOR SAFETY AND WILL NOTIFY CLINICAL CORE LAYING MACHINE OPERATOR AND PHYSICIAN/PROVIDER WITH ANY CHANGE IN CONDITION. [code = SKILLED NURSE WILL MAINTAIN SITUATIONAL AWARENESS FOR SAFETY AND WILL NOTIFY CLINICAL CORE LAYING MACHINE OPERATOR AND PHYSICIAN/PROVIDER WITH ANY CHANGE IN [...] 2025-05-08 00:00:00 Outpatient RECERTIFIC ATION TIFFANY MELTON [facility] [id number] 29.41
--- OUTSIDE RECORDS SUMMARY | 2025-05-07 19:00 | XMS_ITS | Clinical Summary ---
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 Tie Carrier Name Role Phone MEGAN CHUN, MELO Unavailable Unavailable GERONIMO TRACEY, TIFFANY Unavailable Unavailable Payers Payer Name Policy Type Policy Number Effective Date Expira tion Date [employer] ADV[employer]AGE [id number] MEDICARE - [facility] [id number] Problems Condition Name Condition Details Condition Category [...] 07-13 00:00: 00 03-13 23:59 :00 No [id number] 1 tablet DAILY 1 tablet DAILY (route: oral) Med Classific ation: Electroly te Balance-N utritiona l Products cyanocobala min (vit B-12) 1,000 mcg tablet 07-13 00:00: 00 2025- 06-12 23:59 :00 No [id number] 1 tablet DAILY 1 tablet DAILY (route: oral) Med Classific ation: Electroly te Balance-N utritiona l Products diltiazem ER (XR/XT) 180 mg capsule,ext ended release 24 hr, controlled 2-19 00:00: 00 03-13 23:59 :00 No [id number] 1 capsule DAILY 1 capsule DAILY (route: oral) Med Classific ation: Cardiovas cular Therapy Agents docusate sodium 100 mg capsule - 00:00: 00 03-13 23:59 :00 No [id number] 1 capsule 2 TIMES DAILY 1 capsule 2 TIMES DAILY (route: oral) Med Classific ation: Gastroint estinal Therapy Agents lisinopril 40 mg tablet - 00:00: 00 03-13 23:59 :00 No [id number] 1 tablet EVERY AM 1 tablet EVERY AM (route: oral) Med Classific ation: Cardiovas cular Therapy Agents metoprolol tartrate 25 mg tablet - 00:00: 00 03-13 23:59 :00 No [id number] 1 tablet 2 TIMES DAILY 1 tablet 2 TIMES DAILY (route: oral) Med Classific ation: Cardiovas cular Therapy Agents multivitami n with minerals tablet 07-13 00:00: 00 03-13 23:59 :00 No [id number] 1 tablet DAILY 1 tablet DAILY (route: oral) Med Classific ation: Electroly te Balance-N utroscara l Products paliperidon e ER 9 mg tablet,exte nded release 24 hr - 00:00: 00 12-01 23:59 :00 No [id number] 1 tablet BEDTIME 1 tablet BEDTIME (route: oral) Med Classific ation: Central Nervous System Agents metoprolol tartrate 25 mg tablet 6-19 00:00: 00 11-17 23:59 :00 No [id number] 1 tablet BEDTIME 1 tablet BEDTIME (route: oral) Med Classific ation: Cardiovas cular Therapy Agents benztropine 1 mg tablet -15 00:00: 00 03-13 23:59 :00 No [id number] 1 tablet EVERY PM 1 tablet EVERY PM (route: oral) Med Classific ation: Central Nervous System Agents paliperidon e ER 6 mg tablet,exte nded release 24 hr 12-01 00:00: 00 03-13 23:59 :00 No [id number] 1 tablet EVERY PM 1 tablet EVERY PM (route: oral) Med Classific ation: Central Nervous System Agents trazodone 50 mg tablet 12-01 00:00: 00 03-13 23:59 :00 No [id number] 1 tablet BEDTIME 1 tablet BEDTIME (route: oral) Med Classific ation: Central Nervous System Agents polyethylen e glycol 3350 17 gram/dose oral powder 12-21 00:00: 00 03-13 23:59 :00 No [id number] Per instruc tions DAILY Per instructio ns DAILY (route: oral) Med Classific ation: Gastroint estinal Therapy Agents benztropine 1 mg tablet 2024-05 00:00: 00 Yes [id number] 1 tablet EVERY PM 1 tablet EVERY PM (route: oral) Med Classific ation: Central Nervous System Agents cholecalcif beverley (vitamin D3) 10 mcg (400 unit) tablet 2024-05 00:00: 00 Yes [id number] 1 tablet EVERY AM 1 tablet EVERY AM (route: oral) Med Classific ation: Electroly te Balance-N utritiona l Products diltiazem ER (XR/XT) 180 mg capsule,ext ended release 24 hr, controlled 2024-05 00:00: 00 Yes [id number] 1 capsule EVERY AM 1 capsule EVERY AM (route: oral) Med Classific ation: Cardiovas cular Therapy Agents docusate sodium 100 mg capsule 2024-05 00:00: 00 Yes [id number] 1 capsule 2 TIMES DAILY 1 capsule 2 TIMES DAILY (route: oral) Med Classific ation: Gastroint estinal Therapy Agents lisinopril 40 mg tablet 2024-05 00:00: 00 Yes [id number] 1 tablet EVERY AM 1 tablet EVERY AM (route: oral) Med Classific ation: Cardiovas cular Therapy Agents metoprolol tartrate 25 mg tablet 2024-05 00:00: 00 Yes [id number] 1 tablet 2 TIMES DAILY 1 tablet 2 TIMES DAILY (route: oral) Med Classific ation: Cardiovas cular Therapy Agents multivitami n with minerals tablet 2024-05 00:00: 00 Yes [id number] 1 tablet EVERY AM 1 tablet EVERY AM (route: oral) Med Classific ation: Electroly te Balance-N utritiona l Products paliperidon e ER 6 mg tablet,exte nded release 24 hr 2024-05 00:00: 00 Yes [id number] 1 tablet EVERY PM 1 tablet EVERY PM (route: oral) Med Classific ation: Central Nervous System Agents polyethylen e glycol 3350 17 gram/dose oral powder 2024-05 00:00: 00 Yes [id number] Per instruc tions NEEDED Per instructio ns NEEDED (route: oral) Med Classific ation: Gastroint estinal Therapy Agents trazodone 50 mg tablet 2024-05 00:00: 00 Yes [id number] 1 tablet BEDTIME 1 tablet BEDTIME (route: [...] AWARENESS FOR SAFETY AND WILL NOTIFY CLINICAL MECHANISM INSPECTOR AND PHYSICIAN/PROVIDER WITH ANY CHANGE IN CONDITION. [code = SKILLED NURSE WILL MAINTAIN SITUATIONAL AWARENESS FOR SAFETY AND WILL NOTIFY CLINICAL MECHANISM INSPECTOR AND PHYSICIAN/PROVIDER WITH ANY CHANGE IN [...] RECERTIFIC ATION TIFFANY MELTON [facility] [id number] 29.41
--- OUTSIDE RECORDS SUMMARY | 2025-05-07 19:00 | XMS_ITS | Clinical Summary ---
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 Kitchen Porter Name Role Phone MEGAN CHUN, MELO Unavailable Unavailable GERONIMO TRACEY, TIFFANY Unavailable Unavailable Payers Payer Name Policy Type Policy Number Effective Date Expira tion Date [employer] [id number] MEDICARE - [facility] [id number] Problems Condition Name Condition Details Condition Category [...] 07-13 00:00: 00 03-13 23:59 :00 No [id number] 1 tablet DAILY 1 tablet DAILY (route: oral) Med Classific ation: Electroly te Balance-N utritiona l Products cyanocobala min (vit B-12) 1,000 mcg tablet 07-13 00:00: 00 2025- 06-12 23:59 :00 No [id number] 1 tablet DAILY 1 tablet DAILY (route: oral) Med Classific ation: Electroly te Balance-N utritiona l Products diltiazem ER (XR/XT) 180 mg capsule,ext ended release 24 hr, controlled 2-19 00:00: 00 03-13 23:59 :00 No [id number] 1 capsule DAILY 1 capsule DAILY (route: oral) Med Classific ation: Cardiovas cular Therapy Agents docusate sodium 100 mg capsule - 00:00: 00 03-13 23:59 :00 No [id number] 1 capsule 2 TIMES DAILY 1 capsule 2 TIMES DAILY (route: oral) Med Classific ation: Gastroint estinal Therapy Agents lisinopril 40 mg tablet - 00:00: 00 03-13 23:59 :00 No [id number] 1 tablet EVERY AM 1 tablet EVERY AM (route: oral) Med Classific ation: Cardiovas cular Therapy Agents metoprolol tartrate 25 mg tablet - 00:00: 00 03-13 23:59 :00 No [id number] 1 tablet 2 TIMES DAILY 1 tablet 2 TIMES DAILY (route: oral) Med Classific ation: Cardiovas cular Therapy Agents multivitami n with minerals tablet 07-13 00:00: 00 03-13 23:59 :00 No [id number] 1 tablet DAILY 1 tablet DAILY (route: oral) Med Classific ation: Electroly te Balance-N utroscara l Products paliperidon e ER 9 mg tablet,exte nded release 24 hr - 00:00: 00 12-01 23:59 :00 No [id number] 1 tablet BEDTIME 1 tablet BEDTIME (route: oral) Med Classific ation: Central Nervous System Agents metoprolol tartrate 25 mg tablet 6-19 00:00: 00 11-17 23:59 :00 No [id number] 1 tablet BEDTIME 1 tablet BEDTIME (route: oral) Med Classific ation: Cardiovas cular Therapy Agents benztropine 1 mg tablet -15 00:00: 00 03-13 23:59 :00 No [id number] 1 tablet EVERY PM 1 tablet EVERY PM (route: oral) Med Classific ation: Central Nervous System Agents paliperidon e ER 6 mg tablet,exte nded release 24 hr 12-01 00:00: 00 03-13 23:59 :00 No [id number] 1 tablet EVERY PM 1 tablet EVERY PM (route: oral) Med Classific ation: Central Nervous System Agents trazodone 50 mg tablet 12-01 00:00: 00 03-13 23:59 :00 No [id number] 1 tablet BEDTIME 1 tablet BEDTIME (route: oral) Med Classific ation: Central Nervous System Agents polyethylen e glycol 3350 17 gram/dose oral powder 12-21 00:00: 00 03-13 23:59 :00 No [id number] Per instruc tions DAILY Per instructio ns DAILY (route: oral) Med Classific ation: Gastroint estinal Therapy Agents benztropine 1 mg tablet 2024-05 00:00: 00 Yes [id number] 1 tablet EVERY PM 1 tablet EVERY PM (route: oral) Med Classific ation: Central Nervous System Agents cholecalcif beverley (vitamin D3) 10 mcg (400 unit) tablet 2024-05 00:00: 00 Yes [id number] 1 tablet EVERY AM 1 tablet EVERY AM (route: oral) Med Classific ation: Electroly te Balance-N utritiona l Products diltiazem ER (XR/XT) 180 mg capsule,ext ended release 24 hr, controlled 2024-05 00:00: 00 Yes [id number] 1 capsule EVERY AM 1 capsule EVERY AM (route: oral) Med Classific ation: Cardiovas cular Therapy Agents docusate sodium 100 mg capsule 2024-05 00:00: 00 Yes [id number] 1 capsule 2 TIMES DAILY 1 capsule 2 TIMES DAILY (route: oral) Med Classific ation: Gastroint estinal Therapy Agents lisinopril 40 mg tablet 2024-05 00:00: 00 Yes [id number] 1 tablet EVERY AM 1 tablet EVERY AM (route: oral) Med Classific ation: Cardiovas cular Therapy Agents metoprolol tartrate 25 mg tablet 2024-05 00:00: 00 Yes [id number] 1 tablet 2 TIMES DAILY 1 tablet 2 TIMES DAILY (route: oral) Med Classific ation: Cardiovas cular Therapy Agents multivitami n with minerals tablet 2024-05 00:00: 00 Yes [id number] 1 tablet EVERY AM 1 tablet EVERY AM (route: oral) Med Classific ation: Electroly te Balance-N utritiona l Products paliperidon e ER 6 mg tablet,exte nded release 24 hr 2024-05 00:00: 00 Yes [id number] 1 tablet EVERY PM 1 tablet EVERY PM (route: oral) Med Classific ation: Central Nervous System Agents polyethylen e glycol 3350 17 gram/dose oral powder 2024-05 00:00: 00 Yes [id number] Per instruc tions NEEDED Per instructio ns NEEDED (route: oral) Med Classific ation: Gastroint estinal Therapy Agents trazodone 50 mg tablet 2024-05 00:00: 00 Yes [id number] 1 tablet BEDTIME 1 tablet BEDTIME (route: [...] AWARENESS FOR SAFETY AND WILL NOTIFY CLINICAL BUTTON GRADER AND PHYSICIAN/PROVIDER WITH ANY CHANGE IN CONDITION. [code = SKILLED NURSE WILL MAINTAIN SITUATIONAL AWARENESS FOR SAFETY AND WILL NOTIFY CLINICAL BUTTON GRADER AND PHYSICIAN/PROVIDER WITH ANY CHANGE IN CONDITION.] [...] CARE WILL BE ESTABLISHED THAT MEETS PATIENT'S LONGTERM NEEDS AND INCLUDES PATIENT GOAL FOR HOME [...] RECERTIFIC ATION TIFFANY [facility] [id number] 29.41
--- OUTSIDE RECORDS SUMMARY | 2025-05-07 19:00 | XMS_ITS | Clinical Summary ---
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 Recreation Adviser Name Role Phone MEGAN CHUN, MELO Unavailable Unavailable GERONIMO TRACEY, TIFFANY Unavailable Unavailable Payers Payer Name Policy Type Policy Number Effective Date Expira tion Date [employer] [id number] MEDICARE - [facility] [id number] Problems Condition Name Condition Details Condition Category [...] 07-13 00:00: 00 03-13 23:59 :00 No [id number] 1 tablet DAILY 1 tablet DAILY (route: oral) Med Classific ation: Electroly te Balance-N utritiona l Products cyanocobala min (vit B-12) 1,000 mcg tablet 07-13 00:00: 00 2025- 06-12 23:59 :00 No [id number] 1 tablet DAILY 1 tablet DAILY (route: oral) Med Classific ation: Electroly te Balance-N utritiona l Products diltiazem ER (XR/XT) 180 mg capsule,ext ended release 24 hr, controlled 2-19 00:00: 00 03-13 23:59 :00 No [id number] 1 capsule DAILY 1 capsule DAILY (route: oral) Med Classific ation: Cardiovas cular Therapy Agents docusate sodium 100 mg capsule - 00:00: 00 03-13 23:59 :00 No [id number] 1 capsule 2 TIMES DAILY 1 capsule 2 TIMES DAILY (route: oral) Med Classific ation: Gastroint estinal Therapy Agents lisinopril 40 mg tablet - 00:00: 00 03-13 23:59 :00 No [id number] 1 tablet EVERY AM 1 tablet EVERY AM (route: oral) Med Classific ation: Cardiovas cular Therapy Agents metoprolol tartrate 25 mg tablet - 00:00: 00 03-13 23:59 :00 No [id number] 1 tablet 2 TIMES DAILY 1 tablet 2 TIMES DAILY (route: oral) Med Classific ation: Cardiovas cular Therapy Agents multivitami n with minerals tablet 07-13 00:00: 00 03-13 23:59 :00 No [id number] 1 tablet DAILY 1 tablet DAILY (route: oral) Med Classific ation: Electroly te Balance-N utroscara l Products paliperidon e ER 9 mg tablet,exte nded release 24 hr - 00:00: 00 12-01 23:59 :00 No [id number] 1 tablet BEDTIME 1 tablet BEDTIME (route: oral) Med Classific ation: Central Nervous System Agents metoprolol tartrate 25 mg tablet 6-19 00:00: 00 11-17 23:59 :00 No [id number] 1 tablet BEDTIME 1 tablet BEDTIME (route: oral) Med Classific ation: Cardiovas cular Therapy Agents benztropine 1 mg tablet -15 00:00: 00 03-13 23:59 :00 No [id number] 1 tablet EVERY PM 1 tablet EVERY PM (route: oral) Med Classific ation: Central Nervous System Agents paliperidon e ER 6 mg tablet,exte nded release 24 hr 12-01 00:00: 00 03-13 23:59 :00 No [id number] 1 tablet EVERY PM 1 tablet EVERY PM (route: oral) Med Classific ation: Central Nervous System Agents trazodone 50 mg tablet 12-01 00:00: 00 03-13 23:59 :00 No [id number] 1 tablet BEDTIME 1 tablet BEDTIME (route: oral) Med Classific ation: Central Nervous System Agents polyethylen e glycol 3350 17 gram/dose oral powder 12-21 00:00: 00 03-13 23:59 :00 No [id number] Per instruc tions DAILY Per instructio ns DAILY (route: oral) Med Classific ation: Gastroint estinal Therapy Agents benztropine 1 mg tablet 2024-05 00:00: 00 Yes [id number] 1 tablet EVERY PM 1 tablet EVERY PM (route: oral) Med Classific ation: Central Nervous System Agents cholecalcif beverley (vitamin D3) 10 mcg (400 unit) tablet 2024-05 00:00: 00 Yes [id number] 1 tablet EVERY AM 1 tablet EVERY AM (route: oral) Med Classific ation: Electroly te Balance-N utritiona l Products diltiazem ER (XR/XT) 180 mg capsule,ext ended release 24 hr, controlled 2024-05 00:00: 00 Yes [id number] 1 capsule EVERY AM 1 capsule EVERY AM (route: oral) Med Classific ation: Cardiovas cular Therapy Agents docusate sodium 100 mg capsule 2024-05 00:00: 00 Yes [id number] 1 capsule 2 TIMES DAILY 1 capsule 2 TIMES DAILY (route: oral) Med Classific ation: Gastroint estinal Therapy Agents lisinopril 40 mg tablet 2024-05 00:00: 00 Yes [id number] 1 tablet EVERY AM 1 tablet EVERY AM (route: oral) Med Classific ation: Cardiovas cular Therapy Agents metoprolol tartrate 25 mg tablet 2024-05 00:00: 00 Yes [id number] 1 tablet 2 TIMES DAILY 1 tablet 2 TIMES DAILY (route: oral) Med Classific ation: Cardiovas cular Therapy Agents multivitami n with minerals tablet 2024-05 00:00: 00 Yes [id number] 1 tablet EVERY AM 1 tablet EVERY AM (route: oral) Med Classific ation: Electroly te Balance-N utritiona l Products paliperidon e ER 6 mg tablet,exte nded release 24 hr 2024-05 00:00: 00 Yes [id number] 1 tablet EVERY PM 1 tablet EVERY PM (route: oral) Med Classific ation: Central Nervous System Agents polyethylen e glycol 3350 17 gram/dose oral powder 2024-05 00:00: 00 Yes [id number] Per instruc tions NEEDED Per instructio ns NEEDED (route: oral) Med Classific ation: Gastroint estinal Therapy Agents trazodone 50 mg tablet 2024-05 00:00: 00 Yes [id number] 1 tablet BEDTIME 1 tablet BEDTIME (route: [...] AWARENESS FOR SAFETY AND WILL NOTIFY CLINICAL PHONE OPERATOR AND PHYSICIAN/PROVIDER WITH ANY CHANGE IN CONDITION. [code = SKILLED NURSE WILL MAINTAIN SITUATIONAL AWARENESS FOR SAFETY AND WILL NOTIFY CLINICAL PHONE OPERATOR AND PHYSICIAN/PROVIDER WITH ANY CHANGE IN [...] ATION TIFFANY [facility] [id number] 29.41
--- OUTSIDE RECORDS SUMMARY | 2025-05-07 19:00 | XMS_ITS | Clinical Summary ---
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 Hotel Yardperson Name Role Phone MEGAN CHUN, MELO Unavailable Unavailable GERONIMO TRACEY, TIFFANY Unavailable Unavailable Payers Payer Name Policy Type Policy Number Effective Date Expira tion Date [employer] MEDIC[employer] ADVANTAGE [id number] MEDICARE - [facility] [id number] Problems Condition Name Condition Details Condition Category [...] 07-13 00:00: 00 03-13 23:59 :00 No [id number] 1 tablet DAILY 1 tablet DAILY (route: oral) Med Classific ation: Electroly te Balance-N utritiona l Products cyanocobala min (vit B-12) 1,000 mcg tablet 07-13 00:00: 00 2025- 06-12 23:59 :00 No [id number] 1 tablet DAILY 1 tablet DAILY (route: oral) Med Classific ation: Electroly te Balance-N utritiona l Products diltiazem ER (XR/XT) 180 mg capsule,ext ended release 24 hr, controlled 2-19 00:00: 00 03-13 23:59 :00 No [id number] 1 capsule DAILY 1 capsule DAILY (route: oral) Med Classific ation: Cardiovas cular Therapy Agents docusate sodium 100 mg capsule - 00:00: 00 03-13 23:59 :00 No [id number] 1 capsule 2 TIMES DAILY 1 capsule 2 TIMES DAILY (route: oral) Med Classific ation: Gastroint estinal Therapy Agents lisinopril 40 mg tablet - 00:00: 00 03-13 23:59 :00 No [id number] 1 tablet EVERY AM 1 tablet EVERY AM (route: oral) Med Classific ation: Cardiovas cular Therapy Agents metoprolol tartrate 25 mg tablet - 00:00: 00 03-13 23:59 :00 No [id number] 1 tablet 2 TIMES DAILY 1 tablet 2 TIMES DAILY (route: oral) Med Classific ation: Cardiovas cular Therapy Agents multivitami n with minerals tablet 07-13 00:00: 00 03-13 23:59 :00 No [id number] 1 tablet DAILY 1 tablet DAILY (route: oral) Med Classific ation: Electroly te Balance-N utroscara l Products paliperidon e ER 9 mg tablet,exte nded release 24 hr - 00:00: 00 12-01 23:59 :00 No [id number] 1 tablet BEDTIME 1 tablet BEDTIME (route: oral) Med Classific ation: Central Nervous System Agents metoprolol tartrate 25 mg tablet 6-19 00:00: 00 11-17 23:59 :00 No [id number] 1 tablet BEDTIME 1 tablet BEDTIME (route: oral) Med Classific ation: Cardiovas cular Therapy Agents benztropine 1 mg tablet -15 00:00: 00 03-13 23:59 :00 No [id number] 1 tablet EVERY PM 1 tablet EVERY PM (route: oral) Med Classific ation: Central Nervous System Agents paliperidon e ER 6 mg tablet,exte nded release 24 hr 12-01 00:00: 00 03-13 23:59 :00 No [id number] 1 tablet EVERY PM 1 tablet EVERY PM (route: oral) Med Classific ation: Central Nervous System Agents trazodone 50 mg tablet 12-01 00:00: 00 03-13 23:59 :00 No [id number] 1 tablet BEDTIME 1 tablet BEDTIME (route: oral) Med Classific ation: Central Nervous System Agents polyethylen e glycol 3350 17 gram/dose oral powder 12-21 00:00: 00 03-13 23:59 :00 No [id number] Per instruc tions DAILY Per instructio ns DAILY (route: oral) Med Classific ation: Gastroint estinal Therapy Agents benztropine 1 mg tablet 2024-05 00:00: 00 Yes [id number] 1 tablet EVERY PM 1 tablet EVERY PM (route: oral) Med Classific ation: Central Nervous System Agents cholecalcif beverley (vitamin D3) 10 mcg (400 unit) tablet 2024-05 00:00: 00 Yes [id number] 1 tablet EVERY AM 1 tablet EVERY AM (route: oral) Med Classific ation: Electroly te Balance-N utritiona l Products diltiazem ER (XR/XT) 180 mg capsule,ext ended release 24 hr, controlled 2024-05 00:00: 00 Yes [id number] 1 capsule EVERY AM 1 capsule EVERY AM (route: oral) Med Classific ation: Cardiovas cular Therapy Agents docusate sodium 100 mg capsule 2024-05 00:00: 00 Yes [id number] 1 capsule 2 TIMES DAILY 1 capsule 2 TIMES DAILY (route: oral) Med Classific ation: Gastroint estinal Therapy Agents lisinopril 40 mg tablet 2024-05 00:00: 00 Yes [id number] 1 tablet EVERY AM 1 tablet EVERY AM (route: oral) Med Classific ation: Cardiovas cular Therapy Agents metoprolol tartrate 25 mg tablet 2024-05 00:00: 00 Yes [id number] 1 tablet 2 TIMES DAILY 1 tablet 2 TIMES DAILY (route: oral) Med Classific ation: Cardiovas cular Therapy Agents multivitami n with minerals tablet 2024-05 00:00: 00 Yes [id number] 1 tablet EVERY AM 1 tablet EVERY AM (route: oral) Med Classific ation: Electroly te Balance-N utritiona l Products paliperidon e ER 6 mg tablet,exte nded release 24 hr 2024-05 00:00: 00 Yes [id number] 1 tablet EVERY PM 1 tablet EVERY PM (route: oral) Med Classific ation: Central Nervous System Agents polyethylen e glycol 3350 17 gram/dose oral powder 2024-05 00:00: 00 Yes [id number] Per instruc tions NEEDED Per instructio ns NEEDED (route: oral) Med Classific ation: Gastroint estinal Therapy Agents trazodone 50 mg tablet 2024-05 00:00: 00 Yes [id number] 1 tablet BEDTIME 1 tablet BEDTIME (route: [...] AWARENESS FOR SAFETY AND WILL NOTIFY CLINICAL COMMERCIAL PEST CONTROL REPRESENTATIVE AND PHYSICIAN/PROVIDER WITH ANY CHANGE IN CONDITION. [code = SKILLED NURSE WILL MAINTAIN SITUATIONAL AWARENESS FOR SAFETY AND WILL NOTIFY CLINICAL COMMERCIAL PEST CONTROL REPRESENTATIVE AND PHYSICIAN/PROVIDER WITH ANY CHANGE IN [...] [facility] [id number] 29.41
--- OUTSIDE RECORDS SUMMARY | 2025-05-07 19:00 | XMS_ITS | Clinical Summary ---
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 Personnel Research Psychologist Name Role Phone MEGAN CHUN, MELO Unavailable Unavailable GERONIMO TRACEY, TIFFANY Unavailable Unavailable Payers Payer Name Policy Type Policy Number Effective Date Expira tion Date [employer] MED[employer] ADVANTAGE [id number] [facility] - [facility] [id number] Problems Condition Name Condition Details Condition Category [...] 07-13 00:00: 00 03-13 23:59 :00 No [id number] 1 tablet DAILY 1 tablet DAILY (route: oral) Med Classific ation: Electroly te Balance-N utritiona l Products cyanocobala min (vit B-12) 1,000 mcg tablet 07-13 00:00: 00 2025- 06-12 23:59 :00 No [id number] 1 tablet DAILY 1 tablet DAILY (route: oral) Med Classific ation: Electroly te Balance-N utritiona l Products diltiazem ER (XR/XT) 180 mg capsule,ext ended release 24 hr, controlled 2-19 00:00: 00 03-13 23:59 :00 No [id number] 1 capsule DAILY 1 capsule DAILY (route: oral) Med Classific ation: Cardiovas cular Therapy Agents docusate sodium 100 mg capsule - 00:00: 00 03-13 23:59 :00 No [id number] 1 capsule 2 TIMES DAILY 1 capsule 2 TIMES DAILY (route: oral) Med Classific ation: Gastroint estinal Therapy Agents lisinopril 40 mg tablet - 00:00: 00 03-13 23:59 :00 No [id number] 1 tablet EVERY AM 1 tablet EVERY AM (route: oral) Med Classific ation: Cardiovas cular Therapy Agents metoprolol tartrate 25 mg tablet - 00:00: 00 03-13 23:59 :00 No [id number] 1 tablet 2 TIMES DAILY 1 tablet 2 TIMES DAILY (route: oral) Med Classific ation: Cardiovas cular Therapy Agents multivitami n with minerals tablet 07-13 00:00: 00 03-13 23:59 :00 No [id number] 1 tablet DAILY 1 tablet DAILY (route: oral) Med Classific ation: Electroly te Balance-N utroscara l Products paliperidon e ER 9 mg tablet,exte nded release 24 hr - 00:00: 00 12-01 23:59 :00 No [id number] 1 tablet BEDTIME 1 tablet BEDTIME (route: oral) Med Classific ation: Central Nervous System Agents metoprolol tartrate 25 mg tablet 6-19 00:00: 00 11-17 23:59 :00 No [id number] 1 tablet BEDTIME 1 tablet BEDTIME (route: oral) Med Classific ation: Cardiovas cular Therapy Agents benztropine 1 mg tablet -15 00:00: 00 03-13 23:59 :00 No [id number] 1 tablet EVERY PM 1 tablet EVERY PM (route: oral) Med Classific ation: Central Nervous System Agents paliperidon e ER 6 mg tablet,exte nded release 24 hr 12-01 00:00: 00 03-13 23:59 :00 No [id number] 1 tablet EVERY PM 1 tablet EVERY PM (route: oral) Med Classific ation: Central Nervous System Agents trazodone 50 mg tablet 12-01 00:00: 00 03-13 23:59 :00 No [id number] 1 tablet BEDTIME 1 tablet BEDTIME (route: oral) Med Classific ation: Central Nervous System Agents polyethylen e glycol 3350 17 gram/dose oral powder 12-21 00:00: 00 03-13 23:59 :00 No [id number] Per instruc tions DAILY Per instructio ns DAILY (route: oral) Med Classific ation: Gastroint estinal Therapy Agents benztropine 1 mg tablet 2024-05 00:00: 00 Yes [id number] 1 tablet EVERY PM 1 tablet EVERY PM (route: oral) Med Classific ation: Central Nervous System Agents cholecalcif beverley (vitamin D3) 10 mcg (400 unit) tablet 2024-05 00:00: 00 Yes [id number] 1 tablet EVERY AM 1 tablet EVERY AM (route: oral) Med Classific ation: Electroly te Balance-N utritiona l Products diltiazem ER (XR/XT) 180 mg capsule,ext ended release 24 hr, controlled 2024-05 00:00: 00 Yes [id number] 1 capsule EVERY AM 1 capsule EVERY AM (route: oral) Med Classific ation: Cardiovas cular Therapy Agents docusate sodium 100 mg capsule 2024-05 00:00: 00 Yes [id number] 1 capsule 2 TIMES DAILY 1 capsule 2 TIMES DAILY (route: oral) Med Classific ation: Gastroint estinal Therapy Agents lisinopril 40 mg tablet 2024-05 00:00: 00 Yes [id number] 1 tablet EVERY AM 1 tablet EVERY AM (route: oral) Med Classific ation: Cardiovas cular Therapy Agents metoprolol tartrate 25 mg tablet 2024-05 00:00: 00 Yes [id number] 1 tablet 2 TIMES DAILY 1 tablet 2 TIMES DAILY (route: oral) Med Classific ation: Cardiovas cular Therapy Agents multivitami n with minerals tablet 2024-05 00:00: 00 Yes [id number] 1 tablet EVERY AM 1 tablet EVERY AM (route: oral) Med Classific ation: Electroly te Balance-N utritiona l Products paliperidon e ER 6 mg tablet,exte nded release 24 hr 2024-05 00:00: 00 Yes [id number] 1 tablet EVERY PM 1 tablet EVERY PM (route: oral) Med Classific ation: Central Nervous System Agents polyethylen e glycol 3350 17 gram/dose oral powder 2024-05 00:00: 00 Yes [id number] Per instruc tions NEEDED Per instructio ns NEEDED (route: oral) Med Classific ation: Gastroint estinal Therapy Agents trazodone 50 mg tablet 2024-05 00:00: 00 Yes [id number] 1 tablet BEDTIME 1 tablet BEDTIME (route: [...] AWARENESS FOR SAFETY AND WILL NOTIFY CLINICAL REGISTERED NURSE BONE MARROW TRANSPLANT AND PHYSICIAN/PROVIDER WITH ANY CHANGE IN CONDITION. [code = SKILLED NURSE WILL MAINTAIN SITUATIONAL AWARENESS FOR SAFETY AND WILL NOTIFY CLINICAL REGISTERED NURSE BONE MARROW TRANSPLANT AND PHYSICIAN/PROVIDER WITH ANY CHANGE IN CONDITION.] [...] CARE WILL BE ESTABLISHED THAT MEETS PATIENT'S RETIREMENT NEEDS AND INCLUDES PATIENT GOAL FOR HOME [...] [facility] [id number] 29.41
--- OUTSIDE RECORDS SUMMARY | 2025-05-07 19:00 | XMS_ITS | Clinical Summary ---
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 Butter Grader Name Role Phone MEGAN CHUN, MELO Unavailable Unavailable GERONIMO TRACEY, TIFFANY Unavailable Unavailable Payers Payer Name Policy Type Policy Number Effective Date Expira tion Date [employer] [id number] MEDICARE - [facility] [id number] Problems Condition Name Condition Details Condition Category [...] 07-13 00:00: 00 03-13 23:59 :00 No [id number] 1 tablet DAILY 1 tablet DAILY (route: oral) Med Classific ation: Electroly te Balance-N utritiona l Products cyanocobala min (vit B-12) 1,000 mcg tablet 07-13 00:00: 00 2025- 06-12 23:59 :00 No [id number] 1 tablet DAILY 1 tablet DAILY (route: oral) Med Classific ation: Electroly te Balance-N utritiona l Products diltiazem ER (XR/XT) 180 mg capsule,ext ended release 24 hr, controlled 2-19 00:00: 00 03-13 23:59 :00 No [id number] 1 capsule DAILY 1 capsule DAILY (route: oral) Med Classific ation: Cardiovas cular Therapy Agents docusate sodium 100 mg capsule - 00:00: 00 03-13 23:59 :00 No [id number] 1 capsule 2 TIMES DAILY 1 capsule 2 TIMES DAILY (route: oral) Med Classific ation: Gastroint estinal Therapy Agents lisinopril 40 mg tablet - 00:00: 00 03-13 23:59 :00 No [id number] 1 tablet EVERY AM 1 tablet EVERY AM (route: oral) Med Classific ation: Cardiovas cular Therapy Agents metoprolol tartrate 25 mg tablet - 00:00: 00 03-13 23:59 :00 No [id number] 1 tablet 2 TIMES DAILY 1 tablet 2 TIMES DAILY (route: oral) Med Classific ation: Cardiovas cular Therapy Agents multivitami n with minerals tablet 07-13 00:00: 00 03-13 23:59 :00 No [id number] 1 tablet DAILY 1 tablet DAILY (route: oral) Med Classific ation: Electroly te Balance-N utroscara l Products paliperidon e ER 9 mg tablet,exte nded release 24 hr - 00:00: 00 12-01 23:59 :00 No [id number] 1 tablet BEDTIME 1 tablet BEDTIME (route: oral) Med Classific ation: Central Nervous System Agents metoprolol tartrate 25 mg tablet 6-19 00:00: 00 11-17 23:59 :00 No [id number] 1 tablet BEDTIME 1 tablet BEDTIME (route: oral) Med Classific ation: Cardiovas cular Therapy Agents benztropine 1 mg tablet -15 00:00: 00 03-13 23:59 :00 No [id number] 1 tablet EVERY PM 1 tablet EVERY PM (route: oral) Med Classific ation: Central Nervous System Agents paliperidon e ER 6 mg tablet,exte nded release 24 hr 12-01 00:00: 00 03-13 23:59 :00 No [id number] 1 tablet EVERY PM 1 tablet EVERY PM (route: oral) Med Classific ation: Central Nervous System Agents trazodone 50 mg tablet 12-01 00:00: 00 03-13 23:59 :00 No [id number] 1 tablet BEDTIME 1 tablet BEDTIME (route: oral) Med Classific ation: Central Nervous System Agents polyethylen e glycol 3350 17 gram/dose oral powder 12-21 00:00: 00 03-13 23:59 :00 No [id number] Per instruc tions DAILY Per instructio ns DAILY (route: oral) Med Classific ation: Gastroint estinal Therapy Agents benztropine 1 mg tablet 2024-05 00:00: 00 Yes [id number] 1 tablet EVERY PM 1 tablet EVERY PM (route: oral) Med Classific ation: Central Nervous System Agents cholecalcif beverley (vitamin D3) 10 mcg (400 unit) tablet 2024-05 00:00: 00 Yes [id number] 1 tablet EVERY AM 1 tablet EVERY AM (route: oral) Med Classific ation: Electroly te Balance-N utritiona l Products diltiazem ER (XR/XT) 180 mg capsule,ext ended release 24 hr, controlled 2024-05 00:00: 00 Yes [id number] 1 capsule EVERY AM 1 capsule EVERY AM (route: oral) Med Classific ation: Cardiovas cular Therapy Agents docusate sodium 100 mg capsule 2024-05 00:00: 00 Yes [id number] 1 capsule 2 TIMES DAILY 1 capsule 2 TIMES DAILY (route: oral) Med Classific ation: Gastroint estinal Therapy Agents lisinopril 40 mg tablet 2024-05 00:00: 00 Yes [id number] 1 tablet EVERY AM 1 tablet EVERY AM (route: oral) Med Classific ation: Cardiovas cular Therapy Agents metoprolol tartrate 25 mg tablet 2024-05 00:00: 00 Yes [id number] 1 tablet 2 TIMES DAILY 1 tablet 2 TIMES DAILY (route: oral) Med Classific ation: Cardiovas cular Therapy Agents multivitami n with minerals tablet 2024-05 00:00: 00 Yes [id number] 1 tablet EVERY AM 1 tablet EVERY AM (route: oral) Med Classific ation: Electroly te Balance-N utritiona l Products paliperidon e ER 6 mg tablet,exte nded release 24 hr 2024-05 00:00: 00 Yes [id number] 1 tablet EVERY PM 1 tablet EVERY PM (route: oral) Med Classific ation: Central Nervous System Agents polyethylen e glycol 3350 17 gram/dose oral powder 2024-05 00:00: 00 Yes [id number] Per instruc tions NEEDED Per instructio ns NEEDED (route: oral) Med Classific ation: Gastroint estinal Therapy Agents trazodone 50 mg tablet 2024-05 00:00: 00 Yes [id number] 1 tablet BEDTIME 1 tablet BEDTIME (route: [...] AWARENESS FOR SAFETY AND WILL NOTIFY CLINICAL FIRE TECHNOLOGY INSTRUCTOR AND PHYSICIAN/PROVIDER WITH ANY CHANGE IN CONDITION. [code = SKILLED NURSE WILL MAINTAIN SITUATIONAL AWARENESS FOR SAFETY AND WILL NOTIFY CLINICAL FIRE TECHNOLOGY INSTRUCTOR AND PHYSICIAN/PROVIDER WITH ANY CHANGE IN [...] ATION TIFFANY MELTON [facility] [id number] 29.41
--- OUTSIDE RECORDS SUMMARY | 2025-05-07 19:00 | XMS_ITS | Clinical Summary ---
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 First Aid Instructor Name Role Phone MEGAN CHUN, MELO Unavailable Unavailable GERONIMO TRACEY, TIFFANY Unavailable Unavailable Payers Payer Name Policy Type Policy Number Effective Date Expira tion Date [employer] [id number] MEDICARE - [facility] [id number] Problems Condition Name Condition Details Condition Category [...] 07-13 00:00: 00 03-13 23:59 :00 No [id number] 1 tablet DAILY 1 tablet DAILY (route: oral) Med Classific ation: Electroly te Balance-N utritiona l Products cyanocobala min (vit B-12) 1,000 mcg tablet 07-13 00:00: 00 2025- 06-12 23:59 :00 No [id number] 1 tablet DAILY 1 tablet DAILY (route: oral) Med Classific ation: Electroly te Balance-N utritiona l Products diltiazem ER (XR/XT) 180 mg capsule,ext ended release 24 hr, controlled 2-19 00:00: 00 03-13 23:59 :00 No [id number] 1 capsule DAILY 1 capsule DAILY (route: oral) Med Classific ation: Cardiovas cular Therapy Agents docusate sodium 100 mg capsule - 00:00: 00 03-13 23:59 :00 No [id number] 1 capsule 2 TIMES DAILY 1 capsule 2 TIMES DAILY (route: oral) Med Classific ation: Gastroint estinal Therapy Agents lisinopril 40 mg tablet - 00:00: 00 03-13 23:59 :00 No [id number] 1 tablet EVERY AM 1 tablet EVERY AM (route: oral) Med Classific ation: Cardiovas cular Therapy Agents metoprolol tartrate 25 mg tablet - 00:00: 00 03-13 23:59 :00 No [id number] 1 tablet 2 TIMES DAILY 1 tablet 2 TIMES DAILY (route: oral) Med Classific ation: Cardiovas cular Therapy Agents multivitami n with minerals tablet 07-13 00:00: 00 03-13 23:59 :00 No [id number] 1 tablet DAILY 1 tablet DAILY (route: oral) Med Classific ation: Electroly te Balance-N utroscara l Products paliperidon e ER 9 mg tablet,exte nded release 24 hr - 00:00: 00 12-01 23:59 :00 No [id number] 1 tablet BEDTIME 1 tablet BEDTIME (route: oral) Med Classific ation: Central Nervous System Agents metoprolol tartrate 25 mg tablet 6-19 00:00: 00 11-17 23:59 :00 No [id number] 1 tablet BEDTIME 1 tablet BEDTIME (route: oral) Med Classific ation: Cardiovas cular Therapy Agents benztropine 1 mg tablet -15 00:00: 00 03-13 23:59 :00 No [id number] 1 tablet EVERY PM 1 tablet EVERY PM (route: oral) Med Classific ation: Central Nervous System Agents paliperidon e ER 6 mg tablet,exte nded release 24 hr 12-01 00:00: 00 03-13 23:59 :00 No [id number] 1 tablet EVERY PM 1 tablet EVERY PM (route: oral) Med Classific ation: Central Nervous System Agents trazodone 50 mg tablet 12-01 00:00: 00 03-13 23:59 :00 No [id number] 1 tablet BEDTIME 1 tablet BEDTIME (route: oral) Med Classific ation: Central Nervous System Agents polyethylen e glycol 3350 17 gram/dose oral powder 12-21 00:00: 00 03-13 23:59 :00 No [id number] Per instruc tions DAILY Per instructio ns DAILY (route: oral) Med Classific ation: Gastroint estinal Therapy Agents benztropine 1 mg tablet 2024-05 00:00: 00 Yes [id number] 1 tablet EVERY PM 1 tablet EVERY PM (route: oral) Med Classific ation: Central Nervous System Agents cholecalcif beverley (vitamin D3) 10 mcg (400 unit) tablet 2024-05 00:00: 00 Yes [id number] 1 tablet EVERY AM 1 tablet EVERY AM (route: oral) Med Classific ation: Electroly te Balance-N utritiona l Products diltiazem ER (XR/XT) 180 mg capsule,ext ended release 24 hr, controlled 2024-05 00:00: 00 Yes [id number] 1 capsule EVERY AM 1 capsule EVERY AM (route: oral) Med Classific ation: Cardiovas cular Therapy Agents docusate sodium 100 mg capsule 2024-05 00:00: 00 Yes [id number] 1 capsule 2 TIMES DAILY 1 capsule 2 TIMES DAILY (route: oral) Med Classific ation: Gastroint estinal Therapy Agents lisinopril 40 mg tablet 2024-05 00:00: 00 Yes [id number] 1 tablet EVERY AM 1 tablet EVERY AM (route: oral) Med Classific ation: Cardiovas cular Therapy Agents metoprolol tartrate 25 mg tablet 2024-05 00:00: 00 Yes [id number] 1 tablet 2 TIMES DAILY 1 tablet 2 TIMES DAILY (route: oral) Med Classific ation: Cardiovas cular Therapy Agents multivitami n with minerals tablet 2024-05 00:00: 00 Yes [id number] 1 tablet EVERY AM 1 tablet EVERY AM (route: oral) Med Classific ation: Electroly te Balance-N utritiona l Products paliperidon e ER 6 mg tablet,exte nded release 24 hr 2024-05 00:00: 00 Yes [id number] 1 tablet EVERY PM 1 tablet EVERY PM (route: oral) Med Classific ation: Central Nervous System Agents polyethylen e glycol 3350 17 gram/dose oral powder 2024-05 00:00: 00 Yes [id number] Per instruc tions NEEDED Per instructio ns NEEDED (route: oral) Med Classific ation: Gastroint estinal Therapy Agents trazodone 50 mg tablet 2024-05 00:00: 00 Yes [id number] 1 tablet BEDTIME 1 tablet BEDTIME (route: [...] AWARENESS FOR SAFETY AND WILL NOTIFY CLINICAL BOTTOM BUFFER AND PHYSICIAN/PROVIDER WITH ANY CHANGE IN CONDITION. [code = SKILLED NURSE WILL MAINTAIN SITUATIONAL AWARENESS FOR SAFETY AND WILL NOTIFY CLINICAL BOTTOM BUFFER AND PHYSICIAN/PROVIDER WITH ANY CHANGE IN CONDITION.] [...] 2025-05-08 00:00:00 Outpatient RECERTIFIC ATION TIFFANY MELTON [facility] [id number] 29.41
--- OUTSIDE RECORDS SUMMARY | 2025-05-07 19:00 | XMS_ITS | Clinical Summary ---
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 Plasma Processing Technician Name Role Phone MEGAN CHUN, MELO Unavailable Unavailable GERONIMO TRACEY, TIFFANY Unavailable Unavailable Payers Payer Name Policy Type Policy Number Effective Date Expira tion Date [employer] ADVANT[employer] [id number] MEDICARE - [facility] [id number] Problems Condition Name Condition Details Condition Category [...] 07-13 00:00: 00 03-13 23:59 :00 No [id number] 1 tablet DAILY 1 tablet DAILY (route: oral) Med Classific ation: Electroly te Balance-N utritiona l Products cyanocobala min (vit B-12) 1,000 mcg tablet 07-13 00:00: 00 2025- 06-12 23:59 :00 No [id number] 1 tablet DAILY 1 tablet DAILY (route: oral) Med Classific ation: Electroly te Balance-N utritiona l Products diltiazem ER (XR/XT) 180 mg capsule,ext ended release 24 hr, controlled 2-19 00:00: 00 03-13 23:59 :00 No [id number] 1 capsule DAILY 1 capsule DAILY (route: oral) Med Classific ation: Cardiovas cular Therapy Agents docusate sodium 100 mg capsule - 00:00: 00 03-13 23:59 :00 No [id number] 1 capsule 2 TIMES DAILY 1 capsule 2 TIMES DAILY (route: oral) Med Classific ation: Gastroint estinal Therapy Agents lisinopril 40 mg tablet - 00:00: 00 03-13 23:59 :00 No [id number] 1 tablet EVERY AM 1 tablet EVERY AM (route: oral) Med Classific ation: Cardiovas cular Therapy Agents metoprolol tartrate 25 mg tablet - 00:00: 00 03-13 23:59 :00 No [id number] 1 tablet 2 TIMES DAILY 1 tablet 2 TIMES DAILY (route: oral) Med Classific ation: Cardiovas cular Therapy Agents multivitami n with minerals tablet 07-13 00:00: 00 03-13 23:59 :00 No [id number] 1 tablet DAILY 1 tablet DAILY (route: oral) Med Classific ation: Electroly te Balance-N utroscara l Products paliperidon e ER 9 mg tablet,exte nded release 24 hr - 00:00: 00 12-01 23:59 :00 No [id number] 1 tablet BEDTIME 1 tablet BEDTIME (route: oral) Med Classific ation: Central Nervous System Agents metoprolol tartrate 25 mg tablet 6-19 00:00: 00 11-17 23:59 :00 No [id number] 1 tablet BEDTIME 1 tablet BEDTIME (route: oral) Med Classific ation: Cardiovas cular Therapy Agents benztropine 1 mg tablet -15 00:00: 00 03-13 23:59 :00 No [id number] 1 tablet EVERY PM 1 tablet EVERY PM (route: oral) Med Classific ation: Central Nervous System Agents paliperidon e ER 6 mg tablet,exte nded release 24 hr 12-01 00:00: 00 03-13 23:59 :00 No [id number] 1 tablet EVERY PM 1 tablet EVERY PM (route: oral) Med Classific ation: Central Nervous System Agents trazodone 50 mg tablet 12-01 00:00: 00 03-13 23:59 :00 No [id number] 1 tablet BEDTIME 1 tablet BEDTIME (route: oral) Med Classific ation: Central Nervous System Agents polyethylen e glycol 3350 17 gram/dose oral powder 12-21 00:00: 00 03-13 23:59 :00 No [id number] Per instruc tions DAILY Per instructio ns DAILY (route: oral) Med Classific ation: Gastroint estinal Therapy Agents benztropine 1 mg tablet 2024-05 00:00: 00 Yes [id number] 1 tablet EVERY PM 1 tablet EVERY PM (route: oral) Med Classific ation: Central Nervous System Agents cholecalcif beverley (vitamin D3) 10 mcg (400 unit) tablet 2024-05 00:00: 00 Yes [id number] 1 tablet EVERY AM 1 tablet EVERY AM (route: oral) Med Classific ation: Electroly te Balance-N utritiona l Products diltiazem ER (XR/XT) 180 mg capsule,ext ended release 24 hr, controlled 2024-05 00:00: 00 Yes [id number] 1 capsule EVERY AM 1 capsule EVERY AM (route: oral) Med Classific ation: Cardiovas cular Therapy Agents docusate sodium 100 mg capsule 2024-05 00:00: 00 Yes [id number] 1 capsule 2 TIMES DAILY 1 capsule 2 TIMES DAILY (route: oral) Med Classific ation: Gastroint estinal Therapy Agents lisinopril 40 mg tablet 2024-05 00:00: 00 Yes [id number] 1 tablet EVERY AM 1 tablet EVERY AM (route: oral) Med Classific ation: Cardiovas cular Therapy Agents metoprolol tartrate 25 mg tablet 2024-05 00:00: 00 Yes [id number] 1 tablet 2 TIMES DAILY 1 tablet 2 TIMES DAILY (route: oral) Med Classific ation: Cardiovas cular Therapy Agents multivitami n with minerals tablet 2024-05 00:00: 00 Yes [id number] 1 tablet EVERY AM 1 tablet EVERY AM (route: oral) Med Classific ation: Electroly te Balance-N utritiona l Products paliperidon e ER 6 mg tablet,exte nded release 24 hr 2024-05 00:00: 00 Yes [id number] 1 tablet EVERY PM 1 tablet EVERY PM (route: oral) Med Classific ation: Central Nervous System Agents polyethylen e glycol 3350 17 gram/dose oral powder 2024-05 00:00: 00 Yes [id number] Per instruc tions NEEDED Per instructio ns NEEDED (route: oral) Med Classific ation: Gastroint estinal Therapy Agents trazodone 50 mg tablet 2024-05 00:00: 00 Yes [id number] 1 tablet BEDTIME 1 tablet BEDTIME (route: [...] AWARENESS FOR SAFETY AND WILL NOTIFY CLINICAL LOG INSPECTOR AND PHYSICIAN/PROVIDER WITH ANY CHANGE IN CONDITION. [code = SKILLED NURSE WILL MAINTAIN SITUATIONAL AWARENESS FOR SAFETY AND WILL NOTIFY CLINICAL LOG INSPECTOR AND PHYSICIAN/PROVIDER WITH ANY CHANGE IN [...] RECERTIFIC ATION TIFFANY MELTON [facility] [id number] 29.41
--- OUTSIDE RECORDS SUMMARY | 2025-05-07 19:00 | XMS_ITS | Clinical Summary ---
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 [address] [employer] Name Role Phone MEGAN CHUN, MELO Unavailable Unavailable GERONIMO TRACEY, TIFFANY Unavailable Unavailable Payers Payer Name Policy Type Policy Number Effective Date Expira tion Date [employer] [id number] MEDICARE - [facility] [id number] Problems Condition Name Condition Details Condition Category [...] 07-13 00:00: 00 03-13 23:59 :00 No [id number] 1 tablet DAILY 1 tablet DAILY (route: oral) Med Classific ation: Electroly te Balance-N utritiona l Products cyanocobala min (vit B-12) 1,000 mcg tablet 07-13 00:00: 00 2025- 06-12 23:59 :00 No [id number] 1 tablet DAILY 1 tablet DAILY (route: oral) Med Classific ation: Electroly te Balance-N utritiona l Products diltiazem ER (XR/XT) 180 mg capsule,ext ended release 24 hr, controlled 2-19 00:00: 00 03-13 23:59 :00 No [id number] 1 capsule DAILY 1 capsule DAILY (route: oral) Med Classific ation: Cardiovas cular Therapy Agents docusate sodium 100 mg capsule - 00:00: 00 03-13 23:59 :00 No [id number] 1 capsule 2 TIMES DAILY 1 capsule 2 TIMES DAILY (route: oral) Med Classific ation: Gastroint estinal Therapy Agents lisinopril 40 mg tablet - 00:00: 00 03-13 23:59 :00 No [id number] 1 tablet EVERY AM 1 tablet EVERY AM (route: oral) Med Classific ation: Cardiovas cular Therapy Agents metoprolol tartrate 25 mg tablet - 00:00: 00 03-13 23:59 :00 No [id number] 1 tablet 2 TIMES DAILY 1 tablet 2 TIMES DAILY (route: oral) Med Classific ation: Cardiovas cular Therapy Agents multivitami n with minerals tablet 07-13 00:00: 00 03-13 23:59 :00 No [id number] 1 tablet DAILY 1 tablet DAILY (route: oral) Med Classific ation: Electroly te Balance-N utroscara l Products paliperidon e ER 9 mg tablet,exte nded release 24 hr - 00:00: 00 12-01 23:59 :00 No [id number] 1 tablet BEDTIME 1 tablet BEDTIME (route: oral) Med Classific ation: Central Nervous System Agents metoprolol tartrate 25 mg tablet 6-19 00:00: 00 11-17 23:59 :00 No [id number] 1 tablet BEDTIME 1 tablet BEDTIME (route: oral) Med Classific ation: Cardiovas cular Therapy Agents benztropine 1 mg tablet -15 00:00: 00 03-13 23:59 :00 No [id number] 1 tablet EVERY PM 1 tablet EVERY PM (route: oral) Med Classific ation: Central Nervous System Agents paliperidon e ER 6 mg tablet,exte nded release 24 hr 12-01 00:00: 00 03-13 23:59 :00 No [id number] 1 tablet EVERY PM 1 tablet EVERY PM (route: oral) Med Classific ation: Central Nervous System Agents trazodone 50 mg tablet 12-01 00:00: 00 03-13 23:59 :00 No [id number] 1 tablet BEDTIME 1 tablet BEDTIME (route: oral) Med Classific ation: Central Nervous System Agents polyethylen e glycol 3350 17 gram/dose oral powder 12-21 00:00: 00 03-13 23:59 :00 No [id number] Per instruc tions DAILY Per instructio ns DAILY (route: oral) Med Classific ation: Gastroint estinal Therapy Agents benztropine 1 mg tablet 2024-05 00:00: 00 Yes [id number] 1 tablet EVERY PM 1 tablet EVERY PM (route: oral) Med Classific ation: Central Nervous System Agents cholecalcif beverley (vitamin D3) 10 mcg (400 unit) tablet 2024-05 00:00: 00 Yes [id number] 1 tablet EVERY AM 1 tablet EVERY AM (route: oral) Med Classific ation: Electroly te Balance-N utritiona l Products diltiazem ER (XR/XT) 180 mg capsule,ext ended release 24 hr, controlled 2024-05 00:00: 00 Yes [id number] 1 capsule EVERY AM 1 capsule EVERY AM (route: oral) Med Classific ation: Cardiovas cular Therapy Agents docusate sodium 100 mg capsule 2024-05 00:00: 00 Yes [id number] 1 capsule 2 TIMES DAILY 1 capsule 2 TIMES DAILY (route: oral) Med Classific ation: Gastroint estinal Therapy Agents lisinopril 40 mg tablet 2024-05 00:00: 00 Yes [id number] 1 tablet EVERY AM 1 tablet EVERY AM (route: oral) Med Classific ation: Cardiovas cular Therapy Agents metoprolol tartrate 25 mg tablet 2024-05 00:00: 00 Yes [id number] 1 tablet 2 TIMES DAILY 1 tablet 2 TIMES DAILY (route: oral) Med Classific ation: Cardiovas cular Therapy Agents multivitami n with minerals tablet 2024-05 00:00: 00 Yes [id number] 1 tablet EVERY AM 1 tablet EVERY AM (route: oral) Med Classific ation: Electroly te Balance-N utritiona l Products paliperidon e ER 6 mg tablet,exte nded release 24 hr 2024-05 00:00: 00 Yes [id number] 1 tablet EVERY PM 1 tablet EVERY PM (route: oral) Med Classific ation: Central Nervous System Agents polyethylen e glycol 3350 17 gram/dose oral powder 2024-05 00:00: 00 Yes [id number] Per instruc tions NEEDED Per instructio ns NEEDED (route: oral) Med Classific ation: Gastroint estinal Therapy Agents trazodone 50 mg tablet 2024-05 00:00: 00 Yes [id number] 1 tablet BEDTIME 1 tablet BEDTIME (route: [...] AWARENESS FOR SAFETY AND WILL NOTIFY CLINICAL DRIFT MINER AND PHYSICIAN/PROVIDER WITH ANY CHANGE IN CONDITION. [code = SKILLED NURSE WILL MAINTAIN SITUATIONAL AWARENESS FOR SAFETY AND WILL NOTIFY CLINICAL DRIFT MINER AND PHYSICIAN/PROVIDER WITH ANY CHANGE IN CONDITION.] [...] 2025-05-08 00:00:00 Outpatient RECERTIFIC ATION TIFFANY MELTON [facility] [id number] 29.41
--- OUTSIDE RECORDS SUMMARY | 2025-05-07 19:00 | XMS_ITS | Clinical Summary ---
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 Animal Biologist Name Role Phone MEGAN CHNU, MELO Unavailable Unavailable GERONIMO TRACEY, TIFFANY Unavailable Unavailable Payers Payer Name Policy Type Policy Number Effective Date Expira tion Date [employer] [id number] MEDICARE - [facility] [id number] Problems Condition Name Condition Details Condition Category [...] 07-13 00:00: 00 03-13 23:59 :00 No [id number] 1 tablet DAILY 1 tablet DAILY (route: oral) Med Classific ation: Electroly te Balance-N utritiona l Products cyanocobala min (vit B-12) 1,000 mcg tablet 07-13 00:00: 00 2025- 06-12 23:59 :00 No [id number] 1 tablet DAILY 1 tablet DAILY (route: oral) Med Classific ation: Electroly te Balance-N utritiona l Products diltiazem ER (XR/XT) 180 mg capsule,ext ended release 24 hr, controlled 2-19 00:00: 00 03-13 23:59 :00 No [id number] 1 capsule DAILY 1 capsule DAILY (route: oral) Med Classific ation: Cardiovas cular Therapy Agents docusate sodium 100 mg capsule - 00:00: 00 03-13 23:59 :00 No [id number] 1 capsule 2 TIMES DAILY 1 capsule 2 TIMES DAILY (route: oral) Med Classific ation: Gastroint estinal Therapy Agents lisinopril 40 mg tablet - 00:00: 00 03-13 23:59 :00 No [id number] 1 tablet EVERY AM 1 tablet EVERY AM (route: oral) Med Classific ation: Cardiovas cular Therapy Agents metoprolol tartrate 25 mg tablet - 00:00: 00 03-13 23:59 :00 No [id number] 1 tablet 2 TIMES DAILY 1 tablet 2 TIMES DAILY (route: oral) Med Classific ation: Cardiovas cular Therapy Agents multivitami n with minerals tablet 07-13 00:00: 00 03-13 23:59 :00 No [id number] 1 tablet DAILY 1 tablet DAILY (route: oral) Med Classific ation: Electroly te Balance-N utroscara l Products paliperidon e ER 9 mg tablet,exte nded release 24 hr - 00:00: 00 12-01 23:59 :00 No [id number] 1 tablet BEDTIME 1 tablet BEDTIME (route: oral) Med Classific ation: Central Nervous System Agents metoprolol tartrate 25 mg tablet 6-19 00:00: 00 11-17 23:59 :00 No [id number] 1 tablet BEDTIME 1 tablet BEDTIME (route: oral) Med Classific ation: Cardiovas cular Therapy Agents benztropine 1 mg tablet -15 00:00: 00 03-13 23:59 :00 No [id number] 1 tablet EVERY PM 1 tablet EVERY PM (route: oral) Med Classific ation: Central Nervous System Agents paliperidon e ER 6 mg tablet,exte nded release 24 hr 12-01 00:00: 00 03-13 23:59 :00 No [id number] 1 tablet EVERY PM 1 tablet EVERY PM (route: oral) Med Classific ation: Central Nervous System Agents trazodone 50 mg tablet 12-01 00:00: 00 03-13 23:59 :00 No [id number] 1 tablet BEDTIME 1 tablet BEDTIME (route: oral) Med Classific ation: Central Nervous System Agents polyethylen e glycol 3350 17 gram/dose oral powder 12-21 00:00: 00 03-13 23:59 :00 No [id number] Per instruc tions DAILY Per instructio ns DAILY (route: oral) Med Classific ation: Gastroint estinal Therapy Agents benztropine 1 mg tablet 2024-05 00:00: 00 Yes [id number] 1 tablet EVERY PM 1 tablet EVERY PM (route: oral) Med Classific ation: Central Nervous System Agents cholecalcif beverley (vitamin D3) 10 mcg (400 unit) tablet 2024-05 00:00: 00 Yes [id number] 1 tablet EVERY AM 1 tablet EVERY AM (route: oral) Med Classific ation: Electroly te Balance-N utritiona l Products diltiazem ER (XR/XT) 180 mg capsule,ext ended release 24 hr, controlled 2024-05 00:00: 00 Yes [id number] 1 capsule EVERY AM 1 capsule EVERY AM (route: oral) Med Classific ation: Cardiovas cular Therapy Agents docusate sodium 100 mg capsule 2024-05 00:00: 00 Yes [id number] 1 capsule 2 TIMES DAILY 1 capsule 2 TIMES DAILY (route: oral) Med Classific ation: Gastroint estinal Therapy Agents lisinopril 40 mg tablet 2024-05 00:00: 00 Yes [id number] 1 tablet EVERY AM 1 tablet EVERY AM (route: oral) Med Classific ation: Cardiovas cular Therapy Agents metoprolol tartrate 25 mg tablet 2024-05 00:00: 00 Yes [id number] 1 tablet 2 TIMES DAILY 1 tablet 2 TIMES DAILY (route: oral) Med Classific ation: Cardiovas cular Therapy Agents multivitami n with minerals tablet 2024-05 00:00: 00 Yes [id number] 1 tablet EVERY AM 1 tablet EVERY AM (route: oral) Med Classific ation: Electroly te Balance-N utritiona l Products paliperidon e ER 6 mg tablet,exte nded release 24 hr 2024-05 00:00: 00 Yes [id number] 1 tablet EVERY PM 1 tablet EVERY PM (route: oral) Med Classific ation: Central Nervous System Agents polyethylen e glycol 3350 17 gram/dose oral powder 2024-05 00:00: 00 Yes [id number] Per instruc tions NEEDED Per instructio ns NEEDED (route: oral) Med Classific ation: Gastroint estinal Therapy Agents trazodone 50 mg tablet 2024-05 00:00: 00 Yes [id number] 1 tablet BEDTIME 1 tablet BEDTIME (route: [...] AWARENESS FOR SAFETY AND WILL NOTIFY CLINICAL LIFE SKILLS COORDINATOR VOLUNTEER AND PHYSICIAN/PROVIDER WITH ANY CHANGE IN CONDITION. [code = SKILLED NURSE WILL MAINTAIN SITUATIONAL AWARENESS FOR SAFETY AND WILL NOTIFY CLINICAL LIFE SKILLS COORDINATOR VOLUNTEER AND PHYSICIAN/PROVIDER WITH ANY CHANGE IN CONDITION.] [...] Outpatient RECERTIFIC ATION TIFFANY MELTON [facility] [id number] 29.41
--- OUTSIDE RECORDS SUMMARY | 2025-05-07 19:00 | XMS_ITS | Clinical Summary ---
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 Platform Architect Name Role Phone MEGAN CHUN, MELO Unavailable Unavailable GERONIMO TRACEY, TIFFANY Unavailable Unavailable Payers Payer Name Policy Type Policy Number Effective Date Expira tion Date [employer] [id number] MEDICARE - [facility] [id number] Problems Condition Name Condition Details Condition Category [...] 07-13 00:00: 00 03-13 23:59 :00 No [id number] 1 tablet DAILY 1 tablet DAILY (route: oral) Med Classific ation: Electroly te Balance-N utritiona l Products cyanocobala min (vit B-12) 1,000 mcg tablet 07-13 00:00: 00 2025- 06-12 23:59 :00 No [id number] 1 tablet DAILY 1 tablet DAILY (route: oral) Med Classific ation: Electroly te Balance-N utritiona l Products diltiazem ER (XR/XT) 180 mg capsule,ext ended release 24 hr, controlled 2-19 00:00: 00 03-13 23:59 :00 No [id number] 1 capsule DAILY 1 capsule DAILY (route: oral) Med Classific ation: Cardiovas cular Therapy Agents docusate sodium 100 mg capsule - 00:00: 00 03-13 23:59 :00 No [id number] 1 capsule 2 TIMES DAILY 1 capsule 2 TIMES DAILY (route: oral) Med Classific ation: Gastroint estinal Therapy Agents lisinopril 40 mg tablet - 00:00: 00 03-13 23:59 :00 No [id number] 1 tablet EVERY AM 1 tablet EVERY AM (route: oral) Med Classific ation: Cardiovas cular Therapy Agents metoprolol tartrate 25 mg tablet - 00:00: 00 03-13 23:59 :00 No [id number] 1 tablet 2 TIMES DAILY 1 tablet 2 TIMES DAILY (route: oral) Med Classific ation: Cardiovas cular Therapy Agents multivitami n with minerals tablet 07-13 00:00: 00 03-13 23:59 :00 No [id number] 1 tablet DAILY 1 tablet DAILY (route: oral) Med Classific ation: Electroly te Balance-N utroscara l Products paliperidon e ER 9 mg tablet,exte nded release 24 hr - 00:00: 00 12-01 23:59 :00 No [id number] 1 tablet BEDTIME 1 tablet BEDTIME (route: oral) Med Classific ation: Central Nervous System Agents metoprolol tartrate 25 mg tablet 6-19 00:00: 00 11-17 23:59 :00 No [id number] 1 tablet BEDTIME 1 tablet BEDTIME (route: oral) Med Classific ation: Cardiovas cular Therapy Agents benztropine 1 mg tablet -15 00:00: 00 03-13 23:59 :00 No [id number] 1 tablet EVERY PM 1 tablet EVERY PM (route: oral) Med Classific ation: Central Nervous System Agents paliperidon e ER 6 mg tablet,exte nded release 24 hr 12-01 00:00: 00 03-13 23:59 :00 No [id number] 1 tablet EVERY PM 1 tablet EVERY PM (route: oral) Med Classific ation: Central Nervous System Agents trazodone 50 mg tablet 12-01 00:00: 00 03-13 23:59 :00 No [id number] 1 tablet BEDTIME 1 tablet BEDTIME (route: oral) Med Classific ation: Central Nervous System Agents polyethylen e glycol 3350 17 gram/dose oral powder 12-21 00:00: 00 03-13 23:59 :00 No [id number] Per instruc tions DAILY Per instructio ns DAILY (route: oral) Med Classific ation: Gastroint estinal Therapy Agents benztropine 1 mg tablet 2024-05 00:00: 00 Yes [id number] 1 tablet EVERY PM 1 tablet EVERY PM (route: oral) Med Classific ation: Central Nervous System Agents cholecalcif beverley (vitamin D3) 10 mcg (400 unit) tablet 2024-05 00:00: 00 Yes [id number] 1 tablet EVERY AM 1 tablet EVERY AM (route: oral) Med Classific ation: Electroly te Balance-N utritiona l Products diltiazem ER (XR/XT) 180 mg capsule,ext ended release 24 hr, controlled 2024-05 00:00: 00 Yes [id number] 1 capsule EVERY AM 1 capsule EVERY AM (route: oral) Med Classific ation: Cardiovas cular Therapy Agents docusate sodium 100 mg capsule 2024-05 00:00: 00 Yes [id number] 1 capsule 2 TIMES DAILY 1 capsule 2 TIMES DAILY (route: oral) Med Classific ation: Gastroint estinal Therapy Agents lisinopril 40 mg tablet 2024-05 00:00: 00 Yes [id number] 1 tablet EVERY AM 1 tablet EVERY AM (route: oral) Med Classific ation: Cardiovas cular Therapy Agents metoprolol tartrate 25 mg tablet 2024-05 00:00: 00 Yes [id number] 1 tablet 2 TIMES DAILY 1 tablet 2 TIMES DAILY (route: oral) Med Classific ation: Cardiovas cular Therapy Agents multivitami n with minerals tablet 2024-05 00:00: 00 Yes [id number] 1 tablet EVERY AM 1 tablet EVERY AM (route: oral) Med Classific ation: Electroly te Balance-N utritiona l Products paliperidon e ER 6 mg tablet,exte nded release 24 hr 2024-05 00:00: 00 Yes [id number] 1 tablet EVERY PM 1 tablet EVERY PM (route: oral) Med Classific ation: Central Nervous System Agents polyethylen e glycol 3350 17 gram/dose oral powder 2024-05 00:00: 00 Yes [id number] Per instruc tions NEEDED Per instructio ns NEEDED (route: oral) Med Classific ation: Gastroint estinal Therapy Agents trazodone 50 mg tablet 2024-05 00:00: 00 Yes [id number] 1 tablet BEDTIME 1 tablet BEDTIME (route: [...] AWARENESS FOR SAFETY AND WILL NOTIFY CLINICAL CHRONOGRAPH OPERATOR AND PHYSICIAN/PROVIDER WITH ANY CHANGE IN CONDITION. [code = SKILLED NURSE WILL MAINTAIN SITUATIONAL AWARENESS FOR SAFETY AND WILL NOTIFY CLINICAL CHRONOGRAPH OPERATOR AND PHYSICIAN/PROVIDER WITH ANY CHANGE IN [...] CARE WILL BE ESTABLISHED THAT MEETS PATIENT'S LONG TERM NEEDS AND INCLUDES PATIENT GOAL FOR HOME [...] RECERTIFIC ATION TIFFANY MELTON [facility] [id number] 29.41
--- OUTSIDE RECORDS SUMMARY | 2025-05-07 19:00 | XMS_ITS | Clinical Summary ---
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 Welder Apprentice Arc Name Role Phone MEGAN CHUN, MELO Unavailable Unavailable GERONIMO TRACEY, TIFFANY Unavailable Unavailable Payers Payer Name Policy Type Policy Number Effective Date Expira tion Date [employer] [id number] MEDICARE - [facility] [id number] Problems Condition Name Condition Details Condition Category [...] 07-13 00:00: 00 03-13 23:59 :00 No [id number] 1 tablet DAILY 1 tablet DAILY (route: oral) Med Classific ation: Electroly te Balance-N utritiona l Products cyanocobala min (vit B-12) 1,000 mcg tablet 07-13 00:00: 00 2025- 06-12 23:59 :00 No [id number] 1 tablet DAILY 1 tablet DAILY (route: oral) Med Classific ation: Electroly te Balance-N utritiona l Products diltiazem ER (XR/XT) 180 mg capsule,ext ended release 24 hr, controlled 2-19 00:00: 00 03-13 23:59 :00 No [id number] 1 capsule DAILY 1 capsule DAILY (route: oral) Med Classific ation: Cardiovas cular Therapy Agents docusate sodium 100 mg capsule - 00:00: 00 03-13 23:59 :00 No [id number] 1 capsule 2 TIMES DAILY 1 capsule 2 TIMES DAILY (route: oral) Med Classific ation: Gastroint estinal Therapy Agents lisinopril 40 mg tablet - 00:00: 00 03-13 23:59 :00 No [id number] 1 tablet EVERY AM 1 tablet EVERY AM (route: oral) Med Classific ation: Cardiovas cular Therapy Agents metoprolol tartrate 25 mg tablet - 00:00: 00 03-13 23:59 :00 No [id number] 1 tablet 2 TIMES DAILY 1 tablet 2 TIMES DAILY (route: oral) Med Classific ation: Cardiovas cular Therapy Agents multivitami n with minerals tablet 07-13 00:00: 00 03-13 23:59 :00 No [id number] 1 tablet DAILY 1 tablet DAILY (route: oral) Med Classific ation: Electroly te Balance-N utroscara l Products paliperidon e ER 9 mg tablet,exte nded release 24 hr - 00:00: 00 12-01 23:59 :00 No [id number] 1 tablet BEDTIME 1 tablet BEDTIME (route: oral) Med Classific ation: Central Nervous System Agents metoprolol tartrate 25 mg tablet 6-19 00:00: 00 11-17 23:59 :00 No [id number] 1 tablet BEDTIME 1 tablet BEDTIME (route: oral) Med Classific ation: Cardiovas cular Therapy Agents benztropine 1 mg tablet -15 00:00: 00 03-13 23:59 :00 No [id number] 1 tablet EVERY PM 1 tablet EVERY PM (route: oral) Med Classific ation: Central Nervous System Agents paliperidon e ER 6 mg tablet,exte nded release 24 hr 12-01 00:00: 00 03-13 23:59 :00 No [id number] 1 tablet EVERY PM 1 tablet EVERY PM (route: oral) Med Classific ation: Central Nervous System Agents trazodone 50 mg tablet 12-01 00:00: 00 03-13 23:59 :00 No [id number] 1 tablet BEDTIME 1 tablet BEDTIME (route: oral) Med Classific ation: Central Nervous System Agents polyethylen e glycol 3350 17 gram/dose oral powder 12-21 00:00: 00 03-13 23:59 :00 No [id number] Per instruc tions DAILY Per instructio ns DAILY (route: oral) Med Classific ation: Gastroint estinal Therapy Agents benztropine 1 mg tablet 2024-05 00:00: 00 Yes [id number] 1 tablet EVERY PM 1 tablet EVERY PM (route: oral) Med Classific ation: Central Nervous System Agents cholecalcif beverley (vitamin D3) 10 mcg (400 unit) tablet 2024-05 00:00: 00 Yes [id number] 1 tablet EVERY AM 1 tablet EVERY AM (route: oral) Med Classific ation: Electroly te Balance-N utritiona l Products diltiazem ER (XR/XT) 180 mg capsule,ext ended release 24 hr, controlled 2024-05 00:00: 00 Yes [id number] 1 capsule EVERY AM 1 capsule EVERY AM (route: oral) Med Classific ation: Cardiovas cular Therapy Agents docusate sodium 100 mg capsule 2024-05 00:00: 00 Yes [id number] 1 capsule 2 TIMES DAILY 1 capsule 2 TIMES DAILY (route: oral) Med Classific ation: Gastroint estinal Therapy Agents lisinopril 40 mg tablet 2024-05 00:00: 00 Yes [id number] 1 tablet EVERY AM 1 tablet EVERY AM (route: oral) Med Classific ation: Cardiovas cular Therapy Agents metoprolol tartrate 25 mg tablet 2024-05 00:00: 00 Yes [id number] 1 tablet 2 TIMES DAILY 1 tablet 2 TIMES DAILY (route: oral) Med Classific ation: Cardiovas cular Therapy Agents multivitami n with minerals tablet 2024-05 00:00: 00 Yes [id number] 1 tablet EVERY AM 1 tablet EVERY AM (route: oral) Med Classific ation: Electroly te Balance-N utritiona l Products paliperidon e ER 6 mg tablet,exte nded release 24 hr 2024-05 00:00: 00 Yes [id number] 1 tablet EVERY PM 1 tablet EVERY PM (route: oral) Med Classific ation: Central Nervous System Agents polyethylen e glycol 3350 17 gram/dose oral powder 2024-05 00:00: 00 Yes [id number] Per instruc tions NEEDED Per instructio ns NEEDED (route: oral) Med Classific ation: Gastroint estinal Therapy Agents trazodone 50 mg tablet 2024-05 00:00: 00 Yes [id number] 1 tablet BEDTIME 1 tablet BEDTIME (route: [...] AWARENESS FOR SAFETY AND WILL NOTIFY CLINICAL PIPE STEM REPAIRER AND PHYSICIAN/PROVIDER WITH ANY CHANGE IN CONDITION. [code = SKILLED NURSE WILL MAINTAIN SITUATIONAL AWARENESS FOR SAFETY AND WILL NOTIFY CLINICAL PIPE STEM REPAIRER AND PHYSICIAN/PROVIDER WITH ANY CHANGE IN CONDITION.] [...] 00:00:00 Outpatient RECERTIFIC ATION TIFFANY MELTON [facility] [id number] 29.41
--- OUTSIDE RECORDS SUMMARY | 2025-05-07 19:00 | XMS_ITS | Clinical Summary ---
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 Gear Design Engineer Name Role Phone MEGAN CHUN, MELO Unavailable Unavailable GERONIMO TRACEY, TIFFANY Unavailable Unavailable Payers Payer Name Policy Type Policy Number Effective Date Expira tion Date [employer] [id number] MEDICARE - [facility] [id number] Problems Condition Name Condition Details Condition Category [...] 07-13 00:00: 00 03-13 23:59 :00 No [id number] 1 tablet DAILY 1 tablet DAILY (route: oral) Med Classific ation: Electroly te Balance-N utritiona l Products cyanocobala min (vit B-12) 1,000 mcg tablet 07-13 00:00: 00 2025- 06-12 23:59 :00 No [id number] 1 tablet DAILY 1 tablet DAILY (route: oral) Med Classific ation: Electroly te Balance-N utritiona l Products diltiazem ER (XR/XT) 180 mg capsule,ext ended release 24 hr, controlled 2-19 00:00: 00 03-13 23:59 :00 No [id number] 1 capsule DAILY 1 capsule DAILY (route: oral) Med Classific ation: Cardiovas cular Therapy Agents docusate sodium 100 mg capsule - 00:00: 00 03-13 23:59 :00 No [id number] 1 capsule 2 TIMES DAILY 1 capsule 2 TIMES DAILY (route: oral) Med Classific ation: Gastroint estinal Therapy Agents lisinopril 40 mg tablet - 00:00: 00 03-13 23:59 :00 No [id number] 1 tablet EVERY AM 1 tablet EVERY AM (route: oral) Med Classific ation: Cardiovas cular Therapy Agents metoprolol tartrate 25 mg tablet - 00:00: 00 03-13 23:59 :00 No [id number] 1 tablet 2 TIMES DAILY 1 tablet 2 TIMES DAILY (route: oral) Med Classific ation: Cardiovas cular Therapy Agents multivitami n with minerals tablet 07-13 00:00: 00 03-13 23:59 :00 No [id number] 1 tablet DAILY 1 tablet DAILY (route: oral) Med Classific ation: Electroly te Balance-N utroscara l Products paliperidon e ER 9 mg tablet,exte nded release 24 hr - 00:00: 00 12-01 23:59 :00 No [id number] 1 tablet BEDTIME 1 tablet BEDTIME (route: oral) Med Classific ation: Central Nervous System Agents metoprolol tartrate 25 mg tablet 6-19 00:00: 00 11-17 23:59 :00 No [id number] 1 tablet BEDTIME 1 tablet BEDTIME (route: oral) Med Classific ation: Cardiovas cular Therapy Agents benztropine 1 mg tablet -15 00:00: 00 03-13 23:59 :00 No [id number] 1 tablet EVERY PM 1 tablet EVERY PM (route: oral) Med Classific ation: Central Nervous System Agents paliperidon e ER 6 mg tablet,exte nded release 24 hr 12-01 00:00: 00 03-13 23:59 :00 No [id number] 1 tablet EVERY PM 1 tablet EVERY PM (route: oral) Med Classific ation: Central Nervous System Agents trazodone 50 mg tablet 12-01 00:00: 00 03-13 23:59 :00 No [id number] 1 tablet BEDTIME 1 tablet BEDTIME (route: oral) Med Classific ation: Central Nervous System Agents polyethylen e glycol 3350 17 gram/dose oral powder 12-21 00:00: 00 03-13 23:59 :00 No [id number] Per instruc tions DAILY Per instructio ns DAILY (route: oral) Med Classific ation: Gastroint estinal Therapy Agents benztropine 1 mg tablet 2024-05 00:00: 00 Yes [id number] 1 tablet EVERY PM 1 tablet EVERY PM (route: oral) Med Classific ation: Central Nervous System Agents cholecalcif beverley (vitamin D3) 10 mcg (400 unit) tablet 2024-05 00:00: 00 Yes [id number] 1 tablet EVERY AM 1 tablet EVERY AM (route: oral) Med Classific ation: Electroly te Balance-N utritiona l Products diltiazem ER (XR/XT) 180 mg capsule,ext ended release 24 hr, controlled 2024-05 00:00: 00 Yes [id number] 1 capsule EVERY AM 1 capsule EVERY AM (route: oral) Med Classific ation: Cardiovas cular Therapy Agents docusate sodium 100 mg capsule 2024-05 00:00: 00 Yes [id number] 1 capsule 2 TIMES DAILY 1 capsule 2 TIMES DAILY (route: oral) Med Classific ation: Gastroint estinal Therapy Agents lisinopril 40 mg tablet 2024-05 00:00: 00 Yes [id number] 1 tablet EVERY AM 1 tablet EVERY AM (route: oral) Med Classific ation: Cardiovas cular Therapy Agents metoprolol tartrate 25 mg tablet 2024-05 00:00: 00 Yes [id number] 1 tablet 2 TIMES DAILY 1 tablet 2 TIMES DAILY (route: oral) Med Classific ation: Cardiovas cular Therapy Agents multivitami n with minerals tablet 2024-05 00:00: 00 Yes [id number] 1 tablet EVERY AM 1 tablet EVERY AM (route: oral) Med Classific ation: Electroly te Balance-N utritiona l Products paliperidon e ER 6 mg tablet,exte nded release 24 hr 2024-05 00:00: 00 Yes [id number] 1 tablet EVERY PM 1 tablet EVERY PM (route: oral) Med Classific ation: Central Nervous System Agents polyethylen e glycol 3350 17 gram/dose oral powder 2024-05 00:00: 00 Yes [id number] Per instruc tions NEEDED Per instructio ns NEEDED (route: oral) Med Classific ation: Gastroint estinal Therapy Agents trazodone 50 mg tablet 2024-05 00:00: 00 Yes [id number] 1 tablet BEDTIME 1 tablet BEDTIME (route: [...] AWARENESS FOR SAFETY AND WILL NOTIFY CLINICAL INSIDE SALES AND PHYSICIAN/PROVIDER WITH ANY CHANGE IN CONDITION. [code = SKILLED NURSE WILL MAINTAIN SITUATIONAL AWARENESS FOR SAFETY AND WILL NOTIFY CLINICAL INSIDE SALES AND PHYSICIAN/PROVIDER WITH ANY CHANGE IN CONDITION.] [...] 2025-05-08 00:00:00 Outpatient RECERTIFIC ATION TIFFANY MELTON [facility] [id number] 29.41
--- OUTSIDE RECORDS SUMMARY | 2025-05-07 19:00 | XMS_ITS | Clinical Summary ---
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 Wood Drilling Machine Operator Name Role Phone MEGAN CHUN, MELO Unavailable Unavailable GERONIMO TRACEY, TIFFANY Unavailable Unavailable Payers Payer Name Policy Type Policy Number Effective Date Expira tion Date [employer] [id number] [facility]IC[facility] - [facility] [id number] Problems Condition Name Condition Details Condition Category [...] 07-13 00:00: 00 03-13 23:59 :00 No [id number] 1 tablet DAILY 1 tablet DAILY (route: oral) Med Classific ation: Electroly te Balance-N utritiona l Products cyanocobala min (vit B-12) 1,000 mcg tablet 07-13 00:00: 00 2025- 06-12 23:59 :00 No [id number] 1 tablet DAILY 1 tablet DAILY (route: oral) Med Classific ation: Electroly te Balance-N utritiona l Products diltiazem ER (XR/XT) 180 mg capsule,ext ended release 24 hr, controlled 2-19 00:00: 00 03-13 23:59 :00 No [id number] 1 capsule DAILY 1 capsule DAILY (route: oral) Med Classific ation: Cardiovas cular Therapy Agents docusate sodium 100 mg capsule - 00:00: 00 03-13 23:59 :00 No [id number] 1 capsule 2 TIMES DAILY 1 capsule 2 TIMES DAILY (route: oral) Med Classific ation: Gastroint estinal Therapy Agents lisinopril 40 mg tablet - 00:00: 00 03-13 23:59 :00 No [id number] 1 tablet EVERY AM 1 tablet EVERY AM (route: oral) Med Classific ation: Cardiovas cular Therapy Agents metoprolol tartrate 25 mg tablet - 00:00: 00 03-13 23:59 :00 No [id number] 1 tablet 2 TIMES DAILY 1 tablet 2 TIMES DAILY (route: oral) Med Classific ation: Cardiovas cular Therapy Agents multivitami n with minerals tablet 07-13 00:00: 00 03-13 23:59 :00 No [id number] 1 tablet DAILY 1 tablet DAILY (route: oral) Med Classific ation: Electroly te Balance-N utroscara l Products paliperidon e ER 9 mg tablet,exte nded release 24 hr - 00:00: 00 12-01 23:59 :00 No [id number] 1 tablet BEDTIME 1 tablet BEDTIME (route: oral) Med Classific ation: Central Nervous System Agents metoprolol tartrate 25 mg tablet 6-19 00:00: 00 11-17 23:59 :00 No [id number] 1 tablet BEDTIME 1 tablet BEDTIME (route: oral) Med Classific ation: Cardiovas cular Therapy Agents benztropine 1 mg tablet -15 00:00: 00 03-13 23:59 :00 No [id number] 1 tablet EVERY PM 1 tablet EVERY PM (route: oral) Med Classific ation: Central Nervous System Agents paliperidon e ER 6 mg tablet,exte nded release 24 hr 12-01 00:00: 00 03-13 23:59 :00 No [id number] 1 tablet EVERY PM 1 tablet EVERY PM (route: oral) Med Classific ation: Central Nervous System Agents trazodone 50 mg tablet 12-01 00:00: 00 03-13 23:59 :00 No [id number] 1 tablet BEDTIME 1 tablet BEDTIME (route: oral) Med Classific ation: Central Nervous System Agents polyethylen e glycol 3350 17 gram/dose oral powder 12-21 00:00: 00 03-13 23:59 :00 No [id number] Per instruc tions DAILY Per instructio ns DAILY (route: oral) Med Classific ation: Gastroint estinal Therapy Agents benztropine 1 mg tablet 2024-05 00:00: 00 Yes [id number] 1 tablet EVERY PM 1 tablet EVERY PM (route: oral) Med Classific ation: Central Nervous System Agents cholecalcif beverley (vitamin D3) 10 mcg (400 unit) tablet 2024-05 00:00: 00 Yes [id number] 1 tablet EVERY AM 1 tablet EVERY AM (route: oral) Med Classific ation: Electroly te Balance-N utritiona l Products diltiazem ER (XR/XT) 180 mg capsule,ext ended release 24 hr, controlled 2024-05 00:00: 00 Yes [id number] 1 capsule EVERY AM 1 capsule EVERY AM (route: oral) Med Classific ation: Cardiovas cular Therapy Agents docusate sodium 100 mg capsule 2024-05 00:00: 00 Yes [id number] 1 capsule 2 TIMES DAILY 1 capsule 2 TIMES DAILY (route: oral) Med Classific ation: Gastroint estinal Therapy Agents lisinopril 40 mg tablet 2024-05 00:00: 00 Yes [id number] 1 tablet EVERY AM 1 tablet EVERY AM (route: oral) Med Classific ation: Cardiovas cular Therapy Agents metoprolol tartrate 25 mg tablet 2024-05 00:00: 00 Yes [id number] 1 tablet 2 TIMES DAILY 1 tablet 2 TIMES DAILY (route: oral) Med Classific ation: Cardiovas cular Therapy Agents multivitami n with minerals tablet 2024-05 00:00: 00 Yes [id number] 1 tablet EVERY AM 1 tablet EVERY AM (route: oral) Med Classific ation: Electroly te Balance-N utritiona l Products paliperidon e ER 6 mg tablet,exte nded release 24 hr 2024-05 00:00: 00 Yes [id number] 1 tablet EVERY PM 1 tablet EVERY PM (route: oral) Med Classific ation: Central Nervous System Agents polyethylen e glycol 3350 17 gram/dose oral powder 2024-05 00:00: 00 Yes [id number] Per instruc tions NEEDED Per instructio ns NEEDED (route: oral) Med Classific ation: Gastroint estinal Therapy Agents trazodone 50 mg tablet 2024-05 00:00: 00 Yes [id number] 1 tablet BEDTIME 1 tablet BEDTIME (route: [...] AWARENESS FOR SAFETY AND WILL NOTIFY CLINICAL MARINE REPORTER AND PHYSICIAN/PROVIDER WITH ANY CHANGE IN CONDITION. [code = SKILLED NURSE WILL MAINTAIN SITUATIONAL AWARENESS FOR SAFETY AND WILL NOTIFY CLINICAL MARINE REPORTER AND PHYSICIAN/PROVIDER WITH ANY CHANGE IN CONDITION.] [...] [facility] [id number] 29.41
--- OUTSIDE RECORDS SUMMARY | 2025-05-07 19:00 | XMS_ITS | Clinical Summary ---
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 Refuge Worker Name Role Phone MEGAN CHUN, MELO Unavailable Unavailable GERONIMO TRACEY, TIFFANY Unavailable Unavailable Payers Payer Name Policy Type Policy Number Effective Date Expira tion Date [employer] [id number] MEDICARE - [facility] [id number] Problems Condition Name Condition Details Condition Category [...] 07-13 00:00: 00 03-13 23:59 :00 No [id number] 1 tablet DAILY 1 tablet DAILY (route: oral) Med Classific ation: Electroly te Balance-N utritiona l Products cyanocobala min (vit B-12) 1,000 mcg tablet 07-13 00:00: 00 2025- 06-12 23:59 :00 No [id number] 1 tablet DAILY 1 tablet DAILY (route: oral) Med Classific ation: Electroly te Balance-N utritiona l Products diltiazem ER (XR/XT) 180 mg capsule,ext ended release 24 hr, controlled 2-19 00:00: 00 03-13 23:59 :00 No [id number] 1 capsule DAILY 1 capsule DAILY (route: oral) Med Classific ation: Cardiovas cular Therapy Agents docusate sodium 100 mg capsule - 00:00: 00 03-13 23:59 :00 No [id number] 1 capsule 2 TIMES DAILY 1 capsule 2 TIMES DAILY (route: oral) Med Classific ation: Gastroint estinal Therapy Agents lisinopril 40 mg tablet - 00:00: 00 03-13 23:59 :00 No [id number] 1 tablet EVERY AM 1 tablet EVERY AM (route: oral) Med Classific ation: Cardiovas cular Therapy Agents metoprolol tartrate 25 mg tablet - 00:00: 00 03-13 23:59 :00 No [id number] 1 tablet 2 TIMES DAILY 1 tablet 2 TIMES DAILY (route: oral) Med Classific ation: Cardiovas cular Therapy Agents multivitami n with minerals tablet 07-13 00:00: 00 03-13 23:59 :00 No [id number] 1 tablet DAILY 1 tablet DAILY (route: oral) Med Classific ation: Electroly te Balance-N utroscara l Products paliperidon e ER 9 mg tablet,exte nded release 24 hr - 00:00: 00 12-01 23:59 :00 No [id number] 1 tablet BEDTIME 1 tablet BEDTIME (route: oral) Med Classific ation: Central Nervous System Agents metoprolol tartrate 25 mg tablet 6-19 00:00: 00 11-17 23:59 :00 No [id number] 1 tablet BEDTIME 1 tablet BEDTIME (route: oral) Med Classific ation: Cardiovas cular Therapy Agents benztropine 1 mg tablet -15 00:00: 00 03-13 23:59 :00 No [id number] 1 tablet EVERY PM 1 tablet EVERY PM (route: oral) Med Classific ation: Central Nervous System Agents paliperidon e ER 6 mg tablet,exte nded release 24 hr 12-01 00:00: 00 03-13 23:59 :00 No [id number] 1 tablet EVERY PM 1 tablet EVERY PM (route: oral) Med Classific ation: Central Nervous System Agents trazodone 50 mg tablet 12-01 00:00: 00 03-13 23:59 :00 No [id number] 1 tablet BEDTIME 1 tablet BEDTIME (route: oral) Med Classific ation: Central Nervous System Agents polyethylen e glycol 3350 17 gram/dose oral powder 12-21 00:00: 00 03-13 23:59 :00 No [id number] Per instruc tions DAILY Per instructio ns DAILY (route: oral) Med Classific ation: Gastroint estinal Therapy Agents benztropine 1 mg tablet 2024-05 00:00: 00 Yes [id number] 1 tablet EVERY PM 1 tablet EVERY PM (route: oral) Med Classific ation: Central Nervous System Agents cholecalcif beverley (vitamin D3) 10 mcg (400 unit) tablet 2024-05 00:00: 00 Yes [id number] 1 tablet EVERY AM 1 tablet EVERY AM (route: oral) Med Classific ation: Electroly te Balance-N utritiona l Products diltiazem ER (XR/XT) 180 mg capsule,ext ended release 24 hr, controlled 2024-05 00:00: 00 Yes [id number] 1 capsule EVERY AM 1 capsule EVERY AM (route: oral) Med Classific ation: Cardiovas cular Therapy Agents docusate sodium 100 mg capsule 2024-05 00:00: 00 Yes [id number] 1 capsule 2 TIMES DAILY 1 capsule 2 TIMES DAILY (route: oral) Med Classific ation: Gastroint estinal Therapy Agents lisinopril 40 mg tablet 2024-05 00:00: 00 Yes [id number] 1 tablet EVERY AM 1 tablet EVERY AM (route: oral) Med Classific ation: Cardiovas cular Therapy Agents metoprolol tartrate 25 mg tablet 2024-05 00:00: 00 Yes [id number] 1 tablet 2 TIMES DAILY 1 tablet 2 TIMES DAILY (route: oral) Med Classific ation: Cardiovas cular Therapy Agents multivitami n with minerals tablet 2024-05 00:00: 00 Yes [id number] 1 tablet EVERY AM 1 tablet EVERY AM (route: oral) Med Classific ation: Electroly te Balance-N utritiona l Products paliperidon e ER 6 mg tablet,exte nded release 24 hr 2024-05 00:00: 00 Yes [id number] 1 tablet EVERY PM 1 tablet EVERY PM (route: oral) Med Classific ation: Central Nervous System Agents polyethylen e glycol 3350 17 gram/dose oral powder 2024-05 00:00: 00 Yes [id number] Per instruc tions NEEDED Per instructio ns NEEDED (route: oral) Med Classific ation: Gastroint estinal Therapy Agents trazodone 50 mg tablet 2024-05 00:00: 00 Yes [id number] 1 tablet BEDTIME 1 tablet BEDTIME (route: [...] AWARENESS FOR SAFETY AND WILL NOTIFY CLINICAL HATCHERY ATTENDANT AND PHYSICIAN/PROVIDER WITH ANY CHANGE IN CONDITION. [code = SKILLED NURSE WILL MAINTAIN SITUATIONAL AWARENESS FOR SAFETY AND WILL NOTIFY CLINICAL HATCHERY ATTENDANT AND PHYSICIAN/PROVIDER WITH ANY CHANGE IN [...] RECERTIFIC ATION TIFFANY M[facility] [id number] 29.41
--- OUTSIDE RECORDS SUMMARY | 2025-05-07 19:00 | XMS_ITS | Clinical Summary ---
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 Cognos Architect Name Role Phone MEGAN CHUN, MELO Unavailable Unavailable GERONIMO TRACEY, TIFFANY Unavailable Unavailable Payers Payer Name Policy Type Policy Number Effective Date Expira tion Date [employer] [id number] MEDICARE - [facility] [id number] Problems Condition Name Condition Details Condition Category [...] 07-13 00:00: 00 03-13 23:59 :00 No [id number] 1 tablet DAILY 1 tablet DAILY (route: oral) Med Classific ation: Electroly te Balance-N utritiona l Products cyanocobala min (vit B-12) 1,000 mcg tablet 07-13 00:00: 00 2025- 06-12 23:59 :00 No [id number] 1 tablet DAILY 1 tablet DAILY (route: oral) Med Classific ation: Electroly te Balance-N utritiona l Products diltiazem ER (XR/XT) 180 mg capsule,ext ended release 24 hr, controlled 2-19 00:00: 00 03-13 23:59 :00 No [id number] 1 capsule DAILY 1 capsule DAILY (route: oral) Med Classific ation: Cardiovas cular Therapy Agents docusate sodium 100 mg capsule - 00:00: 00 03-13 23:59 :00 No [id number] 1 capsule 2 TIMES DAILY 1 capsule 2 TIMES DAILY (route: oral) Med Classific ation: Gastroint estinal Therapy Agents lisinopril 40 mg tablet - 00:00: 00 03-13 23:59 :00 No [id number] 1 tablet EVERY AM 1 tablet EVERY AM (route: oral) Med Classific ation: Cardiovas cular Therapy Agents metoprolol tartrate 25 mg tablet - 00:00: 00 03-13 23:59 :00 No [id number] 1 tablet 2 TIMES DAILY 1 tablet 2 TIMES DAILY (route: oral) Med Classific ation: Cardiovas cular Therapy Agents multivitami n with minerals tablet 07-13 00:00: 00 03-13 23:59 :00 No [id number] 1 tablet DAILY 1 tablet DAILY (route: oral) Med Classific ation: Electroly te Balance-N utroscara l Products paliperidon e ER 9 mg tablet,exte nded release 24 hr - 00:00: 00 12-01 23:59 :00 No [id number] 1 tablet BEDTIME 1 tablet BEDTIME (route: oral) Med Classific ation: Central Nervous System Agents metoprolol tartrate 25 mg tablet 6-19 00:00: 00 11-17 23:59 :00 No [id number] 1 tablet BEDTIME 1 tablet BEDTIME (route: oral) Med Classific ation: Cardiovas cular Therapy Agents benztropine 1 mg tablet -15 00:00: 00 03-13 23:59 :00 No [id number] 1 tablet EVERY PM 1 tablet EVERY PM (route: oral) Med Classific ation: Central Nervous System Agents paliperidon e ER 6 mg tablet,exte nded release 24 hr 12-01 00:00: 00 03-13 23:59 :00 No [id number] 1 tablet EVERY PM 1 tablet EVERY PM (route: oral) Med Classific ation: Central Nervous System Agents trazodone 50 mg tablet 12-01 00:00: 00 03-13 23:59 :00 No [id number] 1 tablet BEDTIME 1 tablet BEDTIME (route: oral) Med Classific ation: Central Nervous System Agents polyethylen e glycol 3350 17 gram/dose oral powder 12-21 00:00: 00 03-13 23:59 :00 No [id number] Per instruc tions DAILY Per instructio ns DAILY (route: oral) Med Classific ation: Gastroint estinal Therapy Agents benztropine 1 mg tablet 2024-05 00:00: 00 Yes [id number] 1 tablet EVERY PM 1 tablet EVERY PM (route: oral) Med Classific ation: Central Nervous System Agents cholecalcif beverley (vitamin D3) 10 mcg (400 unit) tablet 2024-05 00:00: 00 Yes [id number] 1 tablet EVERY AM 1 tablet EVERY AM (route: oral) Med Classific ation: Electroly te Balance-N utritiona l Products diltiazem ER (XR/XT) 180 mg capsule,ext ended release 24 hr, controlled 2024-05 00:00: 00 Yes [id number] 1 capsule EVERY AM 1 capsule EVERY AM (route: oral) Med Classific ation: Cardiovas cular Therapy Agents docusate sodium 100 mg capsule 2024-05 00:00: 00 Yes [id number] 1 capsule 2 TIMES DAILY 1 capsule 2 TIMES DAILY (route: oral) Med Classific ation: Gastroint estinal Therapy Agents lisinopril 40 mg tablet 2024-05 00:00: 00 Yes [id number] 1 tablet EVERY AM 1 tablet EVERY AM (route: oral) Med Classific ation: Cardiovas cular Therapy Agents metoprolol tartrate 25 mg tablet 2024-05 00:00: 00 Yes [id number] 1 tablet 2 TIMES DAILY 1 tablet 2 TIMES DAILY (route: oral) Med Classific ation: Cardiovas cular Therapy Agents multivitami n with minerals tablet 2024-05 00:00: 00 Yes [id number] 1 tablet EVERY AM 1 tablet EVERY AM (route: oral) Med Classific ation: Electroly te Balance-N utritiona l Products paliperidon e ER 6 mg tablet,exte nded release 24 hr 2024-05 00:00: 00 Yes [id number] 1 tablet EVERY PM 1 tablet EVERY PM (route: oral) Med Classific ation: Central Nervous System Agents polyethylen e glycol 3350 17 gram/dose oral powder 2024-05 00:00: 00 Yes [id number] Per instruc tions NEEDED Per instructio ns NEEDED (route: oral) Med Classific ation: Gastroint estinal Therapy Agents trazodone 50 mg tablet 2024-05 00:00: 00 Yes [id number] 1 tablet BEDTIME 1 tablet BEDTIME (route: [...] AWARENESS FOR SAFETY AND WILL NOTIFY CLINICAL ARMORED CABLE MACHINE OPERATOR AND PHYSICIAN/PROVIDER WITH ANY CHANGE IN CONDITION. [code = SKILLED NURSE WILL MAINTAIN SITUATIONAL AWARENESS FOR SAFETY AND WILL NOTIFY CLINICAL ARMORED CABLE MACHINE OPERATOR AND PHYSICIAN/PROVIDER WITH ANY CHANGE [...] ATION TIFFANY MELTON [facility] [id number] 29.41
--- OUTSIDE RECORDS SUMMARY | 2025-05-07 19:00 | XMS_ITS | Clinical Summary ---
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 Database Modeler Name Role Phone MEGAN CHUN, MELO Unavailable Unavailable GERONIMO TRACEY, TIFFANY Unavailable Unavailable Payers Payer Name Policy Type Policy Number Effective Date Expira tion Date [employer] MEDIC[employer] ADVANTAGE [id number] MEDICARE - [facility] [id number] Problems Condition Name Condition Details Condition Category [...] 07-13 00:00: 00 03-13 23:59 :00 No [id number] 1 tablet DAILY 1 tablet DAILY (route: oral) Med Classific ation: Electroly te Balance-N utritiona l Products cyanocobala min (vit B-12) 1,000 mcg tablet 07-13 00:00: 00 2025- 06-12 23:59 :00 No [id number] 1 tablet DAILY 1 tablet DAILY (route: oral) Med Classific ation: Electroly te Balance-N utritiona l Products diltiazem ER (XR/XT) 180 mg capsule,ext ended release 24 hr, controlled 2-19 00:00: 00 03-13 23:59 :00 No [id number] 1 capsule DAILY 1 capsule DAILY (route: oral) Med Classific ation: Cardiovas cular Therapy Agents docusate sodium 100 mg capsule - 00:00: 00 03-13 23:59 :00 No [id number] 1 capsule 2 TIMES DAILY 1 capsule 2 TIMES DAILY (route: oral) Med Classific ation: Gastroint estinal Therapy Agents lisinopril 40 mg tablet - 00:00: 00 03-13 23:59 :00 No [id number] 1 tablet EVERY AM 1 tablet EVERY AM (route: oral) Med Classific ation: Cardiovas cular Therapy Agents metoprolol tartrate 25 mg tablet - 00:00: 00 03-13 23:59 :00 No [id number] 1 tablet 2 TIMES DAILY 1 tablet 2 TIMES DAILY (route: oral) Med Classific ation: Cardiovas cular Therapy Agents multivitami n with minerals tablet 07-13 00:00: 00 03-13 23:59 :00 No [id number] 1 tablet DAILY 1 tablet DAILY (route: oral) Med Classific ation: Electroly te Balance-N utroscara l Products paliperidon e ER 9 mg tablet,exte nded release 24 hr - 00:00: 00 12-01 23:59 :00 No [id number] 1 tablet BEDTIME 1 tablet BEDTIME (route: oral) Med Classific ation: Central Nervous System Agents metoprolol tartrate 25 mg tablet 6-19 00:00: 00 11-17 23:59 :00 No [id number] 1 tablet BEDTIME 1 tablet BEDTIME (route: oral) Med Classific ation: Cardiovas cular Therapy Agents benztropine 1 mg tablet -15 00:00: 00 03-13 23:59 :00 No [id number] 1 tablet EVERY PM 1 tablet EVERY PM (route: oral) Med Classific ation: Central Nervous System Agents paliperidon e ER 6 mg tablet,exte nded release 24 hr 12-01 00:00: 00 03-13 23:59 :00 No [id number] 1 tablet EVERY PM 1 tablet EVERY PM (route: oral) Med Classific ation: Central Nervous System Agents trazodone 50 mg tablet 12-01 00:00: 00 03-13 23:59 :00 No [id number] 1 tablet BEDTIME 1 tablet BEDTIME (route: oral) Med Classific ation: Central Nervous System Agents polyethylen e glycol 3350 17 gram/dose oral powder 12-21 00:00: 00 03-13 23:59 :00 No [id number] Per instruc tions DAILY Per instructio ns DAILY (route: oral) Med Classific ation: Gastroint estinal Therapy Agents benztropine 1 mg tablet 2024-05 00:00: 00 Yes [id number] 1 tablet EVERY PM 1 tablet EVERY PM (route: oral) Med Classific ation: Central Nervous System Agents cholecalcif beverley (vitamin D3) 10 mcg (400 unit) tablet 2024-05 00:00: 00 Yes [id number] 1 tablet EVERY AM 1 tablet EVERY AM (route: oral) Med Classific ation: Electroly te Balance-N utritiona l Products diltiazem ER (XR/XT) 180 mg capsule,ext ended release 24 hr, controlled 2024-05 00:00: 00 Yes [id number] 1 capsule EVERY AM 1 capsule EVERY AM (route: oral) Med Classific ation: Cardiovas cular Therapy Agents docusate sodium 100 mg capsule 2024-05 00:00: 00 Yes [id number] 1 capsule 2 TIMES DAILY 1 capsule 2 TIMES DAILY (route: oral) Med Classific ation: Gastroint estinal Therapy Agents lisinopril 40 mg tablet 2024-05 00:00: 00 Yes [id number] 1 tablet EVERY AM 1 tablet EVERY AM (route: oral) Med Classific ation: Cardiovas cular Therapy Agents metoprolol tartrate 25 mg tablet 2024-05 00:00: 00 Yes [id number] 1 tablet 2 TIMES DAILY 1 tablet 2 TIMES DAILY (route: oral) Med Classific ation: Cardiovas cular Therapy Agents multivitami n with minerals tablet 2024-05 00:00: 00 Yes [id number] 1 tablet EVERY AM 1 tablet EVERY AM (route: oral) Med Classific ation: Electroly te Balance-N utritiona l Products paliperidon e ER 6 mg tablet,exte nded release 24 hr 2024-05 00:00: 00 Yes [id number] 1 tablet EVERY PM 1 tablet EVERY PM (route: oral) Med Classific ation: Central Nervous System Agents polyethylen e glycol 3350 17 gram/dose oral powder 2024-05 00:00: 00 Yes [id number] Per instruc tions NEEDED Per instructio ns NEEDED (route: oral) Med Classific ation: Gastroint estinal Therapy Agents trazodone 50 mg tablet 2024-05 00:00: 00 Yes [id number] 1 tablet BEDTIME 1 tablet BEDTIME (route: [...] AWARENESS FOR SAFETY AND WILL NOTIFY CLINICAL FOREST FIRE SPECIALIST SUPERVISOR AND PHYSICIAN/PROVIDER WITH ANY CHANGE IN CONDITION. [code = SKILLED NURSE WILL MAINTAIN SITUATIONAL AWARENESS FOR SAFETY AND WILL NOTIFY CLINICAL FOREST FIRE SPECIALIST SUPERVISOR AND PHYSICIAN/PROVIDER WITH ANY CHANGE IN [...] MELTON [facility] [id number] 29.41
--- OUTSIDE RECORDS SUMMARY | 2025-05-07 19:00 | XMS_ITS | Clinical Summary ---
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 Freight Booker Name Role Phone MEGAN CHUN, MELO Unavailable Unavailable GERONIMO TRACEY, TIFFANY Unavailable Unavailable Payers Payer Name Policy Type Policy Number Effective Date Expira tion Date [employer] [id number] MEDICARE - [facility] [id number] Problems Condition Name Condition Details Condition Category [...] 07-13 00:00: 00 03-13 23:59 :00 No [id number] 1 tablet DAILY 1 tablet DAILY (route: oral) Med Classific ation: Electroly te Balance-N utritiona l Products cyanocobala min (vit B-12) 1,000 mcg tablet 07-13 00:00: 00 2025- 06-12 23:59 :00 No [id number] 1 tablet DAILY 1 tablet DAILY (route: oral) Med Classific ation: Electroly te Balance-N utritiona l Products diltiazem ER (XR/XT) 180 mg capsule,ext ended release 24 hr, controlled 2-19 00:00: 00 03-13 23:59 :00 No [id number] 1 capsule DAILY 1 capsule DAILY (route: oral) Med Classific ation: Cardiovas cular Therapy Agents docusate sodium 100 mg capsule - 00:00: 00 03-13 23:59 :00 No [id number] 1 capsule 2 TIMES DAILY 1 capsule 2 TIMES DAILY (route: oral) Med Classific ation: Gastroint estinal Therapy Agents lisinopril 40 mg tablet - 00:00: 00 03-13 23:59 :00 No [id number] 1 tablet EVERY AM 1 tablet EVERY AM (route: oral) Med Classific ation: Cardiovas cular Therapy Agents metoprolol tartrate 25 mg tablet - 00:00: 00 03-13 23:59 :00 No [id number] 1 tablet 2 TIMES DAILY 1 tablet 2 TIMES DAILY (route: oral) Med Classific ation: Cardiovas cular Therapy Agents multivitami n with minerals tablet 07-13 00:00: 00 03-13 23:59 :00 No [id number] 1 tablet DAILY 1 tablet DAILY (route: oral) Med Classific ation: Electroly te Balance-N utroscara l Products paliperidon e ER 9 mg tablet,exte nded release 24 hr - 00:00: 00 12-01 23:59 :00 No [id number] 1 tablet BEDTIME 1 tablet BEDTIME (route: oral) Med Classific ation: Central Nervous System Agents metoprolol tartrate 25 mg tablet 6-19 00:00: 00 11-17 23:59 :00 No [id number] 1 tablet BEDTIME 1 tablet BEDTIME (route: oral) Med Classific ation: Cardiovas cular Therapy Agents benztropine 1 mg tablet -15 00:00: 00 03-13 23:59 :00 No [id number] 1 tablet EVERY PM 1 tablet EVERY PM (route: oral) Med Classific ation: Central Nervous System Agents paliperidon e ER 6 mg tablet,exte nded release 24 hr 12-01 00:00: 00 03-13 23:59 :00 No [id number] 1 tablet EVERY PM 1 tablet EVERY PM (route: oral) Med Classific ation: Central Nervous System Agents trazodone 50 mg tablet 12-01 00:00: 00 03-13 23:59 :00 No [id number] 1 tablet BEDTIME 1 tablet BEDTIME (route: oral) Med Classific ation: Central Nervous System Agents polyethylen e glycol 3350 17 gram/dose oral powder 12-21 00:00: 00 03-13 23:59 :00 No [id number] Per instruc tions DAILY Per instructio ns DAILY (route: oral) Med Classific ation: Gastroint estinal Therapy Agents benztropine 1 mg tablet 2024-05 00:00: 00 Yes [id number] 1 tablet EVERY PM 1 tablet EVERY PM (route: oral) Med Classific ation: Central Nervous System Agents cholecalcif beverley (vitamin D3) 10 mcg (400 unit) tablet 2024-05 00:00: 00 Yes [id number] 1 tablet EVERY AM 1 tablet EVERY AM (route: oral) Med Classific ation: Electroly te Balance-N utritiona l Products diltiazem ER (XR/XT) 180 mg capsule,ext ended release 24 hr, controlled 2024-05 00:00: 00 Yes [id number] 1 capsule EVERY AM 1 capsule EVERY AM (route: oral) Med Classific ation: Cardiovas cular Therapy Agents docusate sodium 100 mg capsule 2024-05 00:00: 00 Yes [id number] 1 capsule 2 TIMES DAILY 1 capsule 2 TIMES DAILY (route: oral) Med Classific ation: Gastroint estinal Therapy Agents lisinopril 40 mg tablet 2024-05 00:00: 00 Yes [id number] 1 tablet EVERY AM 1 tablet EVERY AM (route: oral) Med Classific ation: Cardiovas cular Therapy Agents metoprolol tartrate 25 mg tablet 2024-05 00:00: 00 Yes [id number] 1 tablet 2 TIMES DAILY 1 tablet 2 TIMES DAILY (route: oral) Med Classific ation: Cardiovas cular Therapy Agents multivitami n with minerals tablet 2024-05 00:00: 00 Yes [id number] 1 tablet EVERY AM 1 tablet EVERY AM (route: oral) Med Classific ation: Electroly te Balance-N utritiona l Products paliperidon e ER 6 mg tablet,exte nded release 24 hr 2024-05 00:00: 00 Yes [id number] 1 tablet EVERY PM 1 tablet EVERY PM (route: oral) Med Classific ation: Central Nervous System Agents polyethylen e glycol 3350 17 gram/dose oral powder 2024-05 00:00: 00 Yes [id number] Per instruc tions NEEDED Per instructio ns NEEDED (route: oral) Med Classific ation: Gastroint estinal Therapy Agents trazodone 50 mg tablet 2024-05 00:00: 00 Yes [id number] 1 tablet BEDTIME 1 tablet BEDTIME (route: [...] AWARENESS FOR SAFETY AND WILL NOTIFY CLINICAL POWER SHOVEL OPERATOR AND PHYSICIAN/PROVIDER WITH ANY CHANGE IN CONDITION. [code = SKILLED NURSE WILL MAINTAIN SITUATIONAL AWARENESS FOR SAFETY AND WILL NOTIFY CLINICAL POWER SHOVEL OPERATOR AND PHYSICIAN/PROVIDER WITH ANY CHANGE IN [...] ATION TIFFANY MELTON [facility] [id number] 29.41
--- OUTSIDE RECORDS SUMMARY | 2025-05-07 19:00 | XMS_ITS | Clinical Summary ---
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 Survey Researcher Name Role Phone MEGAN CHUN, MELO Unavailable Unavailable GERONIMO TRACEY, TIFFANY Unavailable Unavailable Payers Payer Name Policy Type Policy Number Effective Date Expira tion Date [employer] ADV[employer] [id number] MEDICARE - [facility] [id number] Problems Condition Name Condition Details Condition Category [...] 07-13 00:00: 00 03-13 23:59 :00 No [id number] 1 tablet DAILY 1 tablet DAILY (route: oral) Med Classific ation: Electroly te Balance-N utritiona l Products cyanocobala min (vit B-12) 1,000 mcg tablet 07-13 00:00: 00 2025- 06-12 23:59 :00 No [id number] 1 tablet DAILY 1 tablet DAILY (route: oral) Med Classific ation: Electroly te Balance-N utritiona l Products diltiazem ER (XR/XT) 180 mg capsule,ext ended release 24 hr, controlled 2-19 00:00: 00 03-13 23:59 :00 No [id number] 1 capsule DAILY 1 capsule DAILY (route: oral) Med Classific ation: Cardiovas cular Therapy Agents docusate sodium 100 mg capsule - 00:00: 00 03-13 23:59 :00 No [id number] 1 capsule 2 TIMES DAILY 1 capsule 2 TIMES DAILY (route: oral) Med Classific ation: Gastroint estinal Therapy Agents lisinopril 40 mg tablet - 00:00: 00 03-13 23:59 :00 No [id number] 1 tablet EVERY AM 1 tablet EVERY AM (route: oral) Med Classific ation: Cardiovas cular Therapy Agents metoprolol tartrate 25 mg tablet - 00:00: 00 03-13 23:59 :00 No [id number] 1 tablet 2 TIMES DAILY 1 tablet 2 TIMES DAILY (route: oral) Med Classific ation: Cardiovas cular Therapy Agents multivitami n with minerals tablet 07-13 00:00: 00 03-13 23:59 :00 No [id number] 1 tablet DAILY 1 tablet DAILY (route: oral) Med Classific ation: Electroly te Balance-N utroscara l Products paliperidon e ER 9 mg tablet,exte nded release 24 hr - 00:00: 00 12-01 23:59 :00 No [id number] 1 tablet BEDTIME 1 tablet BEDTIME (route: oral) Med Classific ation: Central Nervous System Agents metoprolol tartrate 25 mg tablet 6-19 00:00: 00 11-17 23:59 :00 No [id number] 1 tablet BEDTIME 1 tablet BEDTIME (route: oral) Med Classific ation: Cardiovas cular Therapy Agents benztropine 1 mg tablet -15 00:00: 00 03-13 23:59 :00 No [id number] 1 tablet EVERY PM 1 tablet EVERY PM (route: oral) Med Classific ation: Central Nervous System Agents paliperidon e ER 6 mg tablet,exte nded release 24 hr 12-01 00:00: 00 03-13 23:59 :00 No [id number] 1 tablet EVERY PM 1 tablet EVERY PM (route: oral) Med Classific ation: Central Nervous System Agents trazodone 50 mg tablet 12-01 00:00: 00 03-13 23:59 :00 No [id number] 1 tablet BEDTIME 1 tablet BEDTIME (route: oral) Med Classific ation: Central Nervous System Agents polyethylen e glycol 3350 17 gram/dose oral powder 12-21 00:00: 00 03-13 23:59 :00 No [id number] Per instruc tions DAILY Per instructio ns DAILY (route: oral) Med Classific ation: Gastroint estinal Therapy Agents benztropine 1 mg tablet 2024-05 00:00: 00 Yes [id number] 1 tablet EVERY PM 1 tablet EVERY PM (route: oral) Med Classific ation: Central Nervous System Agents cholecalcif beverley (vitamin D3) 10 mcg (400 unit) tablet 2024-05 00:00: 00 Yes [id number] 1 tablet EVERY AM 1 tablet EVERY AM (route: oral) Med Classific ation: Electroly te Balance-N utritiona l Products diltiazem ER (XR/XT) 180 mg capsule,ext ended release 24 hr, controlled 2024-05 00:00: 00 Yes [id number] 1 capsule EVERY AM 1 capsule EVERY AM (route: oral) Med Classific ation: Cardiovas cular Therapy Agents docusate sodium 100 mg capsule 2024-05 00:00: 00 Yes [id number] 1 capsule 2 TIMES DAILY 1 capsule 2 TIMES DAILY (route: oral) Med Classific ation: Gastroint estinal Therapy Agents lisinopril 40 mg tablet 2024-05 00:00: 00 Yes [id number] 1 tablet EVERY AM 1 tablet EVERY AM (route: oral) Med Classific ation: Cardiovas cular Therapy Agents metoprolol tartrate 25 mg tablet 2024-05 00:00: 00 Yes [id number] 1 tablet 2 TIMES DAILY 1 tablet 2 TIMES DAILY (route: oral) Med Classific ation: Cardiovas cular Therapy Agents multivitami n with minerals tablet 2024-05 00:00: 00 Yes [id number] 1 tablet EVERY AM 1 tablet EVERY AM (route: oral) Med Classific ation: Electroly te Balance-N utritiona l Products paliperidon e ER 6 mg tablet,exte nded release 24 hr 2024-05 00:00: 00 Yes [id number] 1 tablet EVERY PM 1 tablet EVERY PM (route: oral) Med Classific ation: Central Nervous System Agents polyethylen e glycol 3350 17 gram/dose oral powder 2024-05 00:00: 00 Yes [id number] Per instruc tions NEEDED Per instructio ns NEEDED (route: oral) Med Classific ation: Gastroint estinal Therapy Agents trazodone 50 mg tablet 2024-05 00:00: 00 Yes [id number] 1 tablet BEDTIME 1 tablet BEDTIME (route: [...] AWARENESS FOR SAFETY AND WILL NOTIFY CLINICAL CASE LINER AND PHYSICIAN/PROVIDER WITH ANY CHANGE IN CONDITION. [code = SKILLED NURSE WILL MAINTAIN SITUATIONAL AWARENESS FOR SAFETY AND WILL NOTIFY CLINICAL CASE LINER AND PHYSICIAN/PROVIDER WITH ANY CHANGE IN CONDITION.] [...] ATION TIFFANY MELTON [facility] [id number] 29.41
== END 2025-04-12 13:37 | disposition home or self-care (01) ==
LOC: HO.LAB 13:36
PROVIDERS: PCP Internal Medicine; Visit Provider Psychiatry & Neurology Neurology
DX: G21.11 Neuroleptic induced parkinsonism (principal); G31.84 Mild cognitive impairment of uncertain or unknown etiology; T43.505A Adverse effect of unspecified antipsychotics and neuroleptics, initial encounter
CPT/HCPCS: 36415; 82233; 82234; 82607; 82746; 84393; 99202

== ENCOUNTER 2025-04-12 13:36 | Outpatient (AMB) | payer MEDICARE, SELFPAY ==
--- NOTE | 2025-04-12 13:44 | A.OFFVIS_ITS ---
Intake Visit Reasons: Memory Issues HPI Comments Details: The patient is a 74-year-old female presenting for a neurological evaluation of cognitive and physical changes. She was diagnosed with schizophrenia in May 2024 after experiencing several mental health crises over the last couple of years. Psychotic symptoms, including hallucinations, reportedly began approximately three years ago. Her son notes a lifelong history of paranoia, though she was not formally diagnosed with a mental disorder in her youth. Over the past 10 to 20 years, following her divorce in 2000, the patient became progressively more socially isolated, cutting off friends and family. 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 There is no known family history of mental illness. The patient has had three psychiatric hospitalizations, initiated at [facility], with subsequent transfers to [facility] in January 2024 and a three-week stay at the [facility] in [place] in May-June 2024. She was initially treated with risperidone but was switched to paliperidone due to side effects, with the current dose being 6 mg daily, reduced from 9 mg. She also takes trazodone for sleep and benztropine for extrapyramidal symptoms. Her son reports she has had increasing difficulty with instrumental activities of daily living, such as using the phone, TV, and microwave. She has become quieter, exhibits short-term memory deficits, has trouble making decisions, and experiences disturbed sleep. Physically, she is noted to lean to one side while sitting and standing. The patient has never had a brain scan. Review of Systems Narrative Constitutional:?No fever, chills, fatigue, weight loss, or night sweats. HEENT:?Sinus problems Cardiovascular:?No chest pain, palpitations, orthopnea, PND, or leg swelling. Respiratory:?No cough, shortness of breath, wheezing, or hemoptysis. Gastrointestinal:?No nausea, vomiting, abdominal pain, diarrhea, or constipation. Genitourinary:?Constipation Musculoskeletal:?Back pain Neurological:?Problem with STM, sleep problems Psychiatric:?No anxiety, depression, mood swings, sleep disturbance, or hallucinations. Endocrine:?Cold and heat intolerance Hematologic/Lymphatic:?No easy bruising, bleeding, or lymphadenopathy. Integumentary (Skin):?No rash, lesions, itching, or color changes. Allergic/Immunologic:?No seasonal allergies, hives, or recurrent infections. Physical Exam Neuro Other: Mental Status: He is alert and awake with normal spontaneity of speech fluency comprehension and flat affect. Mini-mental status score was 28. She true a clock correctly but struggled with putting time seeing 10 past 11. Cranial Nerves: CN II: Visual miller full to confrontation, visual acuity intact. CN III, IV, : Pupils equal, round, reactive to light and accommodation. Extraocular movements are normal. CN V: Facial sensation is normal. CN VII: Facial movements symmetrical. CN VIII: Hearing intact to bedside conversation is normal. CN IX, X: Palate elevates symmetrically. CN XI: Shoulder shrug and head turn symmetrical. CN XII: Tongue midline without atrophy or fasciculations. Motor: No obvious focal arm or leg weakness. Reflexes: Trace. Coordination: Uwjrcw-ri-ewoe is okay. Gait and Station: Slow and cautious gait with decreased arm swing. Sensory: Intact to light touch, pinprick, and vibration. Romberg is negative. Extrapyramidal: Decreased facial expression and blinking. Moderate generalized bradykinesia. Mild hand postural tremor. Speech: Normal; no dysarthria or tremor. 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 I explained that her parkinsonian features could be a side effect of the paliperidone. I outlined the plan to start a trial of carbidopa-levodopa to treat these p hysical symptoms. I explained that if this is unsuccessful, we would recommend her psychiatrist consider changing her medication to one less likely to cause these effects, like clozapine, and I detailed the associated benefits and the required safety monitoring (frequent blood draws) for that medication. I advised them to inform her psychiatrist at her upcoming appointment that this neurological evaluation is underway but to make no immediate medication changes. We will have a follow-up appointment to discuss all test results. Orders: Orders ABeta 42/40 p-tau 217 Eval Today G21.11 - Neuroleptic induced parkinsonism, G31.84 - Mild cognitive impairment of uncertain or unknown etiology, T43.505A - Adverse effect of unspecified antipsychotics and neuroleptics, initial encounter MR head/brain wo con Today G21.11 - Neuroleptic induced parkinsonism, G31.84 - Mild cognitive impairment of uncertain or unknown etiology, T43.505A - Adverse effect of unspecified antipsychotics and neuroleptics, initial encounter Vitamin B12 and Folate Today G31.84 - Mild cognitive impairment of uncertain or unknown etiology Medications: New carbidopa-levodopa 25-100 mg (Sinemet) 1 tab PO TID 90 tabs 0RF Coding Level of Care Code New Pt Level 4 (73700) Diagnoses MCI (mild cognitive impairment) G31.84 Neuroleptic-induced parkinsonism G21.11; 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
--- OUTSIDE RECORDS SUMMARY | 2025-04-13 01:36 | XMS_ITS | Clinical Summary ---
Author Organization [facility] Address [address] [place] [id number] Phone Care Team Providers Care Respiratory Tech Name Role Phone Jessica Pastor Primary Care Provider Allergies Active Allergy Reactions Criticality Noted Date Comments Aspirin Rash 10/19/2007 Clonidine 07/15/2013 Exhaustion, bladder irritation. Hydrochlorothiazide 12/26/2015 Pt reports she developed dry mouth, tingling in the extremities Iodinated Contrast Media Hives 10/19/2007 Sulfa (Sulfonamide Antibiotics) Other (See Comments) 10/19/2007 vomiting Medications dilTIAZem (CARDIZEM CD) 180 MG 24 hr capsule Take 1 capsule (180 mg total) by mouth daily. 30 capsule 2 Active cholecalciferol , vitamin D3, (VITAMIN D3) 10 mcg (400 unit) capsule Active cyanocobalamin, vitamin B-12, 1000 MCG tablet Take 1,000 mcg by mouth. 5 Active docusate sodium (COLACE) 100 MG capsule Active fluticasone propionate (FLONASE) 50 mcg/actuation nasal spray SPRAY 2 SPRAYS INTO EACH NOSTRIL EVERY DAY SHAKE GENTLY. CLEAN TIP AND REPLACE CAP AFTER USE. 5 Active lisinopril (PRINIVIL,ZESTR IL) 40 MG tablet Take 40 mg by mouth. 5 Active loratadine (CLARITIN) 10 mg tablet Take 1 tablet by mouth every morning. 5 Active metoprolol tartrate (LOPRESSOR) 25 MG tablet See Instructions, Per son, pt takes 25mg in the AM and 50mg in the PM., Refills 0, Maintenance, 09/17/24 8:28:00 AM EDT, Instructions Replace Required Details, Partial fill upon patient request if the prescription is for a schedule II opioid drug. 5 Active ghpwxxdk-ctt-lv on-FA-vit K-lut (CENTRUM MINIS WOMEN 50 PLUS) 4 mg iron-200 mcg-25 mcg Tab Activ e paliperidone (INVEGA) 9 MG 24 hr tablet See Instructions, 1 tablet By Mouth Daily in PM, 0 Refills, Maintenance, 09/17/24 8:09:00 AM EDT, Partial fill upon patient request if the prescription is for a schedule II opioid drug. 5 Active Active Problems Problem Noted Date Diagnosed Date Fatty liver 07/19/2008 Overview (07/15/2014): Fatty liver Cervical cancer 02/21/2008 Overview (07/15/2014): cervical cancer; s/p [facility] Immunizations Immunization Administration Dates Next Due COVID-19 (Pre-03/16) Moderna Vaccine, Bivalent 6mo+ 09/14/2022 INFLUENZA, SPLIT VIRUS, TRIV ALENT W/ PRESERVATIVE IM 03/10/2012 Influenza High-Dose Quadriva lent Preservative Free IM 01/29/2021,03/16/2020 Influenza High-Dose Trivalen t Preservative Free IM 02/15/2019,02/12/2018 Influenza Quadrivalent Adjuv anted Preservative Free IM 02/11/2022 Influenza Quadrivalent Preservative Free IM 01/24,01/25/2016,03/12/2015 Pneumococcal conjugate PCV13 02/12/2018 Tdap 10/27/2012,05/25/2012 Zoster live 11/22/2013 Family History Relation Status Comments Brother Alive Father Mother Sister Alive Social History Tobacco Use Types Packs/Day Years Used Date Smoking Tobacco: Never Smokeless Tobacco: Never Tobacco Cessation:Counseling Given: Not Answered Alcohol Use Standard Drinks/Week Comments Not Currently 0 (1 standard drink = 0.6 oz pur e alcohol) Education Answer Date Recorded Are you interested in more education? Not on marilee e 09/18/2022 Are you concerned about learning? Not on file 09/18/2022 No 09/18/2022 No 09/18/2022 Digital Access Answer Date Recorded No 10/20/2022 No 10/20/2022 Reliable internet access at home? Not on file 10/20/2022 Device with a working camera? Not on file Comments No Sex and Gender Information Value Date Recorded Sex Assigned at Not on file Legal Sex Female 7:34 PM EST Gender Identity Not on file Sexual Orientation Not on file Last Filed Vital Signs Vital Sign Reading Time Taken Comments Blood Pressure 138/60 09/19/2024 12:08 PM EDT Pulse - - Temperature - - Respiratory Rate - - Oxygen Saturation - - Inhaled Oxygen Concentration - - Weight - - Height - - Body Mass Index - - Plan of Treatment Health Maintenance Due Date Last Done Comments CREATININE LEVEL 1952 POTASSIUM LEVEL 1952 DEPRESSION SCREENING 1964 COLOGUARD 1997 COLONOSCOPY 1997 COLORECTAL CANCER SCREENING 1997 FIT TEST 1997 FOBT 1997 SIGMOIDOSCOPY 1997 VIRTUAL COLONOSCOPY 1997 ZOSTER VACCINES (1 of 2) 01/17/2014 11/22/2013 MAMMOGRAM 10/05/2015 10/04/2013 OSTEOPOROSIS SCREENING INITIAL (ONE-TIME) 2017 LIPID PANEL 11/18/2018 11/18/2013 INFLUENZA VACCINE (#1) 2024 , 02/19/2023, 02/11/2022, Additional history exists COVID-19 VACCINE (2024- season) 2025 03/02/2024, 02/25/2023, 09/14/2022, Additional history exists RSV VACCINE (1 - 1-dose 75+ series) 08/24/2027 Adult Td,Tdap Booster 10/11/2032 10/11/2022 , 10/27/2012, 05/25/2012, Additional history exists HEPATITIS C SCREENING Completed 02/12/2018 PNEUMOCOCCAL VACCINES (50+ years) Completed 05/13/2024, 02/12/2018 SMOKING STATUS SCREENING (Once After 26 Yrs) Completed 09/19/2024 HEPATITIS A VACCINES Aged Out No long er eligible based on patient's age to complete this topic HIB VACCINES Aged Out No longer eligi ble based on patient's age to complete this topic IPV VACCINES Aged Out No longer eligi ble based on patient's age to complete this topic MENINGOCOCCAL VACCINES (ACWY) Aged Out No longer eligible based on patient's age to complete this topic MENINGOCOCCAL VACCINES (B) Aged Out N o longer eligible based on patient's age to complete this topic Medical Devices Not on file Insurance [employer] MEDICARE PART A & B [employer] MEDICARE PART A & B [employer] MEDICARE PART A & B [employer] MEDICARE PART A & B [employer] MEDICARE PART A & B MEDICARE PREFERRED HMO REPLACEMENT [employer] RE[employer] MEDICARE PART A & B [employer] Care Teams Respiratory Tech Relationship Specialty Start Date End Date Jessica Pastor PA [address] [place] [address] PCP - General 10/07/23 Additional Source Comments The information contained in this document represents components of the legal health record. It is not the complete legal health record.[facility]
--- OUTSIDE RECORDS SUMMARY | 2025-04-13 01:37 | XMS_ITS ---
Author Name [facility] Organization Unknown Care Team Organization Name Specialty Phone Email Start Date End Da te [facility] 01/11/2025 [facility] Jessica Pastro Primary Care 04/01/2022 024
--- OUTSIDE RECORDS SUMMARY | 2025-05-07 19:00 | XMS_ITS | Clinical Summary ---
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 Veterinary X Ray Operator Name Role Phone MEGAN CHUN, MELO Unavailable Unavailable GERONIMO TRACEY, TIFFANY Unavailable Unavailable Payers Payer Name Policy Type Policy Number Effective Date Expira tion Date [employer] MED[employer] ADVANTAGE [id number] MEDICARE - [facility] [id number] Problems Condition Name Condition Details Condition Category [...] 07-13 00:00: 00 03-13 23:59 :00 No [id number] 1 tablet DAILY 1 tablet DAILY (route: oral) Med Classific ation: Electroly te Balance-N utritiona l Products cyanocobala min (vit B-12) 1,000 mcg tablet 07-13 00:00: 00 2025- 06-12 23:59 :00 No [id number] 1 tablet DAILY 1 tablet DAILY (route: oral) Med Classific ation: Electroly te Balance-N utritiona l Products diltiazem ER (XR/XT) 180 mg capsule,ext ended release 24 hr, controlled 2-19 00:00: 00 03-13 23:59 :00 No [id number] 1 capsule DAILY 1 capsule DAILY (route: oral) Med Classific ation: Cardiovas cular Therapy Agents docusate sodium 100 mg capsule - 00:00: 00 03-13 23:59 :00 No [id number] 1 capsule 2 TIMES DAILY 1 capsule 2 TIMES DAILY (route: oral) Med Classific ation: Gastroint estinal Therapy Agents lisinopril 40 mg tablet - 00:00: 00 03-13 23:59 :00 No [id number] 1 tablet EVERY AM 1 tablet EVERY AM (route: oral) Med Classific ation: Cardiovas cular Therapy Agents metoprolol tartrate 25 mg tablet - 00:00: 00 03-13 23:59 :00 No [id number] 1 tablet 2 TIMES DAILY 1 tablet 2 TIMES DAILY (route: oral) Med Classific ation: Cardiovas cular Therapy Agents multivitami n with minerals tablet 07-13 00:00: 00 03-13 23:59 :00 No [id number] 1 tablet DAILY 1 tablet DAILY (route: oral) Med Classific ation: Electroly te Balance-N utroscara l Products paliperidon e ER 9 mg tablet,exte nded release 24 hr - 00:00: 00 12-01 23:59 :00 No [id number] 1 tablet BEDTIME 1 tablet BEDTIME (route: oral) Med Classific ation: Central Nervous System Agents metoprolol tartrate 25 mg tablet 6-19 00:00: 00 11-17 23:59 :00 No [id number] 1 tablet BEDTIME 1 tablet BEDTIME (route: oral) Med Classific ation: Cardiovas cular Therapy Agents benztropine 1 mg tablet -15 00:00: 00 03-13 23:59 :00 No [id number] 1 tablet EVERY PM 1 tablet EVERY PM (route: oral) Med Classific ation: Central Nervous System Agents paliperidon e ER 6 mg tablet,exte nded release 24 hr 12-01 00:00: 00 03-13 23:59 :00 No [id number] 1 tablet EVERY PM 1 tablet EVERY PM (route: oral) Med Classific ation: Central Nervous System Agents trazodone 50 mg tablet 12-01 00:00: 00 03-13 23:59 :00 No [id number] 1 tablet BEDTIME 1 tablet BEDTIME (route: oral) Med Classific ation: Central Nervous System Agents polyethylen e glycol 3350 17 gram/dose oral powder 12-21 00:00: 00 03-13 23:59 :00 No [id number] Per instruc tions DAILY Per instructio ns DAILY (route: oral) Med Classific ation: Gastroint estinal Therapy Agents benztropine 1 mg tablet 2024-05 00:00: 00 Yes [id number] 1 tablet EVERY PM 1 tablet EVERY PM (route: oral) Med Classific ation: Central Nervous System Agents cholecalcif beverley (vitamin D3) 10 mcg (400 unit) tablet 2024-05 00:00: 00 Yes [id number] 1 tablet EVERY AM 1 tablet EVERY AM (route: oral) Med Classific ation: Electroly te Balance-N utritiona l Products diltiazem ER (XR/XT) 180 mg capsule,ext ended release 24 hr, controlled 2024-05 00:00: 00 Yes [id number] 1 capsule EVERY AM 1 capsule EVERY AM (route: oral) Med Classific ation: Cardiovas cular Therapy Agents docusate sodium 100 mg capsule 2024-05 00:00: 00 Yes [id number] 1 capsule 2 TIMES DAILY 1 capsule 2 TIMES DAILY (route: oral) Med Classific ation: Gastroint estinal Therapy Agents lisinopril 40 mg tablet 2024-05 00:00: 00 Yes [id number] 1 tablet EVERY AM 1 tablet EVERY AM (route: oral) Med Classific ation: Cardiovas cular Therapy Agents metoprolol tartrate 25 mg tablet 2024-05 00:00: 00 Yes [id number] 1 tablet 2 TIMES DAILY 1 tablet 2 TIMES DAILY (route: oral) Med Classific ation: Cardiovas cular Therapy Agents multivitami n with minerals tablet 2024-05 00:00: 00 Yes [id number] 1 tablet EVERY AM 1 tablet EVERY AM (route: oral) Med Classific ation: Electroly te Balance-N utritiona l Products paliperidon e ER 6 mg tablet,exte nded release 24 hr 2024-05 00:00: 00 Yes [id number] 1 tablet EVERY PM 1 tablet EVERY PM (route: oral) Med Classific ation: Central Nervous System Agents polyethylen e glycol 3350 17 gram/dose oral powder 2024-05 00:00: 00 Yes [id number] Per instruc tions NEEDED Per instructio ns NEEDED (route: oral) Med Classific ation: Gastroint estinal Therapy Agents trazodone 50 mg tablet 2024-05 00:00: 00 Yes [id number] 1 tablet BEDTIME 1 tablet BEDTIME (route: [...] AWARENESS FOR SAFETY AND WILL NOTIFY CLINICAL DIALYSIS CLINICAL MANAGER AND PHYSICIAN/PROVIDER WITH ANY CHANGE IN CONDITION. [code = SKILLED NURSE WILL MAINTAIN SITUATIONAL AWARENESS FOR SAFETY AND WILL NOTIFY CLINICAL DIALYSIS CLINICAL MANAGER AND PHYSICIAN/PROVIDER WITH ANY CHANGE IN CONDITION.] [...] CARE WILL BE ESTABLISHED THAT MEETS PATIENT'S CORRECTION NEEDS AND INCLUDES PATIENT GOAL FOR HOME [...] Outpatient RECERTIFIC ATION TIFFANY MELTON [facility] [id number] 29.41
--- OUTSIDE RECORDS SUMMARY | 2025-05-07 19:00 | XMS_ITS | Clinical Summary ---
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 Station Operator Name Role Phone MEGAN CHUN, MELO Unavailable Unavailable GERONIMO TRACEY, TIFFANY Unavailable Unavailable Payers Payer Name Policy Type Policy Number Effective Date Expira tion Date [employer] MEDIC[employer] ADV[employer]AGE [id number] MEDICARE - [facility] [id number] Problems Condition Name Condition Details Condition Category [...] 07-13 00:00: 00 03-13 23:59 :00 No [id number] 1 tablet DAILY 1 tablet DAILY (route: oral) Med Classific ation: Electroly te Balance-N utritiona l Products cyanocobala min (vit B-12) 1,000 mcg tablet 07-13 00:00: 00 2025- 06-12 23:59 :00 No [id number] 1 tablet DAILY 1 tablet DAILY (route: oral) Med Classific ation: Electroly te Balance-N utritiona l Products diltiazem ER (XR/XT) 180 mg capsule,ext ended release 24 hr, controlled 2-19 00:00: 00 03-13 23:59 :00 No [id number] 1 capsule DAILY 1 capsule DAILY (route: oral) Med Classific ation: Cardiovas cular Therapy Agents docusate sodium 100 mg capsule - 00:00: 00 03-13 23:59 :00 No [id number] 1 capsule 2 TIMES DAILY 1 capsule 2 TIMES DAILY (route: oral) Med Classific ation: Gastroint estinal Therapy Agents lisinopril 40 mg tablet - 00:00: 00 03-13 23:59 :00 No [id number] 1 tablet EVERY AM 1 tablet EVERY AM (route: oral) Med Classific ation: Cardiovas cular Therapy Agents metoprolol tartrate 25 mg tablet - 00:00: 00 03-13 23:59 :00 No [id number] 1 tablet 2 TIMES DAILY 1 tablet 2 TIMES DAILY (route: oral) Med Classific ation: Cardiovas cular Therapy Agents multivitami n with minerals tablet 07-13 00:00: 00 03-13 23:59 :00 No [id number] 1 tablet DAILY 1 tablet DAILY (route: oral) Med Classific ation: Electroly te Balance-N utroscara l Products paliperidon e ER 9 mg tablet,exte nded release 24 hr - 00:00: 00 12-01 23:59 :00 No [id number] 1 tablet BEDTIME 1 tablet BEDTIME (route: oral) Med Classific ation: Central Nervous System Agents metoprolol tartrate 25 mg tablet 6-19 00:00: 00 11-17 23:59 :00 No [id number] 1 tablet BEDTIME 1 tablet BEDTIME (route: oral) Med Classific ation: Cardiovas cular Therapy Agents benztropine 1 mg tablet -15 00:00: 00 03-13 23:59 :00 No [id number] 1 tablet EVERY PM 1 tablet EVERY PM (route: oral) Med Classific ation: Central Nervous System Agents paliperidon e ER 6 mg tablet,exte nded release 24 hr 12-01 00:00: 00 03-13 23:59 :00 No [id number] 1 tablet EVERY PM 1 tablet EVERY PM (route: oral) Med Classific ation: Central Nervous System Agents trazodone 50 mg tablet 12-01 00:00: 00 03-13 23:59 :00 No [id number] 1 tablet BEDTIME 1 tablet BEDTIME (route: oral) Med Classific ation: Central Nervous System Agents polyethylen e glycol 3350 17 gram/dose oral powder 12-21 00:00: 00 03-13 23:59 :00 No [id number] Per instruc tions DAILY Per instructio ns DAILY (route: oral) Med Classific ation: Gastroint estinal Therapy Agents benztropine 1 mg tablet 2024-05 00:00: 00 Yes [id number] 1 tablet EVERY PM 1 tablet EVERY PM (route: oral) Med Classific ation: Central Nervous System Agents cholecalcif beverley (vitamin D3) 10 mcg (400 unit) tablet 2024-05 00:00: 00 Yes [id number] 1 tablet EVERY AM 1 tablet EVERY AM (route: oral) Med Classific ation: Electroly te Balance-N utritiona l Products diltiazem ER (XR/XT) 180 mg capsule,ext ended release 24 hr, controlled 2024-05 00:00: 00 Yes [id number] 1 capsule EVERY AM 1 capsule EVERY AM (route: oral) Med Classific ation: Cardiovas cular Therapy Agents docusate sodium 100 mg capsule 2024-05 00:00: 00 Yes [id number] 1 capsule 2 TIMES DAILY 1 capsule 2 TIMES DAILY (route: oral) Med Classific ation: Gastroint estinal Therapy Agents lisinopril 40 mg tablet 2024-05 00:00: 00 Yes [id number] 1 tablet EVERY AM 1 tablet EVERY AM (route: oral) Med Classific ation: Cardiovas cular Therapy Agents metoprolol tartrate 25 mg tablet 2024-05 00:00: 00 Yes [id number] 1 tablet 2 TIMES DAILY 1 tablet 2 TIMES DAILY (route: oral) Med Classific ation: Cardiovas cular Therapy Agents multivitami n with minerals tablet 2024-05 00:00: 00 Yes [id number] 1 tablet EVERY AM 1 tablet EVERY AM (route: oral) Med Classific ation: Electroly te Balance-N utritiona l Products paliperidon e ER 6 mg tablet,exte nded release 24 hr 2024-05 00:00: 00 Yes [id number] 1 tablet EVERY PM 1 tablet EVERY PM (route: oral) Med Classific ation: Central Nervous System Agents polyethylen e glycol 3350 17 gram/dose oral powder 2024-05 00:00: 00 Yes [id number] Per instruc tions NEEDED Per instructio ns NEEDED (route: oral) Med Classific ation: Gastroint estinal Therapy Agents trazodone 50 mg tablet 2024-05 00:00: 00 Yes [id number] 1 tablet BEDTIME 1 tablet BEDTIME (route: [...] AWARENESS FOR SAFETY AND WILL NOTIFY CLINICAL RETORT ENGINEER AND PHYSICIAN/PROVIDER WITH ANY CHANGE IN CONDITION. [code = SKILLED NURSE WILL MAINTAIN SITUATIONAL AWARENESS FOR SAFETY AND WILL NOTIFY CLINICAL RETORT ENGINEER AND PHYSICIAN/PROVIDER WITH ANY CHANGE IN CONDITION.] [...] Outpatient RECERTIFIC ATION TIFFANY MELTON [facility] [id number] 29.41
--- OUTSIDE RECORDS SUMMARY | 2025-05-07 19:00 | XMS_ITS | Clinical Summary ---
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 Appointment Manager Name Role Phone MEGAN CHUN, MELO Unavailable Unavailable GERONIMO TRACEY, TIFFANY Unavailable Unavailable Payers Payer Name Policy Type Policy Number Effective Date Expira tion Date [employer] [id number] MEDICARE - [facility] [id number] Problems Condition Name Condition Details Condition Category [...] 07-13 00:00: 00 03-13 23:59 :00 No [id number] 1 tablet DAILY 1 tablet DAILY (route: oral) Med Classific ation: Electroly te Balance-N utritiona l Products cyanocobala min (vit B-12) 1,000 mcg tablet 07-13 00:00: 00 2025- 06-12 23:59 :00 No [id number] 1 tablet DAILY 1 tablet DAILY (route: oral) Med Classific ation: Electroly te Balance-N utritiona l Products diltiazem ER (XR/XT) 180 mg capsule,ext ended release 24 hr, controlled 2-19 00:00: 00 03-13 23:59 :00 No [id number] 1 capsule DAILY 1 capsule DAILY (route: oral) Med Classific ation: Cardiovas cular Therapy Agents docusate sodium 100 mg capsule - 00:00: 00 03-13 23:59 :00 No [id number] 1 capsule 2 TIMES DAILY 1 capsule 2 TIMES DAILY (route: oral) Med Classific ation: Gastroint estinal Therapy Agents lisinopril 40 mg tablet - 00:00: 00 03-13 23:59 :00 No [id number] 1 tablet EVERY AM 1 tablet EVERY AM (route: oral) Med Classific ation: Cardiovas cular Therapy Agents metoprolol tartrate 25 mg tablet - 00:00: 00 03-13 23:59 :00 No [id number] 1 tablet 2 TIMES DAILY 1 tablet 2 TIMES DAILY (route: oral) Med Classific ation: Cardiovas cular Therapy Agents multivitami n with minerals tablet 07-13 00:00: 00 03-13 23:59 :00 No [id number] 1 tablet DAILY 1 tablet DAILY (route: oral) Med Classific ation: Electroly te Balance-N utroscara l Products paliperidon e ER 9 mg tablet,exte nded release 24 hr - 00:00: 00 12-01 23:59 :00 No [id number] 1 tablet BEDTIME 1 tablet BEDTIME (route: oral) Med Classific ation: Central Nervous System Agents metoprolol tartrate 25 mg tablet 6-19 00:00: 00 11-17 23:59 :00 No [id number] 1 tablet BEDTIME 1 tablet BEDTIME (route: oral) Med Classific ation: Cardiovas cular Therapy Agents benztropine 1 mg tablet -15 00:00: 00 03-13 23:59 :00 No [id number] 1 tablet EVERY PM 1 tablet EVERY PM (route: oral) Med Classific ation: Central Nervous System Agents paliperidon e ER 6 mg tablet,exte nded release 24 hr 12-01 00:00: 00 03-13 23:59 :00 No [id number] 1 tablet EVERY PM 1 tablet EVERY PM (route: oral) Med Classific ation: Central Nervous System Agents trazodone 50 mg tablet 12-01 00:00: 00 03-13 23:59 :00 No [id number] 1 tablet BEDTIME 1 tablet BEDTIME (route: oral) Med Classific ation: Central Nervous System Agents polyethylen e glycol 3350 17 gram/dose oral powder 12-21 00:00: 00 03-13 23:59 :00 No [id number] Per instruc tions DAILY Per instructio ns DAILY (route: oral) Med Classific ation: Gastroint estinal Therapy Agents benztropine 1 mg tablet 2024-05 00:00: 00 Yes [id number] 1 tablet EVERY PM 1 tablet EVERY PM (route: oral) Med Classific ation: Central Nervous System Agents cholecalcif beverley (vitamin D3) 10 mcg (400 unit) tablet 2024-05 00:00: 00 Yes [id number] 1 tablet EVERY AM 1 tablet EVERY AM (route: oral) Med Classific ation: Electroly te Balance-N utritiona l Products diltiazem ER (XR/XT) 180 mg capsule,ext ended release 24 hr, controlled 2024-05 00:00: 00 Yes [id number] 1 capsule EVERY AM 1 capsule EVERY AM (route: oral) Med Classific ation: Cardiovas cular Therapy Agents docusate sodium 100 mg capsule 2024-05 00:00: 00 Yes [id number] 1 capsule 2 TIMES DAILY 1 capsule 2 TIMES DAILY (route: oral) Med Classific ation: Gastroint estinal Therapy Agents lisinopril 40 mg tablet 2024-05 00:00: 00 Yes [id number] 1 tablet EVERY AM 1 tablet EVERY AM (route: oral) Med Classific ation: Cardiovas cular Therapy Agents metoprolol tartrate 25 mg tablet 2024-05 00:00: 00 Yes [id number] 1 tablet 2 TIMES DAILY 1 tablet 2 TIMES DAILY (route: oral) Med Classific ation: Cardiovas cular Therapy Agents multivitami n with minerals tablet 2024-05 00:00: 00 Yes [id number] 1 tablet EVERY AM 1 tablet EVERY AM (route: oral) Med Classific ation: Electroly te Balance-N utritiona l Products paliperidon e ER 6 mg tablet,exte nded release 24 hr 2024-05 00:00: 00 Yes [id number] 1 tablet EVERY PM 1 tablet EVERY PM (route: oral) Med Classific ation: Central Nervous System Agents polyethylen e glycol 3350 17 gram/dose oral powder 2024-05 00:00: 00 Yes [id number] Per instruc tions NEEDED Per instructio ns NEEDED (route: oral) Med Classific ation: Gastroint estinal Therapy Agents trazodone 50 mg tablet 2024-05 00:00: 00 Yes [id number] 1 tablet BEDTIME 1 tablet BEDTIME (route: [...] AWARENESS FOR SAFETY AND WILL NOTIFY CLINICAL SUPERVISING ARCHITECT AND PHYSICIAN/PROVIDER WITH ANY CHANGE IN CONDITION. [code = SKILLED NURSE WILL MAINTAIN SITUATIONAL AWARENESS FOR SAFETY AND WILL NOTIFY CLINICAL SUPERVISING ARCHITECT AND PHYSICIAN/PROVIDER WITH ANY CHANGE IN CONDITION.] [...] CARE WILL BE ESTABLISHED THAT MEETS PATIENT'S PENITENTIARY NEEDS AND INCLUDES PATIENT GOAL FOR HOME [...] Outpatient RECERTIFIC ATION TIFFANY MELTON [facility] [place] [id number] 29.41
--- OUTSIDE RECORDS SUMMARY | 2025-05-07 19:00 | XMS_ITS | Clinical Summary ---
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 Machine Shorthand Reporter Name Role Phone MEGAN CUHN, MELO Unavailable Unavailable GERONIMO TRACEY, TIFFANY Unavailable Unavailable Payers Payer Name Policy Type Policy Number Effective Date Expira tion Date [employer] [id number] MEDICARE - [facility] [id number] Problems Condition Name Condition Details Condition Category [...] 07-13 00:00: 00 03-13 23:59 :00 No [id number] 1 tablet DAILY 1 tablet DAILY (route: oral) Med Classific ation: Electroly te Balance-N utritiona l Products cyanocobala min (vit B-12) 1,000 mcg tablet 07-13 00:00: 00 2025- 06-12 23:59 :00 No [id number] 1 tablet DAILY 1 tablet DAILY (route: oral) Med Classific ation: Electroly te Balance-N utritiona l Products diltiazem ER (XR/XT) 180 mg capsule,ext ended release 24 hr, controlled 2-19 00:00: 00 03-13 23:59 :00 No [id number] 1 capsule DAILY 1 capsule DAILY (route: oral) Med Classific ation: Cardiovas cular Therapy Agents docusate sodium 100 mg capsule - 00:00: 00 03-13 23:59 :00 No [id number] 1 capsule 2 TIMES DAILY 1 capsule 2 TIMES DAILY (route: oral) Med Classific ation: Gastroint estinal Therapy Agents lisinopril 40 mg tablet - 00:00: 00 03-13 23:59 :00 No [id number] 1 tablet EVERY AM 1 tablet EVERY AM (route: oral) Med Classific ation: Cardiovas cular Therapy Agents metoprolol tartrate 25 mg tablet - 00:00: 00 03-13 23:59 :00 No [id number] 1 tablet 2 TIMES DAILY 1 tablet 2 TIMES DAILY (route: oral) Med Classific ation: Cardiovas cular Therapy Agents multivitami n with minerals tablet 07-13 00:00: 00 03-13 23:59 :00 No [id number] 1 tablet DAILY 1 tablet DAILY (route: oral) Med Classific ation: Electroly te Balance-N utroscara l Products paliperidon e ER 9 mg tablet,exte nded release 24 hr - 00:00: 00 12-01 23:59 :00 No [id number] 1 tablet BEDTIME 1 tablet BEDTIME (route: oral) Med Classific ation: Central Nervous System Agents metoprolol tartrate 25 mg tablet 6-19 00:00: 00 11-17 23:59 :00 No [id number] 1 tablet BEDTIME 1 tablet BEDTIME (route: oral) Med Classific ation: Cardiovas cular Therapy Agents benztropine 1 mg tablet -15 00:00: 00 03-13 23:59 :00 No [id number] 1 tablet EVERY PM 1 tablet EVERY PM (route: oral) Med Classific ation: Central Nervous System Agents paliperidon e ER 6 mg tablet,exte nded release 24 hr 12-01 00:00: 00 03-13 23:59 :00 No [id number] 1 tablet EVERY PM 1 tablet EVERY PM (route: oral) Med Classific ation: Central Nervous System Agents trazodone 50 mg tablet 12-01 00:00: 00 03-13 23:59 :00 No [id number] 1 tablet BEDTIME 1 tablet BEDTIME (route: oral) Med Classific ation: Central Nervous System Agents polyethylen e glycol 3350 17 gram/dose oral powder 12-21 00:00: 00 03-13 23:59 :00 No [id number] Per instruc tions DAILY Per instructio ns DAILY (route: oral) Med Classific ation: Gastroint estinal Therapy Agents benztropine 1 mg tablet 2024-05 00:00: 00 Yes [id number] 1 tablet EVERY PM 1 tablet EVERY PM (route: oral) Med Classific ation: Central Nervous System Agents cholecalcif beverley (vitamin D3) 10 mcg (400 unit) tablet 2024-05 00:00: 00 Yes [id number] 1 tablet EVERY AM 1 tablet EVERY AM (route: oral) Med Classific ation: Electroly te Balance-N utritiona l Products diltiazem ER (XR/XT) 180 mg capsule,ext ended release 24 hr, controlled 2024-05 00:00: 00 Yes [id number] 1 capsule EVERY AM 1 capsule EVERY AM (route: oral) Med Classific ation: Cardiovas cular Therapy Agents docusate sodium 100 mg capsule 2024-05 00:00: 00 Yes [id number] 1 capsule 2 TIMES DAILY 1 capsule 2 TIMES DAILY (route: oral) Med Classific ation: Gastroint estinal Therapy Agents lisinopril 40 mg tablet 2024-05 00:00: 00 Yes [id number] 1 tablet EVERY AM 1 tablet EVERY AM (route: oral) Med Classific ation: Cardiovas cular Therapy Agents metoprolol tartrate 25 mg tablet 2024-05 00:00: 00 Yes [id number] 1 tablet 2 TIMES DAILY 1 tablet 2 TIMES DAILY (route: oral) Med Classific ation: Cardiovas cular Therapy Agents multivitami n with minerals tablet 2024-05 00:00: 00 Yes [id number] 1 tablet EVERY AM 1 tablet EVERY AM (route: oral) Med Classific ation: Electroly te Balance-N utritiona l Products paliperidon e ER 6 mg tablet,exte nded release 24 hr 2024-05 00:00: 00 Yes [id number] 1 tablet EVERY PM 1 tablet EVERY PM (route: oral) Med Classific ation: Central Nervous System Agents polyethylen e glycol 3350 17 gram/dose oral powder 2024-05 00:00: 00 Yes [id number] Per instruc tions NEEDED Per instructio ns NEEDED (route: oral) Med Classific ation: Gastroint estinal Therapy Agents trazodone 50 mg tablet 2024-05 00:00: 00 Yes [id number] 1 tablet BEDTIME 1 tablet BEDTIME (route: [...] AWARENESS FOR SAFETY AND WILL NOTIFY CLINICAL CONE EXAMINER AND PHYSICIAN/PROVIDER WITH ANY CHANGE IN CONDITION. [code = SKILLED NURSE WILL MAINTAIN SITUATIONAL AWARENESS FOR SAFETY AND WILL NOTIFY CLINICAL CONE EXAMINER AND PHYSICIAN/PROVIDER WITH ANY CHANGE IN CONDITION.] [...] CARE WILL BE ESTABLISHED THAT MEETS PATIENT'S GROUP HOME NEEDS AND INCLUDES PATIENT GOAL FOR HOME [...] 00:00:00 Outpatient RECERTIFIC ATION TIFFANY MELTON [facility] [place] [id number] 29.41
--- OUTSIDE RECORDS SUMMARY | 2025-05-07 19:00 | XMS_ITS | Clinical Summary ---
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 Detention Officer Name Role Phone MEGAN CHUN, MELO Unavailable Unavailable GERONIMO TRACEY, TIFFANY Unavailable Unavailable Payers Payer Name Policy Type Policy Number Effective Date Expira tion Date [employer] MEDIC[employer] ADVANTAGE [id number] MEDICARE - [facility] [id number] Problems Condition Name Condition Details Condition Category [...] 07-13 00:00: 00 03-13 23:59 :00 No [id number] 1 tablet DAILY 1 tablet DAILY (route: oral) Med Classific ation: Electroly te Balance-N utritiona l Products cyanocobala min (vit B-12) 1,000 mcg tablet 07-13 00:00: 00 2025- 06-12 23:59 :00 No [id number] 1 tablet DAILY 1 tablet DAILY (route: oral) Med Classific ation: Electroly te Balance-N utritiona l Products diltiazem ER (XR/XT) 180 mg capsule,ext ended release 24 hr, controlled 2-19 00:00: 00 03-13 23:59 :00 No [id number] 1 capsule DAILY 1 capsule DAILY (route: oral) Med Classific ation: Cardiovas cular Therapy Agents docusate sodium 100 mg capsule - 00:00: 00 03-13 23:59 :00 No [id number] 1 capsule 2 TIMES DAILY 1 capsule 2 TIMES DAILY (route: oral) Med Classific ation: Gastroint estinal Therapy Agents lisinopril 40 mg tablet - 00:00: 00 03-13 23:59 :00 No [id number] 1 tablet EVERY AM 1 tablet EVERY AM (route: oral) Med Classific ation: Cardiovas cular Therapy Agents metoprolol tartrate 25 mg tablet - 00:00: 00 03-13 23:59 :00 No [id number] 1 tablet 2 TIMES DAILY 1 tablet 2 TIMES DAILY (route: oral) Med Classific ation: Cardiovas cular Therapy Agents multivitami n with minerals tablet 07-13 00:00: 00 03-13 23:59 :00 No [id number] 1 tablet DAILY 1 tablet DAILY (route: oral) Med Classific ation: Electroly te Balance-N utroscara l Products paliperidon e ER 9 mg tablet,exte nded release 24 hr - 00:00: 00 12-01 23:59 :00 No [id number] 1 tablet BEDTIME 1 tablet BEDTIME (route: oral) Med Classific ation: Central Nervous System Agents metoprolol tartrate 25 mg tablet 6-19 00:00: 00 11-17 23:59 :00 No [id number] 1 tablet BEDTIME 1 tablet BEDTIME (route: oral) Med Classific ation: Cardiovas cular Therapy Agents benztropine 1 mg tablet -15 00:00: 00 03-13 23:59 :00 No [id number] 1 tablet EVERY PM 1 tablet EVERY PM (route: oral) Med Classific ation: Central Nervous System Agents paliperidon e ER 6 mg tablet,exte nded release 24 hr 12-01 00:00: 00 03-13 23:59 :00 No [id number] 1 tablet EVERY PM 1 tablet EVERY PM (route: oral) Med Classific ation: Central Nervous System Agents trazodone 50 mg tablet 12-01 00:00: 00 03-13 23:59 :00 No [id number] 1 tablet BEDTIME 1 tablet BEDTIME (route: oral) Med Classific ation: Central Nervous System Agents polyethylen e glycol 3350 17 gram/dose oral powder 12-21 00:00: 00 03-13 23:59 :00 No [id number] Per instruc tions DAILY Per instructio ns DAILY (route: oral) Med Classific ation: Gastroint estinal Therapy Agents benztropine 1 mg tablet 2024-05 00:00: 00 Yes [id number] 1 tablet EVERY PM 1 tablet EVERY PM (route: oral) Med Classific ation: Central Nervous System Agents cholecalcif beverley (vitamin D3) 10 mcg (400 unit) tablet 2024-05 00:00: 00 Yes [id number] 1 tablet EVERY AM 1 tablet EVERY AM (route: oral) Med Classific ation: Electroly te Balance-N utritiona l Products diltiazem ER (XR/XT) 180 mg capsule,ext ended release 24 hr, controlled 2024-05 00:00: 00 Yes [id number] 1 capsule EVERY AM 1 capsule EVERY AM (route: oral) Med Classific ation: Cardiovas cular Therapy Agents docusate sodium 100 mg capsule 2024-05 00:00: 00 Yes [id number] 1 capsule 2 TIMES DAILY 1 capsule 2 TIMES DAILY (route: oral) Med Classific ation: Gastroint estinal Therapy Agents lisinopril 40 mg tablet 2024-05 00:00: 00 Yes [id number] 1 tablet EVERY AM 1 tablet EVERY AM (route: oral) Med Classific ation: Cardiovas cular Therapy Agents metoprolol tartrate 25 mg tablet 2024-05 00:00: 00 Yes [id number] 1 tablet 2 TIMES DAILY 1 tablet 2 TIMES DAILY (route: oral) Med Classific ation: Cardiovas cular Therapy Agents multivitami n with minerals tablet 2024-05 00:00: 00 Yes [id number] 1 tablet EVERY AM 1 tablet EVERY AM (route: oral) Med Classific ation: Electroly te Balance-N utritiona l Products paliperidon e ER 6 mg tablet,exte nded release 24 hr 2024-05 00:00: 00 Yes [id number] 1 tablet EVERY PM 1 tablet EVERY PM (route: oral) Med Classific ation: Central Nervous System Agents polyethylen e glycol 3350 17 gram/dose oral powder 2024-05 00:00: 00 Yes [id number] Per instruc tions NEEDED Per instructio ns NEEDED (route: oral) Med Classific ation: Gastroint estinal Therapy Agents trazodone 50 mg tablet 2024-05 00:00: 00 Yes [id number] 1 tablet BEDTIME 1 tablet BEDTIME (route: [...] AWARENESS FOR SAFETY AND WILL NOTIFY CLINICAL NURSING SCHEDULER AND PHYSICIAN/PROVIDER WITH ANY CHANGE IN CONDITION. [code = SKILLED NURSE WILL MAINTAIN SITUATIONAL AWARENESS FOR SAFETY AND WILL NOTIFY CLINICAL NURSING SCHEDULER AND PHYSICIAN/PROVIDER WITH ANY CHANGE IN CONDITION.] [...] 2025-05-08 00:00:00 Outpatient RECERTIFIC ATION TIFFANY MELTON [facility] [id number] 29.41
--- OUTSIDE RECORDS SUMMARY | 2025-05-07 19:00 | XMS_ITS | Clinical Summary ---
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 Auto Battery Builder Name Role Phone MEGAN CHUN, MELO Unavailable Unavailable GERONIMO TRACEY, TIFFANY Unavailable Unavailable Payers Payer Name Policy Type Policy Number Effective Date Expira tion Date [employer] MED[employer] ADVANTAGE [id number] MEDICARE - [facility] [id number] Problems Condition Name Condition Details Condition Category [...] 07-13 00:00: 00 03-13 23:59 :00 No [id number] 1 tablet DAILY 1 tablet DAILY (route: oral) Med Classific ation: Electroly te Balance-N utritiona l Products cyanocobala min (vit B-12) 1,000 mcg tablet 07-13 00:00: 00 2025- 06-12 23:59 :00 No [id number] 1 tablet DAILY 1 tablet DAILY (route: oral) Med Classific ation: Electroly te Balance-N utritiona l Products diltiazem ER (XR/XT) 180 mg capsule,ext ended release 24 hr, controlled 2-19 00:00: 00 03-13 23:59 :00 No [id number] 1 capsule DAILY 1 capsule DAILY (route: oral) Med Classific ation: Cardiovas cular Therapy Agents docusate sodium 100 mg capsule - 00:00: 00 03-13 23:59 :00 No [id number] 1 capsule 2 TIMES DAILY 1 capsule 2 TIMES DAILY (route: oral) Med Classific ation: Gastroint estinal Therapy Agents lisinopril 40 mg tablet - 00:00: 00 03-13 23:59 :00 No [id number] 1 tablet EVERY AM 1 tablet EVERY AM (route: oral) Med Classific ation: Cardiovas cular Therapy Agents metoprolol tartrate 25 mg tablet - 00:00: 00 03-13 23:59 :00 No [id number] 1 tablet 2 TIMES DAILY 1 tablet 2 TIMES DAILY (route: oral) Med Classific ation: Cardiovas cular Therapy Agents multivitami n with minerals tablet 07-13 00:00: 00 03-13 23:59 :00 No [id number] 1 tablet DAILY 1 tablet DAILY (route: oral) Med Classific ation: Electroly te Balance-N utroscara l Products paliperidon e ER 9 mg tablet,exte nded release 24 hr - 00:00: 00 12-01 23:59 :00 No [id number] 1 tablet BEDTIME 1 tablet BEDTIME (route: oral) Med Classific ation: Central Nervous System Agents metoprolol tartrate 25 mg tablet 6-19 00:00: 00 11-17 23:59 :00 No [id number] 1 tablet BEDTIME 1 tablet BEDTIME (route: oral) Med Classific ation: Cardiovas cular Therapy Agents benztropine 1 mg tablet -15 00:00: 00 03-13 23:59 :00 No [id number] 1 tablet EVERY PM 1 tablet EVERY PM (route: oral) Med Classific ation: Central Nervous System Agents paliperidon e ER 6 mg tablet,exte nded release 24 hr 12-01 00:00: 00 03-13 23:59 :00 No [id number] 1 tablet EVERY PM 1 tablet EVERY PM (route: oral) Med Classific ation: Central Nervous System Agents trazodone 50 mg tablet 12-01 00:00: 00 03-13 23:59 :00 No [id number] 1 tablet BEDTIME 1 tablet BEDTIME (route: oral) Med Classific ation: Central Nervous System Agents polyethylen e glycol 3350 17 gram/dose oral powder 12-21 00:00: 00 03-13 23:59 :00 No [id number] Per instruc tions DAILY Per instructio ns DAILY (route: oral) Med Classific ation: Gastroint estinal Therapy Agents benztropine 1 mg tablet 2024-05 00:00: 00 Yes [id number] 1 tablet EVERY PM 1 tablet EVERY PM (route: oral) Med Classific ation: Central Nervous System Agents cholecalcif beverley (vitamin D3) 10 mcg (400 unit) tablet 2024-05 00:00: 00 Yes [id number] 1 tablet EVERY AM 1 tablet EVERY AM (route: oral) Med Classific ation: Electroly te Balance-N utritiona l Products diltiazem ER (XR/XT) 180 mg capsule,ext ended release 24 hr, controlled 2024-05 00:00: 00 Yes [id number] 1 capsule EVERY AM 1 capsule EVERY AM (route: oral) Med Classific ation: Cardiovas cular Therapy Agents docusate sodium 100 mg capsule 2024-05 00:00: 00 Yes [id number] 1 capsule 2 TIMES DAILY 1 capsule 2 TIMES DAILY (route: oral) Med Classific ation: Gastroint estinal Therapy Agents lisinopril 40 mg tablet 2024-05 00:00: 00 Yes [id number] 1 tablet EVERY AM 1 tablet EVERY AM (route: oral) Med Classific ation: Cardiovas cular Therapy Agents metoprolol tartrate 25 mg tablet 2024-05 00:00: 00 Yes [id number] 1 tablet 2 TIMES DAILY 1 tablet 2 TIMES DAILY (route: oral) Med Classific ation: Cardiovas cular Therapy Agents multivitami n with minerals tablet 2024-05 00:00: 00 Yes [id number] 1 tablet EVERY AM 1 tablet EVERY AM (route: oral) Med Classific ation: Electroly te Balance-N utritiona l Products paliperidon e ER 6 mg tablet,exte nded release 24 hr 2024-05 00:00: 00 Yes [id number] 1 tablet EVERY PM 1 tablet EVERY PM (route: oral) Med Classific ation: Central Nervous System Agents polyethylen e glycol 3350 17 gram/dose oral powder 2024-05 00:00: 00 Yes [id number] Per instruc tions NEEDED Per instructio ns NEEDED (route: oral) Med Classific ation: Gastroint estinal Therapy Agents trazodone 50 mg tablet 2024-05 00:00: 00 Yes [id number] 1 tablet BEDTIME 1 tablet BEDTIME (route: [...] AWARENESS FOR SAFETY AND WILL NOTIFY CLINICAL ELECTRICIAN BUS AND PHYSICIAN/PROVIDER WITH ANY CHANGE IN CONDITION. [code = SKILLED NURSE WILL MAINTAIN SITUATIONAL AWARENESS FOR SAFETY AND WILL NOTIFY CLINICAL ELECTRICIAN BUS AND PHYSICIAN/PROVIDER WITH ANY CHANGE IN CONDITION.] [...] [facility] [id number] 29.41
--- OUTSIDE RECORDS SUMMARY | 2025-05-07 19:00 | XMS_ITS | Clinical Summary ---
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 Chief Digital Officer Name Role Phone MEGAN CHUN, MELO Unavailable Unavailable GERONIMO TRACEY, TIFFANY Unavailable Unavailable Payers Payer Name Policy Type Policy Number Effective Date Expira tion Date [employer] [id number] MEDICARE - [facility] [id number] Problems Condition Name Condition Details Condition Category [...] 07-13 00:00: 00 03-13 23:59 :00 No [id number] 1 tablet DAILY 1 tablet DAILY (route: oral) Med Classific ation: Electroly te Balance-N utritiona l Products cyanocobala min (vit B-12) 1,000 mcg tablet 07-13 00:00: 00 2025- 06-12 23:59 :00 No [id number] 1 tablet DAILY 1 tablet DAILY (route: oral) Med Classific ation: Electroly te Balance-N utritiona l Products diltiazem ER (XR/XT) 180 mg capsule,ext ended release 24 hr, controlled 2-19 00:00: 00 03-13 23:59 :00 No [id number] 1 capsule DAILY 1 capsule DAILY (route: oral) Med Classific ation: Cardiovas cular Therapy Agents docusate sodium 100 mg capsule - 00:00: 00 03-13 23:59 :00 No [id number] 1 capsule 2 TIMES DAILY 1 capsule 2 TIMES DAILY (route: oral) Med Classific ation: Gastroint estinal Therapy Agents lisinopril 40 mg tablet - 00:00: 00 03-13 23:59 :00 No [id number] 1 tablet EVERY AM 1 tablet EVERY AM (route: oral) Med Classific ation: Cardiovas cular Therapy Agents metoprolol tartrate 25 mg tablet - 00:00: 00 03-13 23:59 :00 No [id number] 1 tablet 2 TIMES DAILY 1 tablet 2 TIMES DAILY (route: oral) Med Classific ation: Cardiovas cular Therapy Agents multivitami n with minerals tablet 07-13 00:00: 00 03-13 23:59 :00 No [id number] 1 tablet DAILY 1 tablet DAILY (route: oral) Med Classific ation: Electroly te Balance-N utroscara l Products paliperidon e ER 9 mg tablet,exte nded release 24 hr - 00:00: 00 12-01 23:59 :00 No [id number] 1 tablet BEDTIME 1 tablet BEDTIME (route: oral) Med Classific ation: Central Nervous System Agents metoprolol tartrate 25 mg tablet 6-19 00:00: 00 11-17 23:59 :00 No [id number] 1 tablet BEDTIME 1 tablet BEDTIME (route: oral) Med Classific ation: Cardiovas cular Therapy Agents benztropine 1 mg tablet -15 00:00: 00 03-13 23:59 :00 No [id number] 1 tablet EVERY PM 1 tablet EVERY PM (route: oral) Med Classific ation: Central Nervous System Agents paliperidon e ER 6 mg tablet,exte nded release 24 hr 12-01 00:00: 00 03-13 23:59 :00 No [id number] 1 tablet EVERY PM 1 tablet EVERY PM (route: oral) Med Classific ation: Central Nervous System Agents trazodone 50 mg tablet 12-01 00:00: 00 03-13 23:59 :00 No [id number] 1 tablet BEDTIME 1 tablet BEDTIME (route: oral) Med Classific ation: Central Nervous System Agents polyethylen e glycol 3350 17 gram/dose oral powder 12-21 00:00: 00 03-13 23:59 :00 No [id number] Per instruc tions DAILY Per instructio ns DAILY (route: oral) Med Classific ation: Gastroint estinal Therapy Agents benztropine 1 mg tablet 2024-05 00:00: 00 Yes [id number] 1 tablet EVERY PM 1 tablet EVERY PM (route: oral) Med Classific ation: Central Nervous System Agents cholecalcif beverley (vitamin D3) 10 mcg (400 unit) tablet 2024-05 00:00: 00 Yes [id number] 1 tablet EVERY AM 1 tablet EVERY AM (route: oral) Med Classific ation: Electroly te Balance-N utritiona l Products diltiazem ER (XR/XT) 180 mg capsule,ext ended release 24 hr, controlled 2024-05 00:00: 00 Yes [id number] 1 capsule EVERY AM 1 capsule EVERY AM (route: oral) Med Classific ation: Cardiovas cular Therapy Agents docusate sodium 100 mg capsule 2024-05 00:00: 00 Yes [id number] 1 capsule 2 TIMES DAILY 1 capsule 2 TIMES DAILY (route: oral) Med Classific ation: Gastroint estinal Therapy Agents lisinopril 40 mg tablet 2024-05 00:00: 00 Yes [id number] 1 tablet EVERY AM 1 tablet EVERY AM (route: oral) Med Classific ation: Cardiovas cular Therapy Agents metoprolol tartrate 25 mg tablet 2024-05 00:00: 00 Yes [id number] 1 tablet 2 TIMES DAILY 1 tablet 2 TIMES DAILY (route: oral) Med Classific ation: Cardiovas cular Therapy Agents multivitami n with minerals tablet 2024-05 00:00: 00 Yes [id number] 1 tablet EVERY AM 1 tablet EVERY AM (route: oral) Med Classific ation: Electroly te Balance-N utritiona l Products paliperidon e ER 6 mg tablet,exte nded release 24 hr 2024-05 00:00: 00 Yes [id number] 1 tablet EVERY PM 1 tablet EVERY PM (route: oral) Med Classific ation: Central Nervous System Agents polyethylen e glycol 3350 17 gram/dose oral powder 2024-05 00:00: 00 Yes [id number] Per instruc tions NEEDED Per instructio ns NEEDED (route: oral) Med Classific ation: Gastroint estinal Therapy Agents trazodone 50 mg tablet 2024-05 00:00: 00 Yes [id number] 1 tablet BEDTIME 1 tablet BEDTIME (route: [...] AWARENESS FOR SAFETY AND WILL NOTIFY CLINICAL HEARING SCREEN COORDINATOR AND PHYSICIAN/PROVIDER WITH ANY CHANGE IN CONDITION. [code = SKILLED NURSE WILL MAINTAIN SITUATIONAL AWARENESS FOR SAFETY AND WILL NOTIFY CLINICAL HEARING SCREEN COORDINATOR AND PHYSICIAN/PROVIDER WITH ANY CHANGE IN [...] TIFFANY MELTON [facility] [id number] 29.41
--- OUTSIDE RECORDS SUMMARY | 2025-05-07 19:00 | XMS_ITS | Clinical Summary ---
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 Water Softener Installer Name Role Phone MEGAN CHUN, MELO Unavailable Unavailable GERONIMO TRACEY, TIFFANY Unavailable Unavailable Payers Payer Name Policy Type Policy Number Effective Date Expira tion Date [employer] MED[employer] ADV[employer]AGE [id number] MEDICARE - [facility] [id number] Problems Condition Name Condition Details Condition Category [...] 07-13 00:00: 00 03-13 23:59 :00 No [id number] 1 tablet DAILY 1 tablet DAILY (route: oral) Med Classific ation: Electroly te Balance-N utritiona l Products cyanocobala min (vit B-12) 1,000 mcg tablet 07-13 00:00: 00 2025- 06-12 23:59 :00 No [id number] 1 tablet DAILY 1 tablet DAILY (route: oral) Med Classific ation: Electroly te Balance-N utritiona l Products diltiazem ER (XR/XT) 180 mg capsule,ext ended release 24 hr, controlled 2-19 00:00: 00 03-13 23:59 :00 No [id number] 1 capsule DAILY 1 capsule DAILY (route: oral) Med Classific ation: Cardiovas cular Therapy Agents docusate sodium 100 mg capsule - 00:00: 00 03-13 23:59 :00 No [id number] 1 capsule 2 TIMES DAILY 1 capsule 2 TIMES DAILY (route: oral) Med Classific ation: Gastroint estinal Therapy Agents lisinopril 40 mg tablet - 00:00: 00 03-13 23:59 :00 No [id number] 1 tablet EVERY AM 1 tablet EVERY AM (route: oral) Med Classific ation: Cardiovas cular Therapy Agents metoprolol tartrate 25 mg tablet - 00:00: 00 03-13 23:59 :00 No [id number] 1 tablet 2 TIMES DAILY 1 tablet 2 TIMES DAILY (route: oral) Med Classific ation: Cardiovas cular Therapy Agents multivitami n with minerals tablet 07-13 00:00: 00 03-13 23:59 :00 No [id number] 1 tablet DAILY 1 tablet DAILY (route: oral) Med Classific ation: Electroly te Balance-N utroscara l Products paliperidon e ER 9 mg tablet,exte nded release 24 hr - 00:00: 00 12-01 23:59 :00 No [id number] 1 tablet BEDTIME 1 tablet BEDTIME (route: oral) Med Classific ation: Central Nervous System Agents metoprolol tartrate 25 mg tablet 6-19 00:00: 00 11-17 23:59 :00 No [id number] 1 tablet BEDTIME 1 tablet BEDTIME (route: oral) Med Classific ation: Cardiovas cular Therapy Agents benztropine 1 mg tablet -15 00:00: 00 03-13 23:59 :00 No [id number] 1 tablet EVERY PM 1 tablet EVERY PM (route: oral) Med Classific ation: Central Nervous System Agents paliperidon e ER 6 mg tablet,exte nded release 24 hr 12-01 00:00: 00 03-13 23:59 :00 No [id number] 1 tablet EVERY PM 1 tablet EVERY PM (route: oral) Med Classific ation: Central Nervous System Agents trazodone 50 mg tablet 12-01 00:00: 00 03-13 23:59 :00 No [id number] 1 tablet BEDTIME 1 tablet BEDTIME (route: oral) Med Classific ation: Central Nervous System Agents polyethylen e glycol 3350 17 gram/dose oral powder 12-21 00:00: 00 03-13 23:59 :00 No [id number] Per instruc tions DAILY Per instructio ns DAILY (route: oral) Med Classific ation: Gastroint estinal Therapy Agents benztropine 1 mg tablet 2024-05 00:00: 00 Yes [id number] 1 tablet EVERY PM 1 tablet EVERY PM (route: oral) Med Classific ation: Central Nervous System Agents cholecalcif beverley (vitamin D3) 10 mcg (400 unit) tablet 2024-05 00:00: 00 Yes [id number] 1 tablet EVERY AM 1 tablet EVERY AM (route: oral) Med Classific ation: Electroly te Balance-N utritiona l Products diltiazem ER (XR/XT) 180 mg capsule,ext ended release 24 hr, controlled 2024-05 00:00: 00 Yes [id number] 1 capsule EVERY AM 1 capsule EVERY AM (route: oral) Med Classific ation: Cardiovas cular Therapy Agents docusate sodium 100 mg capsule 2024-05 00:00: 00 Yes [id number] 1 capsule 2 TIMES DAILY 1 capsule 2 TIMES DAILY (route: oral) Med Classific ation: Gastroint estinal Therapy Agents lisinopril 40 mg tablet 2024-05 00:00: 00 Yes [id number] 1 tablet EVERY AM 1 tablet EVERY AM (route: oral) Med Classific ation: Cardiovas cular Therapy Agents metoprolol tartrate 25 mg tablet 2024-05 00:00: 00 Yes [id number] 1 tablet 2 TIMES DAILY 1 tablet 2 TIMES DAILY (route: oral) Med Classific ation: Cardiovas cular Therapy Agents multivitami n with minerals tablet 2024-05 00:00: 00 Yes [id number] 1 tablet EVERY AM 1 tablet EVERY AM (route: oral) Med Classific ation: Electroly te Balance-N utritiona l Products paliperidon e ER 6 mg tablet,exte nded release 24 hr 2024-05 00:00: 00 Yes [id number] 1 tablet EVERY PM 1 tablet EVERY PM (route: oral) Med Classific ation: Central Nervous System Agents polyethylen e glycol 3350 17 gram/dose oral powder 2024-05 00:00: 00 Yes [id number] Per instruc tions NEEDED Per instructio ns NEEDED (route: oral) Med Classific ation: Gastroint estinal Therapy Agents trazodone 50 mg tablet 2024-05 00:00: 00 Yes [id number] 1 tablet BEDTIME 1 tablet BEDTIME (route: [...] AWARENESS FOR SAFETY AND WILL NOTIFY CLINICAL CYBER SECURITY INSTRUCTOR AND PHYSICIAN/PROVIDER WITH ANY CHANGE IN CONDITION. [code = SKILLED NURSE WILL MAINTAIN SITUATIONAL AWARENESS FOR SAFETY AND WILL NOTIFY CLINICAL CYBER SECURITY INSTRUCTOR AND PHYSICIAN/PROVIDER WITH ANY CHANGE IN [...] 00:00:00 Outpatient RECERTIFIC ATION TIFFANY MELTON [facility] [id number] 29.41
--- OUTSIDE RECORDS SUMMARY | 2025-05-07 19:00 | XMS_ITS | Clinical Summary ---
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 Applications Sales Representative Name Role Phone MEGAN CHUN, MELO Unavailable Unavailable GERONIMO TRACEY, TIFFANY Unavailable Unavailable Payers Payer Name Policy Type Policy Number Effective Date Expira tion Date [employer] [id number] MEDICARE - [facility] [id number] Problems Condition Name Condition Details Condition Category [...] 07-13 00:00: 00 03-13 23:59 :00 No [id number] 1 tablet DAILY 1 tablet DAILY (route: oral) Med Classific ation: Electroly te Balance-N utritiona l Products cyanocobala min (vit B-12) 1,000 mcg tablet 07-13 00:00: 00 2025- 06-12 23:59 :00 No [id number] 1 tablet DAILY 1 tablet DAILY (route: oral) Med Classific ation: Electroly te Balance-N utritiona l Products diltiazem ER (XR/XT) 180 mg capsule,ext ended release 24 hr, controlled 2-19 00:00: 00 03-13 23:59 :00 No [id number] 1 capsule DAILY 1 capsule DAILY (route: oral) Med Classific ation: Cardiovas cular Therapy Agents docusate sodium 100 mg capsule - 00:00: 00 03-13 23:59 :00 No [id number] 1 capsule 2 TIMES DAILY 1 capsule 2 TIMES DAILY (route: oral) Med Classific ation: Gastroint estinal Therapy Agents lisinopril 40 mg tablet - 00:00: 00 03-13 23:59 :00 No [id number] 1 tablet EVERY AM 1 tablet EVERY AM (route: oral) Med Classific ation: Cardiovas cular Therapy Agents metoprolol tartrate 25 mg tablet - 00:00: 00 03-13 23:59 :00 No [id number] 1 tablet 2 TIMES DAILY 1 tablet 2 TIMES DAILY (route: oral) Med Classific ation: Cardiovas cular Therapy Agents multivitami n with minerals tablet 07-13 00:00: 00 03-13 23:59 :00 No [id number] 1 tablet DAILY 1 tablet DAILY (route: oral) Med Classific ation: Electroly te Balance-N utroscara l Products paliperidon e ER 9 mg tablet,exte nded release 24 hr - 00:00: 00 12-01 23:59 :00 No [id number] 1 tablet BEDTIME 1 tablet BEDTIME (route: oral) Med Classific ation: Central Nervous System Agents metoprolol tartrate 25 mg tablet 6-19 00:00: 00 11-17 23:59 :00 No [id number] 1 tablet BEDTIME 1 tablet BEDTIME (route: oral) Med Classific ation: Cardiovas cular Therapy Agents benztropine 1 mg tablet -15 00:00: 00 03-13 23:59 :00 No [id number] 1 tablet EVERY PM 1 tablet EVERY PM (route: oral) Med Classific ation: Central Nervous System Agents paliperidon e ER 6 mg tablet,exte nded release 24 hr 12-01 00:00: 00 03-13 23:59 :00 No [id number] 1 tablet EVERY PM 1 tablet EVERY PM (route: oral) Med Classific ation: Central Nervous System Agents trazodone 50 mg tablet 12-01 00:00: 00 03-13 23:59 :00 No [id number] 1 tablet BEDTIME 1 tablet BEDTIME (route: oral) Med Classific ation: Central Nervous System Agents polyethylen e glycol 3350 17 gram/dose oral powder 12-21 00:00: 00 03-13 23:59 :00 No [id number] Per instruc tions DAILY Per instructio ns DAILY (route: oral) Med Classific ation: Gastroint estinal Therapy Agents benztropine 1 mg tablet 2024-05 00:00: 00 Yes [id number] 1 tablet EVERY PM 1 tablet EVERY PM (route: oral) Med Classific ation: Central Nervous System Agents cholecalcif beverley (vitamin D3) 10 mcg (400 unit) tablet 2024-05 00:00: 00 Yes [id number] 1 tablet EVERY AM 1 tablet EVERY AM (route: oral) Med Classific ation: Electroly te Balance-N utritiona l Products diltiazem ER (XR/XT) 180 mg capsule,ext ended release 24 hr, controlled 2024-05 00:00: 00 Yes [id number] 1 capsule EVERY AM 1 capsule EVERY AM (route: oral) Med Classific ation: Cardiovas cular Therapy Agents docusate sodium 100 mg capsule 2024-05 00:00: 00 Yes [id number] 1 capsule 2 TIMES DAILY 1 capsule 2 TIMES DAILY (route: oral) Med Classific ation: Gastroint estinal Therapy Agents lisinopril 40 mg tablet 2024-05 00:00: 00 Yes [id number] 1 tablet EVERY AM 1 tablet EVERY AM (route: oral) Med Classific ation: Cardiovas cular Therapy Agents metoprolol tartrate 25 mg tablet 2024-05 00:00: 00 Yes [id number] 1 tablet 2 TIMES DAILY 1 tablet 2 TIMES DAILY (route: oral) Med Classific ation: Cardiovas cular Therapy Agents multivitami n with minerals tablet 2024-05 00:00: 00 Yes [id number] 1 tablet EVERY AM 1 tablet EVERY AM (route: oral) Med Classific ation: Electroly te Balance-N utritiona l Products paliperidon e ER 6 mg tablet,exte nded release 24 hr 2024-05 00:00: 00 Yes [id number] 1 tablet EVERY PM 1 tablet EVERY PM (route: oral) Med Classific ation: Central Nervous System Agents polyethylen e glycol 3350 17 gram/dose oral powder 2024-05 00:00: 00 Yes [id number] Per instruc tions NEEDED Per instructio ns NEEDED (route: oral) Med Classific ation: Gastroint estinal Therapy Agents trazodone 50 mg tablet 2024-05 00:00: 00 Yes [id number] 1 tablet BEDTIME 1 tablet BEDTIME (route: [...] AWARENESS FOR SAFETY AND WILL NOTIFY CLINICAL NO BAKE MOLDER AND PHYSICIAN/PROVIDER WITH ANY CHANGE IN CONDITION. [code = SKILLED NURSE WILL MAINTAIN SITUATIONAL AWARENESS FOR SAFETY AND WILL NOTIFY CLINICAL NO BAKE MOLDER AND PHYSICIAN/PROVIDER WITH ANY CHANGE IN [...] 2025-05-08 00:00:00 Outpatient RECERTIFIC ATION TIFFANY MELTON [facility] [id number] 29.41
--- OUTSIDE RECORDS SUMMARY | 2025-05-07 19:00 | XMS_ITS | Clinical Summary ---
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 Professor Of Food Biochemistry Name Role Phone MEGAN CHUN, MELO Unavailable Unavailable GERONIMO TRACEY, TIFFANY Unavailable Unavailable Payers Payer Name Policy Type Policy Number Effective Date Expira tion Date [employer] [id number] MEDICARE - [facility] [id number] Problems Condition Name Condition Details Condition Category [...] 07-13 00:00: 00 03-13 23:59 :00 No [id number] 1 tablet DAILY 1 tablet DAILY (route: oral) Med Classific ation: Electroly te Balance-N utritiona l Products cyanocobala min (vit B-12) 1,000 mcg tablet 07-13 00:00: 00 2025- 06-12 23:59 :00 No [id number] 1 tablet DAILY 1 tablet DAILY (route: oral) Med Classific ation: Electroly te Balance-N utritiona l Products diltiazem ER (XR/XT) 180 mg capsule,ext ended release 24 hr, controlled 2-19 00:00: 00 03-13 23:59 :00 No [id number] 1 capsule DAILY 1 capsule DAILY (route: oral) Med Classific ation: Cardiovas cular Therapy Agents docusate sodium 100 mg capsule - 00:00: 00 03-13 23:59 :00 No [id number] 1 capsule 2 TIMES DAILY 1 capsule 2 TIMES DAILY (route: oral) Med Classific ation: Gastroint estinal Therapy Agents lisinopril 40 mg tablet - 00:00: 00 03-13 23:59 :00 No [id number] 1 tablet EVERY AM 1 tablet EVERY AM (route: oral) Med Classific ation: Cardiovas cular Therapy Agents metoprolol tartrate 25 mg tablet - 00:00: 00 03-13 23:59 :00 No [id number] 1 tablet 2 TIMES DAILY 1 tablet 2 TIMES DAILY (route: oral) Med Classific ation: Cardiovas cular Therapy Agents multivitami n with minerals tablet 07-13 00:00: 00 03-13 23:59 :00 No [id number] 1 tablet DAILY 1 tablet DAILY (route: oral) Med Classific ation: Electroly te Balance-N utroscara l Products paliperidon e ER 9 mg tablet,exte nded release 24 hr - 00:00: 00 12-01 23:59 :00 No [id number] 1 tablet BEDTIME 1 tablet BEDTIME (route: oral) Med Classific ation: Central Nervous System Agents metoprolol tartrate 25 mg tablet 6-19 00:00: 00 11-17 23:59 :00 No [id number] 1 tablet BEDTIME 1 tablet BEDTIME (route: oral) Med Classific ation: Cardiovas cular Therapy Agents benztropine 1 mg tablet -15 00:00: 00 03-13 23:59 :00 No [id number] 1 tablet EVERY PM 1 tablet EVERY PM (route: oral) Med Classific ation: Central Nervous System Agents paliperidon e ER 6 mg tablet,exte nded release 24 hr 12-01 00:00: 00 03-13 23:59 :00 No [id number] 1 tablet EVERY PM 1 tablet EVERY PM (route: oral) Med Classific ation: Central Nervous System Agents trazodone 50 mg tablet 12-01 00:00: 00 03-13 23:59 :00 No [id number] 1 tablet BEDTIME 1 tablet BEDTIME (route: oral) Med Classific ation: Central Nervous System Agents polyethylen e glycol 3350 17 gram/dose oral powder 12-21 00:00: 00 03-13 23:59 :00 No [id number] Per instruc tions DAILY Per instructio ns DAILY (route: oral) Med Classific ation: Gastroint estinal Therapy Agents benztropine 1 mg tablet 2024-05 00:00: 00 Yes [id number] 1 tablet EVERY PM 1 tablet EVERY PM (route: oral) Med Classific ation: Central Nervous System Agents cholecalcif beverley (vitamin D3) 10 mcg (400 unit) tablet 2024-05 00:00: 00 Yes [id number] 1 tablet EVERY AM 1 tablet EVERY AM (route: oral) Med Classific ation: Electroly te Balance-N utritiona l Products diltiazem ER (XR/XT) 180 mg capsule,ext ended release 24 hr, controlled 2024-05 00:00: 00 Yes [id number] 1 capsule EVERY AM 1 capsule EVERY AM (route: oral) Med Classific ation: Cardiovas cular Therapy Agents docusate sodium 100 mg capsule 2024-05 00:00: 00 Yes [id number] 1 capsule 2 TIMES DAILY 1 capsule 2 TIMES DAILY (route: oral) Med Classific ation: Gastroint estinal Therapy Agents lisinopril 40 mg tablet 2024-05 00:00: 00 Yes [id number] 1 tablet EVERY AM 1 tablet EVERY AM (route: oral) Med Classific ation: Cardiovas cular Therapy Agents metoprolol tartrate 25 mg tablet 2024-05 00:00: 00 Yes [id number] 1 tablet 2 TIMES DAILY 1 tablet 2 TIMES DAILY (route: oral) Med Classific ation: Cardiovas cular Therapy Agents multivitami n with minerals tablet 2024-05 00:00: 00 Yes [id number] 1 tablet EVERY AM 1 tablet EVERY AM (route: oral) Med Classific ation: Electroly te Balance-N utritiona l Products paliperidon e ER 6 mg tablet,exte nded release 24 hr 2024-05 00:00: 00 Yes [id number] 1 tablet EVERY PM 1 tablet EVERY PM (route: oral) Med Classific ation: Central Nervous System Agents polyethylen e glycol 3350 17 gram/dose oral powder 2024-05 00:00: 00 Yes [id number] Per instruc tions NEEDED Per instructio ns NEEDED (route: oral) Med Classific ation: Gastroint estinal Therapy Agents trazodone 50 mg tablet 2024-05 00:00: 00 Yes [id number] 1 tablet BEDTIME 1 tablet BEDTIME (route: [...] AWARENESS FOR SAFETY AND WILL NOTIFY CLINICAL COFFIN MAKER AND PHYSICIAN/PROVIDER WITH ANY CHANGE IN CONDITION. [code = SKILLED NURSE WILL MAINTAIN SITUATIONAL AWARENESS FOR SAFETY AND WILL NOTIFY CLINICAL COFFIN MAKER AND PHYSICIAN/PROVIDER WITH ANY CHANGE IN [...] Patient Goal - MEDICATION MA NAGEMENT Goal Patient Goal - M EDICATION MANAGEMENT, IMPROVED SLEEP PATTERN MEDICATION COMPLIANCE STRUCTURED DAILY LIVING Goal 2025-03-06 Patient Goal - M EDICATION MANAGEMENT, IMPROVED SLEEP PATTERN MEDICATION COMPLIANCE STRUCTURED DAILY LIVING Goal 2025-01-04 Patient Goal - M EDICATION MANAGEMENT INSOMNIA, SLEEP HYGEINE MEDICATION COMPLIANCE, STRU CTURED DAILY LIVING Goal Provider Goal - A PLAN OF CARE WILL BE ESTABLISHED THAT MEETS PATIENT'S RESIDENTIAL NEEDS AND INCLUDES PATIENT GOAL FOR HOME [...] ATION TIFFANY MELTON [facility] [id number] 29.41
--- OUTSIDE RECORDS SUMMARY | 2025-05-07 19:00 | XMS_ITS | Clinical Summary ---
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 Master Plumber Name Role Phone MEGAN CHUN, MELO Unavailable Unavailable GERONIMO TRACEY, TIFFANY Unavailable Unavailable Payers Payer Name Policy Type Policy Number Effective Date Expira tion Date [employer] [id number] MEDICARE - [facility] [id number] Problems Condition Name Condition Details Condition Category [...] 07-13 00:00: 00 03-13 23:59 :00 No [id number] 1 tablet DAILY 1 tablet DAILY (route: oral) Med Classific ation: Electroly te Balance-N utritiona l Products cyanocobala min (vit B-12) 1,000 mcg tablet 07-13 00:00: 00 2025- 06-12 23:59 :00 No [id number] 1 tablet DAILY 1 tablet DAILY (route: oral) Med Classific ation: Electroly te Balance-N utritiona l Products diltiazem ER (XR/XT) 180 mg capsule,ext ended release 24 hr, controlled 2-19 00:00: 00 03-13 23:59 :00 No [id number] 1 capsule DAILY 1 capsule DAILY (route: oral) Med Classific ation: Cardiovas cular Therapy Agents docusate sodium 100 mg capsule - 00:00: 00 03-13 23:59 :00 No [id number] 1 capsule 2 TIMES DAILY 1 capsule 2 TIMES DAILY (route: oral) Med Classific ation: Gastroint estinal Therapy Agents lisinopril 40 mg tablet - 00:00: 00 03-13 23:59 :00 No [id number] 1 tablet EVERY AM 1 tablet EVERY AM (route: oral) Med Classific ation: Cardiovas cular Therapy Agents metoprolol tartrate 25 mg tablet - 00:00: 00 03-13 23:59 :00 No [id number] 1 tablet 2 TIMES DAILY 1 tablet 2 TIMES DAILY (route: oral) Med Classific ation: Cardiovas cular Therapy Agents multivitami n with minerals tablet 07-13 00:00: 00 03-13 23:59 :00 No [id number] 1 tablet DAILY 1 tablet DAILY (route: oral) Med Classific ation: Electroly te Balance-N utroscara l Products paliperidon e ER 9 mg tablet,exte nded release 24 hr - 00:00: 00 12-01 23:59 :00 No [id number] 1 tablet BEDTIME 1 tablet BEDTIME (route: oral) Med Classific ation: Central Nervous System Agents metoprolol tartrate 25 mg tablet 6-19 00:00: 00 11-17 23:59 :00 No [id number] 1 tablet BEDTIME 1 tablet BEDTIME (route: oral) Med Classific ation: Cardiovas cular Therapy Agents benztropine 1 mg tablet -15 00:00: 00 03-13 23:59 :00 No [id number] 1 tablet EVERY PM 1 tablet EVERY PM (route: oral) Med Classific ation: Central Nervous System Agents paliperidon e ER 6 mg tablet,exte nded release 24 hr 12-01 00:00: 00 03-13 23:59 :00 No [id number] 1 tablet EVERY PM 1 tablet EVERY PM (route: oral) Med Classific ation: Central Nervous System Agents trazodone 50 mg tablet 12-01 00:00: 00 03-13 23:59 :00 No [id number] 1 tablet BEDTIME 1 tablet BEDTIME (route: oral) Med Classific ation: Central Nervous System Agents polyethylen e glycol 3350 17 gram/dose oral powder 12-21 00:00: 00 03-13 23:59 :00 No [id number] Per instruc tions DAILY Per instructio ns DAILY (route: oral) Med Classific ation: Gastroint estinal Therapy Agents benztropine 1 mg tablet 2024-05 00:00: 00 Yes [id number] 1 tablet EVERY PM 1 tablet EVERY PM (route: oral) Med Classific ation: Central Nervous System Agents cholecalcif beverley (vitamin D3) 10 mcg (400 unit) tablet 2024-05 00:00: 00 Yes [id number] 1 tablet EVERY AM 1 tablet EVERY AM (route: oral) Med Classific ation: Electroly te Balance-N utritiona l Products diltiazem ER (XR/XT) 180 mg capsule,ext ended release 24 hr, controlled 2024-05 00:00: 00 Yes [id number] 1 capsule EVERY AM 1 capsule EVERY AM (route: oral) Med Classific ation: Cardiovas cular Therapy Agents docusate sodium 100 mg capsule 2024-05 00:00: 00 Yes [id number] 1 capsule 2 TIMES DAILY 1 capsule 2 TIMES DAILY (route: oral) Med Classific ation: Gastroint estinal Therapy Agents lisinopril 40 mg tablet 2024-05 00:00: 00 Yes [id number] 1 tablet EVERY AM 1 tablet EVERY AM (route: oral) Med Classific ation: Cardiovas cular Therapy Agents metoprolol tartrate 25 mg tablet 2024-05 00:00: 00 Yes [id number] 1 tablet 2 TIMES DAILY 1 tablet 2 TIMES DAILY (route: oral) Med Classific ation: Cardiovas cular Therapy Agents multivitami n with minerals tablet 2024-05 00:00: 00 Yes [id number] 1 tablet EVERY AM 1 tablet EVERY AM (route: oral) Med Classific ation: Electroly te Balance-N utritiona l Products paliperidon e ER 6 mg tablet,exte nded release 24 hr 2024-05 00:00: 00 Yes [id number] 1 tablet EVERY PM 1 tablet EVERY PM (route: oral) Med Classific ation: Central Nervous System Agents polyethylen e glycol 3350 17 gram/dose oral powder 2024-05 00:00: 00 Yes [id number] Per instruc tions NEEDED Per instructio ns NEEDED (route: oral) Med Classific ation: Gastroint estinal Therapy Agents trazodone 50 mg tablet 2024-05 00:00: 00 Yes [id number] 1 tablet BEDTIME 1 tablet BEDTIME (route: [...] AWARENESS FOR SAFETY AND WILL NOTIFY CLINICAL STRADDLE BUGGY OPERATOR AND PHYSICIAN/PROVIDER WITH ANY CHANGE IN CONDITION. [code = SKILLED NURSE WILL MAINTAIN SITUATIONAL AWARENESS FOR SAFETY AND WILL NOTIFY CLINICAL STRADDLE BUGGY OPERATOR AND PHYSICIAN/PROVIDER WITH ANY CHANGE IN CONDITION.] [...] TIFFANY MELTON [facility] [id number] 29.41
--- OUTSIDE RECORDS SUMMARY | 2025-05-07 19:00 | XMS_ITS | Clinical Summary ---
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 Marine Photographer Name Role Phone MEGAN CHUN, MELO Unavailable Unavailable GERONIMO TRACEY, TIFFANY Unavailable Unavailable Payers Payer Name Policy Type Policy Number Effective Date Expira tion Date [employer] [id number] MEDICARE - [facility] [id number] Problems Condition Name Condition Details Condition Category [...] 07-13 00:00: 00 03-13 23:59 :00 No [id number] 1 tablet DAILY 1 tablet DAILY (route: oral) Med Classific ation: Electroly te Balance-N utritiona l Products cyanocobala min (vit B-12) 1,000 mcg tablet 07-13 00:00: 00 2025- 06-12 23:59 :00 No [id number] 1 tablet DAILY 1 tablet DAILY (route: oral) Med Classific ation: Electroly te Balance-N utritiona l Products diltiazem ER (XR/XT) 180 mg capsule,ext ended release 24 hr, controlled 2-19 00:00: 00 03-13 23:59 :00 No [id number] 1 capsule DAILY 1 capsule DAILY (route: oral) Med Classific ation: Cardiovas cular Therapy Agents docusate sodium 100 mg capsule - 00:00: 00 03-13 23:59 :00 No [id number] 1 capsule 2 TIMES DAILY 1 capsule 2 TIMES DAILY (route: oral) Med Classific ation: Gastroint estinal Therapy Agents lisinopril 40 mg tablet - 00:00: 00 03-13 23:59 :00 No [id number] 1 tablet EVERY AM 1 tablet EVERY AM (route: oral) Med Classific ation: Cardiovas cular Therapy Agents metoprolol tartrate 25 mg tablet - 00:00: 00 03-13 23:59 :00 No [id number] 1 tablet 2 TIMES DAILY 1 tablet 2 TIMES DAILY (route: oral) Med Classific ation: Cardiovas cular Therapy Agents multivitami n with minerals tablet 07-13 00:00: 00 03-13 23:59 :00 No [id number] 1 tablet DAILY 1 tablet DAILY (route: oral) Med Classific ation: Electroly te Balance-N utroscara l Products paliperidon e ER 9 mg tablet,exte nded release 24 hr - 00:00: 00 12-01 23:59 :00 No [id number] 1 tablet BEDTIME 1 tablet BEDTIME (route: oral) Med Classific ation: Central Nervous System Agents metoprolol tartrate 25 mg tablet 6-19 00:00: 00 11-17 23:59 :00 No [id number] 1 tablet BEDTIME 1 tablet BEDTIME (route: oral) Med Classific ation: Cardiovas cular Therapy Agents benztropine 1 mg tablet -15 00:00: 00 03-13 23:59 :00 No [id number] 1 tablet EVERY PM 1 tablet EVERY PM (route: oral) Med Classific ation: Central Nervous System Agents paliperidon e ER 6 mg tablet,exte nded release 24 hr 12-01 00:00: 00 03-13 23:59 :00 No [id number] 1 tablet EVERY PM 1 tablet EVERY PM (route: oral) Med Classific ation: Central Nervous System Agents trazodone 50 mg tablet 12-01 00:00: 00 03-13 23:59 :00 No [id number] 1 tablet BEDTIME 1 tablet BEDTIME (route: oral) Med Classific ation: Central Nervous System Agents polyethylen e glycol 3350 17 gram/dose oral powder 12-21 00:00: 00 03-13 23:59 :00 No [id number] Per instruc tions DAILY Per instructio ns DAILY (route: oral) Med Classific ation: Gastroint estinal Therapy Agents benztropine 1 mg tablet 2024-05 00:00: 00 Yes [id number] 1 tablet EVERY PM 1 tablet EVERY PM (route: oral) Med Classific ation: Central Nervous System Agents cholecalcif beverley (vitamin D3) 10 mcg (400 unit) tablet 2024-05 00:00: 00 Yes [id number] 1 tablet EVERY AM 1 tablet EVERY AM (route: oral) Med Classific ation: Electroly te Balance-N utritiona l Products diltiazem ER (XR/XT) 180 mg capsule,ext ended release 24 hr, controlled 2024-05 00:00: 00 Yes [id number] 1 capsule EVERY AM 1 capsule EVERY AM (route: oral) Med Classific ation: Cardiovas cular Therapy Agents docusate sodium 100 mg capsule 2024-05 00:00: 00 Yes [id number] 1 capsule 2 TIMES DAILY 1 capsule 2 TIMES DAILY (route: oral) Med Classific ation: Gastroint estinal Therapy Agents lisinopril 40 mg tablet 2024-05 00:00: 00 Yes [id number] 1 tablet EVERY AM 1 tablet EVERY AM (route: oral) Med Classific ation: Cardiovas cular Therapy Agents metoprolol tartrate 25 mg tablet 2024-05 00:00: 00 Yes [id number] 1 tablet 2 TIMES DAILY 1 tablet 2 TIMES DAILY (route: oral) Med Classific ation: Cardiovas cular Therapy Agents multivitami n with minerals tablet 2024-05 00:00: 00 Yes [id number] 1 tablet EVERY AM 1 tablet EVERY AM (route: oral) Med Classific ation: Electroly te Balance-N utritiona l Products paliperidon e ER 6 mg tablet,exte nded release 24 hr 2024-05 00:00: 00 Yes [id number] 1 tablet EVERY PM 1 tablet EVERY PM (route: oral) Med Classific ation: Central Nervous System Agents polyethylen e glycol 3350 17 gram/dose oral powder 2024-05 00:00: 00 Yes [id number] Per instruc tions NEEDED Per instructio ns NEEDED (route: oral) Med Classific ation: Gastroint estinal Therapy Agents trazodone 50 mg tablet 2024-05 00:00: 00 Yes [id number] 1 tablet BEDTIME 1 tablet BEDTIME (route: [...] AWARENESS FOR SAFETY AND WILL NOTIFY CLINICAL HAND ORNAMENT MAKER AND PHYSICIAN/PROVIDER WITH ANY CHANGE IN CONDITION. [code = SKILLED NURSE WILL MAINTAIN SITUATIONAL AWARENESS FOR SAFETY AND WILL NOTIFY CLINICAL HAND ORNAMENT MAKER AND PHYSICIAN/PROVIDER WITH ANY CHANGE IN [...] TIFFANY MELTON [facility] [id number] 29.41
--- OUTSIDE RECORDS SUMMARY | 2025-05-07 19:00 | XMS_ITS | Clinical Summary ---
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 Nurse Case Management Name Role Phone MEGAN CHUN, MELO Unavailable Unavailable GERONIMO TRACEY, TIFFANY Unavailable Unavailable Payers Payer Name Policy Type Policy Number Effective Date Expira tion Date [employer] MED[employer] ADVANTAGE [id number] MEDICARE - [facility] [id number] Problems Condition Name Condition Details Condition Category [...] 07-13 00:00: 00 03-13 23:59 :00 No [id number] 1 tablet DAILY 1 tablet DAILY (route: oral) Med Classific ation: Electroly te Balance-N utritiona l Products cyanocobala min (vit B-12) 1,000 mcg tablet 07-13 00:00: 00 2025- 06-12 23:59 :00 No [id number] 1 tablet DAILY 1 tablet DAILY (route: oral) Med Classific ation: Electroly te Balance-N utritiona l Products diltiazem ER (XR/XT) 180 mg capsule,ext ended release 24 hr, controlled 2-19 00:00: 00 03-13 23:59 :00 No [id number] 1 capsule DAILY 1 capsule DAILY (route: oral) Med Classific ation: Cardiovas cular Therapy Agents docusate sodium 100 mg capsule - 00:00: 00 03-13 23:59 :00 No [id number] 1 capsule 2 TIMES DAILY 1 capsule 2 TIMES DAILY (route: oral) Med Classific ation: Gastroint estinal Therapy Agents lisinopril 40 mg tablet - 00:00: 00 03-13 23:59 :00 No [id number] 1 tablet EVERY AM 1 tablet EVERY AM (route: oral) Med Classific ation: Cardiovas cular Therapy Agents metoprolol tartrate 25 mg tablet - 00:00: 00 03-13 23:59 :00 No [id number] 1 tablet 2 TIMES DAILY 1 tablet 2 TIMES DAILY (route: oral) Med Classific ation: Cardiovas cular Therapy Agents multivitami n with minerals tablet 07-13 00:00: 00 03-13 23:59 :00 No [id number] 1 tablet DAILY 1 tablet DAILY (route: oral) Med Classific ation: Electroly te Balance-N utroscara l Products paliperidon e ER 9 mg tablet,exte nded release 24 hr - 00:00: 00 12-01 23:59 :00 No [id number] 1 tablet BEDTIME 1 tablet BEDTIME (route: oral) Med Classific ation: Central Nervous System Agents metoprolol tartrate 25 mg tablet 6-19 00:00: 00 11-17 23:59 :00 No [id number] 1 tablet BEDTIME 1 tablet BEDTIME (route: oral) Med Classific ation: Cardiovas cular Therapy Agents benztropine 1 mg tablet -15 00:00: 00 03-13 23:59 :00 No [id number] 1 tablet EVERY PM 1 tablet EVERY PM (route: oral) Med Classific ation: Central Nervous System Agents paliperidon e ER 6 mg tablet,exte nded release 24 hr 12-01 00:00: 00 03-13 23:59 :00 No [id number] 1 tablet EVERY PM 1 tablet EVERY PM (route: oral) Med Classific ation: Central Nervous System Agents trazodone 50 mg tablet 12-01 00:00: 00 03-13 23:59 :00 No [id number] 1 tablet BEDTIME 1 tablet BEDTIME (route: oral) Med Classific ation: Central Nervous System Agents polyethylen e glycol 3350 17 gram/dose oral powder 12-21 00:00: 00 03-13 23:59 :00 No [id number] Per instruc tions DAILY Per instructio ns DAILY (route: oral) Med Classific ation: Gastroint estinal Therapy Agents benztropine 1 mg tablet 2024-05 00:00: 00 Yes [id number] 1 tablet EVERY PM 1 tablet EVERY PM (route: oral) Med Classific ation: Central Nervous System Agents cholecalcif beverley (vitamin D3) 10 mcg (400 unit) tablet 2024-05 00:00: 00 Yes [id number] 1 tablet EVERY AM 1 tablet EVERY AM (route: oral) Med Classific ation: Electroly te Balance-N utritiona l Products diltiazem ER (XR/XT) 180 mg capsule,ext ended release 24 hr, controlled 2024-05 00:00: 00 Yes [id number] 1 capsule EVERY AM 1 capsule EVERY AM (route: oral) Med Classific ation: Cardiovas cular Therapy Agents docusate sodium 100 mg capsule 2024-05 00:00: 00 Yes [id number] 1 capsule 2 TIMES DAILY 1 capsule 2 TIMES DAILY (route: oral) Med Classific ation: Gastroint estinal Therapy Agents lisinopril 40 mg tablet 2024-05 00:00: 00 Yes [id number] 1 tablet EVERY AM 1 tablet EVERY AM (route: oral) Med Classific ation: Cardiovas cular Therapy Agents metoprolol tartrate 25 mg tablet 2024-05 00:00: 00 Yes [id number] 1 tablet 2 TIMES DAILY 1 tablet 2 TIMES DAILY (route: oral) Med Classific ation: Cardiovas cular Therapy Agents multivitami n with minerals tablet 2024-05 00:00: 00 Yes [id number] 1 tablet EVERY AM 1 tablet EVERY AM (route: oral) Med Classific ation: Electroly te Balance-N utritiona l Products paliperidon e ER 6 mg tablet,exte nded release 24 hr 2024-05 00:00: 00 Yes [id number] 1 tablet EVERY PM 1 tablet EVERY PM (route: oral) Med Classific ation: Central Nervous System Agents polyethylen e glycol 3350 17 gram/dose oral powder 2024-05 00:00: 00 Yes [id number] Per instruc tions NEEDED Per instructio ns NEEDED (route: oral) Med Classific ation: Gastroint estinal Therapy Agents trazodone 50 mg tablet 2024-05 00:00: 00 Yes [id number] 1 tablet BEDTIME 1 tablet BEDTIME (route: [...] AWARENESS FOR SAFETY AND WILL NOTIFY CLINICAL TRANSPORTATION JOB TITLES AND PHYSICIAN/PROVIDER WITH ANY CHANGE IN CONDITION. [code = SKILLED NURSE WILL MAINTAIN SITUATIONAL AWARENESS FOR SAFETY AND WILL NOTIFY CLINICAL TRANSPORTATION JOB TITLES AND PHYSICIAN/PROVIDER WITH ANY CHANGE IN CONDITION.] [...] ATION TIFFANY MELTON [facility] [id number] 29.41
--- OUTSIDE RECORDS SUMMARY | 2025-05-07 19:00 | XMS_ITS | Clinical Summary ---
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 Home Specialist Name Role Phone MEGAN CHUN, MELO Unavailable Unavailable GERONIMO TRACEY, TIFFANY Unavailable Unavailable Payers Payer Name Policy Type Policy Number Effective Date Expira tion Date [employer] MED[employer] ADVANTAGE [id number] MEDICARE - [facility] [id number] Problems Condition Name Condition Details Condition Category [...] 07-13 00:00: 00 03-13 23:59 :00 No [id number] 1 tablet DAILY 1 tablet DAILY (route: oral) Med Classific ation: Electroly te Balance-N utritiona l Products cyanocobala min (vit B-12) 1,000 mcg tablet 07-13 00:00: 00 2025- 06-12 23:59 :00 No [id number] 1 tablet DAILY 1 tablet DAILY (route: oral) Med Classific ation: Electroly te Balance-N utritiona l Products diltiazem ER (XR/XT) 180 mg capsule,ext ended release 24 hr, controlled 2-19 00:00: 00 03-13 23:59 :00 No [id number] 1 capsule DAILY 1 capsule DAILY (route: oral) Med Classific ation: Cardiovas cular Therapy Agents docusate sodium 100 mg capsule - 00:00: 00 03-13 23:59 :00 No [id number] 1 capsule 2 TIMES DAILY 1 capsule 2 TIMES DAILY (route: oral) Med Classific ation: Gastroint estinal Therapy Agents lisinopril 40 mg tablet - 00:00: 00 03-13 23:59 :00 No [id number] 1 tablet EVERY AM 1 tablet EVERY AM (route: oral) Med Classific ation: Cardiovas cular Therapy Agents metoprolol tartrate 25 mg tablet - 00:00: 00 03-13 23:59 :00 No [id number] 1 tablet 2 TIMES DAILY 1 tablet 2 TIMES DAILY (route: oral) Med Classific ation: Cardiovas cular Therapy Agents multivitami n with minerals tablet 07-13 00:00: 00 03-13 23:59 :00 No [id number] 1 tablet DAILY 1 tablet DAILY (route: oral) Med Classific ation: Electroly te Balance-N utroscara l Products paliperidon e ER 9 mg tablet,exte nded release 24 hr - 00:00: 00 12-01 23:59 :00 No [id number] 1 tablet BEDTIME 1 tablet BEDTIME (route: oral) Med Classific ation: Central Nervous System Agents metoprolol tartrate 25 mg tablet 6-19 00:00: 00 11-17 23:59 :00 No [id number] 1 tablet BEDTIME 1 tablet BEDTIME (route: oral) Med Classific ation: Cardiovas cular Therapy Agents benztropine 1 mg tablet -15 00:00: 00 03-13 23:59 :00 No [id number] 1 tablet EVERY PM 1 tablet EVERY PM (route: oral) Med Classific ation: Central Nervous System Agents paliperidon e ER 6 mg tablet,exte nded release 24 hr 12-01 00:00: 00 03-13 23:59 :00 No [id number] 1 tablet EVERY PM 1 tablet EVERY PM (route: oral) Med Classific ation: Central Nervous System Agents trazodone 50 mg tablet 12-01 00:00: 00 03-13 23:59 :00 No [id number] 1 tablet BEDTIME 1 tablet BEDTIME (route: oral) Med Classific ation: Central Nervous System Agents polyethylen e glycol 3350 17 gram/dose oral powder 12-21 00:00: 00 03-13 23:59 :00 No [id number] Per instruc tions DAILY Per instructio ns DAILY (route: oral) Med Classific ation: Gastroint estinal Therapy Agents benztropine 1 mg tablet 2024-05 00:00: 00 Yes [id number] 1 tablet EVERY PM 1 tablet EVERY PM (route: oral) Med Classific ation: Central Nervous System Agents cholecalcif beverley (vitamin D3) 10 mcg (400 unit) tablet 2024-05 00:00: 00 Yes [id number] 1 tablet EVERY AM 1 tablet EVERY AM (route: oral) Med Classific ation: Electroly te Balance-N utritiona l Products diltiazem ER (XR/XT) 180 mg capsule,ext ended release 24 hr, controlled 2024-05 00:00: 00 Yes [id number] 1 capsule EVERY AM 1 capsule EVERY AM (route: oral) Med Classific ation: Cardiovas cular Therapy Agents docusate sodium 100 mg capsule 2024-05 00:00: 00 Yes [id number] 1 capsule 2 TIMES DAILY 1 capsule 2 TIMES DAILY (route: oral) Med Classific ation: Gastroint estinal Therapy Agents lisinopril 40 mg tablet 2024-05 00:00: 00 Yes [id number] 1 tablet EVERY AM 1 tablet EVERY AM (route: oral) Med Classific ation: Cardiovas cular Therapy Agents metoprolol tartrate 25 mg tablet 2024-05 00:00: 00 Yes [id number] 1 tablet 2 TIMES DAILY 1 tablet 2 TIMES DAILY (route: oral) Med Classific ation: Cardiovas cular Therapy Agents multivitami n with minerals tablet 2024-05 00:00: 00 Yes [id number] 1 tablet EVERY AM 1 tablet EVERY AM (route: oral) Med Classific ation: Electroly te Balance-N utritiona l Products paliperidon e ER 6 mg tablet,exte nded release 24 hr 2024-05 00:00: 00 Yes [id number] 1 tablet EVERY PM 1 tablet EVERY PM (route: oral) Med Classific ation: Central Nervous System Agents polyethylen e glycol 3350 17 gram/dose oral powder 2024-05 00:00: 00 Yes [id number] Per instruc tions NEEDED Per instructio ns NEEDED (route: oral) Med Classific ation: Gastroint estinal Therapy Agents trazodone 50 mg tablet 2024-05 00:00: 00 Yes [id number] 1 tablet BEDTIME 1 tablet BEDTIME (route: [...] AWARENESS FOR SAFETY AND WILL NOTIFY CLINICAL CREATIVE DEVELOPER AND PHYSICIAN/PROVIDER WITH ANY CHANGE IN CONDITION. [code = SKILLED NURSE WILL MAINTAIN SITUATIONAL AWARENESS FOR SAFETY AND WILL NOTIFY CLINICAL CREATIVE DEVELOPER AND PHYSICIAN/PROVIDER WITH ANY CHANGE IN [...] TIFFANY MELTON [facility] [id number] 29.41
--- OUTSIDE RECORDS SUMMARY | 2025-05-07 19:00 | XMS_ITS | Clinical Summary ---
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 Flake Cutter Operator Name Role Phone MEGAN CHUN, MELO Unavailable Unavailable GERONIMO TRACEY, TIFFANY Unavailable Unavailable Payers Payer Name Policy Type Policy Number Effective Date Expira tion Date [employer] [id number] MEDICARE - [facility] [id number] Problems Condition Name Condition Details Condition Category [...] 07-13 00:00: 00 03-13 23:59 :00 No [id number] 1 tablet DAILY 1 tablet DAILY (route: oral) Med Classific ation: Electroly te Balance-N utritiona l Products cyanocobala min (vit B-12) 1,000 mcg tablet 07-13 00:00: 00 2025- 06-12 23:59 :00 No [id number] 1 tablet DAILY 1 tablet DAILY (route: oral) Med Classific ation: Electroly te Balance-N utritiona l Products diltiazem ER (XR/XT) 180 mg capsule,ext ended release 24 hr, controlled 2-19 00:00: 00 03-13 23:59 :00 No [id number] 1 capsule DAILY 1 capsule DAILY (route: oral) Med Classific ation: Cardiovas cular Therapy Agents docusate sodium 100 mg capsule - 00:00: 00 03-13 23:59 :00 No [id number] 1 capsule 2 TIMES DAILY 1 capsule 2 TIMES DAILY (route: oral) Med Classific ation: Gastroint estinal Therapy Agents lisinopril 40 mg tablet - 00:00: 00 03-13 23:59 :00 No [id number] 1 tablet EVERY AM 1 tablet EVERY AM (route: oral) Med Classific ation: Cardiovas cular Therapy Agents metoprolol tartrate 25 mg tablet - 00:00: 00 03-13 23:59 :00 No [id number] 1 tablet 2 TIMES DAILY 1 tablet 2 TIMES DAILY (route: oral) Med Classific ation: Cardiovas cular Therapy Agents multivitami n with minerals tablet 07-13 00:00: 00 03-13 23:59 :00 No [id number] 1 tablet DAILY 1 tablet DAILY (route: oral) Med Classific ation: Electroly te Balance-N utroscara l Products paliperidon e ER 9 mg tablet,exte nded release 24 hr - 00:00: 00 12-01 23:59 :00 No [id number] 1 tablet BEDTIME 1 tablet BEDTIME (route: oral) Med Classific ation: Central Nervous System Agents metoprolol tartrate 25 mg tablet 6-19 00:00: 00 11-17 23:59 :00 No [id number] 1 tablet BEDTIME 1 tablet BEDTIME (route: oral) Med Classific ation: Cardiovas cular Therapy Agents benztropine 1 mg tablet -15 00:00: 00 03-13 23:59 :00 No [id number] 1 tablet EVERY PM 1 tablet EVERY PM (route: oral) Med Classific ation: Central Nervous System Agents paliperidon e ER 6 mg tablet,exte nded release 24 hr 12-01 00:00: 00 03-13 23:59 :00 No [id number] 1 tablet EVERY PM 1 tablet EVERY PM (route: oral) Med Classific ation: Central Nervous System Agents trazodone 50 mg tablet 12-01 00:00: 00 03-13 23:59 :00 No [id number] 1 tablet BEDTIME 1 tablet BEDTIME (route: oral) Med Classific ation: Central Nervous System Agents polyethylen e glycol 3350 17 gram/dose oral powder 12-21 00:00: 00 03-13 23:59 :00 No [id number] Per instruc tions DAILY Per instructio ns DAILY (route: oral) Med Classific ation: Gastroint estinal Therapy Agents benztropine 1 mg tablet 2024-05 00:00: 00 Yes [id number] 1 tablet EVERY PM 1 tablet EVERY PM (route: oral) Med Classific ation: Central Nervous System Agents cholecalcif beverley (vitamin D3) 10 mcg (400 unit) tablet 2024-05 00:00: 00 Yes [id number] 1 tablet EVERY AM 1 tablet EVERY AM (route: oral) Med Classific ation: Electroly te Balance-N utritiona l Products diltiazem ER (XR/XT) 180 mg capsule,ext ended release 24 hr, controlled 2024-05 00:00: 00 Yes [id number] 1 capsule EVERY AM 1 capsule EVERY AM (route: oral) Med Classific ation: Cardiovas cular Therapy Agents docusate sodium 100 mg capsule 2024-05 00:00: 00 Yes [id number] 1 capsule 2 TIMES DAILY 1 capsule 2 TIMES DAILY (route: oral) Med Classific ation: Gastroint estinal Therapy Agents lisinopril 40 mg tablet 2024-05 00:00: 00 Yes [id number] 1 tablet EVERY AM 1 tablet EVERY AM (route: oral) Med Classific ation: Cardiovas cular Therapy Agents metoprolol tartrate 25 mg tablet 2024-05 00:00: 00 Yes [id number] 1 tablet 2 TIMES DAILY 1 tablet 2 TIMES DAILY (route: oral) Med Classific ation: Cardiovas cular Therapy Agents multivitami n with minerals tablet 2024-05 00:00: 00 Yes [id number] 1 tablet EVERY AM 1 tablet EVERY AM (route: oral) Med Classific ation: Electroly te Balance-N utritiona l Products paliperidon e ER 6 mg tablet,exte nded release 24 hr 2024-05 00:00: 00 Yes [id number] 1 tablet EVERY PM 1 tablet EVERY PM (route: oral) Med Classific ation: Central Nervous System Agents polyethylen e glycol 3350 17 gram/dose oral powder 2024-05 00:00: 00 Yes [id number] Per instruc tions NEEDED Per instructio ns NEEDED (route: oral) Med Classific ation: Gastroint estinal Therapy Agents trazodone 50 mg tablet 2024-05 00:00: 00 Yes [id number] 1 tablet BEDTIME 1 tablet BEDTIME (route: [...] AWARENESS FOR SAFETY AND WILL NOTIFY CLINICAL ELECTRIC LINEMAN AND PHYSICIAN/PROVIDER WITH ANY CHANGE IN CONDITION. [code = SKILLED NURSE WILL MAINTAIN SITUATIONAL AWARENESS FOR SAFETY AND WILL NOTIFY CLINICAL ELECTRIC LINEMAN AND PHYSICIAN/PROVIDER WITH ANY CHANGE IN CONDITION.] [...] ATION TIFFANY MELTON [facility] [id number] 29.41
--- OUTSIDE RECORDS SUMMARY | 2025-05-07 19:00 | XMS_ITS | Clinical Summary ---
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 Federal Judge Name Role Phone MEGAN CHUN, MELO Unavailable Unavailable GERONIMO TRACEY, TIFFANY Unavailable Unavailable Payers Payer Name Policy Type Policy Number Effective Date Expira tion Date [employer] MED[employer] ADV[employer]AGE [id number] MEDICARE - [facility] [id number] Problems Condition Name Condition Details Condition Category [...] 07-13 00:00: 00 03-13 23:59 :00 No [id number] 1 tablet DAILY 1 tablet DAILY (route: oral) Med Classific ation: Electroly te Balance-N utritiona l Products cyanocobala min (vit B-12) 1,000 mcg tablet 07-13 00:00: 00 2025- 06-12 23:59 :00 No [id number] 1 tablet DAILY 1 tablet DAILY (route: oral) Med Classific ation: Electroly te Balance-N utritiona l Products diltiazem ER (XR/XT) 180 mg capsule,ext ended release 24 hr, controlled 2-19 00:00: 00 03-13 23:59 :00 No [id number] 1 capsule DAILY 1 capsule DAILY (route: oral) Med Classific ation: Cardiovas cular Therapy Agents docusate sodium 100 mg capsule - 00:00: 00 03-13 23:59 :00 No [id number] 1 capsule 2 TIMES DAILY 1 capsule 2 TIMES DAILY (route: oral) Med Classific ation: Gastroint estinal Therapy Agents lisinopril 40 mg tablet - 00:00: 00 03-13 23:59 :00 No [id number] 1 tablet EVERY AM 1 tablet EVERY AM (route: oral) Med Classific ation: Cardiovas cular Therapy Agents metoprolol tartrate 25 mg tablet - 00:00: 00 03-13 23:59 :00 No [id number] 1 tablet 2 TIMES DAILY 1 tablet 2 TIMES DAILY (route: oral) Med Classific ation: Cardiovas cular Therapy Agents multivitami n with minerals tablet 07-13 00:00: 00 03-13 23:59 :00 No [id number] 1 tablet DAILY 1 tablet DAILY (route: oral) Med Classific ation: Electroly te Balance-N utroscara l Products paliperidon e ER 9 mg tablet,exte nded release 24 hr - 00:00: 00 12-01 23:59 :00 No [id number] 1 tablet BEDTIME 1 tablet BEDTIME (route: oral) Med Classific ation: Central Nervous System Agents metoprolol tartrate 25 mg tablet 6-19 00:00: 00 11-17 23:59 :00 No [id number] 1 tablet BEDTIME 1 tablet BEDTIME (route: oral) Med Classific ation: Cardiovas cular Therapy Agents benztropine 1 mg tablet -15 00:00: 00 03-13 23:59 :00 No [id number] 1 tablet EVERY PM 1 tablet EVERY PM (route: oral) Med Classific ation: Central Nervous System Agents paliperidon e ER 6 mg tablet,exte nded release 24 hr 12-01 00:00: 00 03-13 23:59 :00 No [id number] 1 tablet EVERY PM 1 tablet EVERY PM (route: oral) Med Classific ation: Central Nervous System Agents trazodone 50 mg tablet 12-01 00:00: 00 03-13 23:59 :00 No [id number] 1 tablet BEDTIME 1 tablet BEDTIME (route: oral) Med Classific ation: Central Nervous System Agents polyethylen e glycol 3350 17 gram/dose oral powder 12-21 00:00: 00 03-13 23:59 :00 No [id number] Per instruc tions DAILY Per instructio ns DAILY (route: oral) Med Classific ation: Gastroint estinal Therapy Agents benztropine 1 mg tablet 2024-05 00:00: 00 Yes [id number] 1 tablet EVERY PM 1 tablet EVERY PM (route: oral) Med Classific ation: Central Nervous System Agents cholecalcif beverley (vitamin D3) 10 mcg (400 unit) tablet 2024-05 00:00: 00 Yes [id number] 1 tablet EVERY AM 1 tablet EVERY AM (route: oral) Med Classific ation: Electroly te Balance-N utritiona l Products diltiazem ER (XR/XT) 180 mg capsule,ext ended release 24 hr, controlled 2024-05 00:00: 00 Yes [id number] 1 capsule EVERY AM 1 capsule EVERY AM (route: oral) Med Classific ation: Cardiovas cular Therapy Agents docusate sodium 100 mg capsule 2024-05 00:00: 00 Yes [id number] 1 capsule 2 TIMES DAILY 1 capsule 2 TIMES DAILY (route: oral) Med Classific ation: Gastroint estinal Therapy Agents lisinopril 40 mg tablet 2024-05 00:00: 00 Yes [id number] 1 tablet EVERY AM 1 tablet EVERY AM (route: oral) Med Classific ation: Cardiovas cular Therapy Agents metoprolol tartrate 25 mg tablet 2024-05 00:00: 00 Yes [id number] 1 tablet 2 TIMES DAILY 1 tablet 2 TIMES DAILY (route: oral) Med Classific ation: Cardiovas cular Therapy Agents multivitami n with minerals tablet 2024-05 00:00: 00 Yes [id number] 1 tablet EVERY AM 1 tablet EVERY AM (route: oral) Med Classific ation: Electroly te Balance-N utritiona l Products paliperidon e ER 6 mg tablet,exte nded release 24 hr 2024-05 00:00: 00 Yes [id number] 1 tablet EVERY PM 1 tablet EVERY PM (route: oral) Med Classific ation: Central Nervous System Agents polyethylen e glycol 3350 17 gram/dose oral powder 2024-05 00:00: 00 Yes [id number] Per instruc tions NEEDED Per instructio ns NEEDED (route: oral) Med Classific ation: Gastroint estinal Therapy Agents trazodone 50 mg tablet 2024-05 00:00: 00 Yes [id number] 1 tablet BEDTIME 1 tablet BEDTIME (route: [...] AWARENESS FOR SAFETY AND WILL NOTIFY CLINICAL ARCHEOLOGY FACULTY MEMBER AND PHYSICIAN/PROVIDER WITH ANY CHANGE IN CONDITION. [code = SKILLED NURSE WILL MAINTAIN SITUATIONAL AWARENESS FOR SAFETY AND WILL NOTIFY CLINICAL ARCHEOLOGY FACULTY MEMBER AND PHYSICIAN/PROVIDER WITH ANY CHANGE IN CONDITION.] [...] RECERTIFIC ATION TIFFANY MELTON [facility] [id number] 29.41
--- OUTSIDE RECORDS SUMMARY | 2025-05-07 19:00 | XMS_ITS | Clinical Summary ---
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 Bi Manager Name Role Phone MEGAN CHUN, MELO Unavailable Unavailable GERONIMO TRACEY, TIFFANY Unavailable Unavailable Payers Payer Name Policy Type Policy Number Effective Date Expira tion Date [employer] [id number] MEDICARE - [facility] [id number] Problems Condition Name Condition Details Condition Category [...] 07-13 00:00: 00 03-13 23:59 :00 No [id number] 1 tablet DAILY 1 tablet DAILY (route: oral) Med Classific ation: Electroly te Balance-N utritiona l Products cyanocobala min (vit B-12) 1,000 mcg tablet 07-13 00:00: 00 2025- 06-12 23:59 :00 No [id number] 1 tablet DAILY 1 tablet DAILY (route: oral) Med Classific ation: Electroly te Balance-N utritiona l Products diltiazem ER (XR/XT) 180 mg capsule,ext ended release 24 hr, controlled 2-19 00:00: 00 03-13 23:59 :00 No [id number] 1 capsule DAILY 1 capsule DAILY (route: oral) Med Classific ation: Cardiovas cular Therapy Agents docusate sodium 100 mg capsule - 00:00: 00 03-13 23:59 :00 No [id number] 1 capsule 2 TIMES DAILY 1 capsule 2 TIMES DAILY (route: oral) Med Classific ation: Gastroint estinal Therapy Agents lisinopril 40 mg tablet - 00:00: 00 03-13 23:59 :00 No [id number] 1 tablet EVERY AM 1 tablet EVERY AM (route: oral) Med Classific ation: Cardiovas cular Therapy Agents metoprolol tartrate 25 mg tablet - 00:00: 00 03-13 23:59 :00 No [id number] 1 tablet 2 TIMES DAILY 1 tablet 2 TIMES DAILY (route: oral) Med Classific ation: Cardiovas cular Therapy Agents multivitami n with minerals tablet 07-13 00:00: 00 03-13 23:59 :00 No [id number] 1 tablet DAILY 1 tablet DAILY (route: oral) Med Classific ation: Electroly te Balance-N utroscara l Products paliperidon e ER 9 mg tablet,exte nded release 24 hr - 00:00: 00 12-01 23:59 :00 No [id number] 1 tablet BEDTIME 1 tablet BEDTIME (route: oral) Med Classific ation: Central Nervous System Agents metoprolol tartrate 25 mg tablet 6-19 00:00: 00 11-17 23:59 :00 No [id number] 1 tablet BEDTIME 1 tablet BEDTIME (route: oral) Med Classific ation: Cardiovas cular Therapy Agents benztropine 1 mg tablet -15 00:00: 00 03-13 23:59 :00 No [id number] 1 tablet EVERY PM 1 tablet EVERY PM (route: oral) Med Classific ation: Central Nervous System Agents paliperidon e ER 6 mg tablet,exte nded release 24 hr 12-01 00:00: 00 03-13 23:59 :00 No [id number] 1 tablet EVERY PM 1 tablet EVERY PM (route: oral) Med Classific ation: Central Nervous System Agents trazodone 50 mg tablet 12-01 00:00: 00 03-13 23:59 :00 No [id number] 1 tablet BEDTIME 1 tablet BEDTIME (route: oral) Med Classific ation: Central Nervous System Agents polyethylen e glycol 3350 17 gram/dose oral powder 12-21 00:00: 00 03-13 23:59 :00 No [id number] Per instruc tions DAILY Per instructio ns DAILY (route: oral) Med Classific ation: Gastroint estinal Therapy Agents benztropine 1 mg tablet 2024-05 00:00: 00 Yes [id number] 1 tablet EVERY PM 1 tablet EVERY PM (route: oral) Med Classific ation: Central Nervous System Agents cholecalcif beverley (vitamin D3) 10 mcg (400 unit) tablet 2024-05 00:00: 00 Yes [id number] 1 tablet EVERY AM 1 tablet EVERY AM (route: oral) Med Classific ation: Electroly te Balance-N utritiona l Products diltiazem ER (XR/XT) 180 mg capsule,ext ended release 24 hr, controlled 2024-05 00:00: 00 Yes [id number] 1 capsule EVERY AM 1 capsule EVERY AM (route: oral) Med Classific ation: Cardiovas cular Therapy Agents docusate sodium 100 mg capsule 2024-05 00:00: 00 Yes [id number] 1 capsule 2 TIMES DAILY 1 capsule 2 TIMES DAILY (route: oral) Med Classific ation: Gastroint estinal Therapy Agents lisinopril 40 mg tablet 2024-05 00:00: 00 Yes [id number] 1 tablet EVERY AM 1 tablet EVERY AM (route: oral) Med Classific ation: Cardiovas cular Therapy Agents metoprolol tartrate 25 mg tablet 2024-05 00:00: 00 Yes [id number] 1 tablet 2 TIMES DAILY 1 tablet 2 TIMES DAILY (route: oral) Med Classific ation: Cardiovas cular Therapy Agents multivitami n with minerals tablet 2024-05 00:00: 00 Yes [id number] 1 tablet EVERY AM 1 tablet EVERY AM (route: oral) Med Classific ation: Electroly te Balance-N utritiona l Products paliperidon e ER 6 mg tablet,exte nded release 24 hr 2024-05 00:00: 00 Yes [id number] 1 tablet EVERY PM 1 tablet EVERY PM (route: oral) Med Classific ation: Central Nervous System Agents polyethylen e glycol 3350 17 gram/dose oral powder 2024-05 00:00: 00 Yes [id number] Per instruc tions NEEDED Per instructio ns NEEDED (route: oral) Med Classific ation: Gastroint estinal Therapy Agents trazodone 50 mg tablet 2024-05 00:00: 00 Yes [id number] 1 tablet BEDTIME 1 tablet BEDTIME (route: [...] AWARENESS FOR SAFETY AND WILL NOTIFY CLINICAL DECK SUPERVISOR AND PHYSICIAN/PROVIDER WITH ANY CHANGE IN CONDITION. [code = SKILLED NURSE WILL MAINTAIN SITUATIONAL AWARENESS FOR SAFETY AND WILL NOTIFY CLINICAL DECK SUPERVISOR AND PHYSICIAN/PROVIDER WITH ANY CHANGE IN [...] RECERTIFIC ATION TIFFANY [facility] [id number] 29.41
--- OUTSIDE RECORDS SUMMARY | 2025-05-07 19:00 | XMS_ITS | Clinical Summary ---
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 Costume Specialist Name Role Phone MEGAN CHUN, MELO Unavailable Unavailable GERONIMO TRACEY, TIFFANY Unavailable Unavailable Payers Payer Name Policy Type Policy Number Effective Date Expira tion Date [employer] ADV[employer]AGE [id number] MEDICARE - [facility] [id number] Problems Condition Name Condition Details Condition Category [...] 07-13 00:00: 00 03-13 23:59 :00 No [id number] 1 tablet DAILY 1 tablet DAILY (route: oral) Med Classific ation: Electroly te Balance-N utritiona l Products cyanocobala min (vit B-12) 1,000 mcg tablet 07-13 00:00: 00 2025- 06-12 23:59 :00 No [id number] 1 tablet DAILY 1 tablet DAILY (route: oral) Med Classific ation: Electroly te Balance-N utritiona l Products diltiazem ER (XR/XT) 180 mg capsule,ext ended release 24 hr, controlled 2-19 00:00: 00 03-13 23:59 :00 No [id number] 1 capsule DAILY 1 capsule DAILY (route: oral) Med Classific ation: Cardiovas cular Therapy Agents docusate sodium 100 mg capsule - 00:00: 00 03-13 23:59 :00 No [id number] 1 capsule 2 TIMES DAILY 1 capsule 2 TIMES DAILY (route: oral) Med Classific ation: Gastroint estinal Therapy Agents lisinopril 40 mg tablet - 00:00: 00 03-13 23:59 :00 No [id number] 1 tablet EVERY AM 1 tablet EVERY AM (route: oral) Med Classific ation: Cardiovas cular Therapy Agents metoprolol tartrate 25 mg tablet - 00:00: 00 03-13 23:59 :00 No [id number] 1 tablet 2 TIMES DAILY 1 tablet 2 TIMES DAILY (route: oral) Med Classific ation: Cardiovas cular Therapy Agents multivitami n with minerals tablet 07-13 00:00: 00 03-13 23:59 :00 No [id number] 1 tablet DAILY 1 tablet DAILY (route: oral) Med Classific ation: Electroly te Balance-N utroscara l Products paliperidon e ER 9 mg tablet,exte nded release 24 hr - 00:00: 00 12-01 23:59 :00 No [id number] 1 tablet BEDTIME 1 tablet BEDTIME (route: oral) Med Classific ation: Central Nervous System Agents metoprolol tartrate 25 mg tablet 6-19 00:00: 00 11-17 23:59 :00 No [id number] 1 tablet BEDTIME 1 tablet BEDTIME (route: oral) Med Classific ation: Cardiovas cular Therapy Agents benztropine 1 mg tablet -15 00:00: 00 03-13 23:59 :00 No [id number] 1 tablet EVERY PM 1 tablet EVERY PM (route: oral) Med Classific ation: Central Nervous System Agents paliperidon e ER 6 mg tablet,exte nded release 24 hr 12-01 00:00: 00 03-13 23:59 :00 No [id number] 1 tablet EVERY PM 1 tablet EVERY PM (route: oral) Med Classific ation: Central Nervous System Agents trazodone 50 mg tablet 12-01 00:00: 00 03-13 23:59 :00 No [id number] 1 tablet BEDTIME 1 tablet BEDTIME (route: oral) Med Classific ation: Central Nervous System Agents polyethylen e glycol 3350 17 gram/dose oral powder 12-21 00:00: 00 03-13 23:59 :00 No [id number] Per instruc tions DAILY Per instructio ns DAILY (route: oral) Med Classific ation: Gastroint estinal Therapy Agents benztropine 1 mg tablet 2024-05 00:00: 00 Yes [id number] 1 tablet EVERY PM 1 tablet EVERY PM (route: oral) Med Classific ation: Central Nervous System Agents cholecalcif beverley (vitamin D3) 10 mcg (400 unit) tablet 2024-05 00:00: 00 Yes [id number] 1 tablet EVERY AM 1 tablet EVERY AM (route: oral) Med Classific ation: Electroly te Balance-N utritiona l Products diltiazem ER (XR/XT) 180 mg capsule,ext ended release 24 hr, controlled 2024-05 00:00: 00 Yes [id number] 1 capsule EVERY AM 1 capsule EVERY AM (route: oral) Med Classific ation: Cardiovas cular Therapy Agents docusate sodium 100 mg capsule 2024-05 00:00: 00 Yes [id number] 1 capsule 2 TIMES DAILY 1 capsule 2 TIMES DAILY (route: oral) Med Classific ation: Gastroint estinal Therapy Agents lisinopril 40 mg tablet 2024-05 00:00: 00 Yes [id number] 1 tablet EVERY AM 1 tablet EVERY AM (route: oral) Med Classific ation: Cardiovas cular Therapy Agents metoprolol tartrate 25 mg tablet 2024-05 00:00: 00 Yes [id number] 1 tablet 2 TIMES DAILY 1 tablet 2 TIMES DAILY (route: oral) Med Classific ation: Cardiovas cular Therapy Agents multivitami n with minerals tablet 2024-05 00:00: 00 Yes [id number] 1 tablet EVERY AM 1 tablet EVERY AM (route: oral) Med Classific ation: Electroly te Balance-N utritiona l Products paliperidon e ER 6 mg tablet,exte nded release 24 hr 2024-05 00:00: 00 Yes [id number] 1 tablet EVERY PM 1 tablet EVERY PM (route: oral) Med Classific ation: Central Nervous System Agents polyethylen e glycol 3350 17 gram/dose oral powder 2024-05 00:00: 00 Yes [id number] Per instruc tions NEEDED Per instructio ns NEEDED (route: oral) Med Classific ation: Gastroint estinal Therapy Agents trazodone 50 mg tablet 2024-05 00:00: 00 Yes [id number] 1 tablet BEDTIME 1 tablet BEDTIME (route: [...] AWARENESS FOR SAFETY AND WILL NOTIFY CLINICAL TECHNICIAN CHEMICAL CLEANING AND PHYSICIAN/PROVIDER WITH ANY CHANGE IN CONDITION. [code = SKILLED NURSE WILL MAINTAIN SITUATIONAL AWARENESS FOR SAFETY AND WILL NOTIFY CLINICAL TECHNICIAN CHEMICAL CLEANING AND PHYSICIAN/PROVIDER WITH ANY CHANGE IN CONDITION.] [...] CARE WILL BE ESTABLISHED THAT MEETS PATIENT'S DETENTION NEEDS AND INCLUDES PATIENT GOAL FOR HOME [...] MELTON [facility] [id number] 29.41
--- OUTSIDE RECORDS SUMMARY | 2025-05-07 19:00 | XMS_ITS | Clinical Summary ---
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 Financial Associate Name Role Phone MEGAN CHUN, MELO Unavailable Unavailable GERONIMO TRACEY, TIFFANY Unavailable Unavailable Payers Payer Name Policy Type Policy Number Effective Date Expira tion Date [employer] [id number] MEDICARE - [facility] [id number] Problems Condition Name Condition Details Condition Category [...] 07-13 00:00: 00 03-13 23:59 :00 No [id number] 1 tablet DAILY 1 tablet DAILY (route: oral) Med Classific ation: Electroly te Balance-N utritiona l Products cyanocobala min (vit B-12) 1,000 mcg tablet 07-13 00:00: 00 2025- 06-12 23:59 :00 No [id number] 1 tablet DAILY 1 tablet DAILY (route: oral) Med Classific ation: Electroly te Balance-N utritiona l Products diltiazem ER (XR/XT) 180 mg capsule,ext ended release 24 hr, controlled 2-19 00:00: 00 03-13 23:59 :00 No [id number] 1 capsule DAILY 1 capsule DAILY (route: oral) Med Classific ation: Cardiovas cular Therapy Agents docusate sodium 100 mg capsule - 00:00: 00 03-13 23:59 :00 No [id number] 1 capsule 2 TIMES DAILY 1 capsule 2 TIMES DAILY (route: oral) Med Classific ation: Gastroint estinal Therapy Agents lisinopril 40 mg tablet - 00:00: 00 03-13 23:59 :00 No [id number] 1 tablet EVERY AM 1 tablet EVERY AM (route: oral) Med Classific ation: Cardiovas cular Therapy Agents metoprolol tartrate 25 mg tablet - 00:00: 00 03-13 23:59 :00 No [id number] 1 tablet 2 TIMES DAILY 1 tablet 2 TIMES DAILY (route: oral) Med Classific ation: Cardiovas cular Therapy Agents multivitami n with minerals tablet 07-13 00:00: 00 03-13 23:59 :00 No [id number] 1 tablet DAILY 1 tablet DAILY (route: oral) Med Classific ation: Electroly te Balance-N utroscara l Products paliperidon e ER 9 mg tablet,exte nded release 24 hr - 00:00: 00 12-01 23:59 :00 No [id number] 1 tablet BEDTIME 1 tablet BEDTIME (route: oral) Med Classific ation: Central Nervous System Agents metoprolol tartrate 25 mg tablet 6-19 00:00: 00 11-17 23:59 :00 No [id number] 1 tablet BEDTIME 1 tablet BEDTIME (route: oral) Med Classific ation: Cardiovas cular Therapy Agents benztropine 1 mg tablet -15 00:00: 00 03-13 23:59 :00 No [id number] 1 tablet EVERY PM 1 tablet EVERY PM (route: oral) Med Classific ation: Central Nervous System Agents paliperidon e ER 6 mg tablet,exte nded release 24 hr 12-01 00:00: 00 03-13 23:59 :00 No [id number] 1 tablet EVERY PM 1 tablet EVERY PM (route: oral) Med Classific ation: Central Nervous System Agents trazodone 50 mg tablet 12-01 00:00: 00 03-13 23:59 :00 No [id number] 1 tablet BEDTIME 1 tablet BEDTIME (route: oral) Med Classific ation: Central Nervous System Agents polyethylen e glycol 3350 17 gram/dose oral powder 12-21 00:00: 00 03-13 23:59 :00 No [id number] Per instruc tions DAILY Per instructio ns DAILY (route: oral) Med Classific ation: Gastroint estinal Therapy Agents benztropine 1 mg tablet 2024-05 00:00: 00 Yes [id number] 1 tablet EVERY PM 1 tablet EVERY PM (route: oral) Med Classific ation: Central Nervous System Agents cholecalcif beverley (vitamin D3) 10 mcg (400 unit) tablet 2024-05 00:00: 00 Yes [id number] 1 tablet EVERY AM 1 tablet EVERY AM (route: oral) Med Classific ation: Electroly te Balance-N utritiona l Products diltiazem ER (XR/XT) 180 mg capsule,ext ended release 24 hr, controlled 2024-05 00:00: 00 Yes [id number] 1 capsule EVERY AM 1 capsule EVERY AM (route: oral) Med Classific ation: Cardiovas cular Therapy Agents docusate sodium 100 mg capsule 2024-05 00:00: 00 Yes [id number] 1 capsule 2 TIMES DAILY 1 capsule 2 TIMES DAILY (route: oral) Med Classific ation: Gastroint estinal Therapy Agents lisinopril 40 mg tablet 2024-05 00:00: 00 Yes [id number] 1 tablet EVERY AM 1 tablet EVERY AM (route: oral) Med Classific ation: Cardiovas cular Therapy Agents metoprolol tartrate 25 mg tablet 2024-05 00:00: 00 Yes [id number] 1 tablet 2 TIMES DAILY 1 tablet 2 TIMES DAILY (route: oral) Med Classific ation: Cardiovas cular Therapy Agents multivitami n with minerals tablet 2024-05 00:00: 00 Yes [id number] 1 tablet EVERY AM 1 tablet EVERY AM (route: oral) Med Classific ation: Electroly te Balance-N utritiona l Products paliperidon e ER 6 mg tablet,exte nded release 24 hr 2024-05 00:00: 00 Yes [id number] 1 tablet EVERY PM 1 tablet EVERY PM (route: oral) Med Classific ation: Central Nervous System Agents polyethylen e glycol 3350 17 gram/dose oral powder 2024-05 00:00: 00 Yes [id number] Per instruc tions NEEDED Per instructio ns NEEDED (route: oral) Med Classific ation: Gastroint estinal Therapy Agents trazodone 50 mg tablet 2024-05 00:00: 00 Yes [id number] 1 tablet BEDTIME 1 tablet BEDTIME (route: [...] AWARENESS FOR SAFETY AND WILL NOTIFY CLINICAL ASSISTANT MECHANIC AND PHYSICIAN/PROVIDER WITH ANY CHANGE IN CONDITION. [code = SKILLED NURSE WILL MAINTAIN SITUATIONAL AWARENESS FOR SAFETY AND WILL NOTIFY CLINICAL ASSISTANT MECHANIC AND PHYSICIAN/PROVIDER WITH ANY CHANGE IN CONDITION.] [...] Outpatient RECERTIFIC ATION TIFFANY MELTON [facility] [id number] 29.41
--- OUTSIDE RECORDS SUMMARY | 2025-05-07 19:00 | XMS_ITS | Clinical Summary ---
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 Asic Design Engineer Name Role Phone MEGAN CHUN, MELO Unavailable Unavailable GERONIMO TRACEY, TIFFANY Unavailable Unavailable Payers Payer Name Policy Type Policy Number Effective Date Expira tion Date [employer] [id number] MEDICARE - [facility] [id number] Problems Condition Name Condition Details Condition Category [...] 07-13 00:00: 00 03-13 23:59 :00 No [id number] 1 tablet DAILY 1 tablet DAILY (route: oral) Med Classific ation: Electroly te Balance-N utritiona l Products cyanocobala min (vit B-12) 1,000 mcg tablet 07-13 00:00: 00 2025- 06-12 23:59 :00 No [id number] 1 tablet DAILY 1 tablet DAILY (route: oral) Med Classific ation: Electroly te Balance-N utritiona l Products diltiazem ER (XR/XT) 180 mg capsule,ext ended release 24 hr, controlled 2-19 00:00: 00 03-13 23:59 :00 No [id number] 1 capsule DAILY 1 capsule DAILY (route: oral) Med Classific ation: Cardiovas cular Therapy Agents docusate sodium 100 mg capsule - 00:00: 00 03-13 23:59 :00 No [id number] 1 capsule 2 TIMES DAILY 1 capsule 2 TIMES DAILY (route: oral) Med Classific ation: Gastroint estinal Therapy Agents lisinopril 40 mg tablet - 00:00: 00 03-13 23:59 :00 No [id number] 1 tablet EVERY AM 1 tablet EVERY AM (route: oral) Med Classific ation: Cardiovas cular Therapy Agents metoprolol tartrate 25 mg tablet - 00:00: 00 03-13 23:59 :00 No [id number] 1 tablet 2 TIMES DAILY 1 tablet 2 TIMES DAILY (route: oral) Med Classific ation: Cardiovas cular Therapy Agents multivitami n with minerals tablet 07-13 00:00: 00 03-13 23:59 :00 No [id number] 1 tablet DAILY 1 tablet DAILY (route: oral) Med Classific ation: Electroly te Balance-N utroscara l Products paliperidon e ER 9 mg tablet,exte nded release 24 hr - 00:00: 00 12-01 23:59 :00 No [id number] 1 tablet BEDTIME 1 tablet BEDTIME (route: oral) Med Classific ation: Central Nervous System Agents metoprolol tartrate 25 mg tablet 6-19 00:00: 00 11-17 23:59 :00 No [id number] 1 tablet BEDTIME 1 tablet BEDTIME (route: oral) Med Classific ation: Cardiovas cular Therapy Agents benztropine 1 mg tablet -15 00:00: 00 03-13 23:59 :00 No [id number] 1 tablet EVERY PM 1 tablet EVERY PM (route: oral) Med Classific ation: Central Nervous System Agents paliperidon e ER 6 mg tablet,exte nded release 24 hr 12-01 00:00: 00 03-13 23:59 :00 No [id number] 1 tablet EVERY PM 1 tablet EVERY PM (route: oral) Med Classific ation: Central Nervous System Agents trazodone 50 mg tablet 12-01 00:00: 00 03-13 23:59 :00 No [id number] 1 tablet BEDTIME 1 tablet BEDTIME (route: oral) Med Classific ation: Central Nervous System Agents polyethylen e glycol 3350 17 gram/dose oral powder 12-21 00:00: 00 03-13 23:59 :00 No [id number] Per instruc tions DAILY Per instructio ns DAILY (route: oral) Med Classific ation: Gastroint estinal Therapy Agents benztropine 1 mg tablet 2024-05 00:00: 00 Yes [id number] 1 tablet EVERY PM 1 tablet EVERY PM (route: oral) Med Classific ation: Central Nervous System Agents cholecalcif beverley (vitamin D3) 10 mcg (400 unit) tablet 2024-05 00:00: 00 Yes [id number] 1 tablet EVERY AM 1 tablet EVERY AM (route: oral) Med Classific ation: Electroly te Balance-N utritiona l Products diltiazem ER (XR/XT) 180 mg capsule,ext ended release 24 hr, controlled 2024-05 00:00: 00 Yes [id number] 1 capsule EVERY AM 1 capsule EVERY AM (route: oral) Med Classific ation: Cardiovas cular Therapy Agents docusate sodium 100 mg capsule 2024-05 00:00: 00 Yes [id number] 1 capsule 2 TIMES DAILY 1 capsule 2 TIMES DAILY (route: oral) Med Classific ation: Gastroint estinal Therapy Agents lisinopril 40 mg tablet 2024-05 00:00: 00 Yes [id number] 1 tablet EVERY AM 1 tablet EVERY AM (route: oral) Med Classific ation: Cardiovas cular Therapy Agents metoprolol tartrate 25 mg tablet 2024-05 00:00: 00 Yes [id number] 1 tablet 2 TIMES DAILY 1 tablet 2 TIMES DAILY (route: oral) Med Classific ation: Cardiovas cular Therapy Agents multivitami n with minerals tablet 2024-05 00:00: 00 Yes [id number] 1 tablet EVERY AM 1 tablet EVERY AM (route: oral) Med Classific ation: Electroly te Balance-N utritiona l Products paliperidon e ER 6 mg tablet,exte nded release 24 hr 2024-05 00:00: 00 Yes [id number] 1 tablet EVERY PM 1 tablet EVERY PM (route: oral) Med Classific ation: Central Nervous System Agents polyethylen e glycol 3350 17 gram/dose oral powder 2024-05 00:00: 00 Yes [id number] Per instruc tions NEEDED Per instructio ns NEEDED (route: oral) Med Classific ation: Gastroint estinal Therapy Agents trazodone 50 mg tablet 2024-05 00:00: 00 Yes [id number] 1 tablet BEDTIME 1 tablet BEDTIME (route: [...] AWARENESS FOR SAFETY AND WILL NOTIFY CLINICAL DRILLING INSPECTOR AND PHYSICIAN/PROVIDER WITH ANY CHANGE IN CONDITION. [code = SKILLED NURSE WILL MAINTAIN SITUATIONAL AWARENESS FOR SAFETY AND WILL NOTIFY CLINICAL DRILLING INSPECTOR AND PHYSICIAN/PROVIDER WITH ANY CHANGE IN [...] [facility] [id number] 29.41
--- OUTSIDE RECORDS SUMMARY | 2025-05-07 19:00 | XMS_ITS | Clinical Summary ---
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 User Experience Team Lead Name Role Phone MEGAN CHUN, MELO Unavailable Unavailable GERONIMO TRACEY, TIFFANY Unavailable Unavailable Payers Payer Name Policy Type Policy Number Effective Date Expira tion Date [employer] [id number] [facility]IC[facility] - [facility] [id number] Problems Condition Name Condition Details Condition Category [...] 07-13 00:00: 00 03-13 23:59 :00 No [id number] 1 tablet DAILY 1 tablet DAILY (route: oral) Med Classific ation: Electroly te Balance-N utritiona l Products cyanocobala min (vit B-12) 1,000 mcg tablet 07-13 00:00: 00 2025- 06-12 23:59 :00 No [id number] 1 tablet DAILY 1 tablet DAILY (route: oral) Med Classific ation: Electroly te Balance-N utritiona l Products diltiazem ER (XR/XT) 180 mg capsule,ext ended release 24 hr, controlled 2-19 00:00: 00 03-13 23:59 :00 No [id number] 1 capsule DAILY 1 capsule DAILY (route: oral) Med Classific ation: Cardiovas cular Therapy Agents docusate sodium 100 mg capsule - 00:00: 00 03-13 23:59 :00 No [id number] 1 capsule 2 TIMES DAILY 1 capsule 2 TIMES DAILY (route: oral) Med Classific ation: Gastroint estinal Therapy Agents lisinopril 40 mg tablet - 00:00: 00 03-13 23:59 :00 No [id number] 1 tablet EVERY AM 1 tablet EVERY AM (route: oral) Med Classific ation: Cardiovas cular Therapy Agents metoprolol tartrate 25 mg tablet - 00:00: 00 03-13 23:59 :00 No [id number] 1 tablet 2 TIMES DAILY 1 tablet 2 TIMES DAILY (route: oral) Med Classific ation: Cardiovas cular Therapy Agents multivitami n with minerals tablet 07-13 00:00: 00 03-13 23:59 :00 No [id number] 1 tablet DAILY 1 tablet DAILY (route: oral) Med Classific ation: Electroly te Balance-N utroscara l Products paliperidon e ER 9 mg tablet,exte nded release 24 hr - 00:00: 00 12-01 23:59 :00 No [id number] 1 tablet BEDTIME 1 tablet BEDTIME (route: oral) Med Classific ation: Central Nervous System Agents metoprolol tartrate 25 mg tablet 6-19 00:00: 00 11-17 23:59 :00 No [id number] 1 tablet BEDTIME 1 tablet BEDTIME (route: oral) Med Classific ation: Cardiovas cular Therapy Agents benztropine 1 mg tablet -15 00:00: 00 03-13 23:59 :00 No [id number] 1 tablet EVERY PM 1 tablet EVERY PM (route: oral) Med Classific ation: Central Nervous System Agents paliperidon e ER 6 mg tablet,exte nded release 24 hr 12-01 00:00: 00 03-13 23:59 :00 No [id number] 1 tablet EVERY PM 1 tablet EVERY PM (route: oral) Med Classific ation: Central Nervous System Agents trazodone 50 mg tablet 12-01 00:00: 00 03-13 23:59 :00 No [id number] 1 tablet BEDTIME 1 tablet BEDTIME (route: oral) Med Classific ation: Central Nervous System Agents polyethylen e glycol 3350 17 gram/dose oral powder 12-21 00:00: 00 03-13 23:59 :00 No [id number] Per instruc tions DAILY Per instructio ns DAILY (route: oral) Med Classific ation: Gastroint estinal Therapy Agents benztropine 1 mg tablet 2024-05 00:00: 00 Yes [id number] 1 tablet EVERY PM 1 tablet EVERY PM (route: oral) Med Classific ation: Central Nervous System Agents cholecalcif beverley (vitamin D3) 10 mcg (400 unit) tablet 2024-05 00:00: 00 Yes [id number] 1 tablet EVERY AM 1 tablet EVERY AM (route: oral) Med Classific ation: Electroly te Balance-N utritiona l Products diltiazem ER (XR/XT) 180 mg capsule,ext ended release 24 hr, controlled 2024-05 00:00: 00 Yes [id number] 1 capsule EVERY AM 1 capsule EVERY AM (route: oral) Med Classific ation: Cardiovas cular Therapy Agents docusate sodium 100 mg capsule 2024-05 00:00: 00 Yes [id number] 1 capsule 2 TIMES DAILY 1 capsule 2 TIMES DAILY (route: oral) Med Classific ation: Gastroint estinal Therapy Agents lisinopril 40 mg tablet 2024-05 00:00: 00 Yes [id number] 1 tablet EVERY AM 1 tablet EVERY AM (route: oral) Med Classific ation: Cardiovas cular Therapy Agents metoprolol tartrate 25 mg tablet 2024-05 00:00: 00 Yes [id number] 1 tablet 2 TIMES DAILY 1 tablet 2 TIMES DAILY (route: oral) Med Classific ation: Cardiovas cular Therapy Agents multivitami n with minerals tablet 2024-05 00:00: 00 Yes [id number] 1 tablet EVERY AM 1 tablet EVERY AM (route: oral) Med Classific ation: Electroly te Balance-N utritiona l Products paliperidon e ER 6 mg tablet,exte nded release 24 hr 2024-05 00:00: 00 Yes [id number] 1 tablet EVERY PM 1 tablet EVERY PM (route: oral) Med Classific ation: Central Nervous System Agents polyethylen e glycol 3350 17 gram/dose oral powder 2024-05 00:00: 00 Yes [id number] Per instruc tions NEEDED Per instructio ns NEEDED (route: oral) Med Classific ation: Gastroint estinal Therapy Agents trazodone 50 mg tablet 2024-05 00:00: 00 Yes [id number] 1 tablet BEDTIME 1 tablet BEDTIME (route: [...] AWARENESS FOR SAFETY AND WILL NOTIFY CLINICAL PORTFOLIO ADMINISTRATOR AND PHYSICIAN/PROVIDER WITH ANY CHANGE IN CONDITION. [code = SKILLED NURSE WILL MAINTAIN SITUATIONAL AWARENESS FOR SAFETY AND WILL NOTIFY CLINICAL PORTFOLIO ADMINISTRATOR AND PHYSICIAN/PROVIDER WITH ANY CHANGE IN [...] Outpatient RECERTIFIC ATION TIFFANY [facility] [id number] 29.41
--- OUTSIDE RECORDS SUMMARY | 2025-05-07 19:00 | XMS_ITS | Clinical Summary ---
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 Lithograph Press Feeder Name Role Phone MEGAN CHUN, MELO Unavailable Unavailable GERONIMO TRACEY, TIFFANY Unavailable Unavailable Payers Payer Name Policy Type Policy Number Effective Date Expira tion Date [employer] [id number] MEDICARE - [facility] [id number] Problems Condition Name Condition Details Condition Category [...] 07-13 00:00: 00 03-13 23:59 :00 No [id number] 1 tablet DAILY 1 tablet DAILY (route: oral) Med Classific ation: Electroly te Balance-N utritiona l Products cyanocobala min (vit B-12) 1,000 mcg tablet 07-13 00:00: 00 2025- 06-12 23:59 :00 No [id number] 1 tablet DAILY 1 tablet DAILY (route: oral) Med Classific ation: Electroly te Balance-N utritiona l Products diltiazem ER (XR/XT) 180 mg capsule,ext ended release 24 hr, controlled 2-19 00:00: 00 03-13 23:59 :00 No [id number] 1 capsule DAILY 1 capsule DAILY (route: oral) Med Classific ation: Cardiovas cular Therapy Agents docusate sodium 100 mg capsule - 00:00: 00 03-13 23:59 :00 No [id number] 1 capsule 2 TIMES DAILY 1 capsule 2 TIMES DAILY (route: oral) Med Classific ation: Gastroint estinal Therapy Agents lisinopril 40 mg tablet - 00:00: 00 03-13 23:59 :00 No [id number] 1 tablet EVERY AM 1 tablet EVERY AM (route: oral) Med Classific ation: Cardiovas cular Therapy Agents metoprolol tartrate 25 mg tablet - 00:00: 00 03-13 23:59 :00 No [id number] 1 tablet 2 TIMES DAILY 1 tablet 2 TIMES DAILY (route: oral) Med Classific ation: Cardiovas cular Therapy Agents multivitami n with minerals tablet 07-13 00:00: 00 03-13 23:59 :00 No [id number] 1 tablet DAILY 1 tablet DAILY (route: oral) Med Classific ation: Electroly te Balance-N utroscara l Products paliperidon e ER 9 mg tablet,exte nded release 24 hr - 00:00: 00 12-01 23:59 :00 No [id number] 1 tablet BEDTIME 1 tablet BEDTIME (route: oral) Med Classific ation: Central Nervous System Agents metoprolol tartrate 25 mg tablet 6-19 00:00: 00 11-17 23:59 :00 No [id number] 1 tablet BEDTIME 1 tablet BEDTIME (route: oral) Med Classific ation: Cardiovas cular Therapy Agents benztropine 1 mg tablet -15 00:00: 00 03-13 23:59 :00 No [id number] 1 tablet EVERY PM 1 tablet EVERY PM (route: oral) Med Classific ation: Central Nervous System Agents paliperidon e ER 6 mg tablet,exte nded release 24 hr 12-01 00:00: 00 03-13 23:59 :00 No [id number] 1 tablet EVERY PM 1 tablet EVERY PM (route: oral) Med Classific ation: Central Nervous System Agents trazodone 50 mg tablet 12-01 00:00: 00 03-13 23:59 :00 No [id number] 1 tablet BEDTIME 1 tablet BEDTIME (route: oral) Med Classific ation: Central Nervous System Agents polyethylen e glycol 3350 17 gram/dose oral powder 12-21 00:00: 00 03-13 23:59 :00 No [id number] Per instruc tions DAILY Per instructio ns DAILY (route: oral) Med Classific ation: Gastroint estinal Therapy Agents benztropine 1 mg tablet 2024-05 00:00: 00 Yes [id number] 1 tablet EVERY PM 1 tablet EVERY PM (route: oral) Med Classific ation: Central Nervous System Agents cholecalcif beverley (vitamin D3) 10 mcg (400 unit) tablet 2024-05 00:00: 00 Yes [id number] 1 tablet EVERY AM 1 tablet EVERY AM (route: oral) Med Classific ation: Electroly te Balance-N utritiona l Products diltiazem ER (XR/XT) 180 mg capsule,ext ended release 24 hr, controlled 2024-05 00:00: 00 Yes [id number] 1 capsule EVERY AM 1 capsule EVERY AM (route: oral) Med Classific ation: Cardiovas cular Therapy Agents docusate sodium 100 mg capsule 2024-05 00:00: 00 Yes [id number] 1 capsule 2 TIMES DAILY 1 capsule 2 TIMES DAILY (route: oral) Med Classific ation: Gastroint estinal Therapy Agents lisinopril 40 mg tablet 2024-05 00:00: 00 Yes [id number] 1 tablet EVERY AM 1 tablet EVERY AM (route: oral) Med Classific ation: Cardiovas cular Therapy Agents metoprolol tartrate 25 mg tablet 2024-05 00:00: 00 Yes [id number] 1 tablet 2 TIMES DAILY 1 tablet 2 TIMES DAILY (route: oral) Med Classific ation: Cardiovas cular Therapy Agents multivitami n with minerals tablet 2024-05 00:00: 00 Yes [id number] 1 tablet EVERY AM 1 tablet EVERY AM (route: oral) Med Classific ation: Electroly te Balance-N utritiona l Products paliperidon e ER 6 mg tablet,exte nded release 24 hr 2024-05 00:00: 00 Yes [id number] 1 tablet EVERY PM 1 tablet EVERY PM (route: oral) Med Classific ation: Central Nervous System Agents polyethylen e glycol 3350 17 gram/dose oral powder 2024-05 00:00: 00 Yes [id number] Per instruc tions NEEDED Per instructio ns NEEDED (route: oral) Med Classific ation: Gastroint estinal Therapy Agents trazodone 50 mg tablet 2024-05 00:00: 00 Yes [id number] 1 tablet BEDTIME 1 tablet BEDTIME (route: [...] AWARENESS FOR SAFETY AND WILL NOTIFY CLINICAL ENROLLMENT NURSE AND PHYSICIAN/PROVIDER WITH ANY CHANGE IN CONDITION. [code = SKILLED NURSE WILL MAINTAIN SITUATIONAL AWARENESS FOR SAFETY AND WILL NOTIFY CLINICAL ENROLLMENT NURSE AND PHYSICIAN/PROVIDER WITH ANY CHANGE IN CONDITION.] [...] TIFFANY MELTON [facility] [id number] 29.41
--- OUTSIDE RECORDS SUMMARY | 2025-05-07 19:00 | XMS_ITS | Clinical Summary ---
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 Kitchen Food Server Name Role Phone MEGAN CHUN, MELO Unavailable Unavailable GERONIMO TRACEY, TIFFANY Unavailable Unavailable Payers Payer Name Policy Type Policy Number Effective Date Expira tion Date [employer] [id number] MEDICARE - [facility] [id number] Problems Condition Name Condition Details Condition Category [...] 07-13 00:00: 00 03-13 23:59 :00 No [id number] 1 tablet DAILY 1 tablet DAILY (route: oral) Med Classific ation: Electroly te Balance-N utritiona l Products cyanocobala min (vit B-12) 1,000 mcg tablet 07-13 00:00: 00 2025- 06-12 23:59 :00 No [id number] 1 tablet DAILY 1 tablet DAILY (route: oral) Med Classific ation: Electroly te Balance-N utritiona l Products diltiazem ER (XR/XT) 180 mg capsule,ext ended release 24 hr, controlled 2-19 00:00: 00 03-13 23:59 :00 No [id number] 1 capsule DAILY 1 capsule DAILY (route: oral) Med Classific ation: Cardiovas cular Therapy Agents docusate sodium 100 mg capsule - 00:00: 00 03-13 23:59 :00 No [id number] 1 capsule 2 TIMES DAILY 1 capsule 2 TIMES DAILY (route: oral) Med Classific ation: Gastroint estinal Therapy Agents lisinopril 40 mg tablet - 00:00: 00 03-13 23:59 :00 No [id number] 1 tablet EVERY AM 1 tablet EVERY AM (route: oral) Med Classific ation: Cardiovas cular Therapy Agents metoprolol tartrate 25 mg tablet - 00:00: 00 03-13 23:59 :00 No [id number] 1 tablet 2 TIMES DAILY 1 tablet 2 TIMES DAILY (route: oral) Med Classific ation: Cardiovas cular Therapy Agents multivitami n with minerals tablet 07-13 00:00: 00 03-13 23:59 :00 No [id number] 1 tablet DAILY 1 tablet DAILY (route: oral) Med Classific ation: Electroly te Balance-N utroscara l Products paliperidon e ER 9 mg tablet,exte nded release 24 hr - 00:00: 00 12-01 23:59 :00 No [id number] 1 tablet BEDTIME 1 tablet BEDTIME (route: oral) Med Classific ation: Central Nervous System Agents metoprolol tartrate 25 mg tablet 6-19 00:00: 00 11-17 23:59 :00 No [id number] 1 tablet BEDTIME 1 tablet BEDTIME (route: oral) Med Classific ation: Cardiovas cular Therapy Agents benztropine 1 mg tablet -15 00:00: 00 03-13 23:59 :00 No [id number] 1 tablet EVERY PM 1 tablet EVERY PM (route: oral) Med Classific ation: Central Nervous System Agents paliperidon e ER 6 mg tablet,exte nded release 24 hr 12-01 00:00: 00 03-13 23:59 :00 No [id number] 1 tablet EVERY PM 1 tablet EVERY PM (route: oral) Med Classific ation: Central Nervous System Agents trazodone 50 mg tablet 12-01 00:00: 00 03-13 23:59 :00 No [id number] 1 tablet BEDTIME 1 tablet BEDTIME (route: oral) Med Classific ation: Central Nervous System Agents polyethylen e glycol 3350 17 gram/dose oral powder 12-21 00:00: 00 03-13 23:59 :00 No [id number] Per instruc tions DAILY Per instructio ns DAILY (route: oral) Med Classific ation: Gastroint estinal Therapy Agents benztropine 1 mg tablet 2024-05 00:00: 00 Yes [id number] 1 tablet EVERY PM 1 tablet EVERY PM (route: oral) Med Classific ation: Central Nervous System Agents cholecalcif beverley (vitamin D3) 10 mcg (400 unit) tablet 2024-05 00:00: 00 Yes [id number] 1 tablet EVERY AM 1 tablet EVERY AM (route: oral) Med Classific ation: Electroly te Balance-N utritiona l Products diltiazem ER (XR/XT) 180 mg capsule,ext ended release 24 hr, controlled 2024-05 00:00: 00 Yes [id number] 1 capsule EVERY AM 1 capsule EVERY AM (route: oral) Med Classific ation: Cardiovas cular Therapy Agents docusate sodium 100 mg capsule 2024-05 00:00: 00 Yes [id number] 1 capsule 2 TIMES DAILY 1 capsule 2 TIMES DAILY (route: oral) Med Classific ation: Gastroint estinal Therapy Agents lisinopril 40 mg tablet 2024-05 00:00: 00 Yes [id number] 1 tablet EVERY AM 1 tablet EVERY AM (route: oral) Med Classific ation: Cardiovas cular Therapy Agents metoprolol tartrate 25 mg tablet 2024-05 00:00: 00 Yes [id number] 1 tablet 2 TIMES DAILY 1 tablet 2 TIMES DAILY (route: oral) Med Classific ation: Cardiovas cular Therapy Agents multivitami n with minerals tablet 2024-05 00:00: 00 Yes [id number] 1 tablet EVERY AM 1 tablet EVERY AM (route: oral) Med Classific ation: Electroly te Balance-N utritiona l Products paliperidon e ER 6 mg tablet,exte nded release 24 hr 2024-05 00:00: 00 Yes [id number] 1 tablet EVERY PM 1 tablet EVERY PM (route: oral) Med Classific ation: Central Nervous System Agents polyethylen e glycol 3350 17 gram/dose oral powder 2024-05 00:00: 00 Yes [id number] Per instruc tions NEEDED Per instructio ns NEEDED (route: oral) Med Classific ation: Gastroint estinal Therapy Agents trazodone 50 mg tablet 2024-05 00:00: 00 Yes [id number] 1 tablet BEDTIME 1 tablet BEDTIME (route: [...] AWARENESS FOR SAFETY AND WILL NOTIFY CLINICAL TOPOGRAPHY TECHNICIAN AND PHYSICIAN/PROVIDER WITH ANY CHANGE IN CONDITION. [code = SKILLED NURSE WILL MAINTAIN SITUATIONAL AWARENESS FOR SAFETY AND WILL NOTIFY CLINICAL TOPOGRAPHY TECHNICIAN AND PHYSICIAN/PROVIDER WITH ANY CHANGE IN [...] ATION TIFFANY MELTON [facility] [id number] 29.41
== END 2025-04-12 14:28 | disposition home or self-care (01) ==
LOC: HO.HSM 13:36
PROVIDERS: PCP Internal Medicine; Visit Provider Psychiatry & Neurology Neurology
DX: G31.84 Mild cognitive impairment of uncertain or unknown etiology (principal); G21.11 Neuroleptic induced parkinsonism; T43.505A Adverse effect of unspecified antipsychotics and neuroleptics, initial encounter
CPT/HCPCS: 99204

== ENCOUNTER → 2025-05-14 14:10 | Outpatient (BNV) | payer MEDICARE, SELFPAY | PROVIDERS: PCP Internal Medicine; Visit Provider Radiology Diagnostic Radiology | DX: G31.9 Degenerative disease of nervous system, unspecified (principal) | CPT/HCPCS: 70551 ==

== ENCOUNTER 2025-05-14 14:12 | Outpatient (REF) | payer MEDICARE, SELFPAY ==
--- OUTSIDE RECORDS SUMMARY | 2025-05-10 14:30 | XMS_ITS | Encounter Summary ---
Author Organization [facility] Address [address] [place] [address] Care Team Providers Care Water Attendant Name Role Phone Juana Flynn MD Primary Care Provider Reason for Visit * Reason Comments Consult Nail problem * Consultation (Routine) - Authorized Specialty Diagnoses / Procedures Referred By Contact Referred To Contact Podiatry / Orthopaedic Surgery Diagnoses Onychomycosis Sue Orellana PA [address] [place] [id number] Phone: tel: fax: Terrence Hilton DPM [address] [address] Phone: tel: fax: Referral ID Status Reason Start Date Expiration Date Visits Requested Visits Authorized [id number] Authorized Specialty Services Required 04/19/2026 12 12 Encounter Details Date Type Department Care Team (Late st Contact Info) Description 05/10/2025 2:30 PM EST Consult Orthopedic Surgery - [place] [address] [phone] Terrence Hilton DPM [address] [phone] Dermatophytosis of nail (Primary Dx); Pain in toe of right foot; Pain in toe of left foot; Difficulty walking; Bilateral femoral artery stenosis (CMS/HCC V24) Social History Tobacco Use Types Packs/Day Years Used Date Smoking Tobacco: Former Cigarettes 2 5 0 11/22/1973 - 11/22/1978 Smokeless Tobacco: Never Comments:Puffed but did not inhale Alcohol Use Standard Drinks/Week Comments Not Currently 0 (1 standard drink = 0.6 oz pur e alcohol) Glass of wine before dinner Housing Instability Answer Date Recorde d Are you worried that in the next 2 months you may not have stable housing? Patient declined 04/12/2024 Food Access & Nutrition Answer Date Rec orded Do you have access to a vari ety of food including fruits and vegetables? Yes 04/12/2024 Access to Healthcare Answer Date Record ed Within the last 3 months, ho w many times did you visit the emergency department for your medical care? 0 04/12/2024 Health Literacy Answer Date Recorded How often do you need to hav e someone help you when you read instructions, pamphlets, or other written material from your doctor or pharmacy? Rarely 04/12/2024 Caregiver: How often do you need to have someone help you when you read instructions, pamphlets, or other written material from your doctor or pharmacy? Not on file 04/12/2024 Financial Risk Answer Date Recorded How hard is it for you to pa y for the very basics like food, housing, medical care, and air conditioning / heating? Very hard 04/12/2024 Transportation Answer Date Recorded Has the lack of transportati on kept you from meetings, work, or from getting things needed for daily living? Patient declined 04/12/2024 Has the lack of transportati on kept you from medical appointments or from getting medications? Patient declined 04/12/2024 Social Isolation Answer Date Recorded How often do you feel lonely or isolated from those around you? Patient declined 04/12/2024 Food Risk Answer Date Recorded Within the past 12 months we worried whether our food would run out before we got money to buy more. Patient declined 024 Within the past 12 months th e food we bought just didn't last and we didn't have money to get more. Patient declined 03/25 Dependent Care Answer Date Recorded Do you need help finding or paying for care for your loved ones. For example, children's author or elderly care for an older adult? Patient declined 04/12/2024 Education Answer Date Recorded Do you think completing more education or training, like finishing a GED, going to college, or learning a trade, would be helpful for you? Patient declined 04/12/2024 Employment and Income Answer Date Recor ded During the last four weeks, have you been actively looking for work? No 04/12/2024 Living Situation Answer Date Recorded What is your living situation? Unrecognized valu e 04/12/2024 Comments No Sex and Gender Information Value Date Recorded Sex Assigned at Not on file Legal Sex Female 2:18 PM EST Gender Identity Not on file Sexual Orientation Not on file documented as of this encounter Ordered Prescriptions Prescription Sig Dispense Quantity Refills Last Filled Start Date End Date terbinafine (LamISIL) 250 mg tablet Take 1 tablet (250 mg total) by mouth 1 (one) time each day. 30 tablet 2 05/10/2025 08/08/2025 documented in this encounter Progress Notes * Terrence Hilton, DPM - 05/10/2025 2:30 PM EST S Patient presents today for evaluation with her son present reports feeling worsening thickening fungal nails of all 10 toenails right right 1st and 2nd were states been using topical medication minimal to no improvement she is very frustrated with the nails thickened and very thick painful aching bother her in fact when she walks presents today for evaluation Last PCP visit 01/31/2025 Dr. Orellana PAC ROS: GENERAL: Pt denies nausea, fever, vomiting, chills, or shortness of breath. Pt in NAD. CARDIOLOGY: pt denies chest pain, palpitations LUNGS: pt denies shortness of breath MUSCULOSKELETAL: See HPI, otherwise no joint pain or swelling, back pain, or muscle pain. SKIN: see HPI, otherwise no lesions, rash or itching NEURO: No persistent headache, weakness or numbness The remainder of the review of systems is noncontributory PAST MEDICAL HISTORY: Patient Active Problem List Diagnosis Hypertension Cataracts, bilateral Paranoid delusion (CMS/HCC V24, CMS/HCC V28) Seasonal allergies SOCIAL HISTORY: Social History Tobacco Use Smoking status: Former Current packs/day: 0.00 Average packs/day: 2.0 packs/day for 5.0 years (10.0 ttl pk-yrs) Types: Cigarettes Start date: 11/22/1973 Quit date: 11/22/1978 Years since quittin.4 Smokeless tobacco: Never Tobacco comments: Puffed but did not inhale Substance Use Topics Alcohol use: Not Currently Comment: Glass of wine before dinner ACTIVE MEDICATIONS: Outpatient Medications Marked as Taking for the 05/10/25 encounter (Consult) with Terrence Hilton DPM Medication Sig Dispense Refill benztropine (COGENTIN) 1 mg tablet carbidopa-levodopa (SINEMET) 25-100 mg per tablet Take 1 tablet by mouth 3 (three) times a day. dilTIAZem CD (CARDIZEM CD) 180 mg 24 hr capsule TAKE 1 CAPSULE BY MOUTH 1 TIME EACH DAY. 90 capsule1 fluticasone propionate (FLONASE) 50 mcg/actuation nasal spray SPRAY 2 SPRAYS INTO EACH NOSTRIL EVERY DAY SHAKE GENTLY. CLEAN TIP AND REPLACE CAP AFTER USE. 16 mL 4 lisinopril (PRINIVIL,ZESTRIL) 40 mg tablet Take 1 tablet (40 mg total) by mouth 1 (one) time each day. 90 tablet 1 metoprolol tartrate (LOPRESSOR) 25 mg tablet TAKE 1/2 TABLET IN THE MORNING AND 1 TABLET IN THE EVENING 135 tablet 1 paliperidone (INVEGA) 6 mg 24 hr tablet Take 1 tablet (6 mg total) by mouth at bedtime. Do not crush, chew, or split. traZODone (DESYREL) 50 mg tablet Take 1 tablet (50 mg total) by mouth at bedtime. 2 hrs after paliperidone. ALLERGIES: Allergies Allergen Reactions Iodinated Contrast Media Lumps Sulfa (Sulfonamide Antibiotics) Under eye pain Aspirin Other Reaction(s): Numbness, tingling or swelling of the lips, tongue or mouth PHYSICAL EXAM: Visit Vitals OB Status Postmenopausal Smoking Status Former PODIATRIC EXAMINATION: GENERAL: Patient appears well nourished, with NAD. VASCULAR: Dorsalis pedis pulses are 2/4 bilaterally and Posterior tibial pulses are 0 out of 4 right 1 out of 4 left. Capillary filling time within normal limits the digits. No pallor on elevation orrubor on dependency. No varicosities. Denies rest pain or claudication pain. NEUROLOGICAL: Sharp/dull sensation intact, protective sensation intact 10/10 with Ipswitch touch test bilaterally, vibratory sensation intact to the tibial tuberosity. ORTHOPEDIC: Good muscle strength 5/5 of all flexors and extensors. Dorsi flexion of ankle ,10 degrees, plantar flexion WNL. No muscle atrophy. DERMATOLOGICAL:.Toenails: Left Toenail(s) 1-5: subungual debris, discoloration, hypertrophic, elongation, mycotic appearance, onychomycosis, pain and thickening. Right Toenail(s) 1-5: subungual debris, discoloration, hypertrophic, elongation, mycotic appearance, onychomycosis, pain and thickening. Annular scaling bilateral feet moccasin distribution Skin thinning texture shiny appearance diffuse hyperpigmentation bilaterally pedal hair decreased BIOMECHANICS: Ankle ROM WNL no acute crepitation noted some mild discomfort on palpation of the sinus tarsi bilateral, STJ ROM wnl, MTJ ROM wnl, 1st MPJ ROM track bound bunion deformities bilateral. IMAGING: IMPRESSION: 1. Dermatophytosis of nail 2. Pain in toe of right foot 3. Pain in toe of left foot 4. Difficulty walking 5. Bilateral femoral artery stenosis (CMS/HCC V24) PLAN: Pt was seen and examined, history reviewed. Patient has failed topical medication with no improvement Lamisil prescribed Labs reviewed from 10/26/2024 without any signs of significant liver irritation or inflammation Follow-up in 6 weeks Debridement of mycotic toenails 6-10: Verbal informed consent was obtained from the patient. Greater than 6 nails were aseptically debrided in thickness and length with nail nippers Terrence Hilton DPM documented in this encounter Plan of Treatment Upcoming Encounters Date Type Department Care Team (Late st Contact Info) Description 06/14/2025 3:30 PM EST Office Visit Orthopedic Surgery [facility] [address] [phone] Terrence Hilton DPM [address] [phone] 07/04/2025 10:00 AM EST Office Visit Adult [address] [phone] Juana Flynn MD [address] [place] [address] documented as of this encounter Visit Diagnoses Diagnosis Dermatophytosis of nail- Primary Pain in toe of right foot Pain in soft tissues of limb Pain in toe of left foot Pain in soft tissues of limb Difficulty walking Difficulty in walking Bilateral femoral artery stenosis (CMS/HCC V24) Stricture of artery documented in this encounter Orders Outpatient Referral Count Last Ordered Date Fir st Ordered Date AMB REFERRAL TO PODIATRY 1 05/10/2025 documented in this encounter Additional Health Concerns Assessment Noted Time PHQ-9 Depression Total Score: 0 10/26/19 25 4:07 PM EDT documented as of this encounter Care Teams Water Attendant Relationship Specialty Start Date End Date Juana Flynn MD [address] [place] [phone] PCP - General 11/13/23 documented as of this encounter
--- NOTE | ~2025-05-14 | MR_ITS ---
EXAMINATION: MR BRAIN WITHOUT IV CONTRAST HISTORY: G31.84 - Mild cognitive impairment of uncertain or unknown etiology TECHNIQUE: Sagittal T1, and axial T1, FLAIR, T2, gradient echo, and diffusion weighted MR images of the brain were obtained. COMPARISON: There are no prior studies available for comparison. FINDINGS: The pituitary is normal in size. The cerebellar tonsils are normally located. There is mild prominence of the ventricular system and cortical sulci, consistent with atrophy. Scattered periventricular and subcortical white matter hyperintensities are noted on the FLAIR and T2-weighted images which are nonspecific, but often seen in the setting of small vessel ischemic disease. There is no mass effect or midline shift. No intra or extra-axial fluid collections are identified. There are no foci of restricted diffusion. Normal vascular flow voids are noted in the basilar and carotid arteries. The visualized paranasal sinuses are clear. MR/MR head/brain wo con IMPRESSION: Mild cerebral atrophy and findings consistent with small vessel ischemic disease of the white matter as described. No evidence of an acute infarct. Electronically signed by: Pelon Diaz MD 05/16/2025 07:57 AM EST
--- OUTSIDE RECORDS SUMMARY | 2025-05-14 14:15 | XMS_ITS | Clinical Summary ---
Author Organization [address] Address [address] [place] [phone] Phone Care Team Providers Care Race And Sports Book Writer Name Role Phone Juana Flynn MD Primary Care Provider [phone] Allergies Active Allergy Reactions Criticality Noted Date Comments Aspirin Low 03/22/2024 Other Reaction(s): Numbness, tingling or swelling of the lips, tongue or mouth Iodinated Contrast Media 07/19/2024 Lumps Sulfa (Sulfonamide Antibiotics) 07/19/2024 Under eye pain Medications benztropine (COGENTIN) 1 mg tablet 12/29/19 25 Active traZODone (DESYREL) 50 mg tablet Take 1 tablet (50 mg total) by mouth at bedtime. 2 hrs after paliperidone. Active paliperidone (INVEGA) 6 mg 24 hr tablet Take 1 tablet (6 mg total) by mouth at bedtime. Do not crush, chew, or split. Active dilTIAZem CD (CARDIZEM CD) 180 mg 24 hr capsule TAKE 1 CAPSULE BY MOUTH 1 TIME EACH DAY. 90 capsule 1 01/25/20 25 Active fluticasone propionate (FLONASE) 50 mcg/actuation nasal spray SPRAY 2 SPRAYS INTO EACH NOSTRIL EVERY DAY SHAKE GENTLY. CLEAN TIP AND REPLACE CAP AFTER USE. 16 mL 4 01/28/20 25 Active lisinopril (PRINIVIL,ZES TRIL) 40 mg tablet Take 1 tablet (40 mg total) by mouth 1 (one) time each day. 90 tablet 1 02/01/20 25 Active metoprolol tartrate (LOPRESSOR) 25 mg tablet TAKE 1/2 TABLET IN THE MORNING AND 1 TABLET IN THE EVENING 135 tablet 1 04/03/20 Active carbidopa-lev odopa (SINEMET) 25-100 mg per tablet Take 1 tablet by mouth 3 (three) times a day. 04/12/20 Active terbinafine (LamISIL) 250 mg tablet Take 1 tablet (250 mg total) by mouth 1 (one) time each day. 30 tablet 2 05/10/20 25 2025 Active ciclopirox (PENLAC) 8 % solution Apply topically See administration instructions. Clean the nails with alcohol wipe and apply solution on to the nails and leave it for 7 days. Apply it every 7 days 6.6 mL 1 12/02/19 25 2024 Discontinued mupirocin (BACTROBAN) 2 % ointment Apply topically 3 (three) times a day for 7 days. 22 g 04/19/20 25 2024 Active Problems Problem Noted Date Diagnosed Date Paranoid delusion 07/19/2024 Seasonal allergies 07/19/2024 Hypertension 11/23/2023 Cataracts, bilateral 11/23/2023 Encounters Date Type Department Care Team Description 05/10/2025 2:30 PM EST Consult Orthopedic Surgery [address] [phone] Terrence Hilton, DPM Dermatophytosis of nail (Primary Dx); Pain in toe of right foot; Pain in toe of left foot; Difficulty walking; Bilateral femoral artery stenosis (CMS/HCC V24) 04/19/2025 1:30 PM EST Office Visit Adult Medicine [address] [phone] Sue Orellana PA Paronychia of second toe (Primary Dx); Onychomycosis 03/15/2025 Telephone Adult Medicine [address] [phone] Juana Flynn MD from Last 3 Months Immunizations Immunization Administration Dates Next Due Influenza Quadravalent, 0.5m l (Fluad) 65yo and older 02/11/2022 Influenza Quadravalent, 0.5m l (Fluzone High-dose) 65yo and older 02/19/2023,01/29/2021,03/16/2020 Influenza Quadrivalent, 0.5m l, preservative free (Fluarix; FluLaval; Fluzone) ages 6mo and older (Afluria) 3yo and older 02/11/2017,01/25/2016 Influenza trivalent, 0.5mL ( Fluzone High-dose) 65yo and older 02/16/2025,03/02/2024,02/15/2019,2017 Influenza trivalent, with preservative (Fluzone; Afluria) 6mo and older 03/10/2012 Pneumococcal conjugate 13 va lent (Prevnar 13, PCV13) 2mo and older 02/12/2018 Pneumococcal conjugate 20 va lent (Prevnar 20, PCV 20) 2mo and older 05/13/2024 Tdap Tetanus diptheria acell ular pertussis (Boostrix; Adacel) 7yo and older 10/11/2022,10/27/2012,05/25/2012 Surgical History Surgery Date Site/Laterality Comments OTHER SURGICAL HISTORY PROCEDURE: HISTORICAL UNSPECIFIED SURGERY; COMMENT: colposcopy? approx in for cervical cancer EYE SURGERY Medical History Medical History Date Comments History of cervical cancer Family History Medical History Relation Name Comments Alcohol/Drug Father Prostate cancer Father Heart attack Mother Grace Hypertension Mother Grace Relation Name Status Comments Father Mother Grace Social History Tobacco Use Types Packs/Day Years Used Date Smoking Tobacco: Former Cigarettes 2 5 0 11/22/1973 - 11/22/1978 Smokeless Tobacco: Never Tobacco Cessation:Counseling Given: Not Answered Comments:Puffed but did not inhale Alcohol Use [...] care for your loved ones. For example, early childhood special educator or elderly care for an older adult? [...] on file Sexual Orientation Not on file Obstetrics History Para Term AB IAB SAB Ectopic Multiple Livin g Live Births 1 1 1 1 Date Outcome GA Total Labor Labor/2nd/3rd Weight Sex Type Anes PTL Jeanine A1 A5 Name Clin Term Last Filed Vital Signs Vital Sign Reading Time Taken Comments Blood Pressure 118/72 04/19/2025 1:33 PM EST Pulse 64 04/19/2025 1:33 PM EST Temperature 36.4 C (97.5 F) 04/19/2025 1:33 PM EST Respiratory Rate 14 04/19/2025 1:33 PM EST Oxygen Saturation 98% 04/19/2025 1:33 PM EST Inhaled Oxygen Concentration - - Weight 72.3 kg (159 lb 6.4 oz) 04/19/2025 1:33 P M EST Height 160 cm (5' 3 ) 04/19/2025 1:33 PM EST Body Mass Index 28.24 04/19/2025 1:33 PM EST Plan of Treatment Upcoming Encounters Date Type Department Care Team (Late st Contact Info) Description 06/14/2025 3:30 PM EST Office Visit Orthopedic Surgery - [place] [phone] [phone] Terrence Hilton, DPM [address] [phone] 07/04/2025 10:00 AM EST Office Visit Adult Medicine [address] [phone] Juana Flynn MD [address] [place] [address] Health Maintenance Due Date Last Done Comments Colorectal Cancer Screening: Colonoscopy 1950 Hepatitis A Vaccines (1 of 2 - Risk 2-dose series) 08/24/1971 RSV Immunization Adult Patients (1 - Risk 50-74 years 1-dose series) 2002 Hepatitis B Vaccines (1 of 3 - Risk 3-dose series) 2012 Zoster Vaccines (2 of 3) 01/17/2014 11/22/2013 Hepatitis C Screening 07/12/2022 Medicare Annual Wellness Visit 07/12/2022 Osteoporosis Screening (Bone Density Screening) 07/12/2022 Social Influencers of Health Screening 04/12/2025 04/12/2024 Falls Risk Assessment 04/19/2025 04/19/2024 COVID-19 Vaccine ( season) 2025 02/16/2025, 03/02/2024, 02/25/2023, Additional history exists Hypertension/CHF/CAD Annual BMP Blood Test 10/26/2025 10/26/2024, 07/20/2018, 12/18/2010 Breast Cancer Screening 11/10/2026 11/10/2024, 10/04 Cholesterol Screening (Lipid Panel) 10/26/2029 10/26/2024, 11/18/2013 DTaP,Tdap,and Td Vaccines (4 - Td or Tdap) 10/11/2032 10/11/2022, 10/27/2012, 05/25/2012 Pneumococcal Vaccine: 50+ Years Completed 05/13/2024, 02/12/2018 Depression Screening Completed 10/25/2024 Influenza Vaccine Completed 02/16/2025, , 02/19/2023, Additional history exists HIB Vaccines Aged Out No longer eligi ble based on patient's age to complete this topic HPV Vaccines Aged Out No longer eligi ble based on patient's age to complete this topic IPV Vaccines Aged Out No longer eligi ble based on patient's age to complete this topic MMR Vaccines Aged Out No longer eligi ble based on patient's age to complete this topic Meningococcal ACWY Vaccine Aged Out N o longer eligible based on patient's age to complete this topic Meningococcal B Vaccine Aged Out No l onger eligible based on patient's age to complete this topic RSV Immunization Patients Under 20 months Aged Out No longer eligible based on patient's age to complete this topic Varicella Vaccines Aged Out No longer eligible based on patient's age to complete this topic Procedures Procedure Name Priority Date/Time Associated Diagnosis Comments EXTERNAL CLINICAL LAB 04/12/2025 EXTERNAL CLINICAL LAB 04/12/2025 MG MAMMO DIGITAL SCREENING W CELESTINE BILAT Routine 11/10/2024 1:20 PM EDT Screening mammogram for breast cancer COMPREHENSIVE METABOLIC PANEL Routine 10/26/2024 11:17 AM EDT Primary hypertension LIPID PANEL WITH REFLEX TO DIRECT LDL Routine 10/26/2024 11:17 AM EDT 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 us Provider [facility] LAB BLOOD ORDERABLES Fin al Result * MG Mammo Digital Screening w Celestine bilat (11/10/2024 1:20 PM EDT) Anatomical Region Laterality Modality Breast Bilateral Mammography 11/11/2024 8:44 AM EDT Impressions 11/11/2024 8:52 AM EDT BILATERAL BREASTS: Negative, no evidence of malignancy. Normal interval follow- up is recommended in 12 months. BREAST DENSITY: B - There are scattered areas of fibroglandular density. BI-RADS CATEGORY: 1 - NEGATIVE RECOMMENDATION: Screening bilateral mammogram is recommended in 1 year. Mammo Location: [facility], [address] [place] [address], [phone], . -------- FINAL REPORT -------- Dictated By: Ministerio Hernandez Dictated Date: 11/11/2024 08:44 ET Assigned Physician: Ministerio Hernandez Reviewed and Electronically Signed By: Ministerio Hernandez Signed Date: 11/11/2024 08:52 ET Workstation ID: [id number] Transcribed By: Self Edit Transcribed Date: 11/11/2024 08:49 ET Narrative 11/11/2024 8:52 AM EDT STUDY: Bilateral screening mammography with tomosynthesis and CAD History: Left bilateral diagnostic mammogram on June 30, 2016 at outside facility recommended 6 month follow-up (BIRADS 3). Apparently, patient did not return for the follow-up study. TECHNIQUE: Bilateral full-field digital screening mammography is obtained and read in conjunction with computer-aided detection. Tomosynthesis as well as 2-D C view imaging were obtained. COMPARISON: Comparison made to multiple prior, most recent bilateral diagnostic mammogram on June 30, 2016, and most remote December 12, 2014. BILATERAL BREASTS: No significant masses, suspicious calcifications or other abnormalities are seen in either breast. Procedure Note Ministerio Hernandez MD - 11/11/2024 STUDY: Bilateral screening mammography with tomosynthesis and CAD History: [facility] (BIRADS 3). Apparently,patient did not return for the follow-up study. TECHNIQUE: Bilateral full-field digital screening mammography is obtainedand read in conjunction with computer-aided detection. Tomosynthesis aswell as 2-D C view imaging were obtained. COMPARISON: Comparison made to multiple prior, most recent bilateraldiagnostic mammogram on June 30, 2016, and most remote December 12, 2014. BILATERAL BREASTS: No significant masses, suspicious calcifications orother abnormalities are seen in either breast. IMPRESSION: BILATERAL BREASTS: Negative, no evidence of malignancy. Normal intervalfollow-up is recommended in 12 months. BREAST DENSITY: B - There are scattered areas of fibroglandular density. BI-RADS CATEGORY: 1 - NEGATIVE RECOMMENDATION: Screening bilateral mammogram is recommended in 1 year. Mammo Location: [facility], [address] [place] [address], [phone], . -------- FINAL REPORT -------- Dictated By: Ministerio Hernandez Dictated Date: 11/11/2024 08:44 ET Assigned Physician: Ministerio Hernandez Reviewed and Electronically Signed By: Ministerio Hernandez Signed Date: 11/11/2024 08:52 ET Workstation ID: [id number] Transcribed By: Self Edit Transcribed Date: 11/11/2024 08:49 ET us Juana Flynn MD IMG BI PROCEDURES Final Result * (ABNORMAL) Lipid panel with reflex to direct LDL (10/26/2024 11:17 AM EDT) Cholesterol 240(H) 0 - 200 mg/dL LAB CHEMISTRY METHOD 10/26/2024 4:06 PM EDT [facility] Triglycerides 211(H) 0 - 150 mg/dL LAB CHEMISTRY METHOD 10/26/2024 4:06 PM EDT [facility] HDL 59 >=40 mg/dL LAB CHEMISTRY METHOD 10/26/2024 4:06 PM EDT [facility] LDL Calculated 139(H) 0 - 100 mg/dL LAB CHEMISTRY METHOD 10/26/2024 4:06 PM EDT [facility] VLDL Cholesterol Leland 42.2 mg/dL LAB CHEMISTRY METHOD 10/26/2024 4:06 PM EDT [facility] Non HDL Chol. (LDL+VLDL) 181(H) <145 mg/dL LAB CHEMISTRY METHOD 10/26/2024 4:06 PM [facility] Chol/HDL Ratio 4.1 0.0 - 4.4 LAB CHEMISTRY METHOD 10/26/2024 4:06 PM [facility] Blood Venous blood specimen / Unknown Venipuncture / Unknown 10/26/2024 11:17 AM EDT 10/26/2024 11:17 AM EDT us Juana Flynn MD LAB BLOOD ORDERABLES Final Resul t [facility] [address] [place] [address], * (ABNORMAL) Comprehensive metabolic panel (10/26/2024 11:17 AM EDT) Sodium 138 133 - 145 mmol/L LAB CHEMISTRY METHOD 10/26/2024 3:45 PM EDT [facility] Potassium 3.7 3.5 - 5.5 mmol/L LAB CHEMISTRY METHOD 10/26/2024 3:45 PM [facility] Chloride 101 96 - 110 mmol/L LAB CHEMISTRY METHOD 10/26/2024 3:45 PM [facility] CO2 32 21 - 32 mmol/L LAB CHEMISTRY METHOD 10/26/2024 3:45 PM [facility] Anion Gap 5 3 - 11 LAB CHEMISTRY METHOD 10/26/2024 3:45 PM [facility] Glucose 113(H) 70 - 100 mg/dL LAB CHEMISTRY METHOD 10/26/2024 3:45 PM [facility] BUN 16 5 - 25 mg/dL LAB CHEMISTRY METHOD 10/26/2024 3:45 PM [facility] Creatinine 0.90 0.50 - 1.10 mg/dL LAB CHEMISTRY METHOD 10/26/2024 3:45 PM [facility] eGFR 68 >=60 mL/min/1. 73m2 LAB CHEMISTRY METHOD 10/26/2024 3:45 PM [facility] Comment:Calculation based on the Chronic Kidney Disease Epidemiology Collaboration (CKD-EPI) equation refit without adjustment for race. BUN/Creatinine Ratio 17.8 LAB CHEMISTRY METHOD 10/26/2024 3:45 PM [facility] Calcium 9.9 8.5 - 10.5 mg/dL LAB CHEMISTRY METHOD 10/26/2024 3:45 PM [facility] AST (SGOT) 9(L) 10 - 42 unit/L LAB CHEMISTRY METHOD 10/26/2024 3:45 PM [facility] ALT (SGPT) 19 10 - 60 unit/L LAB CHEMISTRY METHOD 10/26/2024 3:45 PM [facility] Alkaline Phosphatase 91 42 - 121 unit/L LAB CHEMISTRY METHOD 10/26/2024 3:45 PM [facility] Total Protein 7.2 6.0 - 8.0 g/dL LAB CHEMISTRY METHOD 10/26/2024 3:45 PM EDT [facility] Albumin 4.1 3.2 - 5.0 g/dL LAB CHEMISTRY METHOD 10/26/2024 3:45 PM EDT [facility] Total Bilirubin 0.6 0.0 - 1.4 mg/dL LAB CHEMISTRY METHOD 10/26/2024 3:45 PM EDT [facility] Blood Venous blood specimen / Unknown Venipuncture / Unknown 10/26/2024 11:17 AM EDT 10/26/2024 11:17 AM EDT us Juana Flynn MD LAB BLOOD ORDERABLES Final Resul t [facility] [address] [place] [address], [place] [phone] from Last 3 Months or Most Recently Relevant to Health Maintenance Insurance [employer] Care Teams Race And Sports Book Writer Relationship Specialty Start Date End Date Juana Flynn MD [address] [place] [phone] PCP - General 11/13/23
--- OUTSIDE RECORDS SUMMARY | 2025-05-14 14:15 | XMS_ITS | Clinical Summary ---
Author Organization [facility] Address [address] [place] [phone] Phone Care Team Providers Care Rail Car Welder Name Role Phone Jessica Pastor Primary Care [...] a schedule II opioid drug. 5 Active [id number] on-FA-vit K-lut (CENTRUM MINIS WOMEN 50 PLUS) [...] cancer 02/21/2008 Overview (07/15/2014): cervical cancer; s/p [facility] Immunizations Immunization Administration Dates Next Due COVID-19 [...] REPLACEMENT [employer] REPLACEMENT MEDICARE PREFERRED HMO REPLACEMENT MEDICARE PART A & B MEDICARE PREFERRED HMO REPLACEMENT MEDICARE PART A & B MEDICARE PREFERRED HMO REPLACEMENT MEDICARE PART A & B MEDICARE PREFERRED HMO REPLACEMENT [employer] REPLAC[employer] MEDICARE PART A & B [employer] REPLACEMENT Care Teams Rail Car Welder Relationship Specialty Start Date End Date Jessica Pastor PA [address] [place] [phone] PCP - General 10/07/23 Additional Source Comments The information contained in this document represents components of the legal health record. It is not the complete legal health record.[facility]
== END 2025-05-14 14:13 | disposition home or self-care (01) ==
LOC: HO.MRI 14:12
PROVIDERS: PCP Internal Medicine; Visit Provider Psychiatry & Neurology Neurology
DX: G31.84 Mild cognitive impairment of uncertain or unknown etiology (principal); G21.11 Neuroleptic induced parkinsonism; T43.505A Adverse effect of unspecified antipsychotics and neuroleptics, initial encounter
CPT/HCPCS: 70551

== ENCOUNTER 2025-05-24 10:37 | Outpatient (AMB) | payer MEDICARE, SELFPAY ==
--- NOTE | 2025-05-24 10:55 | A.OFFVIS_ITS ---
Intake Visit Reasons: after MRI HPI Comments Details: 74 years old woman with schizoaffective disorders with mild cognitive impairment and features of parkinsonism. She is presenting for follow-up evaluation for worsening involuntary movements and confusion. Over the past month, she has experienced progressive confusion and an increase in involuntary hand movements, which were also noted by a visiting nurse. These movements reportedly began after she started taking a medication for Parkinsonian symptoms. Her pertinent past medical history includes schizoaffective disorder, for which she takes paliperidone. She has a history of three hospitalizations for psychotic breaks but has been more stabilized over the past year since starting paliperidone. She also takes three blood pressure medications. Recent workup included blood tests which were normal, a negative test for Alzhe rose's disease, and a brain MRI that showed only mild atrophy with minimal changes consistent with her age. Review of Systems Narrative - Neurological: Reports increased involuntary movements in her hands, described as intermittent jerking, and increased confusion with disorientation. - Psychiatric: Denies feeling depressed. - Constitutional: Reports feeling cold after her morning medications. Physical Exam Neuro Other: Mental Status: She is alert and awake with decreased spontaneity and fluency of speech and flat affect. Cranial Nerves: CN II: Visual miller full to confrontation, visual acuity intact. CN III, IV, : Pupils equal, round, reactive to light and accommodation. Extraocular movements are normal. CN V: Facial sensation is normal. CN VII: Facial movements symmetrical. CN VIII: Hearing intact to bedside conversation is normal. CN IX, X: Palate elevates symmetrically. CN XI: Shoulder shrug and head turn symmetrical. CN XII: Tongue midline without atrophy or fasciculations. Motor: Bulk and tone normal in all extremities. No significant muscle weakness in arms and legs. No drift. Gait: Slow and cautious. Extrapyramidal: Decreased facial expression blinking. No significant tremor noted. No cogwheeling rigidity. Speech: Normal; no dysarthria or tremor. Results Reviewed Results Reviewed: Laboratory Tests 04/12/25 14:57 Vitamin B12 601 Folate 10.6 Amyloid Score (APS2) 0.0216 Abeta42/40 Ratio 0.177 Amyloidosis Interpret Low Likelihood Amyloid Beta 42 Peptide 52 Amyloid Beta 40 Peptide 293 Phosphorylated Tau [address]: Kamryn Ordoñez MD Ordering Physician: Kamryn Ordoñez MD Date of Service: 05/14/25 Procedure(s): MR head/brain wo con Accession Number(s): [id number] cc: Kamryn Ordoñez MD; Juana Flynn MD~ Reason for Exam: G31.84 - Mild cognitive impairment of uncertain or unknown etiology EXAMINATION: MR BRAIN WITHOUT IV CONTRAST HISTORY: G31.84 - Mild cognitive impairment of uncertain or unknown etiology TECHNIQUE: Sagittal T1, and axial T1, FLAIR, T2, gradient echo, and diffusion weighted MR images of the brain were obtained. COMPARISON: There are no prior studies available for comparison. FINDINGS: The pituitary is normal in size. The cerebellar tonsils are normally located. There is mild prominence of the ventricular system and cortical sulci, consistent with atrophy. Scattered periventricular and subcortical white matter hyperintensities are noted on the FLAIR and T2-weighted images which are nonspecific, but often seen in the setting of small vessel ischemic disease. There is no mass effect or midline shift. No intra or extra-axial fluid collections are identified. There are no foci of restricted diffusion. Normal vascular flow voids are noted in the basilar and carotid arteries. The visualized paranasal sinuses are clear. MR/MR head/brain wo con IMPRESSION: Mild cerebral atrophy and findings consistent with small vessel ischemic disease of the white matter as described. No evidence of an acute infarct. Assessment & Plan Assessment & Plan (1) MCI (mild cognitive impairment): Comment: MRI brain WO at [facility] in Apr 2025: Mild diff atrophy and mild MVD Code(s): G31.84 - Mild cognitive impairment of uncertain or unknown etiology Category: Medical (2) Parkinsonism: Code(s): G20.C - Parkinsonism, unspecified Category: Medical Qualifiers: Parkinsonism type: secondary Parkinsonism Secondary Parkinsonism type: neuroleptic-induced Qualified Code(s): G21.11 - Neuroleptic induced parkinsonism; T43.505A - Adverse effect of unspecified antipsychotics and neuroleptics, initial encounter Plan Impression: a: Mild cognitive impairment b: Underlying psychortic disorder with diagnosis of schizoaffective do c: 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 I explained that the Parkinsonian syndrome is likely a side effect of her paliperidone medication. Due to the new report of intermittent jerking movements in her hands, I have ordered an EEG to rule out seizures as a potential cause. I recommended she continue the carbidopa-levodopa at this time. The results of this evaluation will be forwarded to her primary care physician and psychiatrist to guide further management of her medications. 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
--- OUTSIDE RECORDS SUMMARY | 2025-05-24 11:51 | XMS_ITS | Encounter Summary ---
Author Organization [facility] [place] [address] Care Team Providers Care Audit Lead Name Role Phone Juana Flynn MD Primary Care Provider [phone] Reason for Visit * Reason Onset Date Comments faxed vna orders 05/17/2025 [facility]enh[facility] [id number] Encounter Details Date Type Department Care Team (Late st Contact Info) Description 05/17/2025 Telephone Adult Medicine [address] [phone] Juana Flynn MD [address] [place] [address] Social History Tobacco Use Types Packs/Day Years [...] Record ed Within the last 3 months, emma campos many times did you visit the emergency [...] for your loved ones. For example, children's literature professor or elderly care for an older adult? [...] on file documented as of this encounter Progress Notes * Kiara Walker - 05/17/2025 1:48 PM EST Faxed order received from [facility] [id number] please sign and fax to [phone]. documented in this encounter Plan of Treatment Upcoming Encounters Date Type Department Care Team (Late st Contact Info) Description 06/14/2025 3:30 PM EST Office Visit Orthopedic Surgery - [place] [address] [phone] Terrence Hilton, DPM [address] [phone] 07/04/2025 10:00 AM EST Office Visit Adult Medicine [address] [phone] Juana Flynn MD [address] [place] [address] documented as of this encounter Visit Diagnoses Not on filedocumented in this encounter Additional Health Concerns Assessment Noted Time PHQ-9 Depression Total Score: 0 10/26/19 25 4:07 PM EDT documented as of this encounter Care Teams Audit Lead Relationship Specialty Start Date End Date Juana Flynn MD [address] [place] [address] PCP - General 11/13/23 documented as of this encounter
--- OUTSIDE RECORDS SUMMARY | 2025-05-24 11:51 | XMS_ITS | Encounter Summary ---
Author Organization [facility] [place] [address] Care Team Providers Care Electronic Scale Assembler And Tester Name Role Phone Juana Glover MD Primary Care Provider Reason for Visit * Reason Onset Date Comments vna 05/23/2025 Encounter Details Date Type Department Care Team ([facility] st Contact Info) Description 05/23/2025 Telephone Adult Medicine [address] [phone] Juana Glover MD [address] [place] [address] Social History Tobacco Use Types Packs/Day Years [...] care for your loved ones. For example, rn maternal child or elderly care for an older adult? [...] as of this encounter Progress Notes * Vicki Cerda RN - 05/23/2025 3:06 PM EST Pt is groggy in the morning, perks up by afternoon, she is slow to respond but is not confused, taking pt and has no complaints nurse is wondering if this is due to her meds , podiatry started Lamisil, neurology prescribed sinemet and BH prescribed cogentin, nurse to advise son to call re med f/u if she needs to see dr glover will book sooner than 07/04 scheduled visit Pt is seeing dr nestor horta * Mart Edwarddor - 05/23/2025 2:58 PM EST [facility]NA CALL Which [facility] office is calling? [facility]enhall Full name of caller: Jose The caller is A nurse Is the caller at the patients home?: no Reason for call: Patient is reporting some side effects from new medication terbinafine - some dizziness and movement jerkiness , unsure if it is a side effect of new medication , would like to let pcp office know Does caller need an urgent call back? no Was CONTACT Telephone # obtained above?: yes Fax #: documented in this encounter Plan of Treatment Upcoming Encounters Date Type Department Care Team (Late st Contact Info) Description 06/14/2025 3:30 PM EST Office Visit Orthopedic Surgery - [place] [address] [phone] Terrence Hilton, DPM [address] [phone] 07/04/2025 10:00 AM EST Office Visit Adult Medicine [address] [phone] Juana Glover MD [address] [place] [address] documented as of this encounter Visit Diagnoses Not on filedocumented in this encounter Additional Health Concerns Assessment Noted Time PHQ-9 Depression Total Score: 0 10/26/19 25 4:07 PM EDT documented as of this encounter Care Teams Electronic Scale Assembler And Tester Relationship Specialty Start Date End Date Juana Glover MD [address] [place] [phone] PCP - General 11/13/23 documented as of this encounter
--- OUTSIDE RECORDS SUMMARY | 2025-05-24 11:52 | XMS_ITS | Clinical Summary ---
Author Organization [address] Address [address] [place] [phone] Phone Care Team Providers Care Track Subway Repair Supervisor Name Role Phone Juana Flynn MD Primary Care Provider [phone] Allergies Active Allergy Reactions Criticality Noted Date Comments Aspirin Low 03/22/2024 Other Reaction(s): Numbness, tingling or swelling of the lips, tongue or mouth Iodinated Contrast Media 07/19/2024 Lumps Sulfa (Sulfonamide Antibiotics) 07/19/2024 Under eye pain Medications benztropine (COGENTIN) 1 mg tablet 5 Active traZODone (DESYREL) 50 mg tablet Take [...] 1 TIME EACH DAY. 90 capsule 1 5 Active fluticasone propionate (FLONASE) 50 mcg/actuation nasal spray SPRAY 2 SPRAYS INTO EACH NOSTRIL EVERY DAY SHAKE GENTLY. CLEAN TIP AND REPLACE CAP AFTER USE. 16 mL 4 5 Active lisinopril (PRINIVIL,ZESTR IL) 40 mg tablet Take 1 tablet (40 mg total) by mouth 1 (one) time each day. 90 tablet 1 5 Active metoprolol tartrate (LOPRESSOR) 25 mg tablet TAKE 1/2 TABLET IN THE MORNING AND 1 TABLET IN THE EVENING 135 tablet 1 Active carbidopa-levod opa (SINEMET) 25-100 mg per tablet Take 1 tablet by mouth 3 (three) times a day. Active terbinafine (LamISIL) 250 mg tablet Take 1 tablet (250 mg total) by mouth 1 (one) time each day. 30 tablet 2 5 08/09/19 Active mupirocin (BACTROBAN) 2 % ointment Apply topically 3 (three) times a day for 7 days. 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 Seasonal allergies 07/19/2024 Hypertension 11/23/2023 Cataracts, bilateral 11/23/2023 Encounters Date Type Department Care Team Description 05/23/2025 Telephone Adult Medicine [address] [phone] Juana Flynn MD 05/17/2025 Telephone Adult Medicine [address] [phone] Juana Flynn MD 05/10/2025 2:30 PM EST Consult Orthopedic Surgery [address] [phone] Terrence Hilton, DPM Dermatophytosis of nail (Primary Dx); Pain in toe of right foot; Pain in toe of left foot; Difficulty walking; Bilateral femoral artery stenosis (CMS/HCC V24) 04/19/2025 1:30 PM EST Office Visit Adult [address] [phone] Sue Orellana PA Paronychia of second toe (Primary Dx); Onychomycosis 03/15/2025 Telephone Adult [address] [phone] Juana Flynn MD from Last 3 Months [...] care for your loved ones. For example, child care cook or elderly care for an older adult? [...] PM EST Office Visit Orthopedic Surgery - [place] [phone] [phone] Terrence Hilton, DPM [address] [phone] 07/04/2025 10:00 AM EST Office Visit Adult Medicine [address] [phone] Juana Flynn MD [address] [place] [address] Health Maintenance Due Date Last Done Comments [...] Name Priority Date/Time Associated Diagnosis Comments EXTERNAL MRI REPORT 05/14/2025 EXTERNAL MRI REPORT 05/14/2025 EXTERNAL CLINICAL LAB 04/12/2025 EXTERNAL CLINICAL LAB 04/12/2025 MG MAMMO DIGITAL SCREENING W CELESTINE BILAT Routine 11/10/2024 1:20 PM EDT Screening mammogram for breast cancer COMPREHENSIVE METABOLIC PANEL Routine 10/26/2024 11:17 AM EDT Primary hypertension LIPID PANEL WITH REFLEX TO DIRECT LDL Routine 10/26/2024 11:17 AM EDT 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 Anatomical Region Laterality Modality Magnetic Resonan ce us Provider [facility] IMG MRI PROCEDURES Final Result * External clinical lab (04/12/2025) Only the [...] is recommended in 1 year. Mammo Location: [facility], [address] [place] [address], [address], . -------- FINAL REPORT -------- Dictated By: Ministerio Hernandez Dictated Date: 11/11/2024 08:44 ET Assigned Physician: Ministerio Hernandez Reviewed and Electronically Signed By: Ministerio Hernandez Signed Date: 11/11/2024 08:52 ET Workstation ID: [id number] Transcribed By: Self Edit Transcribed Date: 11/11/2024 [...] [facility] 6 [facility] follow-up (BIRADS 3). Apparently,patient [...] is recommended in 1 year. Mammo Location: [facility], [address] [place] [address], [id number], . -------- FINAL REPORT -------- Dictated By: Ministerio Hernandez Dictated Date: 11/11/2024 08:44 ET Assigned Physician: Ministerio Hernandez Reviewed and Electronically Signed By: Ministerio Hrenandez Signed Date: 11/11/2024 08:52 ET Workstation ID: [id number] Transcribed By: Self Edit Transcribed Date: 11/11/2024 08:49 ET us Juana Flynn MD IMG BI PROCEDURES Final Result * (ABNORMAL) Lipid panel with reflex to direct LDL (10/26/2024 11:17 AM EDT) Cholesterol 240(H) 0 - 200 mg/dL LAB CHEMISTRY METHOD 10/26/2024 4:06 PM EDT [facility] Triglycerides 211(H) 0 - 150 mg/dL LAB CHEMISTRY METHOD 10/26/2024 4:06 PM EDT [facility] HDL 59 >=40 mg/dL LAB CHEMISTRY METHOD 10/26/2024 4:06 PM EDT [facility] LDL Calculated 139(H) 0 - 100 mg/dL LAB CHEMISTRY METHOD 10/26/2024 4:06 PM EDT [facility] VLDL Cholesterol Leland 42.2 mg/dL LAB CHEMISTRY METHOD 10/26/2024 4:06 PM EDT [facility] Non HDL Chol. (LDL+VLDL) 181(H) <145 mg/dL LAB CHEMISTRY METHOD 10/26/2024 4:06 PM EDT [facility] Chol/HDL Ratio 4.1 0.0 - 4.4 LAB CHEMISTRY METHOD 10/26/2024 4:06 PM EDT [facility] Blood Venous blood specimen / Unknown Venipuncture / Unknown 10/26/2024 11:17 AM EDT 10/26/2024 11:17 AM EDT us Juana Flynn MD LAB BLOOD ORDERABLES Final Resul t [facility] [address] [place] [address], [place] [phone] * (ABNORMAL) Comprehensive metabolic panel (10/26/2024 11:17 AM EDT) Sodium 138 133 - 145 mmol/L LAB CHEMISTRY METHOD 10/26/2024 3:45 PM [facility] Potassium 3.7 3.5 - 5.5 mmol/L LAB CHEMISTRY METHOD 10/26/2024 3:45 PM [facility] Chloride 101 96 - 110 mmol/L LAB CHEMISTRY METHOD 10/26/2024 3:45 PM [facility] CO2 32 21 - 32 mmol/L LAB CHEMISTRY METHOD 10/26/2024 3:45 PM [facility] Anion Gap 5 3 - 11 LAB CHEMISTRY METHOD 10/26/2024 3:45 PM [facility] Glucose 113(H) 70 - 100 mg/dL LAB CHEMISTRY METHOD 10/26/2024 3:45 PM [facility] BUN 16 5 - 25 mg/dL LAB CHEMISTRY METHOD 10/26/2024 3:45 PM [facility] Creatinine 0.90 0.50 - 1.10 mg/dL LAB CHEMISTRY METHOD 10/26/2024 3:45 PM [facility] eGFR 68 >=60 mL/min/1. 73m2 LAB CHEMISTRY METHOD 10/26/2024 3:45 PM [facility] Comment:Calculation based on the Chronic Kidney Disease Epidemiology Collaboration (CKD-EPI) equation refit without adjustment for race. BUN/Creatinine Ratio 17.8 LAB CHEMISTRY METHOD 10/26/2024 3:45 PM [facility] Calcium 9.9 8.5 - 10.5 mg/dL LAB CHEMISTRY METHOD 10/26/2024 3:45 PM [facility] AST (SGOT) 9(L) 10 - 42 unit/L LAB CHEMISTRY METHOD 10/26/2024 3:45 PM [facility] ALT (SGPT) 19 10 - 60 unit/L LAB CHEMISTRY METHOD 10/26/2024 3:45 PM EDT [facility] Alkaline Phosphatase 91 42 - 121 unit/L LAB CHEMISTRY METHOD 10/26/2024 3:45 PM EDT [facility] Total Protein 7.2 6.0 - 8.0 g/dL LAB CHEMISTRY METHOD 10/26/2024 3:45 PM EDT [facility] Albumin 4.1 3.2 - 5.0 g/dL LAB CHEMISTRY METHOD 10/26/2024 3:45 PM EDT [facility] Total Bilirubin 0.6 0.0 - 1.4 mg/dL LAB CHEMISTRY METHOD 10/26/2024 3:45 PM EDT [facility] Blood Venous blood specimen / Unknown Venipuncture / Unknown 10/26/2024 11:17 AM EDT 10/26/2024 11:17 AM EDT us Juana Flynn MD LAB BLOOD ORDERABLES Final Resul t [facility] [address] [place] [address], from Last 3 Months or Most Recently Relevant to Health Maintenance Insurance [employer] Care Teams Track Subway Repair Supervisor Relationship Specialty Start Date End Date Juana Flynn MD [address] [place] [phone] [facility] - General 11/13/23
--- OUTSIDE RECORDS SUMMARY | 2025-05-24 11:52 | XMS_ITS | Clinical Summary ---
Author Organization Located Within [facility] Address [address] [place] [phone] Phone Care Team Providers Care Cord Tire Builder Name Role Phone Jessica Pastor Primary Care [...] a schedule II opioid drug. 5 Active [id number]-[id number] on-FA-vit K-lut (CENTRUM MINIS WOMEN 50 PLUS) [...] cancer 02/21/2008 Overview (07/15/2014): cervical cancer; s/p [facility] Immunizations Immunization Administration Dates Next Due [...] [employer] P[employer]PLACEMENT Care Teams Cord Tire Builder Relationship Specialty Start Date End Date Jessica Pastor PA [address] [place] [phone] PCP - General 10/07/23 Additional Source Comments The information contained in this document represents components of the legal health record. It is not the complete legal health record.Located [facility]
--- OUTSIDE RECORDS SUMMARY | 2025-07-06 19:00 | XMS_ITS | Clinical Summary ---
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 Care Technician Name Role Phone MEGAN CHUN, MELO Unavailable Unavailable GERONIMO TRACEY, TIFFANY Unavailable Unavailable Payers Payer Name Policy Type Policy Number Effective Date Expira tion Date [employer]AGE [id number] MEDICARE - [facility] [id number] Problems Condition Name Condition Details Condition Category [...] 07-13 00:00: 00 03-13 23:59 :00 No [id number] 1 tablet DAILY 1 tablet DAILY (route: oral) Med Classific ation: Electroly te Balance-N utritiona l Products cyanocobala min (vit B-12) 1,000 mcg tablet 07-13 00:00: 00 2025- 06-12 23:59 :00 No [id number] 1 tablet DAILY 1 tablet DAILY (route: oral) Med Classific ation: Electroly te Balance-N utritiona l Products diltiazem ER (XR/XT) 180 mg capsule,ext ended release 24 hr, controlled 2-19 00:00: 00 03-13 23:59 :00 No [id number] 1 capsule DAILY 1 capsule DAILY (route: oral) Med Classific ation: Cardiovas cular Therapy Agents docusate sodium 100 mg capsule - 00:00: 00 03-13 23:59 :00 No [id number] 1 capsule 2 TIMES DAILY 1 capsule 2 TIMES DAILY (route: oral) Med Classific ation: Gastroint estinal Therapy Agents lisinopril 40 mg tablet - 00:00: 00 03-13 23:59 :00 No [id number] 1 tablet EVERY AM 1 tablet EVERY AM (route: oral) Med Classific ation: Cardiovas cular Therapy Agents metoprolol tartrate 25 mg tablet - 00:00: 00 03-13 23:59 :00 No [id number] 1 tablet 2 TIMES DAILY 1 tablet 2 TIMES DAILY (route: oral) Med Classific ation: Cardiovas cular Therapy Agents multivitami n with minerals tablet 07-13 00:00: 00 03-13 23:59 :00 No [id number] 1 tablet DAILY 1 tablet DAILY (route: oral) Med Classific ation: Electroly te Balance-N utroscara l Products paliperidon e ER 9 mg tablet,exte nded release 24 hr - 00:00: 00 12-01 23:59 :00 No [id number] 1 tablet BEDTIME 1 tablet BEDTIME (route: oral) Med Classific ation: Central Nervous System Agents metoprolol tartrate 25 mg tablet 6-19 00:00: 00 11-17 23:59 :00 No [id number] 1 tablet BEDTIME 1 tablet BEDTIME (route: oral) Med Classific ation: Cardiovas cular Therapy Agents benztropine 1 mg tablet -15 00:00: 00 03-13 23:59 :00 No [id number] 1 tablet EVERY PM 1 tablet EVERY PM (route: oral) Med Classific ation: Central Nervous System Agents paliperidon e ER 6 mg tablet,exte nded release 24 hr 12-01 00:00: 00 03-13 23:59 :00 No [id number] 1 tablet EVERY PM 1 tablet EVERY PM (route: oral) Med Classific ation: Central Nervous System Agents trazodone 50 mg tablet 12-01 00:00: 00 03-13 23:59 :00 No [id number] 1 tablet BEDTIME 1 tablet BEDTIME (route: oral) Med Classific ation: Central Nervous System Agents polyethylen e glycol 3350 17 gram/dose oral powder 12-21 00:00: 00 03-13 23:59 :00 No [id number] Per instruc tions DAILY Per instructio ns DAILY (route: oral) Med Classific ation: Gastroint estinal Therapy Agents benztropine 1 mg tablet 2024-05 00:00: 00 Yes [id number] 1 tablet EVERY PM 1 tablet EVERY PM (route: oral) Med Classific ation: Central Nervous System Agents cholecalcif beverley (vitamin D3) 10 mcg (400 unit) tablet 2024-05 00:00: 00 Yes [id number] 1 tablet EVERY AM 1 tablet EVERY AM (route: oral) Med Classific ation: Electroly te Balance-N utritiona l Products diltiazem ER (XR/XT) 180 mg capsule,ext ended release 24 hr, controlled 2024-05 00:00: 00 Yes [id number] 1 capsule EVERY AM 1 capsule EVERY AM (route: oral) Med Classific ation: Cardiovas cular Therapy Agents docusate sodium 100 mg capsule 2024-05 00:00: 00 Yes [id number] 1 capsule 2 TIMES DAILY 1 capsule 2 TIMES DAILY (route: oral) Med Classific ation: Gastroint estinal Therapy Agents lisinopril 40 mg tablet 2024-05 00:00: 00 Yes [id number] 1 tablet EVERY AM 1 tablet EVERY AM (route: oral) Med Classific ation: Cardiovas cular Therapy Agents metoprolol tartrate 25 mg tablet 2024-05 00:00: 00 04-14 00:00 :00 No [id number] 1 tablet 2 TIMES DAILY 1 tablet 2 TIMES DAILY (route: oral) Med Classific ation: Cardiovas cular Therapy Agents multivitami n with minerals tablet 2024-05 00:00: 00 Yes [id number] 1 tablet EVERY AM 1 tablet EVERY AM (route: oral) Med Classific ation: Electroly te Balance-N utritiona l Products paliperidon e ER 6 mg tablet,exte nded release 24 hr 2024-05 00:00: 00 Yes [id number] 1 tablet EVERY PM 1 tablet EVERY PM (route: oral) Med Classific ation: Central Nervous System Agents polyethylen e glycol 3350 17 gram/dose oral powder 2024-05 00:00: 00 Yes [id number] Per instruc tions NEEDED Per instructio ns NEEDED (route: oral) Med Classific ation: Gastroint estinal Therapy Agents trazodone 50 mg tablet 2024-05 00:00: 00 Yes [id number] 1 tablet BEDTIME 1 tablet BEDTIME (route: oral) Med Classific ation: Central Nervous System Agents carbidopa 25 mg-levodopa 100 mg tablet 2024-05 00:00: 00 Yes [id number] 1 tablet 3 TIMES DAILY 1 tablet 3 TIMES DAILY (route: oral) Med Classific ation: Central Nervous System Agents metoprolol succinate ER 25 mg tablet,exte nded release 24 hr 2024-05 00:00: 00 Yes [id number] 12.5 mg EVERY AM 12.5 mg EVERY AM (route: oral) Med Classific ation: Cardiovas cular Therapy Agents terbinafine HCl 250 mg tablet 2024-05 00:00: 00 08-04 23:59 :00 No [id number] 1 tablet EVERY AM 1 tablet EVERY AM (route: oral) Med Classific ation: Anti-Infe ctive Agents Vital Signs Vital Name Observation Time Observation Value Commen ts Temperature 2025-05-15 12:25:00.000 98.2 [degF] Temperature 2025-05-12 11:39:00.000 98.2 [degF] Pulse 2025-05-22 10:11:00.000 58 /min Pulse 2025-05-12 11:39:00.000 55 /min Respirations 2025-05-15 12:25:00.000 14 /min Respirations 2025-05-12 11:39:00.000 14 /min Systolic Blood Pressure 2025-05-22 10:11:00.000 137 mm [Hg] Systolic Blood Pressure 2025-05-15 12:26:00.000 101 mm [Hg] Systolic Blood Pressure 2025-05-12 11:39:00.000 128 mm [Hg] Diastolic Blood Pressure 2025-05-22 10:11:00.000 77 mm [Hg] Diastolic Blood Pressure 2025-05-15 12:26:00.000 64 mm [Hg] Diastolic Blood Pressure 2025-05-12 11:39:00.000 72 mm [Hg] Plan of Treatment Planned Activity Planned Date Details Comments Future Scheduled Test SKILLED NU RSE TO EVALUATE PATIENT, IDENTIFY PRIMARY AND CO-MORBID CONDITIONS CODED PER CODING GUIDELINES, AND DEVELOP PATIENT SPECIFIC PLAN OF CARE THAT INCLUDES PATIENT GOAL FOR HOME HEALTH. PLAN OF CARE TO INCLUDE 3 PRN VISIT(S) FOR OASIS DATA COLLECTION/COMPREHENSIVE ASSESSMENT AT TIMEPOINTS PER FEDERAL REGULATIONS. THIS INCLUDES VISITS FOR CATALINO, RECERT, SCIC, AND/OR DC. [code = SKILLED NURSE TO EVALUATE PATIENT, IDENTIFY PRIMARY AND CO-MORBID CONDITIONS CODED PER CODING GUIDELINES, AND DEVELOP PATIENT SPECIFIC PLAN OF CARE THAT INCLUDES PATIENT GOAL FOR HOME HEALTH. PLAN OF CARE TO INCLUDE 3 PRN VISIT(S) FOR OASIS DATA COLLECTION/COMPREHENSIVE ASSESSMENT AT TIMEPOINTS PER FEDERAL REGULATIONS. THIS INCLUDES VISITS FOR CATALINO, RECERT, SCIC, AND/OR DC.] Future Scheduled Test SKILLED NU RSE TO PERFORM HOME SAFETY AND FALL ASSESSMENT AND PROVIDE INSTRUCTION TO IMPLEMENT HOME SAFETY AND FALL PREVENTION STRATEGIES. [code = SKILLED NURSE TO PERFORM HOME SAFETY AND FALL ASSESSMENT AND PROVIDE INSTRUCTION TO IMPLEMENT HOME SAFETY AND FALL PREVENTION STRATEGIES.] Future Scheduled Test SKILLED NU RSE FOR OBSERVATION AND ASSESSMENT OF PATIENT S PAIN LEVEL AND EFFECTIVENESS OF PAIN MANAGEMENT REGIMEN. SKILLED NURSE TO INSTRUCT PATIENT/CAREGIVER REGARDING PHARMACOLOGIC AND NON-PHARMACOLOGIC PAIN CONTROL MEASURES. SKILLED NURSE TO REPORT TO PHYSICIAN IF PAIN IS UNCONTROLLED WITH CURRENT PAIN MANAGEMENT REGIMEN. [code = SKILLED NURSE FOR OBSERVATION AND ASSESSMENT OF PATIENT S PAIN LEVEL AND EFFECTIVENESS OF PAIN MANAGEMENT REGIMEN. SKILLED NURSE TO INSTRUCT PATIENT/CAREGIVER REGARDING PHARMACOLOGIC AND NON-PHARMACOLOGIC PAIN CONTROL MEASURES. SKILLED NURSE TO REPORT TO PHYSICIAN IF PAIN IS UNCONTROLLED WITH CURRENT PAIN MANAGEMENT REGIMEN.] Future Scheduled Test SKILLED NU RSE TO O/A OF PATIENTS MENTAL/BEHAVIORAL STATUS, ASSESS VITAL SIGNS EACH SNV ALLOW 2 PRNS FOR MEDICATION MANAGEMENT. [code = SKILLED NURSE TO O/A OF PATIENTS MENTAL/BEHAVIORAL STATUS, ASSESS VITAL SIGNS EACH SNV ALLOW 2 PRNS FOR MEDICATION MANAGEMENT.] Future Scheduled Test SKILLED NU RSE WILL MAINTAIN SITUATIONAL AWARENESS FOR SAFETY AND WILL NOTIFY CLINICAL LEVEL VIAL INSIDE GRINDER AND PHYSICIAN/PROVIDER WITH ANY CHANGE IN CONDITION. [code = SKILLED NURSE WILL MAINTAIN SITUATIONAL AWARENESS FOR SAFETY AND WILL NOTIFY CLINICAL LEVEL VIAL INSIDE GRINDER AND PHYSICIAN/PROVIDER WITH ANY CHANGE IN CONDITION.] [...] COMPLICATIONS] Future Scheduled Test SKILLED NU RSE FOR O/A OF ALTERED THOUGHT PROCESS AND/OR DISRUPTION IN COGNITIVE OPERATIONS AND ACTIVITIES [code = SKILLED NURSE FOR O/A OF ALTERED THOUGHT PROCESS AND/OR DISRUPTION IN COGNITIVE OPERATIONS AND ACTIVITIES] Future Scheduled Test SKILLED NU RSE MAY PICKUP AND TRANSPORT MEDICATIONS [code = SKILLED NURSE MAY PICKUP AND TRANSPORT MEDICATIONS] Future Scheduled Test SKILLED NU RSE FOR O/A AND SKILLED TEACHING RELATED TO MANAGEMENT OF DEPRESSIVE SYMPTOMS AND/OR DEPRESSION. SN TO REPORT SIGNIFICANT CHANGE IN DEPRESSIVE SYMPTOMS TO CLINICAL PROVIDER FOR EARLY INTERVENTION. [code = SKILLED NURSE FOR O/A AND SKILLED TEACHING RELATED TO MANAGEMENT OF DEPRESSIVE SYMPTOMS AND/OR DEPRESSION. SN TO REPORT SIGNIFICANT CHANGE IN DEPRESSIVE SYMPTOMS TO CLINICAL PROVIDER FOR EARLY INTERVENTION.] Future Scheduled Test SKILLED NU RSE FOR O/A AND SKILLED TEACHING OF COPING SKILLS TO MANAGE ANXIETY AND MAINTAIN SAFETY. [code = SKILLED NURSE FOR O/A AND SKILLED TEACHING OF COPING SKILLS TO MANAGE ANXIETY AND MAINTAIN SAFETY.] Goal 2024-09-07 Patient Goal - MEDICATION MA NAGEMENT Goal Patient Goal - M EDICATION MANAGEMENT, IMPROVED SLEEP PATTERN MEDICATION COMPLIANCE STRUCTURED DAILY LIVING Goal 2025-05-05 Patient Goal - M EDICATION MANAGEMENT, IMPROVED SLEEP PATTERN MEDICATION COMPLIANCE STRUCTURED DAILY LIVING Goal 2025-03-06 Patient Goal - M EDICATION MANAGEMENT, IMPROVED SLEEP PATTERN MEDICATION COMPLIANCE STRUCTURED DAILY LIVING Goal 2025-01-04 Patient Goal - M EDICATION MANAGEMENT INSOMNIA, SLEEP HYGEINE MEDICATION COMPLIANCE, STRU CTURED DAILY LIVING Goal 2024-11-07 Patient Goal - MEDICATION MA NAGEMENT Goal Provider Goal - A PLAN OF CARE WILL BE ESTABLISHED THAT MEETS PATIENT'S [facility] NEEDS AND INCLUDES PATIENT GOAL FOR HOME HEALTH. Goal Provider Goal - PATIENT/CAREGIVER WILL VERBALIZE/DEMONSTRATE EFFECTIVE HOME SAFETY AND FALL PREVENTION STRATEGIES THROUGHOUT CERTIFICATION PERIOD. Goal Provider Goal - PATIENT/CAREGIVER WILL DEMONSTRATE UNDERSTANDING OF PHARMACOLOGIC AND NONPHARMACOLOGIC PAIN CONTROL MEASURES AND PATIENT WILL HAVE IMPROVEMENT IN PAIN INTERFERING WITH ACTIVITY EVIDENCED BY PAIN AT A LEVEL THAT IS ACCEPTABLE TO THE PATIENT AND PAIN LEVEL WITHIN ESTABLISHED PARAMETERS BY END OF CERTIFICATION PERIOD. Goal Provider Goal - ALTERED [...] THROUGHOUT CERTIFICATION PERIOD. Goal Provider Goal - SKILLED NURSE PICKED UP AND TRANSPORTED MEDICATIONS FOR SAFETY. Goal Provider Goal - PATIENT WILL REMAIN SAFE WITHOUT DECOMPENSATION IN DEPRESSIVE CONDITION, WHILE MAINTAINING OPTIMAL LEVEL OF MENTAL HEALTH AND WELL BEING THROUGHOUT CERTIFICATION PERIOD. Goal Provider Goal - PATIENT WILL BE ABLE TO PERFORM DAILY FUNCTIONS AND HAVE OPTIMAL IMPROVEMENT IN LEVEL OF ANXIETY THROUGHOUT CERTIFICATION PERIOD. Progress Notes Progress Notes <paragraph>[Visit Date: 2024 by TIFFANY MELTON RN]:</paragraph><paragraph>05/22/25. PT'S SON CONCERNED ABOUT PT'S DROWSINESS IN MORNING AFTER TAKING MED\ICATIONS. RN OBSERVED JERKING MOVMEMNTS OF HANDS/ARMS. RN LEFT MESSAGE WITH PCP.. PT HAS APPT WITH NEUROLOGIST THURSDAY. WILL DISCUSS SIDE EFFECTS. PT ALERT AND ORIENTED. SLOW RESPONSES, FLAT AFFECT, POOR EYE CONTACT, DENEIS PAIN.FALLS</paragraph> Encounters Start Date/Time End Date/Time Encounter Type Admission Type Attending [facility] Care Facility Care Department Encounter ID Discharge Date Discharge Status Discharge Condition Discharge Reason Percent Goals Met 2025-05-09 00:00:00 2025-07-07 [facility] [id number] 20.00
== END 2025-05-24 11:09 | disposition home or self-care (01) ==
LOC: HO.HSM 10:38
PROVIDERS: PCP Internal Medicine; Visit Provider Psychiatry & Neurology Neurology
DX: G31.84 Mild cognitive impairment of uncertain or unknown etiology (principal); G21.11 Neuroleptic induced parkinsonism; T43.505A Adverse effect of unspecified antipsychotics and neuroleptics, initial encounter
CPT/HCPCS: 99214

== ENCOUNTER → 2025-05-24 10:37 | Outpatient (BNVA) | payer MEDICARE, SELFPAY | PROVIDERS: PCP Internal Medicine; Visit Provider Psychiatry & Neurology Neurology | DX: G31.84 Mild cognitive impairment of uncertain or unknown etiology (principal); G21.11 Neuroleptic induced parkinsonism; T43.505A Adverse effect of unspecified antipsychotics and neuroleptics, initial encounter; F25.9 Schizoaffective disorder, unspecified | CPT/HCPCS: 99212 ==